=== PATIENT | female | born 1965 | race Caucasian/White ===

== ENCOUNTER 2023-12-19 19:32 | Emergency (ER) | payer BC, SELFPAY ==
[2023-12-19 19:37] VITALS: BP 130/72; PULSE 76; TEMP 36.4; O2SAT 99; BMI 44.8
--- NOTE | 2023-12-19 19:54 | ED.GENADUL1 ---
HPI HPI - General Adult General Chief complaint: Abdominal Pain Stated complaint: Nausea Time Seen by Provider: 12/19/23 19:45 Source: patient Mode of arrival: walk-in Limitations: no limitations History of Present Illness HPI narrative: 58-year-old female presents for abdominal pain. It started today and it has been there all day. She states this mostly on the right side and she has a known history of gallstones but they have never given her any problem. She has been nauseous and threw up but has not had diarrhea or fever. No hematemesis. The pains been continuous. Related Data Home Medications ?Medication ?Instructions ?Recorded ?Confirmed beclomethasone dipropionate 40 1 inh inhalation QDAY PRN wheezing 12/19/23 12/19/23 mcg/actuation HFA breath activated aerosol (Qvar RediHaler) furosemide 20 mg tablet 20 mg PO QDAY 12/19/23 12/19/23 insulin lispro 100 unit/mL 1 sliding scale dose continuous IV 12/19/23 12/19/23 subcutaneous solution (Humalog infusion .hourly PRN hyperglycemia U-100 Insulin) levothyroxine 88 mcg tablet 88 mcg PO QDAY 12/19/23 12/19/23 pantoprazole 40 mg tablet,delayed 40 mg PO QDAY 12/19/23 12/19/23 release tirzepatide 10 mg/0.5 mL 10 mg subcut .weekly 12/19/23 12/19/23 subcutaneous pen injector (Mounjaro) Allergies Allergy/AdvReac Type Severity Reaction Status Date / Time naproxen (From Aleve) Allergy ill Verified 12/19/23 19:45 morphine AdvReac Unknown Verified 12/19/23 19:45 Opioid HPI Opioid Management Most Recent Opioid Data: Last Pain Scale 3 12/19/23 21:20 12/19/23 Review of Systems ROS Narrative A ten point review of systems is negative except as noted above. PFSH PFSH Social History Little interest or pleasure in doing things: not at all Feeling down, depressed, or hopeless: not at all Exam Narrative Exam Narrative: Nurses note and vital signs reviewed and patient is not hypoxic. General: The patient appears uncomfortable. Skin: Warm, dry, no pallor noted. There is no rash noted. Head: Normocephalic, atraumatic Eye: Normal conjunctiva, no drainage Ears, Nose, Mouth, and Throat: oral mucosa is moist. Nares patent. Cardiovascular: Regular Rate and Rhythm Respiratory: Patient is in no distress, no accessory muscle use, lungs are clear to auscultation, no wheezing, rales or rhonchi Back: non-tender GI: She has tenderness diffusely on the right side of her abdomen. No rebound or guarding. Musculoskeletal: The patient has no evidence of calf tenderness, no pitting edema, symmetrical pulses noted bilaterally Neurological: A&O, normal speech Psychiatric: Cooperative Constitutional Vital Signs, click to edit/add: Last Vital Signs Temp 97.5 F L 12/19/23 19:37 Pulse 74 12/19/23 21:20 Resp 18 12/19/23 21:20 BP 102/59 12/19/23 21:20 Pulse Ox 97 12/19/23 21:20 O2 Del Method Room Air 12/19/23 21:20 Course Vital Signs Vital signs: Vital Signs Temperature 97.5 F L 12/19/23 19:37 Pulse Rate 76 12/19/23 19:37 Respiratory Rate 16 12/19/23 19:37 Blood Pressure 130/72 12/19/23 19:37 Pulse Oximetry 99 12/19/23 19:37 Temperature 97.5 F L 12/19/23 19:37 Pulse Rate 74 12/19/23 21:20 Respiratory Rate 18 12/19/23 21:20 Blood Pressure 102/59 12/19/23 21:20 Pulse Oximetry 97 12/19/23 21:20 Oxygen Delivery Method Room Air 12/19/23 21:20 Medical Decision Making MDM Narrative Medical decision making narrative: CT per radiologist suggest acute cholecystitis. She does not have a fever and does not have an elevated WBC but her lipase is minimally elevated. No CT findings of pancreatitis. I spoke to our general surgeon who defers to a larger institution. The patient initially requested [facility] but they are unable to accommodate her. I have spoken to the hospitalist service at [facility] and she is excepted there. She is stable and agreeable for transfer and was given IV Zosyn here. Treatment diagnosis and disposition were discussed with the patient. Differential Diagnosis Differential Diagnosis: Acute cholecystitis, biliary colic, cholelithiasis, nonspecific abd pain Lab Data Lab results reviewed: Yes I reviewed the patient's lab results Labs: Lab Results 12/19/23 Range/Units 20:05 WBC 5.0 (4.0-11.0) 10^3/uL RBC 4.55 (4.20-5.40) 10^6/uL Hgb 13.3 (12.0-16.0) g/dL Hct 40.7 (36.0-48.0) % MCV 89.5 (81.0-99.0) fL MCH 29.2 (26.7-34.0) pg MCHC 32.7 (29.9-35.2) g/dL RDW 15.6 H (11.0-15.0) % Plt Count 87 L (150-450) 10^3/uL MPV 11.2 (9.5-13.5) fL Neut % (Auto) 70.0 (43.0-75.0) % Lymph % (Auto) 17.5 L (20.5-60.0) % Marshall % (Auto) 10.1 (1.7-12.0) % Eos % (Auto) 0.8 L (0.9-7.0) % Baso % (Auto) 1.4 (0.2-2.0) % Neut # (Auto) 3.5 (1.4-6.5) 10^3/uL Lymph # (Auto) 0.9 L (1.2-3.8) 10^3/uL Marshall # (Auto) 0.5 (0.3-0.8) 10^3/uL Eos # (Auto) 0.0 (0.0-0.7) 10^3/uL Baso # (Auto) 0.1 (0.0-0.1) 10^3/uL Abs Immat Gran (auto) 0.01 (0.00-0.03) 10^3/uL Imm/Tot Granulo (auto) 0.2 (0.0-0.5) % Sodium 143 (136-145) mmol/L Potassium 3.9 (3.5-5.1) mmol/L Chloride 108 H (98-107) mmol/L Carbon Dioxide 24.6 (21.0-32.0) mmol/L Anion Gap 14.3 BUN 6.0 L (7.0-18.0) mg/dL Creatinine 0.79 (0.55-1.02) mg/dL Est GFR ( Amer) >60 (>=60 mL/min/1.73m^2) Est GFR (Non-Af Amer) >60 (>=60 mL/min/1.73m^2) BUN/Creatinine Ratio 7.6 Glucose 257 H (74-106) mg/dL Calcium 9.8 (8.5-10.1) mg/dL Total Bilirubin 1.0 (0.2-1.0) mg/dL Direct Bilirubin 0.3 H (0.0-0.2) mg/dL AST 52 H (15-37) U/L ALT 39 (14-59) U/L Alkaline Phosphatase 138 H (46-116) U/L Total Protein 6.9 (6.4-8.2) g/dL Albumin 3.1 L (3.4-5.0) g/dL Globulin 3.8 g/dL Albumin/Globulin Ratio 0.8 Amylase 98 (25-115) U/L Lipase 272.0 H (16.0-77.0) U/L Imaging Data CT scan - abdomen: Radiologist's impression: ITS Impressions Abdomen/Pelvis CT 12/19/23 20:40 IMPRESSION: Multiple gallstones are seen within a distended gallbladder. Mild gallbladder wall thickening/pericholecystic fluid may be seen. Right upper quadrant ultrasound may be considered for further evaluation. Findings of liver cirrhosis with portal hypertension. Significant dilated recanalized umbilical vein is seen. 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 Large volume of stool seen throughout the colon. Mild circumferential wall thickening of the urinary bladder cannot be excluded. Please correlate clinically for mild infectious/inflammatory process. Electronically authenticated by: CATIA PARRY Date: 12/19/2023 23:04 Discharge Plan Discharge Chief Complaint: Abdominal Pain Clinical Impression: Acute cholecystitis Patient Disposition: [facility] Time of Disposition Decision: 00:44 Discharge Location: [facility] Condition: Fair Mode of Transportation: EMS Prescriptions / Home Meds: No Action levothyroxine 88 mcg tablet 88 mcg PO QDAY furosemide 20 mg tablet 20 mg PO QDAY insulin lispro [Humalog U-100 Insulin] 100 unit/mL solution 1 sliding scale dose continuous IV infusion .hourly PRN (Reason: hyperglycemia) Qvar RediHaler 40 mcg/actuation HFA aerosol breath activated 1 inh INHALATION QDAY PRN (Reason: wheezing) Mounjaro 10 mg/0.5 mL pen injector 10 mg SUBCUT .weekly pantoprazole 40 mg tablet,delayed release (DR/EC) 40 mg PO QDAY Print Language: Portuguese Instructions: Cholecystitis (ED) Referrals: Physician,Non-Staff, MD [Primary Care Provider] - 1 week
[2023-12-19] MEDS: ONDANSETRON PF 4 MG/2 ML VIAL IV (20:12)
[2023-12-19] MEDS: HYDROMORPHONE HCL 1 MG/ML CARTRIDGE IV (20:12)
[2023-12-19 20:23] LABS: Basophils Absolute Auto 0.1 10^3/uL (0.0-0.1); Basophils Percent Auto 1.4 % (0.2-2.0); Eosinophils Percent Auto 0.8 % (0.9-7.0); Hematocrit 40.7 % (36.0-48.0); Hemoglobin 13.3 g/dL (12.0-16.0); Immature Granulocytes Abs Auto 0.01 10^3/uL (0.00-0.03); Immature Granulocytes Pct Auto 0.2 % (0.0-0.5); Lymphocytes Absolute Auto 0.9 10^3/uL (1.2-3.8); Lymphocytes Percent Auto 17.5 % (20.5-60.0); Mean Corpuscular HGB Conc 32.7 g/dL (29.9-35.2); Mean Corpuscular Hemoglobin 29.2 pg (26.7-34.0); Mean Corpuscular Volume 89.5 fL (81.0-99.0); Mean Platelet Volume 11.2 fL (9.5-13.5); Monocytes Absolute Auto 0.5 10^3/uL (0.3-0.8); Monocytes Percent Auto 10.1 % (1.7-12.0); Neutrophils Absolute Auto 3.5 10^3/uL (1.4-6.5); Platelet Count 87 10^3/uL (150-450); Red Blood Count 4.55 10^6/uL (4.20-5.40); Red Cell Distribution Width 15.6 % (11.0-15.0)
[2023-12-19 20:36] LABS: Alanine Aminotransferase 39 U/L (14-59); Albumin Globulin Ratio 0.8; Albumin Level 3.1 g/dL (3.4-5.0); Alkaline Phosphatase 138 U/L (46-116); Amylase 98 U/L (25-115); Anion Gap 14.3; Aspartate Amino Transferase 52 U/L (15-37); BUN Creatinine Ratio 7.6; Bilirubin Direct 0.3 mg/dL (0.0-0.2); Calcium 9.8 mg/dL (8.5-10.1); Carbon Dioxide 24.6 mmol/L (21.0-32.0); Chloride 108 mmol/L (98-107); Estimated GFR (African America >60 (>=60 mL/min/1.73m^2); Estimated GFR (Non-African Ame >60 (>=60 mL/min/1.73m^2); Globulin 3.8 g/dL; Glucose 257 mg/dL (74-106); Potassium 3.9 mmol/L (3.5-5.1); Sodium 143 mmol/L (136-145); Total Protein 6.9 g/dL (6.4-8.2)
--- NOTE | 2023-12-19 20:40 | CT_ITS ---
The [address] [address] Patient Name: FABIANO WILSON MRN: [id number] date: 1965 Sex: F Assigned Patient Location: ER Current Patient Location: ER Accession/Order Number: [id number] Exam Date: 12/19/2023 21:20 Report Date: 12/19/2023 23:04 At the request of: CARLOS BROWN Procedure: CT abdomen pelvis w con EXAM: CT abdomen pelvis w con HISTORY: Upper abdominal pain, history of gallstones COMPARISON: None. TECHNIQUE: Multiple axial images of the abdomen and pelvis are obtained following IV contrast administration. Coronal and sagittal reformatted sequences are submitted for review. FINDINGS: The lung bases are clear. Heart size is normal. Multiple paraesophageal varices are seen. Distended gallbladder is seen with multiple layering gallstones. Mild gallbladder wall thickening/pericholecystic fluid may be seen. A right upper quadrant ultrasound may be considered for further evaluation. No significant intrahepatic or extrahepatic biliary dilatation is seen. Micronodular liver surface is seen. No obvious liver mass is identified. Significant distended recanalized umbilical vein is seen. Prominent spleen is seen, which measures 15.5 cm in length. Multiple perisplenic varices are visualized. The pancreas and bilateral adrenal glands appear unremarkable. Bilateral kidneys demonstrate normal size, morphology and contrast enhancement. There is no evidence for hydronephrosis bilaterally. Mild circumferential wall thickening of the urinary bladder cannot be excluded. Please correlate clinically for mild infectious/inflammatory process. Nonobstructive bowel pattern is seen. The appendix is not identified. Large volume of stool is seen in the colon. No significant bowel wall thickening is seen. No significant free fluid or abnormal fluid collection is seen in the abdomen and pelvis. Mild aortic and iliac arterial calcification is seen without aneurysmal dilatation. No destructive osseous lesion is seen. CT/CT abdomen pelvis w con IMPRESSION: Multiple gallstones are seen within a distended gallbladder. Mild gallbladder wall thickening/pericholecystic fluid may be seen. Right upper quadrant ultrasound may be considered for further evaluation. Findings of liver cirrhosis with portal hypertension. Significant dilated recanalized umbilical vein is seen. 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 Large volume of stool seen throughout the colon. Mild circumferential wall thickening of the urinary bladder cannot be excluded. Please correlate clinically for mild infectious/inflammatory process. Electronically authenticated by: CATIA PARRY Date: 12/19/2023 23:04
[2023-12-19 21:20] VITALS: BP 102/59; PULSE 74; O2SAT 97
[2023-12-20] MEDS: PIPERACILLIN SODIUM/TAZOBACTAM 3.375 GM in 0.9 % SODIUM CHLORIDE 50 ML IV (00:04)
[2023-12-20 01:37] VITALS: BP 106/65; PULSE 89; O2SAT 98
[2023-12-20] MEDS: HYDROMORPHONE HCL 1 MG/ML CARTRIDGE IV (01:58)
== END 2023-12-20 02:51 | disposition short-term general hospital (02) ==
PROVIDERS: Emergency Provider Emergency Medicine
DX: K81.0 Acute cholecystitis (principal)
CPT/HCPCS: 36415; 74177; 80048; 80076; 82150; 83690; 85025; 99285; J1171; J2405; J2543; Q9967

== ENCOUNTER 2023-12-26 00:53 | Emergency (ER) | payer BC, SELFPAY ==
[2023-12-26 00:58] VITALS: BP 117/69; PULSE 76; TEMP 36.8; O2SAT 98; BMI 44.6
--- OUTSIDE RECORDS SUMMARY | 2023-12-26 01:01 | XMS_ITS | CCD ---
Author Organization [facility] CliniSyil Care Team Providers Care Access Database Developer Name Role Phone Ce Simons Primary Care Provider Unavailable Primary Care Provider Unavailabl e Mallory PA-C, Daniel E Primary Care Provider Mallory PA-C, Daniel E Primary Care Provider MALLORY, DANIEL E Primary Care Unavailable BALKSCARLETT Referring Unavailable BALK, SCARLETT Attending Unavailable MALLORY, DANIEL E Primary Care Unavailable BALK, SCARLETT Referring Unavailable BALK, SCARLETT Attending Unavailable MALLORY, DANIEL E Primary Care Unavailable BALK, SCARLETT Attending Unavailable BALK, SCARLETT Referring Unavailable MALLORY, DANIEL E Primary Care Unavailable BALK, SCARLETT Attending Unavailable BALK, SCARLETT Referring Unavailable MALLORY, DANIEL E Primary Care Unavailable KHALLAFI, ASIFHAM Referring Unavailable KHALLAFI, HICHAM Attending Unavailable MALLORY, DANIEL E Primary Care Unavailable KHALLAFI, HICHAM Attending Unavailable KHALLAFI, HICHAM Admitting Unavailable MALLORY, DANIEL E Primary Care Unavailable BALK, SCARLETT Referring Unavailable BALK, SCARLETT Attending Unavailable MALLORY, DANIEL E Primary Care Unavailable BALK, SCARLETT Attending Unavailable BALK, SCARLETT Referring Unavailable MALLORY, DANIEL E Primary Care Unavailable BALK, SCARLETT Referring Unavailable BALK, SCARLETT Attending Unavailable MALLORY, DANIEL E Primary Care Unavailable BALK, SCARLETT Referring Unavailable MALLORY, DANIEL E Primary Care Unavailable BALK, SCARLETT Attending Unavailable BALK, SCARLETT Referring Unavailable MALLORY, DANIEL E Primary Care Unavailable BALK, SCARLETT Attending Unavailable BALK, SCARLETT Referring Unavailable MALLORY, DANIEL E Primary Care Unavailable BALK, SCARLETT Attending Unavailable BALK, SCARLETT Referring Unavailable MALLORY, DANIEL E Primary Care Unavailable BALK, SCARLETT Referring Unavailable BALK, SCARLETT Attending Unavailable MALLORY, DANIEL E Primary Care Unavailable BALK, SCARLETT Referring Unavailable BALK, SCARLETT Attending Unavailable MALLORY, DANIEL E Primary Care Unavailable BALK, SCARLETT Attending Unavailable BALK, SCARLETT Referring Unavailable BALK, SCARLETT Attending Unavailable MALLORY, DANIEL E Primary Care Unavailable BALK, SCARLETT Referring Unavailable MALLORY, DANIEL E Primary Care Unavailable BALK, SCARLETT Attending Unavailable BALK, SCARLETT Referring Unavailable MALLORY, DANIEL E Primary Care Unavailable BALK, SCARLETT Referring Unavailable BALK, SCARLETT Attending Unavailable MALLORY, DANIEL E Primary Care Unavailable BALK, SCARLETT Attending Unavailable BALK, SCARLETT Referring Unavailable MALLORY, DANIEL E Primary Care Unavailable CE HERRERA Referring Unavailable MALLORY, DANIEL E Primary Care Unavailable BALK, SCARLETT Attending Unavailable BALK, SCARLETT Referring Unavailable MALLORY, DANIEL E Primary Care Unavailable ADENIKE STEVE Referring Unavailable BALK, SCARLETT Attending Unavailable MALLORY, DANIEL E Primary Care Unavailable BALK, SCARLETT Referring Unavailable MALLORY, DANIEL E Primary Care Unavailable JNK, SCARLETT Referring Unavailable BALK, SCARLETT Attending Unavailable MALLORY, DANIEL E Primary Care Unavailable ADENIKE STEVE Attending Unavailable SARAHAFASIF RamirezHAM Admitting Unavailable MALLORY, DANIEL E Primary Care Unavailable BALK, SCARLETT Attending Unavailable JNK, SCARLETT Referring Unavailable BALK, SCARLETT Attending Unavailable MALLORY, DANIEL E Primary Care Unavailable JNKSCARLETT Referring Unavailable PATRICE MALLORY Attending Unavailable MALLORY, DANIEL E Primary Care Unavailable PATRICE MALLORY Referring Unavailable MALLORY, DANIEL E Primary Care Unavailable NATHAN COHEN Attending Unavailable PATRICE MALLORY Referring Unavailable MALLORY, DANIEL E Primary Care Unavailable PATRICE MALLORY Attending Unavailable MALLORY, DANIEL E Primary Care Unavailable MARI SOMERS Attending Unavailable MEKA, JENNIFER Referring Unavailable CHRISSY MOSER Attending Unavailable PAUL LAZO Attending Unavailable GUTHRIESCARLETT Referring Unavailable MEKAJENNIFER Attending Unavailable SCARLETT GUTHRIE Referring Unavailable RADHA GRIFFITH Attending Unavailable MALLORY, DANIEL E Primary Care Unavailable DUSTIN PACHECO Consulting Unavailable PATRICE LUX Admitting Unavailable PATRICE LUX Attending Unavailable CARLOS BROWN Referring Unavailable MYA MORRISON Consulting Unavailable Allergies Allergy Classification Reported Allergen(s) Allergy Type Date of Onset Reaction(s) Facility NSAIDs (1 source) Naproxen Drug Allergy 2 GI Upset [facility] (11 sources) Naproxen; Translations: [NAPROXEN SODIUM] Drug Allergy 2 GI Upset, Unknown [facility] Other [facility] (10 sources) Morphine; Translations: [MORPHINE] Drug Allergy 3 Other: See Comments, Unknown [facility] (6 sources) Non-steroidal anti-inflammato ry agent Propensity to adverse reactions to drug 3 Nausea Only [facility] (2 sources) Silicone adhesive tape Propensity to adverse reactions to drug 3 Rash [facility] (3 sources) Adhesive agent; Translations: [ADHESIVE] Drug Intolerance 3 Rash [facility] (1 source) NSAIDs; Translations: [NSAIDS (NON-STEROIDAL ANTI-INFLAMMATO RY DRUG)] Propensity to adverse reactions to drug (disorder) 3 [facility] Repository Medications Current Medications Medication Drug Class(es) Dates Sig (Normalized) Sig (Original) albuterol 0.83 mg/ml inhalation solution (10 sources) beta2-Adrenergic Agonist Start: 07-23-2022 albuterol 2.5 mg /3 mL (0.083 %) nebulizer solution Start: 07-23-2022 take 2.5 mg by inhal ation every eight hours as needed albuterol (PROVENTIL) 2.5 mg /3 mL (0.083 %) nebulizer solution Use 3 mL via nebulizer three times daily as needed for wheezing/shortness of breath. Inhale over 5-15 minutes 50 mL 1 07/23/2022 Active Start: 07-20-2022 take 2 puff(s) by in halation every four hours as needed for wheezing albuterol HFA (PROVENTIL HFA, VENTOLIN HFA) 90 mcg/actuation inhaler Inhale 2 Puffs as instructed every 4 hours as needed for wheezing/shortness of breath. 1 Each 0 07/20/2022 Active Comment on above: Inhale 2 Puffs as in structed every 4 hours as needed for wheezing/shortness of breath. Use 3 mL via nebuliz er three times daily as needed for wheezing/shortness of breath. Inhale over 5-15 minutes amoxicillin 500 mg oral capsule (7 sources) Penicillin-class Antibacterial Start: 2022 take 4 capsules by mouth every hour amoxicillin (Amoxil) 500 mg capsule TAKE 4 CAPSULES BY MOUTH ONE HOUR PRIOR TO DENTAL APPOINTMENT. 0 10/30/2022 Active breath-actuated 120 actuat beclomethasone dipropionate 0.04 mg/actuat metered dose inhaler (7 sources) Corticosteroid Start: 2022 beclomethasone HFA (Qvar) 40 mcg/actuation inhaler Inhale 2 Inhalations 2 times a day. 0 08/14/2022 Active Start: 08-14-2022 take 2 puff(s) by in halation twice daily beclomethasone (QVAR REDIHALER) 40 MCG/ACT AERB inhaler Indications: Mild persistent reactive airway disease with acute exacerbation Inhale 2 puffs into the lungs 2 times daily 0 08/14/2022 Active Start: 08-14-2022 take 2 puff(s) by in halation twice daily beclomethasone (QVAR REDIHALER) 40 mcg/actuation inhaler Inhale 2 Puffs as instructed twice daily. 3 Each 3 08/14/2022 Active Comment on above: Inhale 2 Puffs as in structed twice daily. benzonatate 200 mg oral capsule (7 sources) Non-narcotic Antitussive Start: take 1 capsule by mouth twice daily as needed for cough benzonatate (TESSALON) 200 MG capsule Indications: Mild persistent reactive airway disease with acute exacerbation , Subacute cough Take 1 capsule by mouth 2 times daily as needed for Cough 180 capsule 4 09/18/2022 Active Start: 07-23-2022 End: 07-23-2022 take 1 capsule by mouth every eight hours as needed benzonatate (TESSALON PERLES) 100 mg capsule Take 1 capsule by mouth three times daily as needed for cough. 30 capsule 0 07/23/2022 Active Comment on above: Take 1 capsule by [facility] three times daily as needed for cough. Take 100 mg by mouth three times daily as needed. betamethasone 0.0005 mg/mg topical ointment (4 sources) Corticosteroid Start: 09-19-19 23 betamethasone dipropionate 0.05 % ointment Apply topically 2 times daily. 60 g 2 09/18/2022 Active blood glucose monitor kit and supplies (4 sources) Start: 09-18-19 blood glucose monitor kit and supplies Indications: Type 2 diabetes mellitus with hyperglycemia, with long-term current use of insulin (HCC) Dispense one meter that insurance will cover. 1 kit 0 09/17/2022 Active Continuous Blood Gluc Sensor (DEXCOM G7 SENSOR) MISC (4 sources) Start: 09-18-19 Continuous Blood Gluc Sensor (DEXCOM G7 SENSOR) MISC 1 Device by Does not apply route every 10 days 12 each 10 09/17/2022 Active dulaglutide (Trulicity) 3 mg/0.5 mL pen injector (2 sources) Start: 12-10-19 dulaglutide (Trulicity) 3 mg/0.5 mL pen injector Inject Trulicity 1.5 mg once weekly for 4 weeks, increase to 3.0 mg injected once weekly in 1 month if no nausea or vomiting 0 12/09/2022 Active famotidine 20 mg oral tablet (5 sources) Histamine-2 Receptor Antagonist Start: 11-25-19 take 1 tablet by mouth once famotidine (Pepcid) 20 mg tablet Take 1 tablet (20 mg) by mouth 1 time. 0 11/24/2022 Active take 1 tablet by mouth once famo tidine (PEPCID) 20 MG tablet Take 1 tablet by mouth once 0 Active ferrous sulfate 325 mg oral tablet (6 sources) Start: 09-18-2022 ferrous sulfat e 325 (65 Fe) MG tablet Take 1 tablet (325 mg) by mouth. 0 09/18/2022 Active Start: 09-18-2022 take 1 tablet by leonard th once daily at breakfast ferrous sulfate ([employer] IRON) 325 (65 Fe) MG tablet Take 1 tablet by mouth daily (with breakfast) 90 tablet 3 09/18/2022 Active fluconazole 150 mg oral tablet (2 sources) Azole Antifungal take 1 tablet by mouth once fluconazole (Diflucan) 150 mg tablet TAKE 1 TABLET BY MOUTH 1 TIME FOR 1 DOSE. 0 Active fluticasone propionate 0.05 mg/actuat metered dose nasal spray (10 sources) Corticosteroid Start: 09-18-2022 fluticasone (FLONASE) 50 MCG/ACT nasal spray fluticasone propionate 50 mcg/actuation nasal spray,suspension 3 each 4 09/18/2022 Active Start: 07-23-2022 take 2 spray(s) nasa l route once daily fluticasone (FLONASE) 50 mcg/actuation nasal spray Use 2 Sprays in each nostril once daily. 48 g 3 07/23/2022 Active Start: 07-23-2022 take 1 puff(s) by in halation once daily fluticasone furoate (ARNUITY ELLIPTA) 100 mcg/actuation inhaler Inhale 1 Puff as instructed once daily. 30 Each 11 07/23/2022 Active End: 07-23-2022 take 1 spray(s) nasal route once daily fluticasone (FLONASE) 50 mcg/actuation nasal spray Use 1 [place] in each nostril once daily. 0 07/23/2022 Discontinued End: 07-23-2022 take 1 puff(s) by inhalation twice daily FLUTICASONE PROPIONATE (FLOVENT DISKUS INHALATION) Inhale as instructed. Use one puff twice daily. 0 07/23/2022 Discontinued (Course of therapy completed) Comment on above: Use 1 [place] in each nostril once daily. Inhale 1 Puff as ins tructed once daily. Use 2 Sprays in each nostril once daily. Inhale as instructed . Use one puff twice daily. glimepiride 1 mg oral tablet (5 sources) Sulfonylurea take 1 tablet by mouth twice daily glimepiride (Amaryl) 1 mg tablet Take 1 tablet (1 mg) by mouth 2 times a day. 0 Active End: 07-23-2022 take 1 tablet by mouth once daily at breakfast glimepiride 2 mg tablet Take 2 mg by mouth daily with breakfast. 0 07/23/2022 Discontinued (Course of therapy completed) Comment on above: Take 1 mg by mouth t wice daily with meals. Take 2 mg by mouth d aily with breakfast. Handicap Placard MISC (4 sources) Start: 08-22-2022 Handicap Placard MISC Indications: Chronic pain of both knees by Does not apply route Good for 5 years, 08/24/2027. 2 each 0 08/22/2022 Active ibuprofen 800 mg oral tablet (9 sources) Nonsteroidal Anti-inflammatory Drug Start: 09-19-2022 ibuprofen 800 mg tablet TAKE 1 TABLET THREE TIMES A DAY WITH FOOD NEEDED FOR JOINT PAIN 0 09/19/2022 Active Start: 09-19-2022 take 1 tablet by leonard th every six hours as needed for pain ibuprofen (ADVIL;MOTRIN) 800 MG tablet Indications: Chronic pain of both knees Take 1 tablet by mouth every 6 hours as needed for Pain 120 tablet 3 09/19/2022 Active End: 07-15-2012 take 1 tablet by mouth every six hours as needed ibuprofen (MOTRIN) 800 mg tablet Take 800 mg by mouth every 6 hours as needed. 0 Active Comment on above: Take 800 mg by mouth every 6 hours as needed. 3 ml insulin glargine 100 unt/ml / lixisenatide 0.033 mg/ml pen injector (10 sources) Insulin Analog Start: 10-28-2022 SOLIQUA 100-33 UNT-MCG/ML SOPN Indications: Type 2 diabetes mellitus with hyperglycemia, without long-term current use of insulin (HCC) Inject 45 units nightly, Increase by 2 units every 1-2 weeks to achieve a glucose of 150-200 10 Adjustable Dose Pre-filled Pen Syringe 3 10/28/2022 Active Start: 10-27-2022 Insulin Glargi ne-Lixisenatide (SOLIQUA) 100-33 UNT-MCG/ML SOPN Lot [id number] exp 12/06/22 gave 2 pens 2 Adjustable Dose Pre-filled Pen Syringe 0 10/27/2022 Active insulin glargine -lixisenatide (SOLIQUA 100/33) 100 unit-33 mcg/mL inpn Inject 15 Units subcutaneously once daily. Do not mix with other insulins. 0 Active Comment on above: Inject 15 Units subc utaneously once daily. Do not mix with other insulins. 3 ml insulin lispro 100 unt/ml pen injector (3 sources) Insulin Analog Start: 10-30-2022 insulin lispro, 1 Unit Dial, (HUMALOG KWIKPEN) 100 UNIT/ML SOPN Inject 20 Units into the skin 3 times daily (before meals) 60 mL 3 10/30/2022 Active levothyroxine sodium 0.088 mg oral tablet (4 sources) l-Thyroxine Start: 11-03-2022 levothyroxine (SYNTHROID) 88 MCG tablet Indications: Hypothyroidism, unspecified type Take 1 tablet daily 90 tablet 3 11/03/2022 Active Start: 10-28-2022 take 1 tablet by mouth once le vothyroxine (SYNTHROID) 88 MCG tablet Indications: Hypothyroidism, unspecified type Take 1 tablet by mouth once for 1 dose 90 tablet 3 10/28/2022 Active magnesium oxide 400 mg oral tablet (6 sources) Start: 07-20-2022 take 1 tablet by mouth once daily magnesium oxide (MAG-OX) 400 MG tablet Indications: Hypomagnesemia Take 1 tablet by mouth daily 0 07/20/2022 Active Comment on above: Take 1 tablet by leonard once daily. meclizine hydrochloride 25 mg oral tablet (4 sources) Antiemetic Start: 08-22-2022 meclizine (ANTIVERT) 25 MG tablet Indications: Benign paroxysmal positional vertigo, unspecified laterality Take 1 tablet by mouth as needed for Dizziness 90 tablet 3 08/22/2022 Active 24 hr metFORMIN hydrochloride 500 mg extended release oral tablet (3 sources) Biguanide Start: 11-13-2022 take 2 tablets by mouth twice daily before mealtime metFORMIN (GLUCOPHAGE-XR) 500 MG extended release tablet Take 2 tablets by mouth 2 times daily (before meals) 360 tablet 3 11/13/2022 Active Start: 10-30-2022 take 2 tablets by mo [facility] once daily at breakfast metFORMIN (GLUCOPHAGE-XR) 500 MG extended release tablet Take 2 tablets by mouth daily (with breakfast) 180 tablet 3 10/30/2022 Active microencapsulated potassium chloride 20 meq extended release oral tablet (1 source) Start: 07-20-2022 End: 07-25-2022 take 1 tablet by mouth once daily potassium chloride ER (KLOR-CON) 20 mEq tablet Take 1 tablet by mouth once daily for 5 days. 5 tablet 0 07/20/2022 07/25/2022 Active Comment on above: Take 1 tablet by leonard once daily for 5 days. predniSONE 20 mg oral tablet (2 sources) Start: 07-20-2022 End: 07-24-2022 take 2 tablets by mouth once daily predniSONE (DELTASONE) 20 mg tablet Take 2 tablets by mouth once daily for 4 days. 8 tablet 0 07/20/2022 07/24/2022 Active End: 07-23-2022 predniSONE 5 mg tablet Take 5 mg by mouth. Take one every other day. 0 07/23/2022 Discontinued (Course of therapy completed) Comment on above: Take 2 tablets by mo [facility] once daily for 4 days. Take 5 mg by mouth. Take one every other day. sulfamethoxazole 800 mg / trimethoprim 160 mg oral tablet (1 source) Dihydrofolate Reductase Inhibitor Antibacterial, Sulfonamide Antimicrobial Start: 3 End: 3 take 1 tablet by mouth twice daily sulfamethoxazo le-trimethopri m (BACTRIM DS) 800-160 mg per tablet Take 1 tablet by mouth twice daily for 5 days. 10 tablet 0 07/20/2022 07/25/2022 Active Comment on above: Take 1 tablet by [facility] twice daily for 5 days. Completed/Discontinued Medications Medication Drug Class(es) Dates Sig (Normalized) Sig (Original) acetaminophen 325 mg / HYDROcodone bitartrate 5 mg oral tablet (1 source) Opioid Agonist Start: 09-20-2012 End: 07-23-2022 take 1 tablet by mouth every twenty-four hours as needed HYDROcodone-acetam inophen 5-325 mg per tablet Take 1 tablet by mouth at bedtime as needed. 30 tablet 1 09/20/2012 07/23/2022 Discontinued (Course of therapy completed) Comment on above: Take 1 tablet by [facility] at bedtime as needed. lansoprazole 30 mg delayed release oral capsule (2 sources) Proton Pump Inhibitor End: 07-23-2022 take 1 capsule by mouth once daily lansoprazole (PREVACID) 30 mg capsule Take 30 mg by mouth once daily. 0 07/23/2022 Discontinued (Course of therapy completed) Comment on above: Take 30 mg by mouth once daily. 200 actuat levalbuterol 0.045 mg/actuat metered dose inhaler (2 sources) beta2-Adrenergic Agonist End: 07-23-2022 take 1-2 puff(s) by inhalation every four hours as needed levalbuterol tartrate HFA 45 mcg/actuation inhaler Inhale 1-2 Puffs as instructed every 4 hours as needed. 0 07/23/2022 Discontinued (Course of therapy completed) Comment on above: Inhale 1-2 Puffs as instructed every 4 hours as needed. meloxicam 15 mg oral tablet (1 source) Nonsteroidal Anti-inflammatory Drug Start: 07-15-2012 End: 07-23-2022 take 1 tablet by mouth once daily at mealtime meloxicam (MOBIC) 15 mg tablet Take 1 tablet by mouth once daily. WITH FOOD 30 tablet 0 07/15/2012 07/23/2022 Discontinued (Course of therapy completed) Comment on above: Take 1 tablet by leonard th once daily. WITH FOOD 24 hr metFORMIN hydrochloride 1000 mg / SITagliptin 100 mg extended release oral tablet (2 sources) Biguanide, Dipeptidyl Peptidase 4 Inhibitor sitaGLIPtin-metFOR MIN (JANUMET XR) 100-1000 mg TM24 Take by mouth once daily. 0 Active Comment on above: Take by mouth once d aily. traMADol hydrochloride 50 mg oral tablet (1 source) Opioid Agonist Start: 07-15-2012 End: 07-23-2022 take 1 tablet by mouth every eight hours as needed traMADol (ULTRAM) 50 mg tablet Take 1 tablet by mouth every 8 hours as needed for Pain. 30 tablet 0 07/15/2012 07/23/2022 Discontinued (Course of therapy completed) Comment on above: Take 1 tablet by leonard th every 8 hours as needed for Pain. Problems Active Problems Problem Classification Problem Date Documented Date Episodic/Chronic Alcohol-related disorders (3 sources) Alcoholic cirrhosis of liver without ascites; Translations: [Alcoholic cirrhosis of liver] Onset: 11-24-2022 11-24-2022 Chronic Asthma (11 sources) Mild intermittent asthma; Translations: [Mild intermittent asthma with (acute) exacerbation] Onset: 07-23-2022 Chronic Biliary tract disease (7 sources) Cholelithiasis without obstruction; Translations: [Calculus of gallbladder without cholecystitis without obstruction] Onset: 08-27-2022 08-27-2022 Episodic Diabetes mellitus with complications (5 sources) Type 2 diabetes mellitus in obese; Translations: [Type 2 diabetes mellitus with other specified complication] Onset: 08-27-2022 10-16-2022 Chronic Esophageal disorders (7 sources) Esophageal varices without bleeding; Translations: [Secondary esophageal varices without bleeding] Onset: 11-05-2022 11-05-2022 Chronic Hepatitis (6 sources) Nonalcoholic steatohepatitis; Translations: [Nonalcoholic steatohepatitis (NICOLE)] Onset: 08-27-2022 08-27-2022 Chronic Osteoarthritis (7 sources) Osteoarthritis; Translations: [Unspecified osteoarthritis, unspecified site] Onset: 09-21-2012 09-21-2012 Chronic Osteoporosis (1 source) Age-related osteoporosis without current pathological fracture; Translations: [Age-related osteoporosis without current pathological fracture] Onset: 11-28-2022 Chronic Other connective tissue disease (8 sources) History of left total knee replacement; Translations: [Presence of left artificial knee joint] Onset: 03-18-2022 10-10-2022 Chronic Other connective tissue disease (2 sources) Presence of left artificial knee joint; Translations: [Presence of left artificial knee joint] Onset: 12-15-2022 Chronic Other liver diseases (7 sources) Cirrhosis of liver; Translations: [Unspecified cirrhosis of liver] Onset: 08-27-2022 09-22-2022 Chronic Other liver diseases (3 sources) Unspecified cirrhosis of liver; Translations: [Unspecified cirrhosis of liver] Onset: 09-22-2022 Chronic Other non-traumatic joint disorders (7 sources) Pain in left knee; Translations: [Pain in joint, lower leg] Onset: 11-13-2022 Episodic Other non-traumatic joint disorders (2 sources) Pain in left shoulder; Translations: [Pain in left shoulder] Onset: 12-15-2022 Episodic Other non-traumatic joint disorders (2 sources) Pain in unspecified joint; Translations: [Pain in unspecified joint] Onset: 12-15-2022 Episodic Other nutritional; endocrine; and metabolic disorders (6 sources) Hypomagnesemia; Translations: [Hypomagnesemia] Onset: 08-27-2022 08-27-2022 Chronic Other upper respiratory disease (3 sources) Chronic rhinitis; Translations: [Chronic rhinitis] Onset: 07-23-2022 Chronic Sprains and strains (3 sources) Shoulder strain; Translations: [Strain of unspecified muscle, fascia and tendon at shoulder and upper arm level, left arm, sequela] Onset: 02-16-2023 02-16-2023 Episodic Thyroid disorders (6 sources) Hypothyroidism; Translations: [Hypothyroidism, unspecified] Onset: 08-27-2022 08-27-2022 Chronic Past or Other Problems Problem Classification Problem Date Documented Da te Episodic/Chronic Conditions associated with dizziness or vertigo (4 sources) Benign paroxysmal positional vertigo; Translations: [Benign paroxysmal vertigo, unspecified ear] Onset: 08-27-2022 08-27-2022 Episodic Deficiency and other anemia (6 sources) Iron deficiency anemia; Translations: [Iron deficiency anemia, unspecified] Onset: 09-21-2022 09-21-2022 Episodic Diabetes mellitus without complication (4 sources) Hyperglycemia; Translations: [Hyperglycemia, unspecified] Onset: 07-23-2022 Episodic Fluid and electrolyte disorders (6 sources) Hypokalemia; Translations: [Hypokalemia] Onset: 08-27-2022 08-27-2022 Episodic Joint disorders and dislocations; trauma-related (3 sources) Tear of medial meniscus of knee; Translations: [Other tear of medial meniscus, current injury, unspecified knee, initial encounter] Onset: 12-30-2011 12-30-2011 Episodic Other aftercare (3 sources) Surgical follow-up; Translations: [Encounter for follow-up examination after completed treatment for conditions other than malignant neoplasm] Onset: 02-24-2012 02-24-2012 Episodic Other connective tissue disease (2 sources) Bursitis of left shoulder; Translations: [Bursitis of left shoulder] Onset: 03-14-2021 12-15-2022 Episodic Other lower respiratory disease (4 sources) Cough; Translations: [Subacute cough] Onset: 08-27-2022 08-27-2022 Episodic Other non-traumatic joint disorders (6 sources) Pain in right knee; Translations: [Pain in joint, lower leg] Onset: 08-27-2022 08-27-2022 Episodic Other non-traumatic joint disorders (6 sources) Stiffness of left knee; Translations: [Stiffness of left knee, not elsewhere classified] Onset: 09-21-2022 09-21-2022 Episodic Other non-traumatic joint disorders (3 sources) Pain of left shoulder joint; Translations: [Pain in left shoulder] Onset: 03-14-2021 02-16-2023 Episodic Other screening for suspected conditions (not mental disorders or infectious disease) (5 sources) Full blood count abnormal; Translations: [Other specified abnormal findings of blood chemistry] Onset: 08-27-2022 08-27-2022 Episodic Results Test Name Value Interpretation Reference Range Facility CBC with Diffon 12-23-2023 Abs. Basophil 0.00 k/uL Normal 0.00-0.20 [facility] Comment on above: Performed By: #### C P, CDP, MG #### [address] [address] [employer] Knife Cutter: Damon Jara MD Abs.Imm.Granulocyte 0.00 k/uL Normal 0.00-0.30 [facility] Comment on above: Performed By: #### C P, CDP, MG #### [address] [address] Hot Knife Cutter: Damon Jara MD Abs.Neutrophil (Seg) 8.23 k/uL High 1.50-8.10 [facility] Comment on above: Performed By: #### C P, CDP, MG #### [address] [address] Hot Knife Cutter: Damon Jara MD Basophils/100 WBC (Bld) 0 % Normal 0-2 [facility] Comment on above: Performed By: #### C P, CDP, MG #### [place] [address] [employer] Kn[employer] Cutter: Damon Jara MD Eosinophils (Bld) [#/Vol] 0.00 10*3/uL Normal 0.00-0.44 [facility] Comment on above: Performed By: #### C P, CDP, MG #### [address] [address] Hot Knife Cutter: Damon Jara MD Eosinophils/100 WBC (Bld) 0 % Low 1-4 [facility] Comment on above: Performed By: #### C P, CDP, MG #### [address] [address] Hot Knife Cutter: Damon Jara MD Immature granulocytes/100 WBC (Bld) 0 % Normal 0 [facility] Comment on above: Performed By: #### C P, CDP, MG #### [address] [address] Hot Knife Cutter: Damon Jara MD Lymphocytes (Bld) [#/Vol] 0.69 10*3/uL Low 1.10-3.70 [facility] Comment on above: Performed By: #### C P, CDP, MG #### [address] [address] Hot Knife Cutter: Damon Jara MD Lymphocytes/100 WBC (Bld) 7 % Low 24-43 [facility] Comment on above: Performed By: #### C P, CDP, MG #### [address] [address] Hot Knife Cutter: Damon Jara MD Monocytes (Bld) [#/Vol] 0.88 10*3/uL Normal 0.10-1.20 [facility] Comment on above: Performed By: #### C P, CDP, MG #### [address] [address] Hot Knife Cutter: Damon Jara MD Monocytes/100 WBC (Bld) 9 % Normal 3-12 [facility] Comment on above: Performed By: #### C P, CDP, MG #### [address] [address] Hot Knife Cutter: Damon Jara MD Morphology Nabor (Bld) [Interp] ANISOCYTOSIS PRESENT Normal [facility] Comment on above: Performed By: #### C P, CDP, MG #### [address] [address] Hot Knife Cutter: Damon Jara MD Neutrophil (Seg) 84 % High 36-65 [facility] Comment on above: Performed By: #### C P, CDP, MG #### [address] [address] Hot Knife Cutter: Damon Jara MD Erythrocyte distribution width (RBC) [Ratio] 14.8 % High 11.8-14.4 [facility] Comment on above: Performed By: #### C P, CDP, MG #### [address] [address] Hot Knife Cutter: Damon Jara MD Hematocrit (Bld) [Volume fraction] 38.8 % Normal 36.3-47.1 [facility] Comment on above: Performed By: #### C P, CDP, MG #### [place] [address] Hot Knife Cutter: Damon Jara MD Hemoglobin (Bld) [Mass/Vol] 12.4 g/dL Normal 11.9-15.1 [facility] Comment on above: Performed By: #### C P, CDP, MG #### [place] [address] [employer] Knife Cutter: Damon Jara MD MCH (RBC) [Entitic mass] 29.5 pg Normal 25.2-33.5 [facility] Comment on above: Performed By: #### C P, CDP, MG #### [place] [address] [employer] Knife Cutter: Damon Jara MD MCHC (RBC) [Mass/Vol] 32.0 g/dL Normal 28.4-34.8 [facility] Comment on above: Performed By: #### C P, CDP, MG #### [place] [address] [employer] Knife Cutter: Damon Jara MD MCV (RBC) [Entitic vol] 92.4 fL Normal 82.6-102.9 [facility] Comment on above: Performed By: #### C P, CDP, MG #### [facility] [employer] [address] [place] [address] Hot Knife Cutter: Damon Jara MD NRBC Automated 0.0 per 100 WBC Normal 0.0 [facility] Comment on above: Performed By: #### C P, CDP, MG #### [facility] [employer] [facility] [place] [address] Hot Knife Cutter: Damon Jara MD Platelet mean volume (Bld) [Entitic vol] 12.2 fL Normal 8.1-13.5 [facility] Comment on above: Performed By: #### C P, CDP, MG #### [facility] [employer] [address] [place] [phone] [employer] Knife Cutter: Damon Jara MD Platelets (Bld) [#/Vol] 76 10*3/uL Low 138-453 [facility] Comment on above: Performed By: #### C P, CDP, MG #### [facility] [employer] [address] [place] [phone] Hot Knife Cutter: Damon Jara MD RBC (Bld) [#/Vol] 4.20 10*6/uL Normal 3.95-5.11 [facility] Comment on above: Performed By: #### C P, CDP, MG #### [facility] [employer] [address] [place] [address] Hot Knife Cutter: Damon Jara MD WBC (Bld) [#/Vol] 9.8 10*3/uL Normal 3.5-11.3 [facility] Comment on above: Performed By: #### C P, CDP, MG #### [facility] [employer] [address] [place] [phone] Hot Knife Cutter: Damon Jara MD Comp Metabolic Profon 2023 Albumin [Mass/Vol] 3.4 g/dL Low 3.5-5.2 [facility] Comment on above: Performed By: #### C P, CDP, MG #### [facility] [employer] [address] [place] [phone] Hot Knife Cutter: Damon Jara MD Albumin/Glob Ratio 1.0 Normal 1.0-2.5 [facility] Comment on above: Performed By: #### C P, CDP, MG #### [facility] [address] [place] [address] Hot Knife Cutter: Damon Jara MD Alkaline Phos 101 U/L Normal 35-104 [facility] Comment on above: Performed By: #### C P, CDP, MG #### [facility] [address] [place] [address] Hot Knife Cutter: Damon Jara MD ALT [Catalytic activity/Vol] 27 U/L Normal 10-35 [facility] Comment on above: Performed By: #### C P, CDP, MG #### [facility] [address] [place] [address] Hot Kn[employer] Cutter: Damon Jara MD Anion gap [Moles/Vol] 9 mmol/L Normal 9-16 [facility] Comment on above: Performed By: #### C P, CDP, MG #### [facility] [address] [place] [phone] Hot Knife Cutter: Damon Jara MD AST [Catalytic activity/Vol] 58 U/L High 10-35 [facility] Comment on above: Performed By: #### C P, CDP, MG #### [facility] [employer] [address] [place] [address] Hot Knife Cutter: Damon Jara MD Bilirubin [Mass/Vol] 1.7 mg/dL High 0.00-1.20 [facility] Comment on above: Performed By: #### C P, CDP, MG #### [facility] [address] [place] [address] Hot Knife Cutter: Damon Jara MD Calcium [Mass/Vol] 9.6 mg/dL Normal 8.6-10.4 [facility] Comment on above: Performed By: #### C P, CDP, MG #### [facility] [address] [place] [address] [phone] Hot Kn[employer] Cutter: Damon Jara MD Chloride [Moles/Vol] 102 mmol/L Normal 98-107 [facility] Comment on above: Performed By: #### C P, CDP, MG #### [facility] [place] [address] Hot Knife Cutter: Damon Jara MD CO2 [Moles/Vol] 22 mmol/L Normal 20-31 [facility] Comment on above: Performed By: #### C P, CDP, MG #### [facility] [address] [place] [phone] Hot Knife Cutter: Damon Jara MD Creatinine [Mass/Vol] 0.8 mg/dL Normal 0.50-0.90 [facility] Comment on above: Performed By: #### C P, CDP, MG #### [address] [address] Hot Knife Cutter: Damon Jara MD GFR/1.73 sq M.predicted among non-blacks MDRD (S/P/Bld) [Vol rate/Area] 81 mL/min/{1.73_m2} Normal >60 [facility] Comment on above: Result Comment: These results are not intended for use in patients <18 years of age. eGFR results are calculated without a race factor using the 2020 CKD-EPI equation. Careful clinical correlation is recommended, particularly when comparing to results calculated using previous equations. The CKD-EPI equation is less accurate in patients with extremes of muscle mass, extra-renal metabolism of creatine, excessive creatine ingestion, or following therapy that affects renal tubular secretion. Performed By: #### C P, CDP, MG #### [facility] [address] [place] [phone] Hot Knife Cutter: Damon Jara MD Glucose [Mass/Vol] 262 mg/dL High 74-99 [facility] Comment on above: Performed By: #### C P, CDP, MG #### [facility] [address] [place] [phone] Hot Knife Cutter: Damon Jara MD Potassium [Moles/Vol] 4.6 mmol/L Normal 3.7-5.3 [facility] Comment on above: Performed By: #### C P, CDP, MG #### [facility] [address] [place] [address] [phone] Hot Knife Cutter: Damon Jara MD Protein [Mass/Vol] 6.1 g/dL Low 6.6-8.7 [facility] Comment on above: Performed By: #### C P, CDP, MG #### [facility] [address] [place] [address] [phone] Hot Knife Cutter: Damon Jara MD Sodium [Moles/Vol] 133 mmol/L Low 136-145 [facility] Comment on above: Performed By: #### C P, CDP, MG #### [employer] [address] [place] [address] [phone] Hot Knife Cutter: Damon Jara MD Urea nitrogen [Mass/Vol] 14 mg/dL Normal 6-20 [facility] Comment on above: Performed By: #### C P, CDP, MG #### [employer] [address] [place] [address] [phone] Hot Knife Cutter: Damon Jara MD Glucose,Whole Bloodon 2023 Glucose [Mass/Vol] 263 mg/dL High 65-105 [facility] Glucose [Mass/Vol] 247 mg/dL High 65-105 [facility] Glucose [Mass/Vol] 135 mg/dL High 65-105 [facility] Magnesiumon 12-23-2023 Magnesium [Mass/Vol] 1.9 mg/dL Normal 1.6-2.6 [facility] Comment on above: Performed By: #### C P, CDP, MG #### [facility] [address] [place] [address] [phone] Hot Knife Cutter: Damon Jara MD CBC with Diffon 12-22-2023 Abs. Basophil 0.04 k/uL Normal 0.00-0.20 [facility] Comment on above: Performed By: #### C P, CDP, MG #### [address] [address] Hot Knife Cutter: Damon Jara MD Abs.Imm.Granulocyte <0.03 Normal 0.00-0.30 [facility] Comment on above: Performed By: #### C P, CDP, MG #### [facility] [employer] [address] [place] [phone] Hot Knife Cutter: Damon Jara MD Abs.Neutrophil (Seg) 2.25 k/uL Normal 1.50-8.10 [facility] Comment on above: Performed By: #### C P, CDP, MG #### [address] [address] Hot Knife Cutter: Damon Jara MD Basophils/100 WBC (Bld) 1 % Normal 0-2 [facility] Comment on above: Performed By: #### C P, CDP, MG #### [address] [address] Hot Knife Cutter: Damon Jara MD Eosinophils (Bld) [#/Vol] 0.14 10*3/uL Normal 0.00-0.44 [facility] Comment on above: Performed By: #### C P, CDP, MG #### [facility] [employer] [address] [place] [address] Hot Knife Cutter: Damon Jara MD Eosinophils/100 WBC (Bld) 3 % Normal 1-4 [facility] Comment on above: Performed By: #### C P, CDP, MG #### [facility] [employer] [address] [place] [phone] Hot Knife Cutter: Damon Jara MD Erythrocyte distribution width (RBC) [Ratio] 15.3 % High 11.8-14.4 [facility] Comment on above: Performed By: #### C P, CDP, MG #### [place] [address] Hot Knife Cutter: Damon Jara MD Hematocrit (Bld) [Volume fraction] 35.3 % Low 36.3-47.1 [facility] Comment on above: Performed By: #### C P, CDP, MG #### [place] [address] Hot Knife Cutter: Damon Jara MD Hemoglobin (Bld) [Mass/Vol] 11.4 g/dL Low 11.9-15.1 [facility] Comment on above: Performed By: #### C P, CDP, MG #### [place] [address] Hot Knife Cutter: Damon Jara MD Immature granulocytes/100 WBC (Bld) 0 % Normal 0 [facility] Comment on above: Performed By: #### C P, CDP, MG #### [place] [address] Hot Knife Cutter: Damon Jara MD Lymphocytes (Bld) [#/Vol] 1.50 10*3/uL Normal 1.10-3.70 [facility] Comment on above: Performed By: #### C P, CDP, MG #### [place] [address] Hot Knife Cutter: Damon Jara MD Lymphocytes/100 WBC (Bld) 32 % Normal 24-43 [facility] Comment on above: Performed By: #### C P, CDP, MG #### [place] [address] Hot Knife Cutter: Damon Jara MD MCH (RBC) [Entitic mass] 29.7 pg Normal 25.2-33.5 [facility] Comment on above: Performed By: #### C P, CDP, MG #### [address] [address] Hot Knife Cutter: Damon Jara MD MCHC (RBC) [Mass/Vol] 32.3 g/dL Normal 28.4-34.8 [facility] Comment on above: Performed By: #### C P, CDP, MG #### [address] [address] Hot Knife Cutter: Damon Jara MD MCV (RBC) [Entitic vol] 91.9 fL Normal 82.6-102.9 [facility] Comment on above: Performed By: #### C P, CDP, MG #### [address] [address] Hot Knife Cutter: Damon Jara MD Monocytes (Bld) [#/Vol] 0.81 10*3/uL Normal 0.10-1.20 [facility] Comment on above: Performed By: #### C P, CDP, MG #### [address] [address] Hot Knife Cutter: Damon Jara MD Monocytes/100 WBC (Bld) 17 % High 3-12 [facility] Comment on above: Performed By: #### C P, CDP, MG #### [address] [address] Hot Knife Cutter: Damon Jara MD Neutrophil (Seg) 47 % Normal 36-65 [facility] Comment on above: Performed By: #### C P, CDP, MG #### [address] [address] Hot Knife Cutter: Damon Jara MD NRBC Automated 0.0 per 100 WBC Normal 0.0 [facility] Comment on above: Performed By: #### C P, CDP, MG #### [address] [address] Hot Knife Cutter: Damon Jara MD Platelet mean volume (Bld) [Entitic vol] 11.9 fL Normal 8.1-13.5 [facility] Comment on above: Performed By: #### C P, CDP, MG #### [address] [address] Hot Knife Cutter: Damon Jara MD Platelets (Bld) [#/Vol] 75 10*3/uL Low 138-453 [facility] Comment on above: Performed By: #### C P, CDP, MG #### [address] [address] Hot Knife Cutter: Damon Jara MD RBC (Bld) [#/Vol] 3.84 10*6/uL Low 3.95-5.11 [facility] Comment on above: Performed By: #### C P, CDP, MG #### [place] [address] Hot Knife Cutter: Damon Jara MD RBC morphology finding Nom (Bld) ANISOCYTOSIS PRESENT Normal [facility] Comment on above: Performed By: #### C P, CDP, MG #### [address] [address] Hot Knife Cutter: Damon Jara MD WBC (Bld) [#/Vol] 4.8 10*3/uL Normal 3.5-11.3 [facility] Comment on above: Performed By: #### C P, CDP, MG #### [address] [address] Hot Knife Cutter: Damon Jara MD Comp Metabolic Pr/rfx MGon 1 - Albumin [Mass/Vol] 3.3 g/dL Low 3.5-5.2 [facility] Comment on above: Performed By: #### C P, CDP, MG #### [address] [address] Hot Knife Cutter: Damon Jara MD Albumin/Glob Ratio 1.0 Normal 1.0-2.5 [facility] Comment on above: Performed By: #### C P, CDP, MG #### [address] [address] Hot Knife Cutter: Damon Jara MD Alkaline Phos 107 U/L High 35-104 [facility] Comment on above: Performed By: #### C P, CDP, MG #### [address] [address] Hot Knife Cutter: Damon Jara MD ALT [Catalytic activity/Vol] 22 U/L Normal 10-35 [facility] Comment on above: Performed By: #### C P, CDP, MG #### [address] [address] Hot Knife Cutter: Damon Jara MD Anion gap [Moles/Vol] 6 mmol/L Low 9-16 [facility] Comment on above: Performed By: #### C P, CDP, MG #### [address] [address] Hot Knife Cutter: Damon Jara MD AST [Catalytic activity/Vol] 37 U/L High 10-35 [facility] Comment on above: Performed By: #### C P, CDP, MG #### [address] [address] Hot Knife Cutter: Damon Jara MD Bilirubin [Mass/Vol] 1.2 mg/dL Normal 0.00-1.20 [facility] Comment on above: Performed By: #### C P, CDP, MG #### [facility] [employer] [address] [place] [phone] Hot Knife Cutter: Damon Jara MD Calcium [Mass/Vol] 8.9 mg/dL Normal 8.6-10.4 [facility] Comment on above: Performed By: #### C P, CDP, MG #### [address] [address] Hot Knife Cutter: Damon Jara MD Chloride [Moles/Vol] 106 mmol/L Normal 98-107 [facility] Comment on above: Performed By: #### C P, CDP, MG #### [facility] [address] [place] [phone] Hot Knife Cutter: Damon Jara MD CO2 [Moles/Vol] 24 mmol/L Normal 20-31 [facility] Comment on above: Performed By: #### C P, CDP, MG #### [address] [address] Hot Knife Cutter: Damon Jara MD Creatinine [Mass/Vol] 0.6 mg/dL Normal 0.50-0.90 [facility] Comment on above: Performed By: #### C P, CDP, MG #### [address] [address] Hot Knife Cutter: Damon Jara MD GFR/1.73 sq M.predicted among non-blacks MDRD (S/P/Bld) [Vol rate/Area] mL/min/{1.73_m2} Normal >60 [facility] Comment on above: Result Comment: These results are not intended for use in patients <18 years of age. eGFR results are calculated without a race factor using the 2020 CKD-EPI equation. Careful clinical correlation is recommended, particularly when comparing to results calculated using previous equations. The CKD-EPI equation is less accurate in patients with extremes of muscle mass, extra-renal metabolism of creatine, excessive creatine ingestion, or following therapy that affects renal tubular secretion. Performed By: #### C P, CDP, MG #### [address] [address] [employer] Knife Cutter: Damon Jara MD Glucose [Mass/Vol] 146 mg/dL High 74-99 [facility] Comment on above: Performed By: #### C P, CDP, MG #### [facility] [employer] [address] [place] [address] Hot Knife Cutter: Damon Jara MD Potassium [Moles/Vol] 3.9 mmol/L Normal 3.7-5.3 [facility] Comment on above: Performed By: #### C P, CDP, MG #### [facility] [employer] [address] [place] [phone] Hot Knife Cutter: Damon Jara MD Protein [Mass/Vol] 5.9 g/dL Low 6.6-8.7 [facility] Comment on above: Performed By: #### C P, CDP, MG #### [facility] [employer] [address] [place] [phone] Hot Knife Cutter: Damon Jara MD Sodium [Moles/Vol] 136 mmol/L Normal 136-145 [facility] Comment on above: Performed By: #### C P, CDP, MG #### [facility] [employer] [address] [place] [phone] [employer] Kn[employer] Cutter: Damon Jara MD Urea nitrogen [Mass/Vol] 8 mg/dL Normal 6-20 [facility] Comment on above: Performed By: #### C P, CDP, MG #### [facility] [employer] [address] [place] [phone] [employer] Kn[employer] Cutter: Damon Jara MD Glucose,Whole Bloodon 2023 Glucose [Mass/Vol] 165 mg/dL High 65-105 [facility] Glucose [Mass/Vol] 114 mg/dL High 65-105 [facility] Glucose [Mass/Vol] 131 mg/dL High 65-105 [facility] Glucose [Mass/Vol] 179 mg/dL High 65-105 [facility] PTon 12-22-2023 INR Coag (PPP) [Relative time] 1.4 {INR} Normal [facility] Comment on above: Result Comment: Therapeutic Range: Moderate Anticoagulant Intensity: INR = 2.0-3.0 High Anticoagulant Intensity: INR = 2.5-3.5 Performed By: #### C P, CDP, MG #### [facility] [address] [place] [phone] Hot Knife Cutter: Damon Jara MD PT Coag (PPP) [Time] 17.0 s High 11.7-14.9 [facility] Comment on above: Performed By: #### C P, CDP, MG #### [facility] [employer] [address] [place] [address] [employer] Kn[employer]utter: Damon Jara MD CBC with Diffon 12-21-2023 Platelet, Fluoresc. 94 k/uL Low 138-453 [facility] Comment on above: Performed By: #### C P, CDP, MG #### [facility] [employer] [address] [place] [address] [employer] Kn[employer] Cutter: Damon Jara MD PLT, Immature Fract. 3.4 % Normal 1.1-10.3 [facility] Comment on above: Performed By: #### C P, CDP, MG #### [facility] [employer] [address] [place] [address] [employer]: Damon Jara MD Abs. Basophil 0.06 k/uL Normal 0.00-0.20 [facility] Comment on above: Performed By: #### C P, CDP, MG #### [employer] [address] [place] [phone] [employer] Kn[employer] Cutter: Damon Jara MD Abs.Imm.Granulocyte <0.03 Normal 0.00-0.30 [facility] Comment on above: Performed By: #### C P, CDP, MG #### [facility] [employer] [address] [place] [phone] [employer]: Damon Jara MD Abs.Neutrophil (Seg) 4.31 k/uL Normal 1.50-8.10 [facility] Comment on above: Performed By: #### C P, CDP, MG #### [address] [address] [employer]: Damon Jara MD Basophils/100 WBC (Bld) 1 % Normal 0-2 [facility] Comment on above: Performed By: #### C P, CDP, MG #### [address] [address] [employer]: Damon Jara MD Eosinophils (Bld) [#/Vol] 0.09 10*3/uL Normal 0.00-0.44 [facility] Comment on above: Performed By: #### C P, CDP, MG #### [address] [address] [employer]: Damon Jara MD Eosinophils/100 WBC (Bld) 1 % Normal 1-4 [facility] Comment on above: Performed By: #### C P, CDP, MG #### [address] [address] [employer]: Damon Jara MD Erythrocyte distribution width (RBC) [Ratio] 15.8 % High 11.8-14.4 [facility] Comment on above: Performed By: #### C P, CDP, MG #### [address] [address] [employer]: Damon Jara MD Hematocrit (Bld) [Volume fraction] 38.6 % Normal 36.3-47.1 [facility] Comment on above: Performed By: #### C P, CDP, MG #### [facility] [employer] [address] [place] [phone] [employer]: Damon Jara MD Hemoglobin (Bld) [Mass/Vol] 12.5 g/dL Normal 11.9-15.1 [facility] Comment on above: Performed By: #### C P, CDP, MG #### [place] [address] [employer]: Damon Jara MD Immature granulocytes/100 WBC (Bld) 0 % Normal 0 [facility] Comment on above: Performed By: #### C P, CDP, MG #### [place] [address] [employer]: Damon Jara MD Lymphocytes (Bld) [#/Vol] 1.55 10*3/uL Normal 1.10-3.70 [facility] Comment on above: Performed By: #### C P, CDP, MG #### [place] [address] [employer]: Damon Jara MD Lymphocytes/100 WBC (Bld) 22 % Low 24-43 [facility] Comment on above: Performed By: #### C P, CDP, MG #### [place] [address] Hot Knife Cutter: Damon Jara MD MCH (RBC) [Entitic mass] 29.5 pg Normal 25.2-33.5 [facility] Comment on above: Performed By: #### C P, CDP, MG #### [place] [address] Hot Knife Cutter: Damon Jara MD MCHC (RBC) [Mass/Vol] 32.4 g/dL Normal 28.4-34.8 [facility] Comment on above: Performed By: #### C P, CDP, MG #### [place] [address] Hot Knife Cutter: Damon Jara MD MCV (RBC) [Entitic vol] 91.0 fL Normal 82.6-102.9 [facility] Comment on above: Performed By: #### C P, CDP, MG #### [address] [address] Hot Knife Cutter: Damon Jara MD Monocytes (Bld) [#/Vol] 1.18 10*3/uL Normal 0.10-1.20 [facility] Comment on above: Performed By: #### C P, CDP, MG #### [address] [address] Hot Knife Cutter: Damon Jara MD Monocytes/100 WBC (Bld) 16 % High 3-12 [facility] Comment on above: Performed By: #### C P, CDP, MG #### [address] [address] Hot Knife Cutter: Damon Jara MD Neutrophil (Seg) 60 % Normal 36-65 [facility] Comment on above: Performed By: #### C P, CDP, MG #### [address] [address] Hot Knife Cutter: Damon Jara MD NRBC Automated 0.0 per 100 WBC Normal 0.0 [facility] Comment on above: Performed By: #### C P, CDP, MG #### [address] [address] Hot Knife Cutter: Damon Jara MD Platelet Count See Reflexed IPF Result Normal 138-453 [facility] Comment on above: Performed By: #### C P, CDP, MG #### [address] [address] Hot Knife Cutter: Damon Jara MD RBC (Bld) [#/Vol] 4.24 10*6/uL Normal 3.95-5.11 [facility] Comment on above: Performed By: #### C P, CDP, MG #### [address] [address] Hot Knife Cutter: Damon Jara MD RBC morphology finding Nom (Bld) ANISOCYTOSIS PRESENT Normal [facility] Comment on above: Performed By: #### C P, CDP, MG #### [facility] [address] [place] [address] Hot Knife Cutter: Damon Jara MD WBC (Bld) [#/Vol] 7.2 10*3/uL Normal 3.5-11.3 [facility] Comment on above: Performed By: #### C P, CDP, MG #### [facility] [employer] [address] [place] [address] Hot Knife Cutter: Damon Jara MD Comp Metabolic Pr/rfx MGon 1 - Albumin [Mass/Vol] 3.6 g/dL Normal 3.5-5.2 [facility] Comment on above: Performed By: #### C P, CDP, MG #### [facility] [employer] [address] [place] [address] Hot Knife Cutter: Damon Jara MD Albumin/Glob Ratio 1.0 Normal 1.0-2.5 [facility] Comment on above: Performed By: #### C P, CDP, MG #### [facility] [employer] [address] [place] [address] Hot Knife Cutter: Damon Jara MD Alkaline Phos 112 U/L High 35-104 [facility] Comment on above: Performed By: #### C P, CDP, MG #### [facility] [employer] [address] [place] [address] Hot Knife Cutter: Damon Jara MD ALT [Catalytic activity/Vol] 25 U/L Normal 10-35 [facility] Comment on above: Performed By: #### C P, CDP, MG #### [facility] [employer] [address] [place] [phone] Hot Knife Cutter: Damon Jara MD Anion gap [Moles/Vol] 9 mmol/L Normal 9-16 [facility] Comment on above: Performed By: #### C P, CDP, MG #### [facility] [employer] [address] [place] [address] Hot Knife Cutter: Damon Jara MD AST [Catalytic activity/Vol] 42 U/L High 10-35 [facility] Comment on above: Performed By: #### C P, CDP, MG #### [address] [address] Hot Knife Cutter: Damon Jara MD Bilirubin [Mass/Vol] 2.0 mg/dL High 0.00-1.20 [facility] Comment on above: Performed By: #### C P, CDP, MG #### [address] [address] Hot Knife Cutter: Damon Jara MD Calcium [Mass/Vol] 9.5 mg/dL Normal 8.6-10.4 [facility] Comment on above: Performed By: #### C P, CDP, MG #### [address] [address] Hot Knife Cutter: Damon Jara MD Chloride [Moles/Vol] 103 mmol/L Normal 98-107 [facility] Comment on above: Performed By: #### C P, CDP, MG #### [address] [address] Hot Knife Cutter: Damon Jara MD CO2 [Moles/Vol] 22 mmol/L Normal 20-31 [facility] Comment on above: Performed By: #### C P, CDP, MG #### [facility] [employer] [address] [place] [address] Hot Knife Cutter: Damon Jara MD Creatinine [Mass/Vol] 0.7 mg/dL Normal 0.50-0.90 [facility] Comment on above: Performed By: #### C P, CDP, MG #### [address] [address] Hot Knife Cutter: Damon Jara MD GFR/1.73 sq M.predicted among non-blacks MDRD (S/P/Bld) [Vol rate/Area] mL/min/{1.73_m2} Normal >60 [facility] Comment on above: Result Comment: These results are not intended for use in patients <18 years of age. eGFR results are calculated without a race factor using the 2020 CKD-EPI equation. Careful clinical correlation is recommended, particularly when comparing to results calculated using previous equations. The CKD-EPI equation is less accurate in patients with extremes of muscle mass, extra-renal metabolism of creatine, excessive creatine ingestion, or following therapy that affects renal tubular secretion. Performed By: #### C P, CDP, MG #### [address] [address] Hot Knife Cutter: Damon Jara MD Glucose [Mass/Vol] 162 mg/dL High 74-99 [facility] Comment on above: Performed By: #### C P, CDP, MG #### [facility] [employer] [address] [place] [phone] Hot Knife Cutter: Damon Jara MD Potassium [Moles/Vol] 4.2 mmol/L Normal 3.7-5.3 [facility] Comment on above: Performed By: #### C P, CDP, MG #### [facility] [employer] [address] [place] [address] Hot Knife Cutter: Damon Jara MD Protein [Mass/Vol] 6.3 g/dL Low 6.6-8.7 [facility] Comment on above: Performed By: #### C P, CDP, MG #### [facility] [address] [place] [address] Hot Knife Cutter: Damon Jara MD Sodium [Moles/Vol] 134 mmol/L Low 136-145 [facility] Comment on above: Performed By: #### C P, CDP, MG #### [facility] [place] [address] Hot Knife Cutter: Damon Jara MD Urea nitrogen [Mass/Vol] 7 mg/dL Normal 6-20 [facility] Comment on above: Performed By: #### C P, CDP, MG #### [facility] [address] [place] [address] Hot Knife Cutter: Damon Jara MD Glucose,Whole Bloodon 2023 Glucose [Mass/Vol] 181 mg/dL High 65-105 [facility] Glucose [Mass/Vol] 192 mg/dL High 65-105 [facility] Glucose [Mass/Vol] 124 mg/dL High 65-105 [facility] Glucose [Mass/Vol] 146 mg/dL High 65-105 [facility] Hemoglobin A1Con 12-21-2023 Glucose [Mass/Vol] 128 mg/dL Normal [facility] Comment on above: Result Comment: The ADA and AACC recommend providing the estimated average glucose result to permit better patient understanding of their HBA1c result. Performed By: #### C P, CDP, MG #### [address] [address] Hot Knife Cutter: Damon Jara MD HbA1c (Bld) [Mass fraction] 6.1 % High 4.0-6.0 [facility] Comment on above: Performed By: #### C P, CDP, MG #### [facility] [employer] [address] [place] [address] Hot Knife Cutter: Damon Jara MD Lipaseon 12-21-2023 Lipase [Catalytic activity/Vol] 87 U/L High 13-60 [facility] Comment on above: Performed By: #### C P, CDP, MG #### [facility] [address] [place] [address] Hot Knife Cutter: Damon Jara MD MRI ABDOMEN W WO CONTRAST MR CPon 12-21-2023 MRI ABDOMEN W WO CONTRAST MRCP EXAMINATION: MRI OF THE ABDOMEN WITH AND WITHOUT CONTRAST AND MRCP 12/21/2023 11:55 am TECHNIQUE: Multiplanar multisequence MRI of the abdomen was performed with and without the administration of intravenous contrast. After initial T2 axial and coronal images, thick slab, thin slab and 3D coronal MRCP sequences were obtained without the administration of intravenous contrast. MIP images are provided for review. COMPARISON: CT ABDOMEN PELVIS 12/19/2023 HISTORY: ORDERING SYSTEM PROVIDED HISTORY: Elevated total bilirubin TECHNOLOGIST PROVIDED HISTORY: Elevated total bilirubin What is the sedation requirement?->None Reason for Exam: Elevated total bilirubin FINDINGS: Liver shows no steatosis or focal lesion. Mild splenomegaly. Pancreas, kidneys, adrenal glands enhance normally without significant abnormality. Gallbladder: Distended gallbladder with wall thickening and wall edema. Multiple tiny gallstones. Findings highly suggestive of acute cholecystitis. Bile Ducts: No intra or extrahepatic biliary ductal dilatation. No choledocholithiasis. Pancreatic Duct: Not dilated. No pancreas divisum. Other: Enlarged recanalized umbilical vein with numerous venous collaterals in the abdomen extending to enlarged cluster of veins at the level of the umbilicus. No acute bony abnormality.. There are periesophageal and gastrohepatic varices. No evidence for portal vein or splenic vein thrombosis. Visualized bowel show no obstruction. IMPRESSION: 1. Distended gallbladder with wall edema and some thickening along with cholelithiasis. Suspect acute cholecystitis. 2. No choledocholithiasis or biliary ductal dilatation. 3. Stigmata of portal hypertension with splenomegaly, portal vein distension and enlarged recanalized umbilical vein extending to the umbilicus where there is a tangle of enlarged veins. Interpreted by: Patrice Hood MD Signed by: Patrice Hood MD 12/21/23 Final result Normal [facility] Magnesiumon 12-21-2023 Magnesium [Mass/Vol] 1.7 mg/dL Normal 1.6-2.6 [facility] Comment on above: Performed By: #### C P, CDP, MG #### [employer] [address] [place] [address] Hot Knife Cutter: Damon Jara MD Phosphorus, Inorg.on 10-14-2 024 Phosphorus, Inorg. 2.5 mg/dL Normal 2.5-4.5 [facility] Comment on above: Performed By: #### C P, CDP, MG #### [address] [address] Hot Knife Cutter: Damon Jara MD Type + Screenon 12-21-2023 Type + Screen Sample Expiration 12/24/2023,2359 Arm Band Number [id number] ABO/Rh(D) O POSITIVE Antibody Screen NEGATIVE Unit Number [id number] Blood Component Type Leukocyte Reduced Red Cell Unit Division 00 Status of Unit REL FROM ALLOC Transfusion Status OK TO TRANSFUSE Crossmatch Result COMPATIBLE Unit Number [id number] Blood Component Type Leukocyte Reduced Red Cell Unit Division 00 Status of Unit REL FROM ALLOC Transfusion Status OK TO TRANSFUSE Crossmatch Result COMPATIBLE Normal [facility] Comment on above: Performed By: #### T YS #### [address] [address] Hot Knife Cutter: Damon Jara MD CBC with Diffon 12-20-2023 Platelet, Fluoresc. 98 k/uL Low 138-453 [facility] Comment on above: Performed By: #### C MPX, CDP #### [place] [address] Hot Knife Cutter: Damon Jara MD PLT, Immature Fract. 5.5 % Normal 1.1-10.3 [facility] Comment on above: Performed By: #### C MPX, CDP #### [facility] [employer] [address] [place] [address] Hot Knife Cutter: Damon Jara MD Abs. Basophil 0.08 k/uL Normal 0.00-0.20 [facility] Comment on above: Performed By: #### C MPX, CDP #### [facility] [employer] [address] [place] [address] Hot Knife Cutter: Damon Jara MD Abs.Imm.Granulocyte 0.03 k/uL Normal 0.00-0.30 [facility] Comment on above: Performed By: #### C MPX, CDP #### [address] [address] Hot Knife Cutter: Damon Jara MD Abs.Neutrophil (Seg) 5.90 k/uL Normal 1.50-8.10 [facility] Comment on above: Performed By: #### C MPX, CDP #### [place] [address] Hot Knife Cutter: Damon Jara MD Basophils/100 WBC (Bld) 1 % Normal 0-2 [facility] Comment on above: Performed By: #### C MPX, CDP #### [place] [address] Hot Knife Cutter: Damon Jara MD Eosinophils (Bld) [#/Vol] 0.10 10*3/uL Normal 0.00-0.44 [facility] Comment on above: Performed By: #### C MPX, CDP #### [address] [address] Hot Knife Cutter: Damon Jara MD Eosinophils/100 WBC (Bld) 1 % Normal 1-4 [facility] Comment on above: Performed By: #### C MPX, CDP #### [place] [address] Hot Knife Cutter: Damon Jara MD Erythrocyte distribution width (RBC) [Ratio] 15.9 % High 11.8-14.4 [facility] Comment on above: Performed By: #### C MPX, CDP #### [facility] [employer] [address] [place] [address] Hot Knife Cutter: Damon Jara MD Hematocrit (Bld) [Volume fraction] 40.1 % Normal 36.3-47.1 [facility] Comment on above: Performed By: #### C MPX, CDP #### [address] [address] Hot Knife Cutter: Damon Jara MD Hemoglobin (Bld) [Mass/Vol] 13.1 g/dL Normal 11.9-15.1 [facility] Comment on above: Performed By: #### C MPX, CDP #### [address] [address] Hot Knife Cutter: Damon Jara MD Immature granulocytes/100 WBC (Bld) 0 % Normal 0 [facility] Comment on above: Performed By: #### C MPX, CDP #### [address] [address] Hot Knife Cutter: Damon Jara MD Lymphocytes (Bld) [#/Vol] 1.65 10*3/uL Normal 1.10-3.70 [facility] Comment on above: Performed By: #### C MPX, CDP #### [address] [address] Hot Knife Cutter: Damon Jara MD Lymphocytes/100 WBC (Bld) 19 % Low 24-43 [facility] Comment on above: Performed By: #### C MPX, CDP #### [address] [address] Hot Knife Cutter: Damon Jara MD MCH (RBC) [Entitic mass] 29.6 pg Normal 25.2-33.5 [facility] Comment on above: Performed By: #### C MPX, CDP #### [address] [address] Hot Knife Cutter: Damon Jara MD MCHC (RBC) [Mass/Vol] 32.7 g/dL Normal 28.4-34.8 [facility] Comment on above: Performed By: #### C MPX, CDP #### [facility] [address] [place] [address] Hot Knife Cutter: Damon Jara MD MCV (RBC) [Entitic vol] 90.5 fL Normal 82.6-102.9 [facility] Comment on above: Performed By: #### C MPX, CDP #### [address] [address] Hot Knife Cutter: Damon Jara MD Monocytes (Bld) [#/Vol] 1.17 10*3/uL Normal 0.10-1.20 [facility] Comment on above: Performed By: #### C MPX, CDP #### [address] [address] Hot Knife Cutter: Damon Jara MD Monocytes/100 WBC (Bld) 13 % High 3-12 [facility] Comment on above: Performed By: #### C MPX, CDP #### [address] [address] Hot Knife Cutter: Damon Jara MD Neutrophil (Seg) 66 % High 36-65 [facility] Comment on above: Performed By: #### C MPX, CDP #### [address] [address] Hot Knife Cutter: Damon Jara MD NRBC Automated 0.0 per 100 WBC Normal 0.0 [facility] Comment on above: Performed By: #### C MPX, CDP #### [address] [address] Hot Knife Cutter: Damon Jara MD Platelet Count See Reflexed IPF Result Normal 138-453 [facility] Comment on above: Performed By: #### C MPX, CDP #### [address] [address] Hot Knife Cutter: Damon Jara MD RBC (Bld) [#/Vol] 4.43 10*6/uL Normal 3.95-5.11 [facility] Comment on above: Performed By: #### C MPX, CDP #### [facility] [employer] [address] [place] [address] Hot Knife Cutter: Damon Jara MD WBC (Bld) [#/Vol] 8.9 10*3/uL Normal 3.5-11.3 [facility] Comment on above: Performed By: #### C MPX, CDP #### [facility] [employer] [address] [place] [address] Hot Knife Cutter: Damon Jara MD Comp Metabolic Pr/rfx MGon 1 0- Albumin [Mass/Vol] 3.7 g/dL Normal 3.5-5.2 [facility] Comment on above: Performed By: #### C MPX, CDP #### [address] [address] Hot Knife Cutter: Damon Jara MD Albumin/Glob Ratio 1.0 Normal 1.0-2.5 [facility] Comment on above: Performed By: #### C MPX, CDP #### [address] [address] Hot Knife Cutter: Damon Jara MD Alkaline Phos 116 U/L High 35-104 [facility] Comment on above: Performed By: #### C MPX, CDP #### [facility] [employer] [address] [place] [address] Hot Knife Cutter: Damon Jara MD ALT [Catalytic activity/Vol] 32 U/L Normal 10-35 [facility] Comment on above: Performed By: #### C MPX, CDP #### [facility] [employer] [address] [place] [address] Hot Knife Cutter: Damon Jara MD Anion gap [Moles/Vol] 7 mmol/L Low 9-16 [facility] Comment on above: Performed By: #### C MPX, CDP #### [facility] [address] [place] [address] Hot Knife Cutter: Damon Jara MD AST [Catalytic activity/Vol] 51 U/L High 10-35 [facility] Comment on above: Performed By: #### C MPX, CDP #### [facility] [address] [place] [address] Hot Knife Cutter: Damon Jara MD Bilirubin [Mass/Vol] 1.4 mg/dL High 0.00-1.20 [facility] Comment on above: Performed By: #### C MPX, CDP #### [facility] [address] [place] [address] Hot Knife Cutter: Damon Jara MD Calcium [Mass/Vol] 9.6 mg/dL Normal 8.6-10.4 [facility] Comment on above: Performed By: #### C MPX, CDP #### [facility] [address] [place] [address] Hot Knife Cutter: Damon Jara MD Chloride [Moles/Vol] 110 mmol/L High 98-107 [facility] Comment on above: Performed By: #### C MPX, CDP #### [facility] [address] [place] [address] Hot Knife Cutter: Damon Jara MD CO2 [Moles/Vol] 23 mmol/L Normal 20-31 [facility] Comment on above: Performed By: #### C MPX, CDP #### [facility] [address] [place] [address] Hot Knife Cutter: Damon Jara MD Creatinine [Mass/Vol] 0.6 mg/dL Normal 0.50-0.90 [facility] Comment on above: Performed By: #### C MPX, CDP #### [facility] [address] [place] [address] Hot Knife Cutter: Damon Jara MD GFR/1.73 sq M.predicted among non-blacks MDRD (S/P/Bld) [Vol rate/Area] mL/min/{1.73_m2} Normal >60 [facility] Comment on above: Result Comment: These results are not intended for use in patients <18 years of age. eGFR results are calculated without a race factor using the 2020 CKD-EPI equation. Careful clinical correlation is recommended, particularly when comparing to results calculated using previous equations. The CKD-EPI equation is less accurate in patients with extremes of muscle mass, extra-renal metabolism of creatine, excessive creatine ingestion, or following therapy that affects renal tubular secretion. Performed By: #### C MPX, CDP #### [address] [address] Hot Knife Cutter: Damon Jara MD Glucose [Mass/Vol] 149 mg/dL High 74-99 [facility] Comment on above: Performed By: #### C MPX, CDP #### [facility] [employer] [address] [place] [address] Hot Knife Cutter: Damon Jara MD Potassium [Moles/Vol] 3.8 mmol/L Normal 3.7-5.3 [facility] Comment on above: Performed By: #### C MPX, CDP #### [facility] [employer] [address] [place] [address] Hot Knife Cutter: Damon Jara MD Protein [Mass/Vol] 6.4 g/dL Low 6.6-8.7 [facility] Comment on above: Performed By: #### C MPX, CDP #### [facility] [employer] [address] [place] [address] Hot Knife Cutter: Damon Jara MD Sodium [Moles/Vol] 140 mmol/L Normal 136-145 [facility] Comment on above: Performed By: #### C MPX, CDP #### [facility] [employer] [address] [place] [phone] Hot Knife Cutter: Damon Jara MD Urea nitrogen [Mass/Vol] 7 mg/dL Normal 6-20 [facility] Comment on above: Performed By: #### C MPX, CDP #### [employer] [address] [place], [place] [phone] Hot Knife Cutter: Damon Jara MD PTon 12-20-2023 INR Coag (PPP) [Relative time] 1.4 {INR} Normal [facility] Comment on above: Result Comment: Therapeutic Range: Moderate Anticoagulant Intensity: INR = 2.0-3.0 High Anticoagulant Intensity: INR = 2.5-3.5 Performed By: #### C P, CDP, MG #### [facility] [address] [place], [place] [phone] Hot Knife Cutter: Damon Jara MD PT Coag (PPP) [Time] 16.5 s High 11.7-14.9 [facility] Comment on above: Performed By: #### C P, CDP, MG #### [employer] [address] [place] [phone] Hot Knife Cutter: Damon Jara MD US GALLBLADDER RUQon 024 US GALLBLADDER RUQ EXAMINATION: RIGHT UPPER QUADRANT ULTRASOUND 12/20/2023 10:35 am COMPARISON: CT abdomen and pelvis with contrast December 19, 2023 HISTORY: ORDERING SYSTEM PROVIDED HISTORY: ruq pain TECHNOLOGIST PROVIDED HISTORY: ruq pain FINDINGS: Limited exam secondary to patient body habitus and overlying bowel gas. LIVER: Limited evaluation of the liver is unremarkable. BILIARY SYSTEM: Prominent gallbladder with layering gallstones and sludge. No wall thickening or significant pericholecystic fluid. Negative sonographic Gilbert's sign. Common bile duct is within normal limits measuring . RIGHT KIDNEY: The right kidney is grossly unremarkable without evidence of hydronephrosis. PANCREAS: Pancreas not well visualized. OTHER: No evidence of right upper quadrant ascites. IMPRESSION: Limited exam demonstrates cholelithiasis and sludge without sonographic evidence to suggest acute cholecystitis. Interpreted by: Mark Somers MD Signed by: Mark Somers MD 12/20/23 Final result Normal [facility] Alpha Fetoprotein, Tumor Mar saida 11-13-2023 Alpha Fetoprotein, Tumor Marker 4.4 ug/L Normal <8.4 [facility] Comment on above: Result Comment: The Jose ECLIA assay is used. Results obtained with different assay methods cannot be used interchangeably. Performed at [facility], [address] [place] [phone] . C-Peptideon 11-13-2023 C-Peptide 7.3 ng/mL Critically high 1.1-4.4 [facility] Comment on above: Result Comment: Perf ormed at [facility], [address] [place] [phone] . CBC With Platelet and Differ entialon 11-12-2023 Basophils (Bld) [#/Vol] 0.0 10*3/uL Normal 0.0-0.2 [facility] Comment on above: Performed By: #### C BCWD ####[facility] [facility] [phone] Basophils/100 WBC (Bld) 0.0 % Normal [facility] Comment on above: Performed By: #### C BCWD ####[facility] [facility] [phone] Eosinophils (Bld) [#/Vol] 0.1 10*3/uL Normal 0.0-0.7 [facility] Comment on above: Performed By: #### C BCWD ####[facility] [facility] [phone] Eosinophils/100 WBC (Bld) 2.0 % Normal [facility] Comment on above: Performed By: #### C BCWD ####[facility] [facility] [phone] Lymphocytes (Bld) [#/Vol] 0.8 10*3/uL Low 1.0-4.8 [facility] Comment on above: Performed By: #### C BCWD ####[facility] [place] [phone] Lymphocytes/100 WBC (Bld) 12.0 % Normal [facility] Comment on above: Performed By: #### C BCWD ####[facility] [facility] [place] [phone] Monocytes (Bld) [#/Vol] 0.3 10*3/uL Normal 0.2-0.8 [facility] Comment on above: Performed By: #### C BCWD ####[facility] [facility] [place] [phone] Monocytes/100 WBC (Bld) 7.0 % Normal [facility] Comment on above: Performed By: #### C BCWD ####[facility] [facility] [place] [phone] Neutrophils (Bld) [#/Vol] 3.4 10*3/uL Normal 1.4-6.5 [facility] Comment on above: Performed By: #### C BCWD ####[facility] [facility] [place] [phone] Neutrophils/100 WBC (Bld) 73.0 % Normal [facility] Comment on above: Performed By: #### C BCWD ####[facility] [facility] [place] [phone] Platelet Slide Review Decreased Normal [facility] Comment on above: Performed By: #### C BCWD ####[facility] [facility] RdL[place] [phone] RBC morphology finding Nom (Bld) Normal Normal [facility] Comment on above: Performed By: #### C BCWD ####[facility] [facility] [place] [phone] Atypical Lymphs 5 % Normal [facility] Comment on above: Performed By: #### C BCWD ####[facility] [facility] [place] [phone] Myelocytes 1 % Normal [facility] Comment on above: Performed By: #### C BCWD ####[facility] [facility] [phone] Erythrocyte distribution width (RBC) [Ratio] 18.6 % Critically high 11.5-14.5 [facility] Comment on above: Performed By: #### C BCWD ####[facility] [facility] [phone] Hematocrit (Bld) [Volume fraction] 40.0 % Normal 37.0-47.0 [facility] Comment on above: Performed By: #### C BCWD ####[facility] [facility] [phone] Hemoglobin (Bld) [Mass/Vol] 13.2 g/dL Normal 12.0-16.0 [facility] Comment on above: Performed By: #### C BCWD ####[facility] [facility] [phone] MCH (RBC) [Entitic mass] 28.3 pg Normal 27.0-31.3 [facility] Comment on above: Performed By: #### C BCWD ####[facility] [facility] [phone] MCHC 33.0 % Normal 33.0-37.0 [facility] Comment on above: Performed By: #### C BCWD ####[facility] [facility] [phone] MCV (RBC) [Entitic vol] 85.7 fL Normal 79.4-94.8 [facility] Comment on above: Performed By: #### C BCWD ####[facility] [facility] [phone] Platelets (Bld) [#/Vol] 87 10*3/uL Low 130-400 [facility] Comment on above: Performed By: #### C BCWD ####[facility] [facility] [phone] RBC (Bld) [#/Vol] 4.67 10*6/uL Normal 4.20-5.40 [facility] Comment on above: Performed By: #### C BCWD ####[facility] [place] [phone] WBC (Bld) [#/Vol] 4.6 10*3/uL Low 4.8-10.8 [facility] Comment on above: Performed By: #### C BCWD ####[facility] [place] [phone] Comprehensive Metabolic Pane jignesh 11-12-2023 Albumin [Mass/Vol] 3.5 g/dL Normal 3.5-4.6 [facility] Comment on above: Performed By: #### C MP #### [facility] [address] [place] [address] ALP [Catalytic activity/Vol] 116 U/L Normal 40-130 [facility] Comment on above: Performed By: #### C MP #### [facility] [address] [place] [address] ALT [Catalytic activity/Vol] 30 U/L Normal 0-33 [facility] Comment on above: Performed By: #### C MP #### [facility] [address] [place] [address] Anion gap [Moles/Vol] 7 mmol/L Low 9-15 [facility] Comment on above: Performed By: #### C MP #### [facility] [address] [place] [address] AST [Catalytic activity/Vol] 49 U/L Critically high 0-35 [facility] Comment on above: Performed By: #### C MP #### [facility] [address] [place] [address] Bilirubin [Mass/Vol] 1.2 mg/dL Critically high 0.2-0.7 [facility] Comment on above: Performed By: #### C MP #### [facility] [address] [place] [address] Calcium [Mass/Vol] 9.5 mg/dL Normal 8.5-9.9 [facility] Comment on above: Performed By: #### C MP #### [facility] [address] [place] [address] Chloride [Moles/Vol] 110 mmol/L Critically high 95-107 [facility] Comment on above: Performed By: #### C MP #### [facility] [address] [place] [address] CO2 [Moles/Vol] 22 mmol/L Normal 20-31 [facility] Comment on above: Performed By: #### C MP #### [facility] [address] [place] [address] Creatinine [Mass/Vol] 0.57 mg/dL Normal 0.50-0.90 [facility] Comment on above: Performed By: #### C MP #### [facility] [address] [place] [address] GFR >90.0 Normal >60 [facility] Comment on above: Result Comment: Pedi atric calculator link https://www.kidney.org/professionals/kdoqi/gfr_calculatorped Effective Dec 09, 2021 These results are not intended for use in patients <18 years of age. eGFR results are calculated without a race factor using the 2020 CKD-EPI equation. Careful clinical correlation is recommended, particularly when comparing to results calculated using previous equations. The CKD-EPI equation is less accurate in patients with extremes of muscle mass, extra-renal metabolism of creatinine, excessive creatinine ingestion, or following therapy that affects renal tubular secretion. Performed By: #### C MP #### [facility] [address] [place] [address] Globulin (S) [Mass/Vol] 2.6 g/dL Normal 2.3-3.5 [facility] Comment on above: Performed By: #### C MP #### [facility] [address] [place] [address] Glucose [Mass/Vol] 160 mg/dL Critically high 70-99 M [facility] Comment on above: Performed By: #### C MP #### [facility] [address] [place] [address] Potassium [Moles/Vol] 3.9 mmol/L Normal 3.4-4.9 [facility] Comment on above: Performed By: #### C MP #### [facility] [address] [place] [address] Protein [Mass/Vol] 6.1 g/dL Low 6.3-8.0 [facility] Comment on above: Performed By: #### C MP #### [facility] [address] [place] [address] Sodium [Moles/Vol] 139 mmol/L Normal 135-144 [facility] Comment on above: Performed By: #### C MP #### [facility] [address] [place] [address] Urea nitrogen [Mass/Vol] 6 mg/dL Normal 6-20 [facility] Comment on above: Performed By: #### C MP #### [facility] [address] [place] [address] Hemoglobin A1Con 11-12-2023 Glucose [Mass/Vol] 126 mg/dL Normal [facility] Comment on above: Result Comment: The ADA and AACC recommend providing the estimated average glucose result to permit better patient understanding of their HBA1c result. Performed at [facility], [address] [place] [address] . HbA1c (Bld) [Mass fraction] 6.0 % Normal 4.0-6.0 [facility] Lipid Panelon 11-12-2023 Cholesterol [Mass/Vol] 157 mg/dL Normal 0-199 [facility] Comment on above: Result Comment: ATP III Cholesterol classification is Desirable. Performed By: #### L IPID ####[facility] [place] [phone] Cholesterol in HDL [Mass/Vol] 53 mg/dL Normal 40-59 [facility] Comment on above: Result Comment: ATP III HDL Cholesterol Classification is Desirable. Expected Values: Males: >55 = No Risk 35-55 = Moderate Risk <35 = High Risk Females: >65 = No Risk 45-65 = Moderate Risk <45 = High Risk NCEP Guidelines: Third Report July 2000 >59 = negative risk factor for CHD <40 = major risk factor for CHD Performed By: #### L IPID ####[facility] [facility] [phone] Cholesterol in LDL [Mass/Vol] 92 mg/dL Normal 0-129 [facility] Comment on above: Result Comment: ATP III LDL Classification is Optimal. Performed By: #### L IPID ####[facility] [facility] [phone] Triglyceride [Mass/Vol] 59 mg/dL Normal 0-150 [facility] Comment on above: Result Comment: ATP III Triglycerides Classification is Normal. Performed By: #### L IPID ####[facility] [facility] [phone] Prothrombin Timeon 4 INR Coag (PPP) [Relative time] 1.4 {INR} Normal [facility] Comment on above: Performed By: #### P T ####[facility] [facility] [phone] PT Coag (PPP) [Time] 16.9 s Critically high 12.3-14.9 [facility] Comment on above: Performed By: #### P T ####[facility] [facility] [phone] TSH w/Reflexon 11-12-2023 TSH w/Reflex 2.320 uIU/mL Normal 0.440-3.86 [facility] Comment on above: Result Comment: Free T4 will automatically reflex with a TSH result of <0.270 or >4.200 Performed By: #### T SHR ####[facility] [facility] [phone] Thyroxine Freeon 11-12-2023 Thyroxine Free 0.80 ng/dL Low 0.84-1.68 [facility] Comment on above: Performed By: #### F RT4 #### [facility] [address] [place] [address] Alpha Fetoprotein, Tumor Mar saida 09-08-2023 Alpha Fetoprotein, Tumor Marker 3.1 ug/L Normal <8.4 [facility] Comment on above: Result Comment: The Jose ECLIA assay is used. Results obtained with different assay methods cannot be used interchangeably. Performed at [facility], [address] [place] [address] . Ferritinon 09-08-2023 Ferritin [Mass/Vol] 18 ng/mL Normal 13-150 [facility] Comment on above: Result Comment: FERRITIN Reference Ranges: Adult Males 20 - 60 years: 30 - 400 ng/mL Adult females 17 - 60 years: 13 - 150 ng/mL Adults greater than 60 years: no established reference range Pediatrics: no established reference range Performed at [facility], [address] [place] [address] . Iron Binding [facility] Eron 4 % Fe Saturation 9 % Low 20-55 [facility] Iron [Mass/Vol] 34 ug/dL Low 37-145 [facility] Total Fe Binding Cap 359 ug/dL Normal 250-450 [facility] Unbound Fe Bind Cap 325 ug/dL Normal 112-347 [facility] Comment on above: Result Comment: Perf ormed at [facility], [address] [place] [address] . CBC With Platelet and Differ entialon 09-07-2023 Anisocytosis Ql (Bld) 1+ Normal [facility] Comment on above: Performed By: #### C BCWD ####[facility] MirandaA[facility] [phone] Basophils (Bld) [#/Vol] 0.1 10*3/uL Normal 0.0-0.2 [facility] Comment on above: Performed By: #### C BCWD ####[facility] MirandaA[facility] [phone] Basophils/100 WBC (Bld) 2.0 % Normal [facility] Comment on above: Performed By: #### C BCWD ####[facility] [facility] [phone] Eosinophils (Bld) [#/Vol] 0.1 10*3/uL Normal 0.0-0.7 [facility] Comment on above: Performed By: #### C BCWD ####[facility] [facility] [phone] Eosinophils/100 WBC (Bld) 2.0 % Normal [facility] Comment on above: Performed By: #### C BCWD ####[facility] [facility] [phone] Lymphocytes (Bld) [#/Vol] 0.7 10*3/uL Low 1.0-4.8 [facility] Comment on above: Performed By: #### C BCWD ####[facility] [facility] [phone] Lymphocytes/100 WBC (Bld) 27.0 % Normal [facility] Comment on above: Performed By: #### C BCWD ####[facility] [facility] [phone] Monocytes (Bld) [#/Vol] 0.2 10*3/uL Normal 0.2-0.8 [facility] Comment on above: Performed By: #### C BCWD ####[facility] [facility] [phone] Monocytes/100 WBC (Bld) 6.8 % Normal [facility] Comment on above: Performed By: #### C BCWD ####[facility] [facility] [phone] Neutrophils (Bld) [#/Vol] 1.7 10*3/uL Normal 1.4-6.5 [facility] Comment on above: Performed By: #### C BCWD ####[facility] [facility] [phone] Neutrophils/100 WBC (Bld) 63.0 % Normal [facility] Comment on above: Performed By: #### C BCWD ####[facility] [facility] [place] [phone] Ovalocytes 1+ Normal [facility] Comment on above: Performed By: #### C BCWD ####[facility] [facility] [phone] Platelet Slide Review Decreased Normal [facility] Comment on above: Performed By: #### C BCWD ####[facility] [facility] [phone] Poikilocytosis 1+ Normal [facility] Comment on above: Performed By: #### C BCWD ####[facility] [facility] [phone] Erythrocyte distribution width (RBC) [Ratio] 17.4 % Critically high 11.5-14.5 [facility] Comment on above: Performed By: #### C BCWD ####[facility] [facility] [phone] Hematocrit (Bld) [Volume fraction] 34.4 % Low 37.0-47.0 [facility] Comment on above: Performed By: #### C BCWD ####[facility] [facility] [phone] Hemoglobin (Bld) [Mass/Vol] 10.9 g/dL Low 12.0-16.0 [facility] Comment on above: Performed By: #### C BCWD ####[facility] [facility] [phone] MCH (RBC) [Entitic mass] 26.0 pg Low 27.0-31.3 [facility] Comment on above: Performed By: #### C BCWD ####[facility] [facility] [phone] MCHC 31.7 % Low 33.0-37.0 [facility] Comment on above: Performed By: #### C BCWD ####[facility] [place] [phone] MCV (RBC) [Entitic vol] 82.1 fL Normal 79.4-94.8 [facility] Comment on above: Performed By: #### C BCWD ####[facility] [phone] Platelets (Bld) [#/Vol] 80 10*3/uL Low 130-400 [facility] Comment on above: Performed By: #### C BCWD ####[facility] [phone] RBC (Bld) [#/Vol] 4.19 10*6/uL Low 4.20-5.40 [facility] Comment on above: Performed By: #### C BCWD ####[facility] [place] [phone] WBC (Bld) [#/Vol] 2.7 10*3/uL Low 4.8-10.8 [facility] Comment on above: Performed By: #### C BCWD ####[facility] [phone] Comprehensive Metabolic Pane jignesh 09-07-2023 Albumin [Mass/Vol] 3.7 g/dL Normal 3.5-4.6 [facility] Comment on above: Performed By: #### C MP #### [facility] [address] [place] [address] ALP [Catalytic activity/Vol] 80 U/L Normal 40-130 [facility] Comment on above: Performed By: #### C MP #### [facility] [address] [place] [address] ALT [Catalytic activity/Vol] 16 U/L Normal 0-33 [facility] Comment on above: Performed By: #### C MP #### [facility] [address] [place] [address] Anion gap [Moles/Vol] 12 mmol/L Normal 9-15 [facility] Comment on above: Performed By: #### C MP #### [facility] [address] [place] [address] AST [Catalytic activity/Vol] 28 U/L Normal 0-35 [facility] Comment on above: Performed By: #### C MP #### [facility] [address] [place] [address] Bilirubin [Mass/Vol] 1.2 mg/dL Critically high 0.2-0.7 [facility] Comment on above: Performed By: #### C MP #### [facility] [address] [place] [address] Calcium [Mass/Vol] 9.4 mg/dL Normal 8.5-9.9 [facility] Comment on above: Performed By: #### C MP #### [facility] [address] [place] [address] Chloride [Moles/Vol] 107 mmol/L Normal 95-107 [facility] Comment on above: Performed By: #### C MP #### [facility] [address] [place] [address] CO2 [Moles/Vol] 22 mmol/L Normal 20-31 [facility] Comment on above: Performed By: #### C MP #### [facility] [address] [place] [address] Creatinine [Mass/Vol] 0.41 mg/dL Low 0.50-0.90 [facility] Comment on above: Performed By: #### C MP #### [facility] [address] [place] [address] GFR >90.0 Normal >60 [facility] Comment on above: Result Comment: Skyla atric calculator link https://www.kidney.org/professionals/kdoqi/gfr_calculatorped Effective Dec 09, 2021 These results are not intended for use in patients <18 years of age. eGFR results are calculated without a race factor using the 2020 CKD-EPI equation. Careful clinical correlation is recommended, particularly when comparing to results calculated using previous equations. The CKD-EPI equation is less accurate in patients with extremes of muscle mass, extra-renal metabolism of creatinine, excessive creatinine ingestion, or following therapy that affects renal tubular secretion. Performed By: #### C MP #### [facility] [address] [place] [address] Globulin (S) [Mass/Vol] 2.8 g/dL Normal 2.3-3.5 [facility] Comment on above: Performed By: #### C MP #### [facility] [address] [place] [address] Glucose [Mass/Vol] 179 mg/dL Critically high 70-99 M [facility] Comment on above: Performed By: #### C MP #### [facility] [address] [place] [address] Potassium [Moles/Vol] 3.9 mmol/L Normal 3.4-4.9 [facility] Comment on above: Performed By: #### C MP #### [facility] [address] [place] [address] Protein [Mass/Vol] 6.5 g/dL Normal 6.3-8.0 [facility] Comment on above: Performed By: #### C MP #### [facility] [address] [place] [address] Sodium [Moles/Vol] 141 mmol/L Normal 135-144 [facility] Comment on above: Performed By: #### C MP #### [facility] [address] [place] [address] Urea nitrogen [Mass/Vol] 5 mg/dL Low 6-20 [facility] Comment on above: Performed By: #### C MP #### [facility] [address] [place] [address] Ferritinon 05-20-2023 Ferritin [Mass/Vol] 47 ng/mL Normal 13-150 [facility] Comment on above: Result Comment: FERRITIN Reference Ranges: Adult Males 20 - 60 years: 30 - 400 ng/mL Adult females 17 - 60 years: 13 - 150 ng/mL Adults greater than 60 years: no established reference range Pediatrics: no established reference range Performed at [facility], [address] [place] [address] . Iron Binding Capon 4 % Fe Saturation 19 % Low 20-55 [facility] Iron [Mass/Vol] 78 ug/dL Normal 37-145 [facility] Total Fe Binding Cap 417 ug/dL Normal 250-450 [facility] Unbound Fe Bind Cap 339 ug/dL Normal 112-347 [facility] Comment on above: Result Comment: Perf ormed at [facility], [address] [place] [address] . Thyroid Peroxidase(TPO) Abon 05-07-2023 Thyroid Peroxidase(TPO) Ab 966.0 IU/mL Critically high 0.0-25.0 [facility] Comment on above: Result Comment: Reference Range: <25.0 Negative 25.0-35.0 Equivocal >35.0 Positive When results are Equivocal, it is recommended to retest after 8-12 weeks. Performed at [facility], [address] [place] [address] . CBC With Platelet No Differe ntialon 05-05-2023 Erythrocyte distribution width (RBC) [Ratio] 19.8 % Critically high 11.5-14.5 [facility] Comment on above: Performed By: #### C BCND #### [facility] [address] [place] [address] Hematocrit (Bld) [Volume fraction] 33.9 % Low 37.0-47.0 [facility] Comment on above: Performed By: #### C BCND #### [facility] [address] [place] [address] Hemoglobin (Bld) [Mass/Vol] 10.0 g/dL Low 12.0-16.0 [facility] Comment on above: Performed By: #### C BCND #### [facility] [address] [place] [address] MCH (RBC) [Entitic mass] 22.1 pg Low 27.0-31.3 [facility] Comment on above: Performed By: #### C BCND #### [facility] [address] [place] [address] MCHC 29.5 % Low 33.0-37.0 [facility] Comment on above: Performed By: #### C BCND #### [facility] [address] [place] [address] MCV (RBC) [Entitic vol] 75.0 fL Low 79.4-94.8 [facility] Comment on above: Performed By: #### C BCND #### [facility] [address] [place] [address] Platelets (Bld) [#/Vol] 108 10*3/uL Low 130-400 [facility] Comment on above: Performed By: #### C BCND #### [facility] [address] [place] [address] RBC (Bld) [#/Vol] 4.52 10*6/uL Normal 4.20-5.40 [facility] Comment on above: Performed By: #### C BCND #### [facility] [address] [place] [address] WBC (Bld) [#/Vol] 4.2 10*3/uL Low 4.8-10.8 [facility] Comment on above: Performed By: #### C BCND #### [facility] [address] [place] [address] Comprehensive Metabolic Pane jignesh 05-05-2023 Anion gap [Moles/Vol] 9 mmol/L Normal 9-15 [facility] Comment on above: Performed By: #### C MP #### [facility] [address] [place] [address] Albumin [Mass/Vol] 3.9 g/dL Normal 3.5-4.6 [facility] Comment on above: Performed By: #### C MP #### [facility] [address] [place] [address] ALP [Catalytic activity/Vol] 112 U/L Normal 40-130 [facility] Comment on above: Performed By: #### C MP #### [facility] [address] [place] [address] ALT [Catalytic activity/Vol] 18 U/L Normal 0-33 [facility] Comment on above: Performed By: #### C MP #### [facility] [address] [place] [address] AST [Catalytic activity/Vol] 31 U/L Normal 0-35 [facility] Comment on above: Performed By: #### C MP #### [facility] [address] [place] [address] Bilirubin [Mass/Vol] 0.7 mg/dL Normal 0.2-0.7 [facility] Comment on above: Performed By: #### C MP #### [facility] [address] [place] [address] Calcium [Mass/Vol] 10.1 mg/dL Critically high 8.5-9.9 M [facility] Comment on above: Performed By: #### C MP #### [facility] [address] [place] [address] Chloride [Moles/Vol] 104 mmol/L Normal 95-107 [facility] Comment on above: Performed By: #### C MP #### [facility] [address] [place] [address] CO2 [Moles/Vol] 24 mmol/L Normal 20-31 [facility] Comment on above: Performed By: #### C MP #### [facility] [address] [place] [address] Creatinine [Mass/Vol] 0.46 mg/dL Low 0.50-0.90 [facility] Comment on above: Performed By: #### C MP #### [facility] [address] [place] [address] GFR >60.0 Normal >60 [facility] Comment on above: Result Comment: Skyla perezc calculator link https://www.kidney.org/professionals/kdoqi/gfr_calculatorped Effective Dec 09, 2021 These results are not intended for use in patients <18 years of age. eGFR results are calculated without a race factor using the 2020 CKD-EPI equation. Careful clinical correlation is recommended, particularly when comparing to results calculated using previous equations. The CKD-EPI equation is less accurate in patients with extremes of muscle mass, extra-renal metabolism of creatinine, excessive creatinine ingestion, or following therapy that affects renal tubular secretion. Performed By: #### C MP #### [facility] [address] [place] [address] Globulin (S) [Mass/Vol] 2.9 g/dL Normal 2.3-3.5 [facility] Comment on above: Performed By: #### C MP #### [facility] [address] [place] [address] Glucose [Mass/Vol] 236 mg/dL Critically high 70-99 M [facility] Comment on above: Performed By: #### C MP #### [facility] [address] [place] [address] Potassium [Moles/Vol] 4.4 mmol/L Normal 3.4-4.9 [facility] Comment on above: Performed By: #### C MP #### [facility] [address] [place] [address] Protein [Mass/Vol] 6.8 g/dL Normal 6.3-8.0 [facility] Comment on above: Performed By: #### C MP #### [facility] [address] [place] [address] Sodium [Moles/Vol] 137 mmol/L Normal 135-144 [facility] Comment on above: Performed By: #### C MP #### [facility] [address] [place] [address] Urea nitrogen [Mass/Vol] 9 mg/dL Normal 6-20 [facility] Comment on above: Performed By: #### C MP #### [facility] [address] [place] [address] Hemoglobin A1con 05-05-2023 HbA1c (Bld) [Mass fraction] 9.6 % Critically high 4.8-5.9 [facility] Comment on above: Performed By: #### C MP #### [facility] [address] [place] [address] Prothrombin Timeon 4 INR Coag (PPP) [Relative time] 1.2 {INR} Normal [facility] Comment on above: Performed By: #### C MP #### [facility] [address] [place] [address] PT Coag (PPP) [Time] 15.2 s Critically high 12.3-14.9 [facility] Comment on above: Performed By: #### C MP #### [facility] [address] [place] [address] TSH w/out Reflexon 4 TSH w/out Reflex 1.860 uIU/mL Normal 0.440-3.86 [facility] Comment on above: Performed By: #### T SH #### [facility] [address] [place] [address] Thyroxine Freeon 05-05-2023 Thyroxine Free 0.92 ng/dL Normal 0.84-1.68 [facility] Comment on above: Performed By: #### F RT4 #### [facility] [address] [place] [address] UR Microalbumin/Creatinine R atio Randomon 05-05-2023 Microalbumin/creati nine Ratio see below Normal 0.0-30.0 [facility] Comment on above: Result Comment: - UR Microalbumin concentration is less than 1.2 mg/dL. - Unable to calculate Microalbumin/Creatinine Ratio without a Microalbumin concentration. Performed By: #### C MP #### [facility] [address] [place] [address] UR Creatinine Random 65.9 mg/dL Normal Not [facility] Comment on above: Performed By: #### C MP #### [facility] [address] [place] [address] UR Microalbumin Random <1.20 Normal Not [facility] Comment on above: Performed By: #### C MP #### [facility] [address] [place] [address] CNOVon 03-19-2023 CNOV Office Visit (KATIE ) ILEANA WILSON ([id number]) 1965 F [facility] Date Time Provider Department 03/19/23 10:00 AM MARI SOMERS During your visit today, we recorded the following information about you: Pulse Blood pressure Weight Height 94/minute 104/57 111 kg 1.549 m Mari Somers MD 03/19/2023 10:40 AM Signed NEW CONSULT:RHEUMATOLOGY SERVICE SERVICE DATE: 03/19/2023 SERVICE TIME: 9:57 AM REASON FOR CONSULT: +JULITA REQUESTING PHYSICIAN: MARTINA Henning, PRIMARY CARE PHYSICIAN: MARTINA Henning, Patient's Name: Ileana Wilson [address] [place] [address] Accompanied by: self This consult was requested for my medical opinion regarding the rheumatologic evaluation of the patient's +JULITA problems, and my final recommendations will be communicated to the requesting health care provider by way of the shared medical record for internal providers or letter via the [employer] [place] [employer] for external providers. March 19, 2023 SUBJECTIVE Ms. Wilson is a 57 year old female who presents for +JULITA eval. 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, found cyst and removed ~2002 Less movement of L foot/ankle, but one broken screws Also developed pain in both knees, hips, low ~2000s S/p b/l carpal tunnel syndrome 2020 s/p Right rotator cuff tear repair 05/2020 s/p Left rotator cuff tear with anchor, re tore, will see ortho again soon, two large spurs 05/2020 [place] needs a revision due to loose kneecap 02/2023 [place], still needs a revision since not cemented Allergic to steroid and gel injections, developed swelling afterwards Pain in hands Swelling of hands and knees, worse in PM 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 No adverse effects with meds. No other complaints. Patient denies fever, chills, cp, dyspnea, nausea, vomiting, night sweats, scalp tenderness, visual changes, butts, bowel/bladder changes, weight changes or other complaints. COMPLETE REVIEW OF SYSTEMS: RHEUM. ROS: Joint pain: yes both knees, hips, low back, both hands Joint swelling: yes knees, MCPs, hands Am stiffness: yes 20min- all day Low back pain: yes Dactylitis: no H/o precedent/frequent infection(s): no Enthesopathy/Krysten's/ heel/plantar tenderness: s/p b/l carpal tunnel syndrome release Skin thickening, psoriasis, photosensitivity, purpura: no Nail changes: no Alpecia, patchy: no Eye inflammation: glasses SICCA: no Oral/nasal/genital ulcers: no GI problems-diarrhea/bleed ing/IBD/Gluten intolerence/Dysphagia: gerd Raynaud's phenomenon/digital ulcers: no Organ inv-Serositis: reactive airway disease Lung disease/ILD: reactive airway disease Myopathy/proximal muscle weakness: no Abnormal Urine or urethritis: no Renal/liver disease: diabetes caused cirrhosis/non alcoholic (NICOLE) diagnosed Spring 2022 [employer]/PNS/sz/cva/cancer disease: no HEME-Cytopenias/LAD/Catalina ts: no Fevers: no Fatigue: yes, sleeps 4 hrs/night PMR/GCA ROS: negative Patient denies history of Gout or Pseudogout, Psoriasis, Rheumatic Fever, PUD, Hepatitis , Kidney Disease, Kidney Stones, HTN, CAD, Dyslipidemia, PAD, Sinusitis, Asthma, TB infection or exposure, Pneumonias, Anemia, Seizures, Stroke, MS, Clots, Cancer, Transfusions, Tattoos , and Alcohol dependency. Other ROS:The remainder of the review of systems is negative. All other reviewed and negative other than HPI. PATIENT REPORTS: Cardiac stress test:stable ekg Breast exam:negative Pap exam: normal, last menses mid 39y/o, not taking hormones; G3, P1, 2miscarriage Colonoscopy: stable in [place], benign colon polyps Bone Density:stable years ago out of state History of Fractures:no Height Loss: no IMMUNIZATION HX: Pneumovax no Flu shot no Tetanus yes Last PPD: negative PAST MEDICAL HISTORY: PMH asthma, diabetes mellitus type II, thyroid disease, portal htn, esophageal varices in cirrhosis, diabetes caused cirrhosis/non alcoholic (NICOLE) diagnosed Spring 2022, gerd, reactive airway disease, has gallstones, benign colon polyps, s/p left ankle/foot surgery ~2002, s/p b/l knee scope, ~1999s S/p b/l carpal tunnel syndrome, 05/2020 s/p R TKR, 02/2023 S/[place], s/p septoplasty, s/p TANDA, s/p wisdom teeth extraction, 2020 s/p Right rotator cuff tear repair, 05/2020 s/p Left rotator cuff tear with anchor PAST MEDICAL HISTORY Diagnosis Date Asthma Diabetes mellitus (HCC) Portal hypertension (HCC) PAST SURGICAL HISTORY: s/p left ankle/foot surgery ~2002, s/p b/l knee scope, ~2000s S/p b/l carpal tunnel syndrome, 05/2020 s/p R TKR, 02/2023 S/[place], s/p septoplasty, s/p (more content not included)... Normal [facility] Liya 03-19-2023 CNPN Telephone (RULTTB) ILEANA WILSON ([id number]) 1965 F [facility] Date Time Provider Department 03/19/23 TEJ SMITH) RULTTB During your visit today, we recorded the following information about you: Tej Smith PCNA 03/19/2023 11:00 AM Signed Visit Type: MSK SYN Visit Length: 45, 50 OR 60 MINUTES Order Name/Protocol: US HAND/WRIST SYNOVIAL SCREEN RT+LT Preferred Provider: N/A Comment: N/A Location: ANY FACILITY Slot held: N/A Vera Shaffer 03/19/2023 1:03 PM Signed Called patient on 03/19/23 at 1:02 PM to schedule their MSK US exam. No answer, left VM, 1st attempt. Vera Shaffer 03/20/2023 8:49 AM Signed Called patient on 03/20/23 at 8:48 AM to schedule their MSK US exam. No answer, left VM, 2nd attempt. Vera Shaffer 03/23/2023 8:54 AM Signed Called patient on 03/23/23 at 8:54 AM to schedule their MSK US exam. No answer, left VM, 3rd attempt. Allergies As of Date: 03/19/2023 Noted Allergy Reaction ALEVE (NAPROXEN SODIUM) 12/30/2011 8 - GI Upset MORPHINE 07/23/2022 14 - Other: See Comments Comments: Doesn't work for pain Date Reviewed: 03/19/2023 Reviewed by: Mari Somers MD - Fully Assessed Reason for Visit: Appointment [186] Prescriptions as of 03/23/2023 - TRULICITY 3 mg/0.5 mL pen injector - famotidine (PEPCID) 20 mg tablet Take 1 tablet by mouth one time only. - ferrous sulfate 325 mg (65 mg iron) tablet Take 325 mg by mouth. - insulin glargine (LANTUS SOLOSTAR U-100 INSULIN) 100 unit/mL (3 mL) Inject 60 Units subcutaneously. - HUMALOG KWIKPEN INSULIN 100 unit/mL - levothyroxine (SYNTHROID) 88 mcg tablet - meclizine (ANTIVERT) 25 mg tab Take 25 mg by mouth. - metFORMIN ER (GLUCOPHAGE XR) 500 mg 24 hr tablet Take 1,000 mg by mouth. - pantoprazole DR (PROTONIX) 40 mg tablet Take 40 mg by mouth. - SITagliptin-metFORMIN (JANUMET) 50-1,000 mg per tablet - glimepiride (AMARYL) 2 mg tablet - beclomethasone (QVAR REDIHALER) 40 mcg/actuation inhaler Inhale 2 Puffs as instructed twice daily. - ibuprofen (MOTRIN) 800 mg tablet Take 800 mg by mouth every 6 hours as needed. - insulin glargine-lixisenatide (SOLIQUA 100/33) 100 unit-33 mcg/mL inpn Inject 15 Units subcutaneously once daily. Do not mix with other insulins. - albuterol (PROVENTIL) 2.5 mg /3 mL (0.083 %) nebulizer solution Use 3 mL via nebulizer three times daily as needed for wheezing/shortness of breath. Inhale over 5-15 minutes - benzonatate (TESSALON PERLES) 100 mg capsule Take 1 capsule by mouth three times daily as needed for cough. - fluticasone (FLONASE) 50 mcg/actuation nasal spray Use 2 Sprays in each nostril once daily. - magnesium oxide (MAG-OX) 400 mg (241.3 mg magnesium) tablet Take 1 tablet by mouth once daily. - albuterol HFA (PROVENTIL HFA, VENTOLIN HFA) 90 mcg/actuation inhaler Inhale 2 Puffs as instructed every 4 hours as needed for wheezing/shortness of breath. - sitaGLIPtin-metFORMIN (JANUMET XR) 100-1000 mg TM24 Take by mouth once daily. 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 Multiplanar reformatted images are provided for review. Automated exposure control, iterative reconstruction, and/or weight based adjustment of the mA/kV was utilized to reduce the radiation dose to as low as reasonably achievable. COMPARISON: None. HISTORY: ORDERING SYSTEM PROVIDED HISTORY: Cirrhosis of liver without ascites, unspecified hepatic cirrhosis type (HCC) TECHNOLOGIST PROVIDED HISTORY: [address] scan Additional Contrast?->None STAT Creatinine as needed:->Yes Reason for exam:->Cirrhosis- Abdominal pain Release to patient - Note: Delayed release will only apply to this order. Orders that are changed or resulted outside of the EHR will not respect a delayed release to [facility].-> What reading provider will be dictating this exam?->CRC FINDINGS: Lower Chest: Visualized portion of the lower chest demonstrates no acute abnormality. Organs: There is slight nodularity of the hepatic contour. No abnormal density is observed. No lesion is demonstrated. The portal veins are enlarged. There is recannulization of the umbilical vein with large umbilical varices. Splenorenal varices and gastroesophageal varices are also observed. The spleen is enlarged, measuring 16.4 cm along the mid clavicular line. Numerous gallstones are seen. There is no biliary dilatation. The spleen is normal. The adrenal glands and kidneys are normal GI/Bowel: Somewhat large amount of stool in the colon. No GI dilatation or wall thickening Pelvis: No pelvic mass, adenopathy, or fluid collection. Peritoneum/Retroperiton eum: No evidence of lymphadenopathy. Aorta is normal in caliber. No evidence of ascites or free air. Bones/Soft Tissues: Age-related degenerative changes of the osseous structures is noted, without suspicious lesion. No significant soft tissue abnormality is identified. IMPRESSION: 1. Cirrhotic liver morphology with splenomegaly and large epigastric, splenorenal, and umbilical varices. 2. Gallstones Interpreted by: Byron Mendez MD Signed by: Byron Mendez MD 02/19/[address] [facility] US ABDOMEN LIMITEDon 023 US ABDOMEN LIMITED EXAMINATION: RIGHT UPPER QUADRANT ULTRASOUND 02/19/2023 8:03 am COMPARISON: None. HISTORY: ORDERING SYSTEM PROVIDED HISTORY: Gastroesophageal reflux disease without esophagitis TECHNOLOGIST PROVIDED HISTORY: This procedure can be scheduled via [employer]. Access your [employer] account by visiting [employer]. Reason for exam:->cirrhosis Specify organ?->LIVER FINDINGS: LIVER: Coarsened echogenicity is observed. Patency of the umbilical vein is noted. Altered flow dynamics are noted in the right portal vein, portion being hepatofugal. The main portal vein demonstrates hepatopetal flow BILIARY SYSTEM: Multiple dependent gallstones are seen. There is no wall thickening or pericholecystic fluid. Calcification of the anterior gallbladder wall is noted. Negative sonographic Gilbert's sign. Common bile duct is within normal limits measuring . RIGHT KIDNEY: The right kidney is grossly unremarkable without evidence of hydronephrosis. PANCREAS: Visualized portions of the pancreas are unremarkable. OTHER: No evidence of right upper quadrant ascites. IMPRESSION: 1. Coarsened liver echotexture with recannulization of the umbilical vein and partial hepatofugal flow in the right portal vein. 2. Slight irregularity of the gallbladder wall with calcification. Small gallstones. No tenderness over the gallbladder fossa. Interpreted by: Byron Mendez MD Signed by: Byron Mendez MD 02/19/[address] [facility] XR SHOULDER LEFT 2+ VIEWSon 02-16-2023 XR SHOULDER LEFT 2+ VIEWS Interpreted By: Patrice Mallory, STUDY: XR SHOULDER LEFT 2+ VIEWS; ; 02/16/2023 3:00 pm INDICATION: Signs/Symptoms:PAIN. ACCESSION NUMBER(S): [id number] ORDERING CLINICIAN: PATRICE MALLORY FINDINGS: AP lateral oblique views of the left shoulder show good alignment of the glenohumeral joint. There is slight inferior humeral head spurring and irregularity to the articular surface. No acute fractures identified. Signed by: Patrice Mallory 02/16/2023 3:58 PM Dictation workstation: [id number] [facility] Comment on above: Order Comment: 4 V Alpha Fetoprotein, Tumor Mar saida 01-13-2023 Alpha Fetoprotein, Tumor Marker 2.3 ug/L Normal <8.4 [facility] Comment on above: Result Comment: The Jose ECLIA assay is used. Results obtained with different assay methods cannot be used interchangeably. Performed at [facility], [address] [place], [place] [id number] . CBC With Platelet and Differ entialon 01-12-2023 Platelet Slide Review Decreased Normal [facility] Comment on above: Performed By: #### C BCWD #### [facility] [address] [place] [address] Slide Review see below Normal [facility] Comment on above: Result Comment: Slid e review agrees with reported results Performed By: #### C BCWD #### [facility] [address] [place] [address] Anisocytosis Ql (Bld) 1+ Normal [facility] Comment on above: Performed By: #### C BCWD #### [facility] [address] [place] [address] Basophils (Bld) [#/Vol] 0.0 10*3/uL Normal 0.0-0.2 [facility] Comment on above: Performed By: #### C BCWD #### [facility] [address] [place] [address] Basophils/100 WBC (Bld) 1.0 % Normal [facility] Comment on above: Performed By: #### C BCWD #### [facility] [address] [place] [address] Eosinophils (Bld) [#/Vol] 0.1 10*3/uL Normal 0.0-0.7 [facility] Comment on above: Performed By: #### C BCWD #### [facility] [address] [place] [address] Eosinophils/100 WBC (Bld) 2.0 % Normal [facility] Comment on above: Performed By: #### C BCWD #### [facility] [address] [place] [address] Hypochromia 1+ Normal [facility] Comment on above: Performed By: #### C BCWD #### [facility] [address] [place] [address] Lymphocytes (Bld) [#/Vol] 0.6 10*3/uL Low 1.0-4.8 [facility] Comment on above: Performed By: #### C BCWD #### [facility] [address] [place] [address] Lymphocytes/100 WBC (Bld) 17.0 % Normal [facility] Comment on above: Performed By: #### C BCWD #### [facility] [address] [place] [address] Microcytic 1+ Normal [facility] Comment on above: Performed By: #### C BCWD #### [facility] [address] [place] [address] Monocytes (Bld) [#/Vol] 0.1 10*3/uL Low 0.2-0.8 [facility] Comment on above: Performed By: #### C BCWD #### [facility] [address] [place] [address] Monocytes/100 WBC (Bld) 1.9 % Normal [facility] Comment on above: Performed By: #### C BCWD #### [facility] [address] [place] [address] Neutrophils (Bld) [#/Vol] 3.0 10*3/uL Normal 1.4-6.5 [facility] Comment on above: Performed By: #### C BCWD #### [facility] [address] [place] [address] Neutrophils/100 WBC (Bld) 78.0 % Normal [facility] Comment on above: Performed By: #### C BCWD #### [facility] [address] [place] [address] Ovalocytes 1+ Normal [facility] Comment on above: Performed By: #### C BCWD #### [facility] [address] [place] [address] Poikilocytosis 2+ Normal [facility] Comment on above: Performed By: #### C BCWD #### [facility] [address] [place] [address] Polychromasia 1+ Normal [facility] Comment on above: Performed By: #### C BCWD #### [facility] [address] [place] [address] Smudge Cells 22.[address] [facility] Comment on above: Performed By: #### C BCWD #### [facility] [address] [place] [address] Erythrocyte distribution width (RBC) [Ratio] 18.6 % Critically high 11.5-14.5 [facility] Comment on above: Performed By: #### C BCWD #### [facility] [address] [place] [address] Hematocrit (Bld) [Volume fraction] 34.8 % Low 37.0-47.0 [facility] Comment on above: Performed By: #### C BCWD #### [facility] [address] [place] [address] Hemoglobin (Bld) [Mass/Vol] 10.3 g/dL Low 12.0-16.0 [facility] Comment on above: Performed By: #### C BCWD #### [facility] [address] [place] [address] MCH (RBC) [Entitic mass] 21.9 pg Low 27.0-31.3 [facility] Comment on above: Performed By: #### C BCWD #### [facility] [address] [place] [address] MCHC 29.6 % Low 33.0-37.0 [facility] Comment on above: Performed By: #### C BCWD #### [facility] [address] [place] [address] MCV (RBC) [Entitic vol] 74.0 fL Low 79.4-94.8 [facility] Comment on above: Performed By: #### C BCWD #### [facility] [address] [place] [address] Platelets (Bld) [#/Vol] 99 10*3/uL Low 130-400 [facility] Comment on above: Performed By: #### C BCWD #### [facility] [address] [place] [address] RBC (Bld) [#/Vol] 4.70 10*6/uL Normal 4.20-5.40 [facility] Comment on above: Performed By: #### C BCWD #### [facility] [address] [place] [address] WBC (Bld) [#/Vol] 3.8 10*3/uL Low 4.8-10.8 [facility] Comment on above: Performed By: #### C BCWD #### [facility] [address] [place] [address] Comprehensive Metabolic Pane jignesh 01-12-2023 Albumin [Mass/Vol] 3.8 g/dL Normal 3.5-4.6 [facility] Comment on above: Performed By: #### C MP #### [facility] [address] [place] [address] ALP [Catalytic activity/Vol] 112 U/L Normal 40-130 [facility] Comment on above: Performed By: #### C MP #### [facility] [address] [place] [address] ALT [Catalytic activity/Vol] 22 U/L Normal 0-33 [facility] Comment on above: Performed By: #### C MP #### [facility] [address] [place] [address] Anion gap [Moles/Vol] 10 mmol/L Normal 9-15 [facility] Comment on above: Performed By: #### C MP #### [facility] [address] [place] [address] AST [Catalytic activity/Vol] 45 U/L Critically high 0-35 [facility] Comment on above: Performed By: #### C MP #### [facility] [address] [place] [address] Bilirubin [Mass/Vol] 0.7 mg/dL Normal 0.2-0.7 [facility] Comment on above: Performed By: #### C MP #### [facility] [address] [place] [address] Calcium [Mass/Vol] 9.4 mg/dL Normal 8.5-9.9 [facility] Comment on above: Performed By: #### C MP #### [facility] [address] [place] [address] Chloride [Moles/Vol] 108 mmol/L Critically high 95-107 [facility] Comment on above: Performed By: #### C MP #### [facility] [address] [place] [address] CO2 [Moles/Vol] 24 mmol/L Normal 20-31 [facility] Comment on above: Performed By: #### C MP #### [facility] [address] [place] [address] Creatinine [Mass/Vol] 0.44 mg/dL Low 0.50-0.90 [facility] Comment on above: Performed By: #### C MP #### [facility] [address] [place] [address] GFR >60.0 Normal >60 [facility] Comment on above: Result Comment: Skyla perezc calculator link https://www.kidney.org/professionals/kdoqi/gfr_calculatorped Effective Dec 09, 2021 These results are not intended for use in patients <18 years of age. eGFR results are calculated without a race factor using the 2020 CKD-EPI equation. Careful clinical correlation is recommended, particularly when comparing to results calculated using previous equations. The CKD-EPI equation is less accurate in patients with extremes of muscle mass, extra-renal metabolism of creatinine, excessive creatinine ingestion, or following therapy that affects renal tubular secretion. Performed By: #### C MP #### [facility] [address] [place] [address] Globulin (S) [Mass/Vol] 3.1 g/dL Normal 2.3-3.5 [facility] Comment on above: Performed By: #### C MP #### [facility] [address] [place] [address] Glucose [Mass/Vol] 148 mg/dL Critically high 70-99 M [facility] Comment on above: Performed By: #### C MP #### [facility] [address] [place] [address] Potassium [Moles/Vol] 3.8 mmol/L Normal 3.4-4.9 [facility] Comment on above: Performed By: #### C MP #### [facility] [address] [place] [address] Protein [Mass/Vol] 6.9 g/dL Normal 6.3-8.0 [facility] Comment on above: Performed By: #### C MP #### [facility] [address] [place] [address] Sodium [Moles/Vol] 142 mmol/L Normal 135-144 [facility] Comment on above: Performed By: #### C MP #### [facility] [address] [place] [address] Urea nitrogen [Mass/Vol] 6 mg/dL Normal 6-20 [facility] Comment on above: Performed By: #### C MP #### [facility] [address] [place] [address] Prothrombin Timeon 3 INR Coag (PPP) [Relative time] 1.2 {INR} Normal [facility] Comment on above: Performed By: #### C MP #### [facility] [address] [place] [address] PT Coag (PPP) [Time] 15.1 s Critically high 12.3-14.9 [facility] Comment on above: Performed By: #### C MP #### [facility] [address] [place] [address] POCT Glucoseon 12-10-2022 Glucose [Mass/Vol] 300 mg/dL Critically high 70-99 M [facility] Comment on above: Performed By: #### P GLU #### [facility] [address] [place] [address] POC Performed on ACCU-CHEK Normal [facility] Comment on above: Performed By: #### P GLU #### [facility] [address] [place] [address] Surgical Specimenon 12-11-19 23 Surgical Specimen [facility] [address] [place] [address] FINAL SURGICAL PATHOLOGY REPORT Patient Name: ILEANA WILSON Accession No: [id number] Age Sex: 1965 Location: [facility] NON Account No: [id number] Collected: 12/10/2022 Med Rec No: [id number] Received: 12/11/2022 Attend Phys: ADENIKE STEVE Completed: 12/12/2022 Perform Phys: ADENIKE STEVE FINAL DIAGNOSIS: GASTRIC BIOPSIES: SUPERFICIAL GASTRIC MUCOSA, NO PATHOLOGIC DIAGNOSIS NEGATIVE FOR HELICOBACTER PYLORI COMMENT: IMMUNOHISTOCHEMICAL STAINING FOR HELICOBACTER PYLORI IS NEGATIVE. IMMUNOHISTOCHEMICAL CONTROL IS APPROPRIATE. [facility] CLINICAL INFORMATION: Procedure: EGD. Preoperative diagnosis: Cirrhosis, esophageal varices in alcoholic cirrhosis. SPECIMEN: Gastric Biopsies GROSS DESCRIPTION: Received in one container labeled Ileana Wilson and designated stomach . The specimen is received in formalin fixative. The specimen consists of portions of white soft tissue, 0.4 x 0.3 x 0.1 cm in aggregate. The specimen is submitted in toto in one cassette. [facility] CPT: 53591 X1 [id number] X1 J LOURDES DESAI M.D. 12/12/2022 Electronically signed out by Page 1 of [address] [facility] Comment on above: Performed By: #### S UR #### [facility] [address] [place] [address] NM BONE SCAN 3 PHASEon 11-29 1. Three-phase posit efrem uptake associated with the left knee arthroplasty along both the femoral and tibial components. This could potentially represent loosening. This could also be ongoing bony remodeling. Correlate with timing of surgery. 2. Mild early and delayed phase activity along the lateral aspect of the tibial component of the right knee arthroplasty. Correlate with any corresponding symptoms. [facility] [place] [facility] EXAMINATION: THREE PHASE BONE SCAN 11/28/2022 9:20 am TECHNIQUE: The patient was injected intravenously with 25.2 mCi of 99 mTc MDP. Initial blood flow and pool images of the knees were acquired. After 3 hours, delayed bone images were acquired. COMPARISON: Left knee MRI 10/28/2022 HISTORY: ORDERING SYSTEM PROVIDED HISTORY: High risk for fracture due to osteoporosis by DEXA scan, Left knee pain, unspecified chronicity TECHNOLOGIST PROVIDED HISTORY: Left knee What reading provider will be dictating this exam?->CRC FINDINGS: There is asymmetric blood flow and blood pool activity at the left knee along both the femoral and tibial components of the arthroplasty. Minimal activity along the tibial component of the right knee arthroplasty. Delayed images show photopenia associated with the bilateral knee arthroplasties. There is asymmetrically increased activity along both the femoral and tibial components of the left knee arthroplasty. There is also mild uptake along the lateral aspect of the right tibial component. [facility] Danish Gutierrez MD - 11/29/2022 EXAMINATION: THREE PHASE BONE SCAN 11/28/2022 9:20 am TECHNIQUE: The patient was injected intravenously with 25.2 mCi of 99 mTc MDP. Initial blood flow and pool images of the knees were acquired. After 3 hours, delayed bone images were acquired. COMPARISON: Left knee MRI 10/28/2022 HISTORY: ORDERING SYSTEM PROVIDED HISTORY: High risk for fracture due to osteoporosis by DEXA scan, Left knee pain, unspecified chronicity TECHNOLOGIST PROVIDED HISTORY: Left knee What reading provider will be dictating this exam?->CRC FINDINGS: There is asymmetric blood flow and blood pool activity at the left knee along both the femoral and tibial components of the arthroplasty. Minimal activity along the tibial component of the right knee arthroplasty. Delayed images show photopenia associated with the bilateral knee arthroplasties. There is asymmetrically increased activity along both the femoral and tibial components of the left knee arthroplasty. There is also mild uptake along the lateral aspect of the right tibial component. IMPRESSION: 1. Three-phase positive uptake associated with the left knee arthroplasty along both the femoral and tibial components. This could potentially represent loosening. This could also be ongoing bony remodeling. Correlate with timing of surgery. 2. Mild early and delayed phase activity along the lateral aspect of the tibial component of the right knee arthroplasty. Correlate with any corresponding symptoms. [facility] NM BONE SCAN 3 PHASEOrdered By: Danish Gutierrez on 11-29-2022 [facility] Work Phone: NM BONE SCAN 3 PHASEon 11-28 NM BONE SCAN 3 PHASE EXAMINATION: THREE PHASE BONE SCAN 11/28/2022 9:20 am TECHNIQUE: The patient was injected intravenously with 25.2 mCi of 99 mTc MDP. Initial blood flow and pool images of the knees were acquired. After 3 hours, delayed bone images were acquired. COMPARISON: Left knee MRI 10/28/2022 HISTORY: ORDERING SYSTEM PROVIDED HISTORY: High risk for fracture due to osteoporosis by DEXA scan, Left knee pain, unspecified chronicity TECHNOLOGIST PROVIDED HISTORY: Left knee What reading provider will be dictating this exam?->CRC FINDINGS: There is asymmetric blood flow and blood pool activity at the left knee along both the femoral and tibial components of the arthroplasty. Minimal activity along the tibial component of the right knee arthroplasty. Delayed images show photopenia associated with the bilateral knee arthroplasties. There is asymmetrically increased activity along both the femoral and tibial components of the left knee arthroplasty. There is also mild uptake along the lateral aspect of the right tibial component. IMPRESSION: 1. Three-phase positive uptake associated with the left knee arthroplasty along both the femoral and tibial components. This could potentially represent loosening. This could also be ongoing bony remodeling. Correlate with timing of surgery. 2. Mild early and delayed phase activity along the lateral aspect of the tibial component of the right knee arthroplasty. Correlate with any corresponding symptoms. Interpreted by: Danish Gutierrez MD Signed by: Danish Gutierrez MD 11/29/[address] [facility] Radiology Study observation (narrative) [facility] POCT Glucoseon 11-05-2022 Glucose [Mass/Vol] 207 mg/dL Critically high 70-99 M [facility] Comment on above: Performed By: #### P GLU #### [facility] [address] [address] POC Performed on ACCU-CHEK Normal [facility] Comment on above: Performed By: #### P GLU #### [facility] [address] [address] MRI KNEE LEFT WO CONTRASTon 10-28-2022 MRI KNEE LEFT WO CONTRAST EXAMINATION: MRI OF THE LEFT KNEE WITHOUT CONTRAST, 10/28/2022 1:10 pm TECHNIQUE: Multiplanar multisequence MRI of the left knee was performed without the administration of intravenous contrast. COMPARISON: None. HISTORY: ORDERING SYSTEM PROVIDED HISTORY: Left knee pain, unspecified chronicity TECHNOLOGIST PROVIDED HISTORY: MARS protocol please, per Dr. Ordaz. What reading provider will be dictating this exam?->CRC FINDINGS: There is susceptibility artifact from a total knee arthroplasty, with patellar resurfacing. There is a small amount of homogeneous fluid in the suprapatellar bursa. A geographic intramedullary lesion is seen in the distal femoral diaphysis, without matrix production. There is no endosteal or cortical involvement. Adjacent soft tissues are uninvolved. There is normal muscular volume and signal. 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 COMPARISON: None. HISTORY: ORDERING SYSTEM PROVIDED HISTORY: Left knee pain, unspecified chronicity TECHNOLOGIST PROVIDED HISTORY: MARS protocol please, per Dr. Ordaz. What reading provider will be dictating this exam?->CRC FINDINGS: There is susceptibility artifact from a total knee arthroplasty, with patellar resurfacing. There is a small amount of homogeneous fluid in the suprapatellar bursa. A geographic intramedullary lesion is seen in the distal femoral diaphysis, without matrix production. There is no endosteal or cortical involvement. Adjacent soft tissues are uninvolved. There is normal muscular volume and signal. There is mild inferior prepatellar bursal swelling [facility] RAD[facility] Byron Mendez MD - 10/28/2022 EXAMINATION: MRI OF THE LEFT KNEE WITHOUT CONTRAST, 10/28/2022 1:10 pm TECHNIQUE: Multiplanar multisequence MRI of the left knee was performed without the administration of intravenous contrast. COMPARISON: None. HISTORY: ORDERING SYSTEM PROVIDED HISTORY: Left knee pain, unspecified chronicity TECHNOLOGIST PROVIDED HISTORY: MARS protocol please, per Dr. Ordaz. What reading provider will be dictating this exam?->CRC FINDINGS: There is susceptibility artifact from a total knee arthroplasty, with patellar resurfacing. There is a small amount of homogeneous fluid in the suprapatellar bursa. A geographic intramedullary lesion is seen in the distal femoral diaphysis, without matrix production. There is no endosteal or cortical involvement. Adjacent soft tissues are uninvolved. There is normal muscular volume and signal. 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 Susceptibility artifact from total knee arthroplasty [facility] Radiology Study observation (narrative) [facility] MRI KNEE LEFT WO CONTRASTOrd ered By: Byron Mendez on 10-28-2022 [facility] [employer] Work Phone: ALEXon 10-16-2022 CNOV Office Visit (ENDONR ) ILEANA WILSON ([id number]) 1965 F [facility] Date Time Provider Department 10/16/22 12:40 PM CHRISSY MOSER ENDONR During your visit today, we recorded the following information about you: Referring Provider: JENNIFER CHAPA [[id number]] Allergies As of Date: 10/16/2022 Noted Allergy Reaction ALEVE (NAPROXEN SODIUM) 12/30/2011 8 - GI Upset MORPHINE 07/23/2022 14 - Other: See Comments Comments: Doesn't work for pain Date Reviewed: 07/23/2022 Reviewed by: Marialuisa Quevedo MA - Fully Assessed Reason for Visit: New Patient [172] Primary Visit Diagnosis:Diabetes mellitus type 2 in obese (HCC) [E11.69, E66.9] Order(s):CONSULT TO ENDOCRINOLOGY [9000] Order #: [id number]: 1 Prescriptions as of 10/17/2022 - beclomethasone (QVAR REDIHALER) 40 mcg/actuation inhaler Inhale 2 Puffs as instructed twice daily. - ibuprofen (MOTRIN) 800 mg tablet Take 800 mg by mouth every 6 hours as needed. - glimepiride (AMARYL) 1 mg tablet Take 1 mg by mouth twice daily with meals. - insulin glargine-lixisenatide (SOLIQUA 100/33) 100 unit-33 mcg/mL inpn Inject 15 Units subcutaneously once daily. Do not mix with other insulins. - albuterol (PROVENTIL) 2.5 mg /3 mL (0.083 %) nebulizer solution Use 3 mL via nebulizer three times daily as needed for wheezing/shortness of breath. Inhale over 5-15 minutes - benzonatate (TESSALON PERLES) 100 mg capsule Take 1 capsule by mouth three times daily as needed for cough. - fluticasone (FLONASE) 50 mcg/actuation nasal spray Use 2 Sprays in each nostril once daily. - magnesium oxide (MAG-OX) 400 mg (241.3 mg magnesium) tablet Take 1 tablet by mouth once daily. - albuterol HFA (PROVENTIL HFA, VENTOLIN HFA) 90 mcg/actuation inhaler Inhale 2 Puffs as instructed every 4 hours as needed for wheezing/shortness of breath. - sitaGLIPtin-metFORMIN (JANUMET XR) 100-1000 mg TM24 Take by mouth once daily. Problem List As Of Date 10/16/2022 Noted Resolved Medial meniscus tear [S83.249A] 12/30/2011 POST OP VISIT [V67.00] [Z09] 02/24/2012 DJD (degenerative joint disease) [M19.90] 09/21/2012 Mild intermittent asthma with acute exacerbatio*07/23/2022 Chronic rhinitis [J31.0] 07/23/2022 Elevated blood sugar [R73.9] 07/23/2022 Encounter Status:Closed by CHRISSY MOSER on 10/17/22 Normal [facility] US FIBROSCANon 10-14-2022 US FIBROSCAN Table formatting fro m the original result was not included. Velocity Controlled Transient Elastography (Fibroscan) Test Driller: Katherine Castillo Attending: Adenike Steve MD Patient was identified via name and . Ileana Wilson presents to endoscopy suite for VCTE. Referring Physician: Dr. Steve Diagnosis: Cirrhosis of liver Probe Used: XL Pre-procedure Checklist: Presence of ascites: No Fasting for at least two hours: Yes Alcohol Use: No History of heart failure: No Findings: Median kPa: 23.6 IQR/med (%): 17 Controlled Attenuation Paramater (CAP) Median (dB/m): 276 IQR (%): 30 Interpretation: Appropriate reading, Based on LSM of 23.6 Kpa, suspicion for advanced fibrosis/cirrhosis. Fibrosis stage IV Based on CAP of 276 db/M, Mild to moderate steatosis Clinical, laboratory and radiological correlations indicated [facility] Interpreted by: Adenike Steve MD Signed by: Adenike Steve MD 10/18/[address] [facility] XR KNEE LEFT (3 VIEWS)on XR KNEE LEFT (3 VIEWS) 3 views of the left knee were taken showing left total knee arthroplasty with implants to be in the appropriate position and alignment. Interpreted by: Scarlett Ordaz DO Signed by: Scarlett Ordaz DO 10/10/[address] [facility] CNPNon 07-24-2022 CNPN Telephone ([facility]) ILEANA WILSON ([id number]) 1965 F [facility] Date Time Provider Department 07/24/22 JENNIFER CHAPA [facility] During your visit today, we recorded the following information about you: Hilary Kearney Pss 07/24/2022 3:06 PM Signed Ileana Wilson is calling Jennifer Chapa MD today with concern regarding the goddard of the new inhaler you prescribed for her. It's way to expensive she cannot afford it. Is there a different inhaler out there that her insurance will cover? Please call and advise. Patient has been identified by name and birthdate. Duration of symptoms: N/A Person calling: self Call patient at: at home [phone] (home) [phone] (cell) Was an appointment scheduled: No Closing statement: Results or non-symptom based questions: Thank you for calling [facility], your call will be returned within the next business day. Hilary Kearney Pss Marialuisa Quevedo MA 07/24/2022 3:28 PM Signed Might be due to deductible Please advise Jennifer Chapa MD 07/24/2022 3:43 PM Signed Sometimes the first inhaler is expensive due to high deductible Check with pharmacist Alternatives include qvar, flovent, asmanex, pulmicort. Please have pt let me know which one is preferred with her insurance. Marialuisa Quevedo MA 07/24/2022 4:24 PM Signed Pt stated it not due to her deductible She will call us back with one that is cheaper with her insurance. Marialuisa Quevedo MA 07/28/2022 3:31 PM Signed Left a message for patient to call back regarding message below Did she reach out to her insurance to see which inhaler is cheaper? Marialuisa Quevedo MA 07/30/2022 8:49 AM Signed Pt will call today She will call us with an update Do not close Grant Martinezplin 07/31/2022 9:06 AM Signed Ileana Wilson is calling Jennifer Chapa MD today to request we order Qvar 90-day supply through [facility] Medication Problem Patient has been identified by name and birthdate. Duration of symptoms: N/A Person calling: self Call patient at: , it is OK to leave message [phone] (home) [phone] (cell) Was an appointment scheduled: No Closing statement: Grant Gonzalez DO 07/31/2022 4:19 PM Signed Arnuity Ellipta 100 x 1 puff once daily was replaced with Qvar Redihaler 40 x [address] Chapa may make adjustments if she sees fit Jennifer Chapa MD 08/05/2022 3:27 PM Signed Please have pt use qvar 2 puffs bid instead 1 puff bid to be equivalent to arnuity thanks Marialuisa Quevedo MA 08/05/2022 3:33 PM Signed Left a message for patient to call back regarding message below Berkley Oscar RN 08/05/2022 3:58 PM Signed Call from patient. She wlll need refill of medication to show new instructions please. Jennifer Chapa MD 08/05/2022 4:02 PM Signed Your prescriptions were sent as requested MD Soumya Lovett Pss 08/14/2022 1:11 PM Signed Patient calling. Patient had requested Qvar Redihaler be sent to [facility] for a 90 day supply with 3 refills, but it was sent to [facility] in [place]. Please cancel with [facility] and resend to [facility]. Ana Bocanegra RN 08/14/2022 1:53 PM Signed BIENVENIDO 07/23/[address] Chapa Prescription changed to reflect 90 day supply and to be sent to [facility] Ana Bocanegra RN 08/14/2022 1:54 PM Signed Addended by: ANA BOCANEGRA on: 08/14/2022 01:54 PM Modules accepted: Perry Newsome MD 08/14/2022 3:51 PM Signed Rx signed. -MD Barrera Petit MD 08/14/2022 3:52 PM Signed Addended by: BARRERA NEWSOME on: 08/14/2022 03:52 PM Modules accepted: Perry Bocanegra RN 08/14/2022 4:05 PM Signed Left message on patient's voice mail that the Qvar prescription 90 day Rx was sent to [facility] Allergies As of Date: 07/24/2022 Noted Allergy Reaction ALEVE (NAPROXEN SODIUM) 12/30/2011 8 - GI Upset MORPHINE 07/23/2022 14 - Other: See Comments Comments: Doesn't work for pain Date Reviewed: 07/23/2022 Reviewed by: Marialuisa Quevedo MA - Fully Assessed Reason for Visit: Medication Problem [65] Order(s):beclomethasone (QVAR REDIHALER) 40 mcg/actuation inhalerInhale 2 Puffs as instructed twice daily.Disp: 3 EachRfl: 3 Prescriptions as of 08/14/2022 - beclomethasone (QVAR REDIHALER) 40 mcg/actuation inhaler Inhale 2 Puffs as instructed twice daily. - ibuprofen (MOTRIN) 800 mg tablet Take 800 mg by mouth every 6 hours as needed. - glimepiride (AMARYL) 1 mg tablet Take 1 mg by mouth twice daily with meals. - insulin glargine-lixisenatide (SOLIQUA 100/33) 100 unit-33 mcg/mL inpn Inject 15 Units subcutaneously once daily. Do not mix with other insulins. - albuterol (PROVENTIL) 2.5 mg /3 mL (0.083 %) nebulizer solution Use 3 mL via nebulizer three times daily as needed for wheezing/shortness of breath. Inhale over 5-15 minutes - benzonatate (TESSALON PERLES) 100 mg capsule Take 1 caps (more content not included)... Normal [facility] CNOVon 07-23-2022 CNOV Office Visit (AAPMOC ) ILEANA WILSON ([id number]) 1965 F [facility] Date Time Provider Department 07/23/22 9:15 AM [facility] During your visit today, we recorded the following information about you: Pulse Blood pressure Weight Height 88/minute 103/64 106.1 kg 1.549 m Jennifer Chapa MD 07/23/2022 4:08 PM Signed Self referred 56 yo female here to establish asthma care Has h/o reactive airway disease. This was diagnosed after she had knee surgery that was complicated by aspiration about 10 yrs ago . Since then she notes having falre ups of reactive airway disease here and there She has not been on inhalers for 2 years. States breathing has been well controlled She recently moved to [place] from [place] about 2 weeks ago. She was exposed to smoke which triggered severe coughing leading vomiting and difficulty breathing. She tried to use her inhaler, but sx persisted x 3 days. Seen by urgent care and transferred to Er. She was found to have infection (UTI) and started on bactrim Sh was also treated with prednisone and feels 80% better. She required albuterol 3 times per day which was not helpful prior to getting to ER. Also using tessalon perles. She is still using albuterol twice a day now and improving Generally, she is limited due to dyspnea on exertion at baseline. She had knee surgery in Feb which also limits her activity No night time awakenings at baseline Othrwise, triggers include URI about 1 year ago. This is first time this happened with ER She reports having allergy tests in the past. She only had tree pollen (palma tree). No itchy eyes, runny nose or nasal sx. Has deviated septum Had septoplasty and was followed by ENT and was advised to see Plastics. She uses flonase daily which helps. No allergy meds. Has rare reflux now. Uses pepcid once a weekwhich is triggered by certain foods PAST MEDICAL HISTORY Diagnosis Date Asthma Diabetes mellitus (HCC) PAST SURGICAL HISTORY Procedure Laterality Date FOOT SURGERY HX KNEE SURGERY HX REVISE MEDIAN N/CARPAL TUNNEL SURG SEPTOPLASTY Current Outpatient Medications Medication Sig ibuprofen (MOTRIN) 800 mg tablet Take 800 mg by mouth every 6 hours as needed. benzonatate (TESSALON PERLES) 100 mg capsule Take 100 mg by mouth three times daily as needed. glimepiride (AMARYL) 1 mg tablet Take 1 mg by mouth twice daily with meals. insulin glargine-lixisenatide (SOLIQUA 100/33) 100 unit-33 mcg/mL inpn Inject 15 Units subcutaneously once daily. Do not mix with other insulins. sulfamethoxazole-trimet hoprim (BACTRIM DS) 800-160 mg per tablet Take 1 tablet by mouth twice daily for 5 days. magnesium oxide (MAG-OX) 400 mg (241.3 mg magnesium) tablet Take 1 tablet by mouth once daily. potassium chloride ER (KLOR-CON) 20 mEq tablet Take 1 tablet by mouth once daily for 5 days. predniSONE (DELTASONE) 20 mg tablet Take 2 tablets by mouth once daily for 4 days. albuterol HFA (PROVENTIL HFA, VENTOLIN HFA) 90 mcg/actuation inhaler Inhale 2 Puffs as instructed every 4 hours as needed for wheezing/shortness of breath. sitaGLIPtin-metFORMIN (JANUMET XR) 100-1000 mg TM24 Take by mouth once daily. fluticasone (FLONASE) 50 mcg/actuation nasal spray Use 1 [place] in each nostril once daily. No current facility-administered medications for this visit. Home 5 dogs Social history Retired 1ppd x 10 yrs, quit 1990 Family hsitory No atopy REVIEW OF SYSTEMS GEN: +low energy, good appetite, no weight change, no fevers, + chills HEENT: + headaches, no conjunctival pruritus, no rhinorrhea or congestion, no nose bleeds, no snoring CV: + chest pain or +tightness Lungs: + shortness of breath, no cough or wheezing GI: No Abdominal pain, no nausea, + vomiting, no diarrhea, no constipation : No dysuria, + polyuria MSK: + joint pain, + myalgias Neuro: No numbness, no tingling, no weakness Skin: No lesions, no rashes Lymph: No swollen or tender nodes Physical Exam Blood pressure 103/64, pulse 88, height 154.9 cm (5' 1 ), weight 106.1 kg (234 lb), SpO2 99 %. General appearance: well appearing, in no acute distress, alert, coughing during exam Derm: normal skin color, no rashes, no urticaria, no dermatographism HEENT: head normal, Anicteric sclera External ears normal Normal nasal turbinates, no purulent drainage Normal oropharynx Lymph: Neck supple, no adenopathy Resp: Lungs clear to auscultation, no wheezing or rhonchi CV: RRR without murmur, no ectopy Neuro: Moves all extremities, sensation grossly intact Assessment and plan: Asthma with exacerbation Complete the prednisone Start arnuity 1 puff daily Ok to continue albuterol if needed Use nebulizer as needed Use tessalon perles as needed DM with elevated blood sugar Needs to establish care with specialist Refer to endo Chronic rhinitis Pt rep (more content not included)... Normal [facility] Telephone ([facility]) ILEANA WILSON ([id number]) 1965 F [place] Date Time Provider Department 07/23/22 JENNIFER CHAPA [facility] During your visit today, we recorded the following information about you: Marialuisa Quevedo MA 07/23/2022 10:57 AM Signed Gave nebulizer to pt Faxed over everything to [facility] doctors at . Received confirmation. Allergies As of Date: 07/23/2022 Noted Allergy Reaction ALEVE (NAPROXEN SODIUM) 12/30/2011 8 - GI Upset MORPHINE 07/23/2022 14 - Other: See Comments Comments: Doesn't work for pain Date Reviewed: 07/23/2022 Reviewed by: Marialuisa Quevedo MA - Fully Assessed Reason for Visit: nebulizer [Other] Prescriptions as of 07/23/2022 - ibuprofen (MOTRIN) 800 mg tablet Take 800 mg by mouth every 6 hours as needed. - glimepiride (AMARYL) 1 mg tablet Take 1 mg by mouth twice daily with meals. - insulin glargine-lixisenatide (SOLIQUA 100/33) 100 unit-33 mcg/mL inpn Inject 15 Units subcutaneously once daily. Do not mix with other insulins. - albuterol (PROVENTIL) 2.5 mg /3 mL (0.083 %) nebulizer solution Use 3 mL via nebulizer three times daily as needed for wheezing/shortness of breath. Inhale over 5-15 minutes - benzonatate (TESSALON PERLES) 100 mg capsule Take 1 capsule by mouth three times daily as needed for cough. - fluticasone furoate (ARNUITY ELLIPTA) 100 mcg/actuation inhaler Inhale 1 Puff as instructed once daily. - fluticasone (FLONASE) 50 mcg/actuation nasal spray Use 2 Sprays in each nostril once daily. - sulfamethoxazole-trimet hoprim (BACTRIM DS) 800-160 mg per tablet Take 1 tablet by mouth twice daily for 5 days. - magnesium oxide (MAG-OX) 400 mg (241.3 mg magnesium) tablet Take 1 tablet by mouth once daily. - potassium chloride ER (KLOR-CON) 20 mEq tablet Take 1 tablet by mouth once daily for 5 days. - predniSONE (DELTASONE) 20 mg tablet Take 2 tablets by mouth once daily for 4 days. - albuterol HFA (PROVENTIL HFA, VENTOLIN HFA) 90 mcg/actuation inhaler Inhale 2 Puffs as instructed every 4 hours as needed for wheezing/shortness of breath. - sitaGLIPtin-metFORMIN (JANUMET XR) 100-1000 mg TM24 Take by mouth once daily. Problem List As Of Date 07/23/2022 Noted Resolved Medial meniscus tear [S83.249A] 12/30/2011 POST OP VISIT [V67.00] [Z09] 02/24/2012 DJD (degenerative joint disease) [M19.90] 09/21/2012 Encounter Status:Closed by MARIALUISA QUEVEDO on 07/23/22 Normal [facility] CBC W Auto Differential pane l (Bld)on 07-20-2022 Basophils (Bld) [#/Vol] 0.05 10*3/uL Normal <0.11 [facility] Comment on above: Order Comment: Speci men Type: BLOOD SPECIMENOrdering Facility: [facility] Address: [address] [address] Performed By: #### 5 7021-8 ####[facility]ORATORYIA [id number] [place] [address] [place] Basophils/100 WBC (Bld) 0.5 % Normal [facility] Comment on above: Order Comment: Speci men Type: BLOOD SPECIMENOrdering Facility: [facility] Address: [address] [address] Performed By: #### 5 7021-8 ####[facility] [id number] [place] [address] [place] Differential cell count method Nom (Bld) Auto Normal [facility] Comment on above: Order Comment: Speci men Type: BLOOD SPECIMENOrdering Facility: [facility] Address: [address] [address] Performed By: #### 5 7021-8 ####[facility] [id number] [place] [address] [place] Eosinophils (Bld) [#/Vol] 0.11 10*3/uL Normal <0.46 [facility] Comment on above: Order Comment: Speci men Type: BLOOD SPECIMENOrdering Facility: [facility] Address: [address] [address] Performed By: #### 5 7021-8 ####[facility]ORYIA [id number] [place] [address] [place] Eosinophils/100 WBC (Bld) 1.0 % Normal [facility] Comment on above: Order Comment: Speci men Type: BLOOD SPECIMENOrdering Facility: [facility] Address: [address] [address] Performed By: #### 5 7021-8 ####[facility]ORATORYCLIA [id number] [address] [place] Erythrocyte distribution width (RBC) [Ratio] 19.9 % High 11.5-15.0 [facility] Comment on above: Order Comment: Speci men Type: BLOOD SPECIMENOrdering Facility: [facility] Address: [address] [address] Performed By: #### 5 7021-8 ####[facility] [id number] [address] [place] Hematocrit (Bld) [Volume fraction] 29.5 % Low 36.0-46.0 [facility] Comment on above: Order Comment: Speci men Type: BLOOD SPECIMENOrdering Facility: [facility] Address: [address] [address] Performed By: #### 5 7021-8 ####[facility] [id number] [address] [place] Hemoglobin (Bld) [Mass/Vol] 9.2 g/dL Low 11.5-15.5 [facility] Comment on above: Order Comment: Speci men Type: BLOOD SPECIMENOrdering Facility: [facility] Address: [address] [address] Performed By: #### 5 7021-8 ####[facility] [id number] [address] [place] Immature granulocytes (Bld) [#/Vol] 0.05 10*3/uL Normal <0.10 [facility] Comment on above: Order Comment: Speci men Type: BLOOD SPECIMENOrdering Facility: [facility] Address: [address] [address] Performed By: #### 5 7021-8 ####[facility] [id number] [place] [address] [place] Immature granulocytes/100 WBC (Bld) 0.5 % Normal [facility] Comment on above: Order Comment: Speci men Type: BLOOD SPECIMENOrdering Facility: [facility] Address: [address] [place] [address] Performed By: #### 5 7021-8 ####[facility] [id number] [place] [address] [place] Lymphocytes (Bld) [#/Vol] 1.05 10*3/uL Normal 1.00-4.00 [facility] Comment on above: Order Comment: Speci men Type: BLOOD SPECIMENOrdering Facility: [facility] Address: [address] [place] [address] Performed By: #### 5 7021-8 ####[facility] [id number] [address] [place] Lymphocytes/100 WBC (Bld) 9.6 % Normal [facility] Comment on above: Order Comment: Speci men Type: BLOOD SPECIMENOrdering Facility: [facility] Address: [address] [place] [address] Performed By: #### 5 7021-8 ####[facility] [id number] [place] [address] [place] MCH (RBC) [Entitic mass] 23.6 pg Low 26.0-34.0 [facility] Comment on above: Order Comment: Speci men Type: BLOOD SPECIMENOrdering Facility: [facility] Address: [address] [place] [address] Performed By: #### 5 7021-8 ####[facility] [id number] [address] [place] MCHC (RBC) [Mass/Vol] 31.2 g/dL Normal 30.5-36.0 [facility] Comment on above: Order Comment: Speci men Type: BLOOD SPECIMENOrdering Facility: [facility] Address: [address] [address] Performed By: #### 5 7021-8 ####[facility] [id number] [place] [address] [place] MCV (RBC) [Entitic vol] 75.6 fL Low 80.0-100.0 [facility] Comment on above: Order Comment: Speci men Type: BLOOD SPECIMENOrdering Facility: [facility] Address: [address] [address] Performed By: #### 5 7021-8 ####[facility] [id number] [place] [address] [place] Monocytes (Bld) [#/Vol] 1.15 10*3/uL High <0.87 [facility] Comment on above: Order Comment: Speci men Type: BLOOD SPECIMENOrdering Facility: [facility] Address: [address] [address] Performed By: #### 5 7021-8 ####[facility] [id number] [place] [address] [place] Monocytes/100 WBC (Bld) 10.5 % Normal [facility] Comment on above: Order Comment: Speci men Type: BLOOD SPECIMENOrdering Facility: [facility] Address: [address] [address] Performed By: #### 5 7021-8 ####[facility] [id number] [place] [address] [place] Neutrophils (Bld) [#/Vol] 8.58 10*3/uL High 1.45-7.50 [facility] Comment on above: Order Comment: Speci men Type: BLOOD SPECIMENOrdering Facility: [facility] Address: [address] [address] Performed By: #### 5 7021-8 ####[facility]ORYIA [id number] [address] [id number] [place] Neutrophils/100 WBC (Bld) 77.9 % Normal [facility] Comment on above: Order Comment: Speci men Type: BLOOD SPECIMENOrdering Facility: [facility] Address: [address] [address] Performed By: #### 5 7021-8 ####[facility]ORATORYCLIA [id number] [address] [place] Nucleated RBC (Bld) [#/Vol] 10*3/uL Normal <0.01 [facility] Comment on above: Order Comment: Speci men Type: BLOOD SPECIMENOrdering Facility: [facility] Address: [address] [address] Performed By: #### 5 7021-8 ####[facility]ITALIA [id number] [address] OF [facility] Nucleated RBC/100 WBC (Bld) [Ratio] 0.0 /100 WBC Normal [facility] Comment on above: Order Comment: Speci men Type: BLOOD SPECIMENOrdering Facility: [facility] Address: [address] [address] Performed By: #### 5 7021-8 ####[facility] [id number] [address] [place] Platelet mean volume (Bld) [Entitic vol] 10.8 fL Normal 9.0-12.7 [facility] Comment on above: Order Comment: Speci men Type: BLOOD SPECIMENOrdering Facility: [facility] Address: [address] Performed By: #### 5 7021-8 ####[facility]ORYIA [id number] [place] [address] [place] Platelets (Bld) [#/Vol] 108 10*3/uL Low 150-400 [facility] Comment on above: Order Comment: Speci men Type: BLOOD SPECIMENOrdering Facility: [facility] Address: [address] [address] Result Comment: No c lot detected. Performed By: #### 5 7021-8 ####[facility] LABORATORYCLIA [id number] [place] [address] [place] RBC (Bld) [#/Vol] 3.90 10*6/uL Normal 3.90-5.20 [facility] Comment on above: Order Comment: Speci men Type: BLOOD SPECIMENOrdering Facility: [facility] Address: [address] [place] [address] Performed By: #### 5 7021-8 ####[facility]ORYIA [id number] [place] [address] [facility] WBC (Bld) [#/Vol] 10.99 10*3/uL Normal 3.70-11.00 [facility] Comment on above: Order Comment: Speci men Type: BLOOD SPECIMENOrdering Facility: [facility] Address: [address] [place] [address] Performed By: #### 5 7021-8 ####[facility] [id number] [place] [address] [facility] * * *Final Report* * * DATE OF EXAM: Jul 20 2022 3:13PM [facility] 0540 - CT CHEST W IVCON PE / PROCEDURE REASON: Pulmonary embolism (PE) suspected, high prob * * * * Physician Interpretation * * * * EXAMINATION: CHEST CT WITH CONTRAST (PULMONARY EMBOLISM PROTOCOL) CLINICAL HISTORY: Shortness of breath, cough Technique: Spiral CT acquisition of the chest from the thoracic inlet to the upper abdomen following IV contrast. Axial 1 and 3 mm thick slices plus coronal and sagittal reformatted images. MQ: CTCP_5 Contrast: 80 mL Omnipaque [address] Radiation dose: Integrated Dose-length product (DLP) for this visit = 651 mGy*cm CT Dose Reduction Employed: Automated exposure control(AEC) and iterative recon Comparison: No relevant prior studies available. RESULT: Limitations: Suboptimal study due to nonideal bolus timing, large body habitus. Evaluation for thromboembolic disease: - Right heart chambers: No thromboembolic disease. - Main pulmonary arteries: No thromboembolic disease. - Lobar pulmonary arteries: No thromboembolic disease. - Segmental pulmonary arteries: No thromboembolic disease. - Subsegmental pulmonary arteries: No thromboembolic disease. - Additional pulmonary artery findings: The main pulmonary artery is normal in caliber. Lines, tubes, and devices: None. Lung parenchyma and airways: No consolidation. No suspicious pulmonary nodule. The central airways are patent. Pleural space: No pleural effusion. No pneumothorax. Lower neck, lymph nodes, and mediastinum: The imaged thyroid gland is normal. No lymphadenopathy in the supraclavicular, axillary, mediastinal, or hilar regions. Heart, pericardium, and thoracic vessels: The thoracic aorta is normal in caliber. Cardiomegaly. No coronary artery atherosclerotic calcifications are noted, although the study is not optimized for coronary assessment. Bones and soft tissues: No destructive bone lesion. Chest wall is unremarkable. Upper abdomen: Small sliding hiatal hernia. 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 Partially imaged enlarged spleen. Cholelithiasis. Coil Rewind Machine Operator (topogram) images: No additional findings. IMPRESSION: Limited evaluation with no CT evidence of acute pulmonary thromboembolic disease. 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 Splenomegaly, partially imaged. Cholelithiasis. Public School Teacher: PSCPaula Transcribe Date/Time: Jul 20 2022 4:18P Dictated by : Viktor BENZ MD This examination was interpreted and the report reviewed and electronically signed by: Viktor BENZ MD on Jul 20 2022 4:31PM EST [id number] Normal [facility] Comprehensive metabolic 2000 panelon 07-20-2022 Albumin [Mass/Vol] 3.2 g/dL Low 3.9-4.9 [facility] Comment on above: Order Comment: Shravan becerra Type: BLOOD SPECIMENOrdering Facility: [facility] Address: [address] [place] [address] Performed By: #### 2 4323-8, 18151-1, 97892-1 ####[facility] LABORATORYCLIA [id number] [facility] [place] [address] [place] ALP [Catalytic activity/Vol] 96 U/L Normal 34-123 [facility] Comment on above: Order Comment: Shravan becerra Type: BLOOD SPECIMENOrdering Facility: [facility] Address: [address] [address] Performed By: #### 2 4323-8, 88600-1, 82032-6 ####[facility]ORATORYCLIA [id number] [place] [address] [place] ALT [Catalytic activity/Vol] 14 U/L Normal 7-38 [facility] Comment on above: Order Comment: Speci men Type: BLOOD SPECIMENOrdering Facility: [facility] Address: [address] [address] Performed By: #### 2 4323-8, , 52945-0 ####[facility]ORATORYCLIA [id number] [place] [address] [place] Anion gap [Moles/Vol] 10 mmol/L Normal 9-18 [facility] Comment on above: Order Comment: Speci men Type: BLOOD SPECIMENOrdering Facility: [facility] Address: [address] [address] Performed By: #### 2 4323-8, , 73222-1 ####[facility]ORATORYCLIA [id number] [place] [address] [place] AST [Catalytic activity/Vol] 25 U/L Normal 13-35 [facility] Comment on above: Order Comment: Speci men Type: BLOOD SPECIMENOrdering Facility: [facility] Address: [address] [address] Performed By: #### 2 4323-8, , 29609-0 ####[facility]ORATORYCLIA [id number] [place] [address] [place] Bilirubin [Mass/Vol] 2.6 mg/dL High 0.2-1.3 [facility] Comment on above: Order Comment: Speci men Type: BLOOD SPECIMENOrdering Facility: [facility] Address: [address] [address] Performed By: #### 2 4323-8, 47835-9, 56717-0 ####[facility]ORATORYCLIA [id number] [place] [address] [place] Calcium [Mass/Vol] 9.2 mg/dL Normal 8.5-10.2 [facility] Comment on above: Order Comment: Speci men Type: BLOOD SPECIMENOrdering Facility: [facility] Address: [address] [place] [address] Performed By: #### 2 4323-8, 31072-9, 31314-1 ####[facility]ITAL[facility] [id number] [place] [address] [place] Chloride [Moles/Vol] 99 mmol/L Normal 97-105 [facility] Comment on above: Order Comment: Speci men Type: BLOOD SPECIMENOrdering Facility: [facility] Address: [address] [place] [address] Performed By: #### 2 4323-8, , 53890-4 ####[facility]ITAL[facility] [id number] [place] [address] [place] CO2 [Moles/Vol] 24 mmol/L Normal 22-30 [facility] Comment on above: Order Comment: Speci men Type: BLOOD SPECIMENOrdering Facility: [facility] Address: [address] [place] [address] Performed By: #### 2 4323-8, , 30249-0 ####[facility]ITAL[facility] [id number] [place] [address] [place] Creatinine [Mass/Vol] 0.55 mg/dL Low 0.58-0.96 [facility] Comment on above: Order Comment: Speci men Type: BLOOD SPECIMENOrdering Facility: [facility] Address: [address] [place] [address] Performed By: #### 2 4323-8, 31137-4, 96685-9 ####[facility]ORATORYIA [id number] [place] [address] [place] ESTIMATED GLOMERULAR FILTRATION RATE 107 mL/min/1.73m??? Normal >=60 [facility] Comment on above: Order Comment: Shravan becerra Type: BLOOD SPECIMENOrdering Facility: [facility] Address: [address] [place], [place] [address] Result Comment: [place] mated Glomerular Filtration Rate (eGFR) is calculated using the 2020 CKD-EPI creatinine equation. This equation utilizes serum creatinine, sex, and age as parameters. The creatinine assay has traceable calibration to isotope dilution-mass spectrometry. Refer to KDIGO guidelines for clinical interpretation. In patients with unstable renal function, e.g. those with acute kidney injury, the eGFR may not accurately reflect actual GFR. Performed By: #### 2 4323-8, 89000-3, 44247-0 ####[facility] HOSPITALCLIA [id number] [facility] [place] [address] [place] Glucose [Mass/Vol] 194 mg/dL High 74-99 [facility] ospital Comment on above: Order Comment: Shravan becerra Type: BLOOD SPECIMENOrdering Facility: [facility] Address: [address] [place] [address] Result Comment: The [place] Diabetes Association (ADA) provides guidance for cutoff values for fasting glucose and random glucose. The ADA defines fasting as no caloric intake for at least 8 hours. Fasting plasma glucose results between 100 to 125 mg/dL indicate increased risk for diabetes (prediabetes). Fasting plasma glucose results greater than or equal to 126 mg/dL meet the criteria for diagnosis of diabetes. In the absence of unequivocal hyperglycemia, results should be confirmed by repeat testing. In a patient with classic symptoms of hyperglycemia or hyperglycemic crisis, random plasma glucose results greater than or equal to 200 mg/dL meet the criteria for diagnosis of diabetes. Reference: Standards of Medical Care in Diabetes 2016, [place] Diabetes Association. Diabetes Care. 2016.39(Suppl 1). Performed By: #### 2 4323-8, 72171-4, 77488-2 ####[facility] LAB[facility]ATORYCLIA [id number] [facility] [place] [address] [place] Potassium [Moles/Vol] 3.2 mmol/L Low 3.7-5.1 [facility] Comment on above: Order Comment: Shravan [facility] Type: BLOOD SPECIMENOrdering Facility: [facility] Address: [address] Performed By: #### 2 4323-8, 04847-1, 52463-2 ####[facility] [id number] [place] [address] [place] Protein [Mass/Vol] 6.3 g/dL Normal 6.3-8.0 [place] ospital Comment on above: Order Comment: Speci men Type: BLOOD SPECIMENOrdering Facility: [facility] Address: [address] Performed By: #### 2 4323-8, 63411-7, 90046-3 ####[facility] [id number] [place] [id number] [place] Sodium [Moles/Vol] 133 mmol/L Low 136-144 [facility] Comment on above: Order Comment: Speci men Type: BLOOD SPECIMENOrdering Facility: [facility] Address: [address] [place], [place] [address] Performed By: #### 2 4323-8, 41240-2, 84744-7 ####[facility] [id number] [place] [id number] [place] Urea nitrogen [Mass/Vol] 10 mg/dL Normal 7-21 [facility] Comment on above: Order Comment: Speci men Type: BLOOD SPECIMENOrdering Facility: [facility] Address: [address] Performed By: #### 2 4323-8, 56738-8, 98844-9 ####[facility]ITAL[facility] [id number] [place] [address] [place] D dimer FEU PPP-ncon 07-20 Fibrin D-dimer FEU (PPP) [Mass/Vol] 1540 ng/mL FEU High <500 [facility] Comment on above: Order Comment: Speci men Type: BLOOD SPECIMENOrdering Facility: [facility] Address: [address] [place], [place] [address] Performed By: #### 4 8065-7 ####[facility] LABORATORYCLIA [id number] [facility] [place] [address] [facility] ECG COMPLETEon 07-20-2022 ECG COMPLETE Ventricular Rate : 9 4 BPM Atrial Rate : 94 BPM P-R Interval : 133 ms QRS Duration : 66 ms Q-T Interval : 275 ms QTC Calculation(Bazett) : 344 ms Calculated P [place] : 41 degrees Calculated R [place] : 60 degrees Calculated T [place] : -21 degrees Sinus rhythm Low voltage, precordial leads Borderline repolarization abnormality Borderline ECG 203 no STEMI Confirmed by RIKKI RIVERA MD, NICHOLAS ([id number]), index editor BREANNE MCCRACKEN ([id number]) on 07/21/2022 8:19:37 AM NAME : ILEANA WILSON PID : [id number] : 1965 Gender : Female Race : ORD : [id number] Procedure Date : Jul 20 2022 13:45:19 Edit Date : Jul 21 2022 08:19:42 Diagnosis: Sinus rhythm Low voltage, precordial leads Borderline repolarization abnormality Borderline ECG 203 no STEMI Confirmed by RIKKI RIVERA MD, NICHOLAS ([id number]), index editor BREANNE MCCRACKEN ([id number]) on 07/21/2022 8:19:37 AM Test Reason : Chest Pain Location : 302 : ED AVED-7 Overread By : RIKKI RIVERA MD, NICHOLAS Edited By : BREANNE MCCRACKEN Referred By : , Acquired by : [id number], Normal [facility] ED NOTEon 07-20-2022 ED NOTE HNO ID: [id number] Author: Vanessa Fontanez RN Service: ? Author Type: Registered Nurse Type: ED Notes Filed: 07/20/2022 6:04 PM Note Text: Patient and daughter present when discussed d/c paperwork. Patient was educated to follow up with PCP/Pulm. Patient was sent home with medications and educated on the medications. Patient was sent home in a stable condition, VSS, IV d/c. Patient was educated on the s/sx to watch out for and when to return to the ED. Patient was able to dress themselves and ambulate from the ED. Patient reports no other questions at time of d/c. Normal [facility] ED NOTE HNO ID: [id number] Author: AMAYA Younger Service: ? Author Type: Patient Care Composite Mechanic Type: ED Notes Filed: 07/20/2022 5:11 PM Note Text: Walking Pulseox Sittin spo2 100 pulse Walkin- 95 spo2 119 pulse [facility] ED NOTE HNO ID: [id number] Author: Vanessa Fontanez RN Service: ? Author Type: Registered Nurse Type: ED Notes Filed: 07/20/2022 2:47 PM Note Text: US at bedside. [facility] ED PROV NOTEon 07-20-2022 ED PROV NOTE HNO ID: [id number] Author: Scarlett Guthrie PA-C Service: Emergency Medicine Author Type: Physician Information Systems Architect Type: ED Provider Notes Filed: 07/20/2022 9:06 PM Note Text: Attestation signed by Barrera Johnson III, MD at 07/20/2022 9:33 PM Attending Note I have personally performed a face to face assessment of the patient and have reviewed the KEVIN note. I performed a substantive portion of the visit including all aspects of the following. My zhu findings include: Medical Decision Making This is a 56-year-old female presents for complaints of dyspnea which has been ongoing over the last few weeks. Mild nonproductive cough. Patient reports that she is concerned about her breathing and the fact that she have increased shortness of breath. She does have a history of reactive airway disease. Her work-up here is significant for what appears to be either asthma exacerbation or bronchitis however there were some findings on the laboratory evaluation CT that she was not previously aware of such as the fact that she has cirrhotic morphology, thrombocytopenia etc. We did offer to admit her to the hospital for further work-up of these but she would prefer to go home and have outpatient evaluation of this. We did give her strict discharge precautions and alcohol cessation recommendations. We also set her up with GI amongst other providers. We gave her strict discharge precautions and are giving her urgent dispatch follow-up. She otherwise actually is well-appearing. We have replaced her electrolytes and she will be expeditiously followed up. Signature: Barerra Johnson III, MD Date: 07/20/2022 Time: 9:32 PM ED Provider Note Patient Name: Ileana Wilson : 1965 SERVICE DATE: 07/20/22 History Patient presents with: Shortness of Breath: Pt states to have sob x 1 week. Pt has a productive cough x 1 week . Pt had long car ride from [place] 1 week ago HPI: 56-year-old female history of asthma presents emergency department with concern for dyspnea ongoing over the last week progressively worse. Mitts to nonproductive cough. States that she does have intermittent chest pain with this. No associated back pain or abdominal pain. Admits to posttussive emesis without nausea. She has not had fever. Recently moved from [place] to [place] within the last 2 weeks. States roommate was smoking marijuana before the symptoms occurred. She denies history of PE or DVT and denies leg swelling. No history of kidney or liver disease denies history of cardiac disease. States over the last 24 hours she has had frequency and urgency with urination with darker colored urine. No dysuria. Past Medical History: Reviewed in hpi Past Surgical History: No pertinent surgery Social History: No tobacco use Allergies: Reviewed History reviewed. No pertinent past medical history. History reviewed. No pertinent surgical history. No family history on file. Social History Tobacco Use Smoking status: Not on file Smokeless tobacco: Not on file Substance and Sexual Activity Alcohol use: Not on file Drug use: Not on file Sexual activity: Not on file ALLERGIES Allergen Reactions Aleve [Naproxen Sod* GI Upset Review of Systems Constitutional: Positive for chills and fatigue. Negative for fever. HENT: Positive for congestion. Respiratory: Positive for cough and shortness of breath. Cardiovascular: Positive for chest pain. Negative for leg swelling. Gastrointestinal: Positive for abdominal pain and vomiting. Negative for blood in stool, constipation, diarrhea and nausea. Genitourinary: Positive for frequency and urgency. Negative for dysuria. Musculoskeletal: Negative for back pain. Neurological: Negative for dizziness and headaches. All other systems reviewed and are negative. Physical Exam Vitals BP Pulse Temp Temp src Resp SpO2 Weight Height 07/20/22 1337 07/20/22 1337 07/20/22 1337 07/20/22 1337 07/20/22 1337 07/20/22 1337 07/20/22 1337 -- 116/53 (!) 94 36.8 ?C (98.2 ?F) Oral 16 95 % 104.3 kg (230 lb) Physical Exam Vitals reviewed. Constitutional: General: She is not in acute distress. Appearance: Normal appearance. She is not ill-appearing, toxic-appearing or diaphoretic. HENT: Head: Normocephalic. Mouth/Throat: Mouth: Mucous membranes are moist. Pharynx: Oropharynx is clear. No oropharyngeal exudate or posterior oropharyngeal erythema. Eyes: Extraocular Movements: Extraocular movements intact. Pupils: Pupils are equal, round, and reactive to light. Cardiovascular: Rate and Rhythm: Normal rate and regular rhythm. Pulses: Normal pulses. Heart sounds: Normal heart sounds. No murmur heard. No friction rub. No gallop. Pulmonary: Effort: Pulmonary effort is normal. No respiratory d (more content not included)... Normal [facility] FLUABV+SARS-CoV-2+RSV Pnl Re sp NEPTALI+probeon 07-20-2022 FLUABV+SARS-CoV-2+R SV Pnl Resp NEPTALI+probe COVID 19 RESULT: Not detected The method used is RT-PCR or an equivalent NAAT method. Reference Range(the expected result in uninfected individuals): Not detected INFLUENZA A PCR: Not detected INFLUENZA B PCR: Not detected RSV PCR: Not detected Normal [facility] Comment on above: Performed By: #### 9 5941-1 #### [facility] CLIA [id number] [facility] [place] [address] [place] Fibrin D-dimer FEU (PPP) [Ma ss/Vol]on 07-20-2022 D DIMER AGE-RELATED CUTOFF 570 ng/mL FEU Normal [facility] Comment on above: Order Comment: Shravan mariam Type: BLOOD SPECIMENOrdering Facility: [facility] Address: [address] [place] [address] Performed By: #### 4 8065-7 ####[facility] LABORATORYCLIA [id number] [place] [id number] [place] HIGH SENSITIVITY TROPONIN T (INITIAL)on 07-20-2022 HIGH SENSITIVITY BRIGITTE <6 Normal <12 [facility] Comment on above: Order Comment: Shravan mariam Type: BLOOD SPECIMENOrdering Facility: [facility] Address: [address] [place] [address] Result Comment: When assessing risk for acute coronary syndromes: In patients undergoing blood draw greater than or equal to 2 hours from symptom onset, with history of very low to moderate risk and non-ischemic ECG, an initial hs-Troponin T less than 12 ng/L AND a 1 hour delta hs-Troponin T less than 3 ng/L should be considered very low risk for 30 day MACE. Performed By: #### L [id number] ####[facility] LABORATORYCLIA [id number] [address] [place] HIGH SENSITIVITY TROPONIN T (SECOND)on 07-20-2022 HIGH SENSITIVITY BRIGITTE <6 Normal <12 [facility] Comment on above: Order Comment: Shravan mariam Type: BLOOD SPECIMEN Ordering Facility: [facility] Address: [address] [place] [address] Result Comment: When assessing risk for acute coronary syndromes: In patients undergoing blood draw greater than or equal to 2 hours from symptom onset, with history of very low to moderate risk and non-ischemic ECG, an initial hs-Troponin T less than 12 ng/L AND a 1 hour delta hs-Troponin T less than 3 ng/L should be considered very low risk for 30 day MACE. Performed By: #### L [id number] #### [facility] CLIA [id number] [address] [place] [address] [place] Magnesium SerPl-mCncon 05-14 -2023 Magnesium [Mass/Vol] 1.5 mg/dL Low 1.7-2.3 [facility] Comment on above: Order Comment: Speci men Type: BLOOD SPECIMENOrdering Facility: [facility] Address: [place] [address] Performed By: #### 2 4323-8, 27128-0, 25162-3 ####[facility] LABORATORYCLIA [id number] [place] [address] [facility] NT-proBNP SerPl-mCncon 07-20 Natriuretic peptide.B prohormone N-Terminal [Mass/Vol] 321 pg/mL High <125 [facility] Comment on above: Order Comment: Spec mariam Type: BLOOD SPECIMENOrdering Facility: [facility] Address: [place] [address] Performed By: #### 2 4323-8, 08192-6, 83943-3 ####[facility] LABORATORYCLIA [id number] [facility] [facility] US DVT LOWER BILon 3 US DVT LOWER GEE * * *Final Report* * * DATE OF EXAM: Jul 20 2022 2:58PM [facility] 1005 - DVT LOWER GEE / PROCEDURE REASON: Leg deep vein thrombosis (DVT) suspected * * * * Physician Interpretation * * * * EXAMINATION: RIGHT AND LEFT LOWER EXTREMITY DEEP VENOUS ULTRASOUND WITH DOPPLER IMAGING CLINICAL HISTORY: Leg deep vein thrombosis (DVT) suspected TECHNIQUE: Grayscale with compression maneuvers, color Doppler and spectral Doppler imaging of the right and left proximal deep veins was performed. Grayscale with compression maneuvers of the right and left peroneal and posterior tibial veins was performed. The right and left great and small saphenous veins were evaluated at their insertion to the deep system. Images were obtained and stored in a permanent archive. MQ: [id number]_1 COMPARISON: None RESULT: RIGHT LOWER EXTREMITY PROXIMAL DEEP VEINS Distal External Iliac, Common Femoral and Proximal Profunda Veins: Compression: Normal Doppler: Normal, spontaneous respirophasic flow. Normal response to augmentation. Femoral vein: Compression: Normal Doppler: Normal, spontaneous respirophasic flow. Normal response to augmentation. Popliteal vein: Compression: Normal Doppler: Normal, spontaneous respirophasic flow. Normal response to augmentation. CALF DEEP VEINS Peroneal veins: Normal compression. Posterior tibial veins: Normal compression. Gastrocnemius and Soleal veins: Not imaged. SUPERFICIAL VEINS Great saphenous: Patent and compressible at insertion into common femoral vein; not otherwise assessed. Small Saphenous: Patent and compressible in the proximal calf, not otherwise assessed. LEFT LOWER EXTREMITY PROXIMAL DEEP VEINS Distal External Iliac, Common Femoral and Proximal Profunda Veins: Compression: Normal Doppler: Normal, spontaneous respirophasic flow. Normal response to augmentation. Femoral vein: Compression: Normal Doppler: Normal, spontaneous respirophasic flow. Normal response to augmentation. Popliteal vein: Compression: Normal Doppler: Normal, spontaneous respirophasic flow. Normal response to augmentation. CALF DEEP VEINS Peroneal veins: Normal compression. Posterior tibial veins: Normal compression. Gastrocnemius and Soleal veins: Not imaged. SUPERFICIAL VEINS Great saphenous: Patent and compressible at insertion into common femoral vein; not otherwise assessed. Small Saphenous: Patent and compressible in the proximal calf, not otherwise assessed. IMPRESSION: Negative study for proximal DVT in the left and right lower extremities. Negative study for calf DVT in the left and right lower extremities. Negative study for superficial thrombophlebitis in the imaged segments of the left and right lower extremities. Public School Teacher: [facility] Transcribe Date/Time: Jul 20 2022 3:03P Dictated by : SANTIAGO MARIA MD This examination was interpreted and the report reviewed and electronically signed by: SANTIAGO MARIA MD on Jul 20 2022 3:03PM EST [id number] Normal [facility] Urinalysis complete panel (U )on 07-20-2022 Bacteria LM.HPF (Urine sed) [#/Area] Many Abnormal None Seen [facility] Comment on above: Order Comment: Speci men Type: URINE SPECIMEN Ordering Facility: [facility] Address: [address] [place] [address] Performed By: #### 2 4356-8 #### [facility] CLIA [id number] [facility] [place] [address] [place] [facility] CLIA [id number] [address] [facility] [address] [place] [address] [place] Bilirubin Ql (U) Negative Normal Negative [facility] pital Comment on above: Order Comment: Speci men Type: URINE SPECIMEN Ordering Facility: [facility] Address: [address] [place] [address] Performed By: #### 2 4356-8 #### [facility] CLIA [id number] [address] [place], [place] [address] [place] [address] [place] [facility] CLIA [id number] [address] [place] [address] [place] Clarity (Unsp spec) Turbid Abnormal Clear [facility] Comment on above: Order Comment: Speci men Type: URINE SPECIMEN Ordering Facility: [facility] Address: [address] [place] [address] Performed By: #### 2 4356-8 #### [facility] [place] [id number] STATES OF [facility] CLIA [id number] [address] [place] [address] [place] Color (U) Yellow Normal yellow [facility] Comment on above: Order Comment: Speci men Type: URINE SPECIMEN Ordering Facility: [facility] Address: [address] [place] [address] Performed By: #### 2 4356-8 #### [facility] CLIA [id number] [address] [place] [address] [place] [facility] CLIA [id number] [address] [place] [address] [place] Epithelial cells LM.HPF (Urine sed) [#/Area] Few Normal [facility] Comment on above: Order Comment: Speci men Type: URINE SPECIMEN Ordering Facility: [facility] Address: [address] [place] [address] Result Comment: Few Performed By: #### 2 4356-8 #### [facility] CLIA [id number] [address] [place] [address] [place] [facility] CLIA [id number] [address] [place] [address] [place] Glucose Test strip (U) [Mass/Vol] Trace Normal Trace, Negative [facility] Comment on above: Order Comment: Speci men Type: URINE SPECIMEN Ordering Facility: [facility] Address: [address] [place] [address] Performed By: #### 2 4356-8 #### [facility] CLIA [id number] [address] [place] [address] [place] [facility] CLIA [id number] [address] [place] [address] [place] Hemoglobin Ql (U) Trace Normal Negative, Trace [facility] Comment on above: Order Comment: Speci men Type: URINE SPECIMEN Ordering Facility: [facility] Address: [address] [place] [address] Performed By: #### 2 4356-8 #### [facility] CLIA [id number] [address] [place] [address] [place] [facility] CLIA [id number] [address] [place] [address] [place] Ketones Ql (U) Trace Normal Negative, Trace [facility] Comment on above: Order Comment: Speci men Type: URINE SPECIMEN Ordering Facility: [facility] Address: [address] Performed By: #### 2 4356-8 #### [facility] CLIA [id number] [address] [place] [address] [place] [facility] CLIA [id number] [address] [place] Leukocyte esterase Test strip Ql (U) 500 Tiffanie/uL Abnormal Negative, 25 Tiffanie/uL [facility] Comment on above: Order Comment: Speci men Type: URINE SPECIMEN Ordering Facility: [facility] Address: [address] [place], [place] [address] Performed By: #### 2 4356-8 #### [facility] CLIA [id number] [address] [place] [address] [place] [facility] CLIA [id number] [address] [place] [address] [place] Nitrite Ql (U) 2+ Abnormal Negative [facility] Comment on above: Order Comment: Speci men Type: URINE SPECIMEN Ordering Facility: [facility] Address: [address] [place] [address] Performed By: #### 2 4356-8 #### [facility] CLIA [id number] [address] [place] [address] [place] [facility] CLIA [id number] [address] [place] [address] [place] pH (U) 6.0 [pH] Normal 5.0-8.0 [facility] Comment on above: Order Comment: Speci men Type: URINE SPECIMEN Ordering Facility: [facility] Address: [address] [place] [address] Performed By: #### 2 4356-8 #### [facility] [place] [id number] [address] [place] [address] [place] [facility] CLIA [id number] [address] [place] [address] [place] Protein (U) [Mass/Vol] 1+ Abnormal Trace, Negative [facility] Comment on above: Order Comment: Speci men Type: URINE SPECIMEN Ordering Facility: [facility] Address: [address] [place] [address] Performed By: #### 2 4356-8 #### [facility] CLIA [id number] [address] [place] [address] [place] [facility] CLIA [id number] [address] [place] [address] [place] RBC LM.HPF (Urine sed) [#/Area] 6-10 /HPF Abnormal 0-3 /HPF [facility] Comment on above: Order Comment: Speci men Type: URINE SPECIMEN Ordering Facility: [facility] Address: [address] [place] [address] Performed By: #### 2 4356-8 #### [facility] CLIA [id number] [address] [place], [place] [address] [place] [address] [place] [facility] CLIA [id number] [address] [place] Specific gravity (U) [Rel density] 1.021 Normal 1.005-1.030 [facility] Comment on above: Order Comment: Speci men Type: URINE SPECIMEN Ordering Facility: [facility] Address: [address] [place] [address] Performed By: #### 2 4356-8 #### [facility] CLIA [id number] [address] [place] [address] [place] [facility] CLIA [id number] [address] OF [facility] Urobilinogen Ql (U) 2+ Abnormal Negative [facility] Comment on above: Order Comment: Speci men Type: URINE SPECIMEN Ordering Facility: [facility] Address: [address] [place] [address] Performed By: #### 2 4356-8 #### [facility] CLIA [id number] [place] [address] [place] [facility] CLIA [id number] [facility] [address] [place] WBC LM.HPF (Urine sed) [#/Area] /[HPF] Abnormal 0-5 /HPF [facility] Comment on above: Order Comment: Speci men Type: URINE SPECIMEN Ordering Facility: [facility] Address: [address] [place] [address] Performed By: #### 2 4356-8 #### [facility] CLIA [id number] [address] [place] [address] [place] [facility] CLIA [id number] [address] [facility] [place] [id number] [place] Urinalysis complete pnl Uron 07-20-2022 Urinalysis complete panel (U) COLOR: Yellow CLARITY: Turbid GLUCOSE, URINE: Trace BILIRUBIN, URINE: Negative KETONES, URINE: Trace SPECIFIC GRAVITY, UR: 1.021 HEMOGLOBIN/BLOOD, UR: Trace PH, URINE: 6.0 PROTEIN, URINE: 1+ UROBILINOGEN: 2+ NITRITES: 2+ LEUKEST: 500 Tiffanie/uL WBC, URINE: >25 /HPF RBC, URINE: 6-10 /HPF BACTERIA: Many SQUAMOUS EPITHELIAL CELLS: Few Few ORGANISM ID: 1 >=100,000 CFU/ml Escherichia coli ORGANISM ID: 1 (ESCHERICHIA COLI) ANTIBIOTIC INTERPRETATION CHEN STATUS REFERENCE RANGE Ampicillin R >=32 F Susceptible <=8 , Intermediate >8 , Resistant >16 Cefazolin S <=4 F Susceptible 0-16 , Intermediate <0 or >16 , Resistant >16 Ceftriaxone S <=1 F Susceptible <=1 , Intermediate >1 , Resistant >=4 Cefepime S <=1 F Susceptible <=2 , Susceptible-Dose Dependent >2 , Resistant >=16 Ertapenem S <=0.5 F Susceptible <=0.5 , Intermediate >.5 , Resistant >1 Meropenem S <=0.25 F Susceptible <=1 , Intermediate >1 , Resistant >2 Ampicillin/Sulbact I 16 F Susceptible <=8 , Intermediate >8 , Resistant >16 Piperacillin/Tazobac S <=4 F Susceptible <=16 , Intermediate >16 , Resistant >64 Gentamicin S <=1 F Susceptible <=4 , Intermediate >4 , Resistant >8 Tobramycin S <=1 F Susceptible <=4 , Intermediate >4 , Resistant >8 Trimeth sulfameth S <=20 F Susceptible <=40 , Resistant >40 Ciprofloxacin S <=0.25 F Susceptible <0.5 , Intermediate >=.5 , Resistant >=1 Nitrofurantoin S <=16 F Susceptible <=32 , Intermediate >32 , Resistant >64 Abnormal [facility] Comment on above: Order Comment: Speci men Type: URINE SPECIMEN Ordering Facility: [facility] Address: [address] [place] [address] Performed By: #### 2 4356-8 #### [facility] CLIA [id number] [facility] [place] [address] [facility] CLIA [id number] 95[address] [facility] [id number] [id number] [facility] XR CHEST 1V FRONTAL PORTon 0 07-20-2022 XR CHEST 1V FRONTAL PORT * * *Final Report* * * DATE OF EXAM: Jul 20 2022 2:22PM VHX [id number] - XR CHEST 1V FRONTAL PORT / PROCEDURE REASON: Cough, new onset * * * * Physician Interpretation * * * * EXAMINATION: CHEST RADIOGRAPH (PORTABLE SINGLE VIEW AP) Exam Date/Time: 07/20/2022 2:22 PM CLINICAL HISTORY: Cough, new onset MQ: XCPR_5 Comparison: None RESULT: Lines, tubes, and devices: None. Lungs and pleura: No consolidation. Vascular cephalization which may be exaggerated by AP imaging. No peribronchial cuffing or septal lines. No pleural effusion or pneumothorax Cardiomediastinal silhouette: Cardiac size is exaggerated by AP technique. Other: . IMPRESSION: No lung consolidation. Vascular cephalization which may be exaggerated by AP imaging. 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 School Teacher: MYRANDA Transcribe Date/Time: Jul 20 2022 3:11P Dictated by : Viktor BENZ MD This examination was interpreted and the report reviewed and electronically signed by: Viktor BENZ MD on Jul 20 2022 3:17PM EST [id number] Normal [facility] Vital Signs Date Time Vital Sign Value Performing Clinician Isabellei waldo 07-23-2022 09:16-0400 Body height 154.9 cm Jennifer Chapa MD Work Phone: [facility] 07-23-2022 09:16-0400 Body weight 106.14 kg Jennifer Chapa MD Work Phone: [facility] 07-23-2022 09:16-0400 Diastolic blood pressure 64 mm[Hg] Jennifer Chapa MD Work Phone: [facility] 07-23-2022 09:16-0400 Heart rate 88 /min Jennifer Chapa MD Work Phone: [facility] 07-23-2022 09:16-0400 SaO2% (BldA) [Mass fraction] 99 % Jennifer Chapa MD Work Phone: [facility] 07-23-2022 09:16-0400 Systolic blood pressure 103 mm[Hg] Jennifer Chapa MD Work Phone: [facility] Encounters Encounter Date Encounter Type Care Provider Facility Start: 12-20-2023 Evaluation and management [facility] Start: 07-13-2023 End: 07-13-2023 ambulatory RADHA GRIFFITH Not Available Start: 03-19-2023 End: 03-19-2023 ambulatory MARI SOMERS Facility:[facility] Start: 02-20-2023 End: 02-21-2023 ambulatory NATHAN COHEN [facility] Start: 02-20-2023 End: 02-20-2023 Office outpatient new 45 minutes Nathan Cohen MD Work Phone: [facility] Comment on above: Left knee pain, unsp ecified chronicity (Primary Dx); History of total knee replacement, left Start: 02-19-2023 End: 02-22-2023 ambulatory DANIEL Zhanna SYEDOR Jeann[facility] Start: 02-16-2023 End: 02-17[facility]: 02-16-2023 End: 02-17-2023 ambulatory PATRICE Hoang [facility] Start: 02-16-2023 End: 02-16-2023 Office outpatient visit 15 minutes Patirce Mallory MD Work Phone: [facility] Comment on above: History of total kne e replacement, left (Primary Dx); Pain in joint of left shoulder; Left shoulder strain, sequela Start: 01-13-2023 End: 01-14-2023 ambulatory [facility] Start: 01-08-2023 ambulatory DANIEL E MALLORY [facility] Start: 01-06-2023 End: 01-07-2023 ambulatory DANIEL E MALLORY [facility] Start: 01-01-2023 End: 01-02-2023 ambulatory DANIEL E MALLORY [facility] Start: 12-30-2022 End: 12-31-2022 ambulatory DANIEL E MALLORY [facility] Start: 12-25-2022 End: 12-26-2022 ambulatory DANIEL E MALLORY [facility] Start: 12-23-2022 End: 12-24-2022 ambulatory DANIEL E MALLORY [facility] Start: 12-18-2022 End: 12-19-2022 ambulatory DANIEL E MALLORY [facility] Start: 2022 End: 12-17-2022 ambulatory DANIEL E MALLORY [facility] Start: 12-15-2022 End: 2022 ambulatory PATRICE Hoang [facility] Start: 12-10-2022 End: 12-10-2022 ambulatory DANIEL E MALLORY [facility] Start: 12-09-2022 End: 12-10-2022 ambulatory DANIEL E MALLORY [facility] Start: 12-04-2022 End: 12-05-2022 ambulatory SCARLETT BALK [facility] Start: 12-02-2022 End: 12-03-2022 ambulatory SCARLETT BALK [facility] Start: 11-28-2022 End: 12-01-2022 [facility] Start: 11-28-2022 End: 12-01-2022 ambulatory DANIEL E MALLORY [facility] Start: 11-28-2022 End: 11-30-2022 Subsequent hospital visit by physician Scarlett Ordaz DO Work Phone: [facility] Comment on above: Arrived Start: 11-27-2022 End: 11-28-2022 ambulatory DANIEL E MALLORY [facility] Start: 11-25-2022 End: 11-26-2022 ambulatory DANIEL E MALLORY [facility] Start: 11-20-2022 End: 11-20-2022 Subsequent hospital visit by physician Scarlett Ordaz DO Work Phone: [facility] Comment on above: Canceled (Other) Start: 11-18-2022 End: 11-19-2022 ambulatory DANIEL E MALLORY [facility] Start: 11-13-2022 End: 11-14-2022 ambulatory DANIEL E MALLORY [facility] Start: 11-11-2022 End: 11-12-2022 ambulatory DANIEL E MALLORY [facility] Start: 11-07-2022 End: 11-10-2022 ambulatory DANIEL E MALLORY [facility] Start: 11-05-2022 End: 11-05-2022 ambulatory DANIEL E MALLORY [facility] Start: 11-04-2022 End: 11-05-2022 ambulatory DANIEL E MALLORY [facility] Start: 11-04-2022 End: 11-04-2022 Subsequent hospital visit by physician Scarlett Ordaz DO Work Phone: [facility] Comment on above: Arrived Start: 10-28-2022 End: 10-31-2022 ambulatory DANIEL E MALLORY [facility] Start: 10-28-2022 End: 10-30-2022 Subsequent hospital visit by physician Scarlett Ordaz DO Work Phone: [facility] Comment on above: Left knee pain, unsp ecified chronicity Start: 10-16-2022 ambulatory JENNIFER MEKA Facility:[facility] Start: 10-16-2022 End: 10-16-2022 Patient encounter procedure Chrissy Moser MD Work Phone: Endocrinology Comment on above: Diabetes mellitus ty pe 2 in obese (HCC) (Primary Dx) Start: 10-14-2022 ambulatory DANIEL E MALLORYJYOTSNA Machado [facility] Start: 10-10-2022 End: 10-13-2022 ambulatory DANIEL E MALLORY [facility]ann[facility] Start: 07-24-2022 ambulatory PAUL LAZO Facility: [facility] Start: 07-23-2022 End: 07-23-2022 ambulatory JENNIFER CHAPA Facility:[facility] Start: 07-23-2022 End: 07-23-2022 Patient encounter procedure Jennifer Chapa MD Work Phone: Allergy Comment on above: Mild intermittent as thma with acute exacerbation (Primary Dx); Elevated blood sugar; Chronic rhinitis Start: 07-20-2022 Emergency department patient visit CE SIMONS Facility:[facility] Start: 01-28-2012 End: 01-28-2012 Telephone encounter Vera Richardson Work Phone: Orthopaedics Comment on above: Schedule Surgery Procedures Date Procedure Procedure Detail Performing Clinician Start: 02-20-2023 AMB REFERRAL TO ORTHOPAEDIC SURGERY PATRICE MALLORY Start: 02-16-2023 XR SHOULDER LEFT 2+ VIEWS PATRICE MALLORY Start: 11-28-2022 Bone &/joint imaging 3 phase study Scarlett Ordaz DO Work Phone: Start: 10-28-2022 Mri any jt lower ext rem w/o contrast matrl Scarlett Ordaz DO Work Phone: Start: 09-16-2022 Thyrotropin [Units/v olume] in Serum or Plasma Patrice Mallory MD Work Phone: Plan of Treatment Date Care Activity Detail Author Start: 09-16-2025 DIABETES SCREEN DIABETES SCREEN [facility] Start: 07-20-2025 DIABETES SCREEN DIABETES SCREEN [facility] Start: 09-01-2024 GFR test (Diabetes, CKD 3-4, OR last GFR 15-59) GFR test (Diabetes, CKD 3-4, OR last GFR 15-59) [facility] Start: 09-18-2023 Diabetic foot examination Diabetic foot exam [facility] Start: 09-17-2023 GFR test (Diabetes, CKD 3-4, OR last GFR 15-59) GFR test (Diabetes, CKD 3-4, OR last GFR 15-59) [facility] Start: 09-17-2023 Lipid panel Lipids [facility] Start: 09-17-2023 Thyroid stimulating hormone measurement TSH Level [facility] Start: 08-23-2023 Depression Screen Depression Screen [facility] Start: 03-04-2023 End: 03-04-2023 Patient encounter procedure 03/04/2023 2:45 PM EST Office Visit [facility] [address] [id number] Patrice Mallory MD [address] [facility], [address] [place] [address] [id number] [facility] Start: 02-16-2023 End: 02-17-2024 MR Shoulder - left Arthrogram MR arthrogram shoulder left Imaging Routine Left shoulder strain, sequela Expected: 02/16/2023, Expires: 02/17/2024 [facility] Work Phone: Comment on above: Expected: 02/16/2023, Expires: 4 Start: 02-16-2023 End: 02-17-2024 XR Shoulder - left 2 Views XR shoulder left 2+ views Imaging Routine Pain in joint of left shoulder Expected: 02/16/2023, Expires: 02/17/2024 [facility] Service Area Work Phone: Comment on above: Expected: 02/16/2023, Expires: 4 Start: 02-16-2023 End: 02-17-2024 XR Shoulder - left Views XR arthrogram shoulder left Imaging Routine Left shoulder strain, sequela Expected: 02/16/2023, Expires: 02/17/2024 [facility] Work Phone: Comment on above: Expected: 02/16/2023, Expires: Start: 01-01-2023 End: 01-01-2023 Patient encounter procedure 01/01/2023 11:00 AM EDT Office Visit [facility] [address] [facility] [place] [address] Ce Herrera, MAT LINKER - [employer] [address] [facility] [place] [address] EGD follow up [facility] Comment on above: EGD follow up Start: 12-18-2022 End: 12-18-2022 Patient encounter procedure [facility] Comment on above: 3 month follow up Consistent therapist Start: 12-17-2022 Hemoglobin A1c measurement A1C test (Diabetic or Prediabetic) [facility] Start: 2022 End: 2022 Patient encounter procedure 2022 2:20 PM EDT Appointment [facility] [address] [place] [address] [place] [address] [place] [address] Scarlett Estrada STEEP TENDER Consistent therapist [facility] Comment on above: Consistent therapist Start: 12-11-2022 End: 12-11-2022 Patient encounter procedure 12/11/2022 2:20 PM EDT Appointment [facility] [address] [place] [address] Scarlett Ordaz DO [address] [facility] [address] [place] [address] Scarlett Estrada, STEEP TENDER Consistent therapist [facility] Comment on above: Consistent therapist Start: 12-10-2022 End: 12-10-2022 Admission to same day surgery center 12/10/2022 1:30 PM EDT - 12/10/2022 2:00 PM EDT [facility] [place] [address] [facility] [address] Adenike Steve MD [address] [facility] [place] [address] EGD DIAGNOSTIC ONLY [facility] [place] Comment on above: EGD DIAGNOSTIC ONLY Start: 12-10-2022 End: 12-10-2022 Esophagogastroduodenoscopy transoral diagnostic EGD DIAGNOSTIC ONLY Cirrhosis (HCC) 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) 12/10/2022 1:30 PM EDT [facility] Start: 12-10-2022 Subsequent hospital visit by physician 12/10/2022 1:30 PM EDT Hospital Encounter [facility] [place] [address] [facility] [address] Adenike Steve MD [address] [facility] [place] [place] [address] [facility] [place] Start: 12-09-2022 End: 12-09-2022 Patient encounter procedure 12/09/2022 2:20 PM EDT Appointment [address] [address] Scarlett Ordaz DO [address] [facility] [address] [place] [address] Scarlett Estrada PTA Consistent therapist [facility] Comment on above: Consistent therapist Start: 12-09-2022 End: 12-09-2022 [facility]: 6 week Start: 12-04-2022 End: 12-04-2022 Patient encounter procedure 12/04/2022 3:00 PM EDT Appointment [address] [address] Scarlett Ordaz DO [address] [facility] [address] [place] [address] Scarlett Estrada PTA Consistent therapist [facility] Comment on above: Consistent therapist Start: 12-02-2022 End: 12-02-2022 Patient encounter procedure [facility] Comment on above: follow up after bone scan Consistent therapist Start: 11-28-2022 End: 11-28-2022 Patient encounter procedure [facility] Comment on above: EPIC SCHED/PT Start: 11-27-2022 End: 11-27-2022 Patient encounter procedure [facility] Comment on above: Consistent therapist Start: 11-25-2022 End: 11-25-2022 Patient encounter procedure [facility] Comment on above: Consistent therapist Start: 11-24-2022 End: 11-24-2022 Patient encounter procedure [facility] Comment on above: EGD follow up Start: 11-20-2022 End: 11-20-2022 Patient encounter procedure 11/20/2022 Appointment Physical Therapy Scarlett Ordaz, DO [address] [place] [address] [place] [address] Scarlett Estrada PTA [facility] Start: 11-18-2022 End: 11-18-2022 Patient encounter procedure 11/18/2022 Appointment Physical Therapy Scarlett Ordaz, DO [address] [facility] [address] [place] [address] Scarlett Estrada PTA [facility] Services [facility] Start: 11-13-2022 End: 11-13-2022 Patient encounter procedure 11/13/2022 Appointment Physical Therapy Scarlett Ordaz, DO [address] [facility] [address] [place] [address] Scarlett Estrada PTA [facility] Start: 11-11-2022 End: 11-11-2022 Patient encounter procedure 11/11/2022 Appointment Physical Therapy Scarlett Ordaz, DO [address] [facility] [address] [place] [id number] Scarlett Estrada PTA [facility] Start: 11-07-2022 Influenza vaccination [facility] Start: 11-07-2022 End: 11-07-2022 Patient encounter procedure 11/07/2022 Office Visit Orthopedic Surgery Scarlett Ordaz DO [address] [facility] [address] [place] [address] [facility] Start: 11-05-2022 End: 11-05-2022 Admission to same day surgery center 11/05/2022 Surgery Endoscopy Adenike Steve MD [address] [place] [address] EGD DIAGNOSTIC ONLY [facility] Comment on above: EGD DIAGNOSTIC ONLY Start: 11-05-2022 End: 11-05-2022 Esophagogastroduodenoscopy transoral diagnostic EGD DIAGNOSTIC ONLY Cirrhosis (HCC) 11/05/2022 10:30 AM EDT [facility] Start: 11-05-2022 Subsequent hospital visit by physician 11/05/2022 Hospital Encounter Endoscopy Adenike Steve MD [address] [place] [address] [facility] [place] Start: 11-04-2022 End: 11-04-2022 Patient encounter procedure 11/04/2022 Appointment [place] [address] [place] [address] [facility] Start: 10-07-2022 Influenza vaccination Flu vaccine (#1) [facility] Start: 03-09-2022 DEPRESSION ASSESSMENT DEPRESSION ASSESSMENT [facility] Start: 11-07-2020 Influenza vaccination INFLUENZA (Season Ended) [facility] Start: 2014 Screening for malignant neoplasm of breast Breast cancer screen [facility] Start: 2014 Screening for malignant neoplasm of colon [facility] Start: 2014 Shingles vaccine (1 of 2) Shingles vaccine (1 of 2) [facility] Start: 2014 SHINGRIX VACCINE (1 of 2) SHINGRIX VACCINE (1 of 2) [facility] Start: 2014 Zoster Vaccines (1 of 2) Zoster Vaccines (1 of 2) [facility] Start: 2009 COLOGUARD (FIT-DNA) COLOGUARD (FIT-DNA) [facility] Start: 2009 Colonoscopy COLONOSCOPY [facility] Start: 2009 COLORECTAL CANCER SCREENING COLORECTAL CANCER SCREENING [facility] Start: [address] COLONOGRAPHY [facility] Start: 2009 DIABETES SCREEN DIABETES SCREEN [facility] Start: 2009 FECAL OCCULT BLOOD FECAL OCCULT BLOOD [facility] Start: 2009 LIPID SCREEN LIPID SCREEN [facility] Start: 2009 Screening for malignant neoplasm of colon [facility] Start: 2009 SIGMOIDOSCOPY SIGMOIDOSCOPY [facility] Start: 2004 Mammography MAMMOGRAM [facility] Start: 2004 Screening for malignant neoplasm of breast Mammogram [facility] Start: 1994 HPV TESTING HPV TESTING [facility] Start: 1994 Screening for malignant neoplasm of cervix [facility] Start: 1986 DTaP/Tdap/Td Vaccines (1 - Tdap) DTaP/Tdap/Td Vaccines (1 - Tdap) [facility] Start: 1985 PAP TESTING PAP TESTING [facility] Start: 1985 Screening for malignant neoplasm of cervix [facility] Start: 12-17-1983 DTaP/Tdap/Td vaccine (1 - Tdap) DTaP/Tdap/Td vaccine (1 - Tdap) [facility] Start: 12-17-1983 HEPATITIS A (1 of 2 - Risk 2-dose series) HEPATITIS A (1 of 2 - Risk 2-dose series) [facility] Start: 12-17-1983 Hepatitis A vaccine (1 of 2 - Risk 2-dose series) Hepatitis A vaccine (1 of 2 - Risk 2-dose series) [facility] Start: 12-17-1983 Hepatitis A Vaccines (1 of 2 - Risk 2-dose series) Hepatitis A Vaccines (1 of 2 - Risk 2-dose series) [facility] Start: 12-17-1983 Hepatitis B vaccine (1 of 3 - Risk 3-dose series) Hepatitis B vaccine (1 of 3 - Risk 3-dose series) [facility] Start: 12-17-1983 Urine microalbumin profile DTAP,TDAP,TD (1 - Tdap) [facility] Start: 1982 ANNUAL PCP TEAM CHRONIC DISEASE VISIT ANNUAL PCP TEAM CHRONIC DISEASE VISIT [facility] Start: 1982 Glaucoma screening Diabetic retinal exam [facility] Start: 1982 HEPATITIS C SCREENING HEPATITIS C SCREENING [facility] Start: 1982 Hepatitis C screening [facility] Start: 1982 HIV SCREENING HIV SCREENING [facility] Start: 1982 SPIROMETRY SPIROMETRY [facility] Start: 1982 Urine screening for protein Diabetic Alb to Cr ratio (uACR) test [facility] Start: 12-17-1979 HIV screening HIV screen [facility] Start: 1976 Adult depression screening assessment DEPRESSION SCREENING [facility] Start: 1970 PNEUMOCOCCAL (1 - PCV) PNEUMOCOCCAL (1 - PCV) [facility] Start: 1970 Pneumococcal 0-64 years Vaccine (1 - PCV) Pneumococcal 0-64 years Vaccine (1 - PCV) [facility] Start: 1970 Pneumococcal Vaccine: Pediatrics (0 to 5 Years) and At-Risk Patients (6 to 64 Years) (1 - PCV) Pneumococcal Vaccine: Pediatrics (0 to 5 Years) and At-Risk Patients (6 to 64 Years) (1 - PCV) [facility] Start: 1965 HEPATITIS A (1 of 2 - Risk 2-dose series) HEPATITIS A (1 of 2 - Risk 2-dose series) [facility] Start: 1965 Hepatitis A vaccine (1 of 2 - Risk 2-dose series) Hepatitis A vaccine (1 of 2 - Risk 2-dose series) [facility] Start: 1965 MMR Vaccines (1 of 1 - Standard series) MMR Vaccines (1 of 1 - Standard series) [facility] Start: 06-16-1965 COVID-19 VACCINE (#1) COVID-19 VACCINE (#1) [facility] Start: 1964 HEPATITIS B (1 of 3 - 3-dose series) HEPATITIS B (1 of 3 - 3-dose series) [facility] Start: 1964 Hepatitis B vaccine (1 of 3 - 3-dose series) Hepatitis B vaccine (1 of 3 - 3-dose series) [facility] Start: 1964 Hepatitis B Vaccines (1 of 3 - 3-dose series) Hepatitis B Vaccines (1 of 3 - 3-dose series) [facility] Start: 1964 HIV screening HIV Screening [facility] Start: 1964 Lipid panel Lipid Panel [facility] Start: 1964 Screening for malignant neoplasm of colon [facility] Start: 1965 Screening for osteoporosis Bone Density Scan [facility] Start: 1965 Yearly Adult Physical Yearly Adult Physical [facility] End: 08-22-2023 SPIROMETRY - BASELINE AND POST DILATOR SPIROMETRY - BASELINE AND POST DILATOR PFT Routine Mild intermittent asthma with acute exacerbation 1 Occurrences starting 07/23/2022 until 08/22/2023 [facility] Work Phone: Comment on above: 1 Occurrences starting 07/23/2022 until 08/22/2023 [facility] Payers Date Payer Category Payer Unknown [id number] 2015 Unknown [id number] 2011 Unknown MMO MMO SUPERMED HMO [id number] 2011-Present HMO [id number] [id number] 2011 Unknown [id number] 1964 Unknown [id number] 2.16.840.1.263031.3.579.2.182 1964 Unknown [id number] 2.16.840.1.225429.3.579.2.182 1964 Unknown [id number] 2.16840.1.698501.3.579.2.182 1964 Unknown [id number] 2.16840.1.824525.3.579.2.182 1964 Unknown [id number] 2.840.1.201812.3.579.2.182 1964 Unknown [id number] 2.840.1.454426.3.579.2.182 1964 Unknown [id number] 2.840.1.023601.3.579.2.182 1964 Unknown [id number] 2.840.1.359396.3.579.2.182 1964 Unknown [id number] 2.840.1.510737.3.579.2.182 1964 Unknown [id number] 2.840.1.985194.3.579.2.182 1964 Unknown [id number] .840.1.001242.3.579.2.182 1964 Unknown [id number] 2.840.1.788020.3.579.2.182 1964 Unknown [id number] 2.840.1.142875.3.579.2.182 1964 Unknown [id number] .840.1.384204.3.579.2.182 1964 Unknown [id number] 2.16840.1.744297.3.579.2.182 1964 Unknown [id number] 2.16840.1.422521.3.579.2.182 1964 Unknown [id number] 2.16840.1.451811.3.579.2.182 1964 Unknown [id number] 2.16.840.1.694309.3.579.2.182 1964 Unknown [id number] 2.16.840.1.766777.3.579.2.182 1964 Unknown [id number] 2.16.840.1.946816.3.579.2.182 1964 Unknown [id number] 2.16.840.1.707397.3.579.2.182 1964 Unknown [id number] 2.16.840.1.046488.3.579.2.182 1964 Unknown [id number] 2.16.840.1.023460.3.579.2.182 1964 Unknown [id number] 2.16.840.1.699017.3.579.2.182 1964 Unknown [id number] 2.16840.1.742451.3.579.2.182 1964 Unknown [id number] 2.16.840.1.222920.3.579.2.182 1964 Unknown [id number] 2.16.840.1.811369.3.579.2.182 1964 Unknown [id number] 2.16.840.1.843494.3.579.2.182 1964 Unknown [id number] 2.16.840.1.912678.3.579.2.1246 1964 Unknown [id number] 2.16.840.1.452624.3.579.2.1246 1964 Unknown [id number] 2.16.840.1.767678.3.579.2.1246 1964 Unknown [id number] 2.16.840.1.913891.3.579.2.1246 1964 Unknown [id number] 2.16.840.1.307453.3.579.2.1259 1964 Unknown [id number] 2.16.840.1.666841.3.579.2.175 Social History Date Type Detail Facility Tobacco smoking status DCIS Unknown if ever smoked [facility] Start: 1965 Sex Assigned At Not on file [facility] Start: 07-23-2022 Tobacco smoking status NHIS Ex-smoker [facility] End: 03-09-1990 History of tobacco use Current smoker [facility] End: 03-09-1990 History of tobacco use Cigarette Smoker [facility] Start: 07-23-2022 End: 10-10-2022 Tobacco use and exposure Smokeless tobacco non-user [facility] Start: 07-23-2022 End: 08-22-2022 History of Social function [facility] Start: 07-23-2022 End: 08-22-2022 Tobacco use panel [facility] National Score (1-100), lower number is lower risk 85 [facility] Start: 10-10-2022 Tobacco smoking status DCIS Never smoked tobacco [facility] Start: 10-28-2022 End: 11-24-2022 Alcohol intake Current drinker of alcohol (finding) [facility] Start: 08-22-2022 History SDOH Financial 5 [facility] Start: 08-22-2022 History SDOH Food Worry 1 [facility] Start: 08-22-2022 History SDOH Transport Non-Med 2 [facility] Start: 08-22-2022 Alcohol Comment 3 rtimes a year [facility] (I/We) worried whether (my/our) food would run out before (I/we) got money to buy more. Never true [facility] At any time in the past 12 months, were you homeless or living in group home [including now]? No [facility] Start: 11-05-2022 Alcohol Comment twice a year [employer] Tobacco smoking status DCIS Tobacco smoking consumption unknown [facility] Work Phone: Start: 02-06-2023 End: 02-20-2023 Exposure to SARS-CoV-2 (event) Not sure [facility] NEGATED: Highlighted rowStart: NINF History of tobacco use Passive smoker [facility] Medical Equipment Procedure Code Equipment Code Equipment Origin al Text Equipment Identifier Dates Test 3x daily e11.65 [id number] Star t: 09-17-2022 1 each by Does n ot apply route daily [id number] Start: 09-17-2022 1 Device by Does not apply route 4 times daily (before meals and nightly) [id number] Start: 10-30-2022 Clinical Notes 01-28-2012 to 03-19-2023 Nathan Cohen MD - 02/20/2023 10:00 AM Edwin Mallory MD - 02/16/2023 1:30 PM Kumar Estrada, STEEP TENDER - 11/20/2022 2:00 PM Zeferino Sepulveda PT - 11/04/2022 2:00 PM EDTPatient Instructions Note Date & Type Note Facility 03-19-2023 Note HNO ID: [id number] Author: MARI SOMERS MD Service: ? Author Type: Physician Type: Progress Notes Filed: 03/19/2023 10:40 Note Text: NEW CONSULT:RHEUMATOLOGY SERVICE SERVICE DATE: 03/19/2023 SERVICE TIME: 9:57 AM REASON FOR CONSULT: +JULITA REQUESTING PHYSICIAN: MARTINA Henning, PRIMARY CARE PHYSICIAN: MARTINA Henning, Patient's Name: Ileaan Wilson [address] [place] [address] Accompanied by: self This consult was requested for my medical opinion regarding the rheumatologic evaluation of the patient's +JULITA problems, and my final recommendations will be communicated to the requesting health care provider by way of the shared medical record for internal providers or letter via the [employer] for external providers. March 19, 2023 SUBJECTIVE Ms. Wilson is a 57 year old female who presents for +JULITA eval. 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, found cyst and removed ~2002 Less movement of L foot/ankle, but one broken screws Also developed pain in both knees, hips, low ~2000s S/p b/l carpal tunnel syndrome 2020 s/p Right rotator cuff tear repair 05/2020 s/p Left rotator cuff tear with anchor, re tore, will see ortho again soon, two large spurs 05/2020 s/p R TKR in [place], needs a revision due to loose kneecap 02/2023 S/p L TKR in [place], still needs a revision since not cemented Allergic to steroid and gel injections, developed swelling afterwards Pain in hands Swelling of hands and knees, worse in PM 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 No adverse effects with meds. No other complaints. Patient denies fever, chills, cp, dyspnea, nausea, vomiting, night sweats, scalp tenderness, visual changes, butts, bowel/bladder changes, weight changes or other complaints. COMPLETE REVIEW OF SYSTEMS: RHEUM. ROS: Joint pain: yes both knees, hips, low back, both hands Joint swelling: yes knees, MCPs, hands Am stiffness: yes 20min- all day Low back pain: yes Dactylitis: no H/o precedent/frequent infection(s): no Enthesopathy/Ogden's/heel/mary lou ntar tenderness: s/p b/l carpal tunnel syndrome release Skin thickening, psoriasis, photosensitivity, purpura: no Nail changes: no Alpecia, patchy: no Eye inflammation: glasses SICCA: no Oral/nasal/genital ulcers: no GI problems-diarrhea/bleeding/IBD/ Gluten intolerence/Dysphagia: gerd Raynaud's phenomenon/digital ulcers: no Organ inv-Serositis: reactive airway disease Lung disease/ILD: reactive airway disease Myopathy/proximal muscle weakness: no Abnormal Urine or urethritis: no Renal/liver disease: diabetes caused cirrhosis/non alcoholic (NICOLE) diagnosed Spring 2022 [employer]/PNS/sz/cva/cancer disease: no HEME-Cytopenias/LAD/Clots: no Fevers: no Fatigue: yes, sleeps 4 hrs/night PMR/GCA ROS: negative Patient denies history of Gout or Pseudogout, Psoriasis, Rheumatic Fever, PUD, Hepatitis , Kidney Disease, Kidney Stones, HTN, CAD, Dyslipidemia, PAD, Sinusitis, Asthma, TB infection or exposure, Pneumonias, Anemia, Seizures, Stroke, MS, Clots, Cancer, Transfusions, Tattoos , and Alcohol dependency. Other ROS:The remainder of the review of systems is negative. All other reviewed and negative other than HPI. PATIENT REPORTS: Cardiac stress test:stable ekg Breast exam:negative Pap exam: normal, last menses mid 39y/o, not taking hormones; G3, P1, 2miscarriage Colonoscopy: stable in [place], benign colon polyps Bone Density:stable years ago out of state History of Fractures:no Height Loss: no IMMUNIZATION HX: Pneumovax no Flu shot no Tetanus yes Last PPD: negative PAST MEDICAL HISTORY: PMH asthma, diabetes mellitus type II, thyroid disease, portal htn, esophageal varices in cirrhosis, diabetes caused cirrhosis/non alcoholic (NICOLE) diagnosed Spring 2022, gerd, reactive airway disease, has gallstones, benign colon polyps, s/p left ankle/foot surgery ~2002, s/p b/l knee scope, ~1999s S/p b/l carpal tunnel syndrome, 05/2020 s/p R TKR, 02/2023 S/p L TKR in [place], s/p septoplasty, s/p TANDA, s/p wisdom teeth extraction, 2020 s/p Right rotator cuff tear repair, 05/2020 s/p Left rotator cuff tear with anchor PAST MEDICAL HISTORY Diagnosis Date Asthma Diabetes mellitus (HCC) Portal hypertension (HCC) PAST SURGICAL HISTORY: s/p left ankle/foot surgery ~2002, s/p b/l knee scope, ~1999s S/p b/l carpal tunnel syndrome, 05/2020 s/p R TKR, 02/2023 S/p L TKR in [place], s/p septoplasty, s/p TANDA, s/p wisdom teeth extraction, 2020 s/p Right rotator cuff tear repair 05/2020 s/p Left rotator cuff tear with anchor PAST SURGICAL HISTORY Procedure Laterality Date FOOT SURGERY HX KNEE SURGERY HX REVISE MEDIAN N/CARPAL TUNNEL SURG SEPTOPLASTY FA (more content not included)... [facility] 02-20-2023 History of Presen t illness Narrative Images from the original note were not included. New patient to me 57-year-old female presents complaining of left-sided knee pain she states that left total knee replacement in 2021 and is been giving her more more trouble she states it was pretty good until August but then its gotten significantly worse since then she is having a lot of stiffness a lot of difficulty with range of motion she has had both knees replaced the right knee does pretty okay but the left knee is giving her more more trouble she denies any postoperative clinic complication no history of DVT persistent wound drainage infection blood clot or other issue. She is also currently having issues with her shoulder she may have a retear of her rotator cuff she is likely to deal with her shoulder before she does anything with her knee. She saw Dr. Berry Mallory who recommended a bone scan and she returns to review those results. Location of pain: Anterior and medial aspect knee left Quality of pain: Chronic pain for the last 6 months getting progressively worse Modifying factors: Worse when she stands for prolonged period time or gets up and down from seated position better with rest Associated signs and symptoms: No locking sometimes it feels like it wants to give out some swelling no numbness or tingling Previous treatment: History of knee replacement extensive physical therapy The patient's past medical history, family history, social history, and review of systems were documented on the patient's medical intake form. The medical intake form was reviewed and scanned into the electronic medical record for future use. History is otherwise negative except as stated in the HPI. Physical exam General: Alert and oriented to place, person, and time. No acute distress and breathing comfortably; pleasant and cooperative with the examination. HEENT: Head is normocephalic and atraumatic. Neck: Supple, no visible swelling. Cardiovascular: Good perfusion to the affected extremity. Lungs: No audible wheezing or labored breathing. Abdomen: Nondistended HEME/Lymph : No visible abnormalities bilateral lower extremity Extremity: Left knee has a well-healed midline incision without sign of infection she lacks about 3 to 5 degrees of full extension she got flexion to 90 no instability brisk cap refill compartments are soft calf is nontender good range of motion of the hip and ankle Diagnostics: CT abdomen pelvis w and wo IV contrast Result Date: 02/19/2023 EXAMINATION: CT OF THE ABDOMEN AND PELVIS WITH AND WITHOUT CONTRAST 02/19/2023 9:10 am TECHNIQUE: CT of the abdomen and pelvis was performed with and without the administration of intravenous contrast. Multiplanar reformatted images are provided for review. Automated exposure control, iterative reconstruction, and/or weight based adjustment of the mA/kV was utilized to reduce the radiation dose to as low as reasonably achievable. COMPARISON: None. HISTORY: ORDERING SYSTEM PROVIDED HISTORY: Cirrhosis of liver without ascites, unspecified hepatic cirrhosis type (HCC) TECHNOLOGIST PROVIDED HISTORY: [address] scan Additional Contrast?->None STAT Creatinine as needed:->Yes Reason for exam:->Cirrhosis- Abdominal pain Release to patient - Note: Delayed release will only apply to this order. Orders that are changed or resulted outside of the EHR will not respect a delayed release to [employer] [facility].-> What reading provider will be dictating this exam?->CRC FINDINGS: Lower Chest: Visualized portion of the lower chest demonstrates no acute abnormality. Organs: There is slight nodularity of the hepatic contour. No abnormal density is observed. No lesion is demonstrated. The portal veins are enlarged. There is recannulization of the umbilical vein with large umbilical varices. Splenorenal varices and gastroesophageal varices are also observed. The spleen is enlarged, measuring 16.4 cm along the mid clavicular line. Numerous gallstones are seen. There is no biliary dilatation. The spleen is normal. The adrenal glands and kidneys are normal GI/Bowel: Somewhat large amount of stool in the colon. No GI dilatation or wall thickening Pelvis: No pelvic mass, adenopathy, or fluid collection. Peritoneum/Retroperitoneum: No evidence of lymphadenopathy. Aorta is normal in caliber. No evidence of ascites or free air. Bones/Soft Tissues: Age-related degenerative changes of the osseous structures is noted, without suspicious lesion. No significant soft tissue abnormality is identified. 1. Cirrhotic liver morphology with splenomegaly and large epigastric, splenorenal, and umbilical varices. 2. Gallstones US abdomen limited Result Date: 02/19/2023 EXAMINATION: RIGHT UPPER QUADRANT ULTRASOUND 02/19/2023 8:03 am COMPARISON: None. HISTORY: ORDERING SYSTEM PROVIDED HISTORY: Gastroesophageal reflux disease without esophagitis TECHNOLOGIST PROVIDED HISTORY: This procedure can be scheduled via [employer]. Access your [employer] account by visiting [employer]. Reason for exam:->cirrhosis Specify organ?->LIVER FINDINGS: LIVER: Coarsened echogenicity is observed. Patency of the umbilical vein is noted. Altered flow dynamics are noted in the right portal vein, portion being hepatofugal. The main portal vein demonstrates hepatopetal flow BILIARY SYSTEM: Multiple dependent gallstones are seen. There is no wall thickening or pericholecystic fluid. Calcification of the anterior gallbladder wall is noted. Negative sonographic Gilbert's sign. Common bile duct is within normal limits measuring . RIGHT KIDNEY: The right kidney is grossly unremarkable without evidence of hydronephrosis. PANCREAS: Visualized portions of the pancreas are unremarkable. OTHER: No evidence of right upper quadrant ascites. 1. Coarsened liver echotexture with recannulization of the umbilical vein and partial hepatofugal flow in the right portal vein. 2. Slight irregularity of the gallbladder wall with calcification. Small gallstones. No tenderness over the gallbladder fossa. XR shoulder left 2+ views Result Date: 02/16/2023 Interpreted By: Patrice Mallory, STUDY: XR SHOULDER LEFT 2+ VIEWS; ; 02/16/2023 3:00 pm INDICATION: Signs/Symptoms:PAIN. ACCESSION NUMBER(S): [id number] ORDERING CLINICIAN: PATRICE MALLORY FINDINGS: AP lateral oblique views of the left shoulder show good alignment of the glenohumeral joint. There is slight inferior humeral head spurring and irregularity to the articular surface. No acute fractures identified. Signed by: Patrice Mallory 02/16/2023 3:58 PM Dictation workstation: [id number] Procedures [none ] Assessment: Status post left total knee replacement with loosening Treatment plan: 1. The natural history of the condition and its associated treatment alternatives including surgical and nonsurgical options were discussed with the patient at length. 2. Patient having significant impairment related to her left knee refractory conservative treatment greater than 1 year postop positive bone scan likely aseptic loosening she has got a press-fit implant. We discussed possible revision total knee replacement should help her with the instability and pain may or may not help her with her range of motion she is also in the process of deciding what she wants to do with her shoulder she is going to figure out how she wants to handle her shoulder and if if and when she wants to schedule revision she will let me know. 3. [ ] 4. All of the patient's questions were answered. This note was prepared using voice recognition software. The details of this note are correct and have been reviewed, and corrected to the best of my ability. Some grammatical areas may persist related to the [employer] software Nathan Cohen MD Senior Attending Physician [facility] documented in this encounter [facility] Work Phone: 02-16-2023 History of Presen t illness Narrative Images from the original note were not included. History: Ileana is here for her left shoulder and knee. She is nearly a year from a left knee replacement done in [place]. She also had a left rotator cuff repair a year and a half ago in [place]. She is having persistent pain in both areas. We are concerned about potential loosening of the knee as well as recurrent tearing in the shoulder. She is unable to find any of her prior surgery pictures as she is still not unpacked from her move. Past medical history: Multiple Medications: Multiple Allergies: No known drug allergies Please refer to the intake H&P regarding the patient's review of systems, family history and social history as was done today HEENT: Normal Lungs: Clear to auscultation Heart: RRR Abdomen: Soft, nontender Skin: clear Extremity: She has decent motion remaining in the left knee with full extension. She has tightness with flexion past 103 degrees. Good stability with posterior drawer stressing. No varus or valgus laxity today. Shoulder exam shows full overhead motion of shoulder with pain beyond 90 degrees. She has 5-5 abduction but 4+ out of 5 supraspinatus strength. Decent rotational strength at the side. No numbness. Contralateral exam is normal for strength, motion, stability and neurovascular assessment. Radiographs: Prior x-ray reports an MRI showed slight increased uptake around the entirety of the knee. Shoulder x-rays today show relatively good alignment of the glenohumeral joint. Assessment: Continued left knee pain and stiffness status post total knee arthroplasty in [place]. Left shoulder pain and weakness status post prior rotator cuff repair. Plan: We discussed several options for treatment. She would like to get the shoulder figured out first and we will order a gadolinium MRI. We can then see her back to go through results. In regards to the knee we discussed having her see the revision joint team if she still having difficulty. She would consider this if her shoulder is otherwise negative. All questions were answered today with the patient. This note was generated with voice recognition software and may contain grammatical errors. documented in this encounter [facility] Work Phone: 11-20-2022 History of Presen t illness Narrative Images from the original note were not included. Therapy Cancellation/No-show Note Date: 11/20/2022 Patient: Ileana Wilson (56 y.o. female) : 1965 Referring Physician: Scarlett Ordaz DO Medical Diagnosis: Left knee pain, unspecified chronicity [M25.562] Visit Information: Visits to Date 4 No Show/Cancelled Appts: 0 For today's appointment patient: [x] Cancelled [] Rescheduled appointment [] No-show [] Called pt to remind of next appointment Reason given by patient: [] Patient ill [] Conflicting appointment [] No transportation [] Conflict with work [] No reason given [x] Other: sister is in hospital. [x] Pt has future appointments scheduled, no follow up needed [] Pt requests to be on hold. Reason: If > 2 weeks please discuss with therapist. [] Therapist to call pt for follow up Comments: Signature: documented in this encounter [facility] 11-04-2022 History of Presen t illness Narrative [facility] PHYSICAL THERAPY EVALUATION Physical Therapy: Initial Evaluation Patient: Ileana Wilson (56 y.o. female) Examination Date: 11/04/2022 : 1965 ; Confirmed: Yes CSN: [id number] Insurance: Payor: BCBS / Plan: BCBS OUT OF STATE / Product Type: *No Product type* / - ([place]) Secondary Insurance (if applicable): Referring Physician: Scarlett Ordaz DO Visits to Date/Visits Approved: 1 / 60 No Show/Cancelled Appts: 0 / 0 Medical Diagnosis: Left knee pain, unspecified chronicity [M25.562] Treatment Diagnosis: Lt knee pain PERTINENT MEDICAL HISTORY Medical History: Chart Reviewed: Yes Past Medical History: Diagnosis Date Active asthma Diabetes (HCC) type 2 Fatty liver Gallstones Hyperlipidemia Hypothyroid Reactive airway disease Vertigo Surgical History: Past Surgical History: Procedure Laterality Date ANKLE SURGERY JOINT REPLACEMENT Bilateral NASAL SEPTUM SURGERY ROTATOR CUFF REPAIR Bilateral Medications: Current Outpatient Medications: levothyroxine (SYNTHROID) 88 MCG tablet, Take 1 tablet daily, Disp: 90 tablet, Rfl: 3 amoxicillin (AMOXIL) 500 MG capsule, Patient to take 4 capsules by mouth 1 hour prior to dental appointments, Disp: 4 capsule, Rfl: 2 metFORMIN (GLUCOPHAGE-XR) 500 MG extended release tablet, Take 2 tablets by mouth daily (with breakfast), Disp: 180 tablet, Rfl: 3 insulin lispro, 1 Unit Dial, (HUMALOG KWIKPEN) 100 UNIT/ML SOPN, Inject 20 Units into the skin 3 times daily (before meals), Disp: 60 mL, Rfl: 3 Insulin Pen Needle 32G X 6 MM MISC, 1 Device by Does not apply route 4 times daily (before meals and nightly), Disp: 400 each, Rfl: 3 SOLIQUA 100-33 UNT-MCG/ML SOPN, Inject 45 units nightly, Increase by 2 units every 1-2 weeks to achieve a glucose of 150-200, Disp: 10 Adjustable Dose Pre-filled Pen Syringe, Rfl: 3 amoxicillin (AMOXIL) 500 MG capsule, Patient to take 4 capsules by mouth 1 hour prior to dental appointments, Disp: 4 capsule, Rfl: 2 Insulin Glargine-Lixisenatide (SOLIQUA) 100-33 UNT-MCG/ML SOPN, Lot [id number] exp 12/06/22 gave 2 pens, Disp: 2 Adjustable Dose Pre-filled Pen Syringe, Rfl: 0 ibuprofen (ADVIL;MOTRIN) 800 MG tablet, Take 1 tablet by mouth every 6 hours as needed for Pain, Disp: 120 tablet, Rfl: 3 benzonatate (TESSALON) 200 MG capsule, Take 1 capsule by mouth 2 times daily as needed for Cough, Disp: 180 capsule, Rfl: 4 fluticasone (FLONASE) 50 MCG/ACT nasal spray, fluticasone propionate 50 mcg/actuation nasal spray,suspension, Disp: 3 each, Rfl: 4 ferrous sulfate ([employer] IRON) 325 (65 Fe) MG tablet, Take 1 tablet by mouth daily (with breakfast), Disp: 90 tablet, Rfl: 3 betamethasone dipropionate 0.05 % ointment, Apply topically 2 times daily. (Patient not taking: Reported on 10/10/2022), Disp: 60 g, Rfl: 2 blood glucose monitor kit and supplies, Dispense one meter that insurance will cover., Disp: 1 kit, Rfl: 0 blood glucose monitor strips, Test 3x daily e11.65, Disp: 100 strip, Rfl: 3 Lancets MISC, 1 each by Does not apply route daily, Disp: 100 each, Rfl: 3 Continuous Blood Gluc Sensor (DEXCOM G7 SENSOR) MISC, 1 Device by Does not apply route every 10 days, Disp: 12 each, Rfl: 10 albuterol (PROVENTIL) (2.5 MG/3ML) 0.083% nebulizer solution, , Disp: , Rfl: magnesium oxide (MAG-OX) 400 MG tablet, Take 1 tablet by mouth daily, Disp: , Rfl: beclomethasone (QVAR REDIHALER) 40 MCG/ACT AERB inhaler, Inhale 2 puffs into the lungs 2 times daily, Disp: , Rfl: famotidine (PEPCID) 20 MG tablet, Take 1 tablet by mouth once, Disp: , Rfl: meclizine (ANTIVERT) 25 MG tablet, Take 1 tablet by mouth as needed for Dizziness, Disp: 90 tablet, Rfl: 3 Handicap Placard MISC, by Does not apply route Good for 5 years, 08/24/2027., Disp: 2 each, Rfl: 0 Allergies: Morphine, Naproxen sodium, and Nsaids SUBJECTIVE EXAMINATION History obtained from:: Patient, Subjective History: Subjective: Had Lt TKR and 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 Pt reports was in [place] and just moved up to [place]. Pt reports knee flexion has progressively gotten worse and can only bend ~90 deg. Had a MRI on knee and has f/u with Dr Ordaz on the . Pt reports increased pain in the back of knee with attempting to flex knee. Has tried all of her exercises from past therapy with no improvement. Pt reports pain is constant but worsens with bending and walking. Pt is able to walk for 1/4 of a block before needing to stop due to pain. Additional Pertinent Hx (if applicable): DM, OA, reactive airway, Lt RTC repair, gee TKR Learning/Language: Learning Does the patient/guardian have any barriers to learning?: No barriers Will there be a co-learner?: No What is the preferred language of the patient/guardian?: Maltese Is an towel stretcher required?: No How does the patient/guardian prefer to learn new concepts?: Listening, Reading, Demonstration, Pictures/Videos Pain Screening Pain Screening Patient Currently in Pain: Yes Pain Assessment: 0-10 Pain Level: 7 Best Pain Level: 5 Worst Pain Level: 10 Pain Location: Knee Pain Orientation: Left, Posterior Functional Status Social History: Social History Lives With: Spouse, Daughter (Sister) Type of Home: House Home Layout: Two level, Bed/Bath upstairs (Bedroom in basement) Home Access: Stairs to enter with rails Entrance Stairs - Rails: Both Entrance Stairs - Number of Steps: 5 Home Equipment: Cane, Walker, rolling, Wheelchair-manual Occupation/Interests: Occupation: Retired Prior Level of Function: Independent Current Level of Function: ADL Assistance: Independent Homemaking Assistance: Independent Ambulation Assistance: Independent Transfer Assistance: Independent 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 OBJECTIVE EXAMINATION Review of Systems: Vision: Impaired Visual Deficits: Wears glasses Hearing: Within functional limits Overall Orientation Status: Within Normal Limits Patient affect:: Normal Follows Commands: Within Functional Limits Palpation: Left Knee Palpation: 2 small lumps along medial and posterior side of Lt thigh near knee joint Mobility: Ambulation Surface: Carpet Device: No Device Quality of Gait: Antalgic due Lt stance phase Gait Deviations: Slow Debbie Distance: 80' Stairs/Curb Stairs?: Yes Stairs # Steps : 4 Stairs Height: 6 Rails: Bilateral Assistance: Independent Comment: up recip with decreased speed, descends NR Neuro Screen: Sensation Overall Sensation Status: Impaired (Numbness Lt lower leg since move) Left AROM Right AROM AROM LLE (degrees) L Knee Flexion (0-145): 93 AROM RLE (degrees) R Knee Flexion (0-145): 123 R Knee Extension (0): 0 Left PROM Right PROM PROM LLE (degrees) L Knee Flexion (0-145): 97 L Knee Extension (0): 0 NT Left Strength Right Strength Strength LLE L Hip Flexion: 4/5 L Hip Extension: 3+/5 L Hip ABduction: 4-/5 L Hip ADduction: 3-/5 L Knee Flexion: 5/5 L Knee Extension: 5/5 L Ankle Dorsiflexion: 5/5 Strength RLE R Hip Flexion: 4+/5 R Hip Extension: 4/5 R Hip ABduction: 4/5 R Hip ADduction: 3-/5 R Knee Flexion: 5/5 R Knee Extension: 5/5 R Ankle Dorsiflexion: 5/5 Outcomes Score: Exam: Decreased ROM and strength with increased pain impacting mobility and safety. LEFS = 17/80 Treatment: Exercises: Exercises Exercise 1: Bike* Exercise 2: Heel slides with strap* Exercise 3: 4 way SLR* Exercise 4: Prone knee flexion* Exercise 5: Quad str in prone* Exercise 6: Step ups* Exercise 7: Step downs* Exercise 20: HEP: continue with prior HEP including heel slides Manual: Manual Therapy Manual Traction: Lt knee distraction with passive flexion* *Indicates exercise,modality, or manual techniques to be initiated when appropriate ASSESSMENT Impression: Assessment: Pt presents with a recent worsening of Lt knee flexion and increased pain after a TKR in February 2022. Pt demonstrates limited Lt knee flexion ROM with a hard end feel. Pt with decreased strength in gee hips with Lt weaker than Rt. Pt with increased TTP along Lt adductors and Lt medial hamstrings. Pt ambulates with an antalgic gait pattern with decreased Lt stance time. Pt would benefit from further skilled PT to improve her ROM, strength and pain to increase her mobility and QOL. Body Structures, Functions, Activity Limitations Requiring Skilled Therapeutic Intervention: Decreased functional mobility , Decreased ROM, Decreased strength, Increased pain Statement of Medical Necessity: Physical Therapy is both indicated and medically necessary as outlined in the POC to increase the likelihood of meeting the functionally related goals stated below. Patient's Activity Tolerance: Patient tolerated evaluation without incident Patient's rehabilitation potential/prognosis is considered to be: Good Factors which may impact rehabilitation potential include: None Patient Education: Goals, PT Role, Plan of Care, Evaluative findings GOALS Patient Goal(s): Patient Goals : To be able to bend it like I could before Short Term Goals Completed by 2 weeks Goal Status Independent with HEP. New Increased Lt knee flexion by >/= 5 deg to increase ease with ambulation. New [place] Rancher Goals Completed by 5 weeks Goal Status LTG 1 Improve Lt knee flexion by >/= 10-15deg to increase ease with stair negotiation and ambulation. New LTG 2 Reduce Lt knee pain to </= 3/10 with all activity. New LTG 3 Improve gee LE strength to ./= 4+/5 to improve stability with standing and walking. New LTG 4 LEFS >/= 27/80 to improve pt's QOL. New TREATMENT PLAN Requires PT Follow-Up: Yes Treatment may include any combination of the following: Strengthening, ROM, Balance training, Functional mobility training, Transfer training, Gait training, Stair training, Neuromuscular re-education, Manual, Home exercise program, Safety education & training, Patient/Caregiver education & training, Equipment evaluation, education, & procurement, Modalities, Dry needling Frequency / Duration: Patient to be seen 2 times per week for 5 weeks Eval Complexity: Decision Making: Medium Complexity History: Personal Factors and/or Comorbidities Impacting POC: High History: PMH: DM, OA, reactive airway, Lt RTC repair, gee TKR Examination of body system(s) including body structures and functions, activity limitations, and/or participation restrictions: High Exam: Decreased ROM and strength with increased pain impacting mobility and safety. LEFS = 1780 Clinical Presentation: Medium Clinical Presentation: Evolving POST-PAIN Pain Rating (0-10 pain scale): 7/10 Location and pain description same as pre-treatment unless indicated. Action: [] NA [] Call Physician [] Perform HEP [x] Meds as prescribed Evaluation and patient rights have been reviewed and patient agrees with plan of care. Yes [x] No [] Explain: Brendon Fall Risk Assessment Risk Factor Scale Score History of Falls [] Yes [x] No 25 0 0 Secondary Diagnosis [] Yes [x] No 15 0 0 Ambulatory Aid [] Furniture [] Crutches/cane/walker [x] None/bedrest/wheelchair/nurse 30 15 0 0 IV/Heparin Lock [] Yes [x] No 20 0 0 Gait/Transferring [] Impaired [x] Weak [] Normal/bedrest/immobile 20 10 0 10 Mental Status [] Forgets limitations [x] Oriented to own ability 15 0 0 Total:10 Based on the Assessment score: check the appropriate box. [x] No intervention needed Low = Score of 0-24 [] Use standard prevention interventions Moderate = Score of 24-44 [] Discuss fall prevention strategies [] Indicate moderate falls risk on eval [] Use high risk prevention interventions High = Score of 45 and higher [] Discuss fall prevention strategies [] Provide supervision during treatment time Minutes: PT Individual Minutes Time In: 1420 Time Out: 1445 Minutes: 25 Procedure Minutes: 25' eval documented in this encounter [facility] 07-23-2022 Note HNO ID: [id number] Author: Jennifer Chapa MD Service: ? Author Type: Physician Type: Progress Notes Filed: 07/23/2022 4:08 PM Note Text: Self referred 56 yo female here to establish asthma care Has h/o reactive airway disease. This was diagnosed after she had knee surgery that was complicated by aspiration about 10 yrs ago . Since then she notes having falre ups of reactive airway disease here and there She has not been on inhalers for 2 years. States breathing has been well controlled She recently moved to [place] from [place] about 2 weeks ago. She was exposed to smoke which triggered severe coughing leading vomiting and difficulty breathing. She tried to use her inhaler, but sx persisted x 3 days. Seen by urgent care and transferred to Er. She was found to have infection (UTI) and started on bactrim Sh was also treated with prednisone and feels 80% better. She required albuterol 3 times per day which was not helpful prior to getting to ER. Also using tessalon perles. She is still using albuterol twice a day now and improving Generally, she is limited due to dyspnea on exertion at baseline. She had knee surgery in Feb which also limits her activity No night time awakenings at baseline Othrwise, triggers include URI about 1 year ago. This is first time this happened with ER She reports having allergy tests in the past. She only had tree pollen (palma tree). No itchy eyes, runny nose or nasal sx. Has deviated septum Had septoplasty and was followed by ENT and was advised to see Plastics. She uses flonase daily which helps. No allergy meds. Has rare reflux now. Uses pepcid once a weekwhich is triggered by certain foods PAST MEDICAL HISTORY Diagnosis Date Asthma Diabetes mellitus (HCC) PAST SURGICAL HISTORY Procedure Laterality Date FOOT SURGERY HX KNEE SURGERY HX REVISE MEDIAN N/CARPAL TUNNEL SURG SEPTOPLASTY Current Outpatient Medications Medication Sig ibuprofen (MOTRIN) 800 mg tablet Take 800 mg by mouth every 6 hours as needed. benzonatate (TESSALON PERLES) 100 mg capsule Take 100 mg by mouth three times daily as needed. glimepiride (AMARYL) 1 mg tablet Take 1 mg by mouth twice daily with meals. insulin glargine-lixisenatide (SOLIQUA 100/33) 100 unit-33 mcg/mL inpn Inject 15 Units subcutaneously once daily. Do not mix with other insulins. sulfamethoxazole-trimethoprim (BACTRIM DS) 800-160 mg per tablet Take 1 tablet by mouth twice daily for 5 days. magnesium oxide (MAG-OX) 400 mg (241.3 mg magnesium) tablet Take 1 tablet by mouth once daily. potassium chloride ER (KLOR-CON) 20 mEq tablet Take 1 tablet by mouth once daily for 5 days. predniSONE (DELTASONE) 20 mg tablet Take 2 tablets by mouth once daily for 4 days. albuterol HFA (PROVENTIL HFA, VENTOLIN HFA) 90 mcg/actuation inhaler Inhale 2 Puffs as instructed every 4 hours as needed for wheezing/shortness of breath. sitaGLIPtin-metFORMIN (JANUMET XR) 100-1000 mg TM24 Take by mouth once daily. fluticasone (FLONASE) 50 mcg/actuation nasal spray Use 1 [place] in each nostril once daily. No current facility-administered medications for this visit. Home 5 dogs Social history Retired 1ppd x 10 yrs, quit 1990 Family hsitory No atopy REVIEW OF SYSTEMS GEN: +low energy, good appetite, no weight change, no fevers, + chills HEENT: + headaches, no conjunctival pruritus, no rhinorrhea or congestion, no nose bleeds, no snoring CV: + chest pain or +tightness Lungs: + shortness of breath, no cough or wheezing GI: No Abdominal pain, no nausea, + vomiting, no diarrhea, no constipation : No dysuria, + polyuria MSK: + joint pain, + myalgias Neuro: No numbness, no tingling, no weakness Skin: No lesions, no rashes Lymph: No swollen or tender nodes Physical Exam Blood pressure 103/64, pulse 88, height 154.9 cm (5' 1 ), weight 106.1 kg (234 lb), SpO2 99 %. General appearance: well appearing, in no acute distress, alert, coughing during exam Derm: normal skin color, no rashes, no urticaria, no dermatographism HEENT: head normal, Anicteric sclera External ears normal Normal nasal turbinates, no purulent drainage Normal oropharynx Lymph: Neck supple, no adenopathy Resp: Lungs clear to auscultation, no wheezing or rhonchi CV: RRR without murmur, no ectopy Neuro: Moves all extremities, sensation grossly intact Assessment and plan: Asthma with exacerbation Complete the prednisone Start arnuity 1 puff daily Ok to continue albuterol if needed Use nebulizer as needed Use tessalon perles as needed DM with elevated blood sugar Needs to establish care with specialist Refer to endo Chronic rhinitis Pt reports having allergy to [place] trees, negative otherwise. Has been well controlled otherwise on flonase Discussed role of skin test if sx recur RTC Return for breathing test and f/u with me in 2-3 months Jennifer Chapa MD [facility] 07-23-2022 Instructions Jennifer Chapa MD - 07/23/2022 10:02 AM EDT For asthma Complete the prednisone Start arnuity 1 puff daily Rinse after use Ok to continue albuterol if needed Use nebulizer as needed Use tessalon perles as needed Return for breathing test in 2-3 months See endocrine for sugars. Continue flonase documented in this encounter [facility] 07-23-2022 History of Presen t illness Narrative Self referred 56 yo female here to establish asthma care Has h/o reactive airway disease. This was diagnosed after she had knee surgery that was complicated by aspiration about 10 yrs ago . Since then she notes having falre ups of reactive airway disease here and there She has not been on inhalers for 2 years. States breathing has been well controlled She recently moved to [place] about 2 weeks ago. She was exposed to smoke which triggered severe coughing leading vomiting and difficulty breathing. She tried to use her inhaler, but sx persisted x 3 days. Seen by urgent care and transferred to Er. She was found to have infection (UTI) and started on bactrim Sh was also treated with prednisone and feels 80% better. She required albuterol 3 times per day which was not helpful prior to getting to ER. Also using tessalon perles. She is still using albuterol twice a day now and improving Generally, she is limited due to dyspnea on exertion at baseline. She had knee surgery in Feb which also limits her activity No night time awakenings at baseline Othrwise, triggers include URI about 1 year ago. This is first time this happened with ER She reports having allergy tests in the past. She only had tree pollen (palma tree). No itchy eyes, runny nose or nasal sx. Has deviated septum Had septoplasty and was followed by ENT and was advised to see Plastics. She uses flonase daily which helps. No allergy meds. Has rare reflux now. Uses pepcid once a weekwhich is triggered by certain foods PAST MEDICAL HISTORY Diagnosis Date Asthma Diabetes mellitus (HCC) PAST SURGICAL HISTORY Procedure Laterality Date FOOT SURGERY HX KNEE SURGERY HX REVISE MEDIAN N/CARPAL TUNNEL SURG SEPTOPLASTY Current Outpatient Medications Medication Sig ibuprofen (MOTRIN) 800 mg tablet Take 800 mg by mouth every 6 hours as needed. benzonatate (TESSALON PERLES) 100 mg capsule Take 100 mg by mouth three times daily as needed. glimepiride (AMARYL) 1 mg tablet Take 1 mg by mouth twice daily with meals. insulin glargine-lixisenatide (SOLIQUA 100/33) 100 unit-33 mcg/mL inpn Inject 15 Units subcutaneously once daily. Do not mix with other insulins. sulfamethoxazole-trimethoprim (BACTRIM DS) 800-160 mg per tablet Take 1 tablet by mouth twice daily for 5 days. magnesium oxide (MAG-OX) 400 mg (241.3 mg magnesium) tablet Take 1 tablet by mouth once daily. potassium chloride ER (KLOR-CON) 20 mEq tablet Take 1 tablet by mouth once daily for 5 days. predniSONE (DELTASONE) 20 mg tablet Take 2 tablets by mouth once daily for 4 days. albuterol HFA (PROVENTIL HFA, VENTOLIN HFA) 90 mcg/actuation inhaler Inhale 2 Puffs as instructed every 4 hours as needed for wheezing/shortness of breath. sitaGLIPtin-metFORMIN (JANUMET XR) 100-1000 mg TM24 Take by mouth once daily. fluticasone (FLONASE) 50 mcg/actuation nasal spray Use 1 [place] in each nostril once daily. No current facility-administered medications for this visit. Home 5 dogs Social history Retired 1ppd x 10 yrs, quit 1990 Family hsitory No atopy REVIEW OF SYSTEMS GEN: +low energy, good appetite, no weight change, no fevers, + chills HEENT: + headaches, no conjunctival pruritus, no rhinorrhea or congestion, no nose bleeds, no snoring CV: + chest pain or +tightness Lungs: + shortness of breath, no cough or wheezing GI: No Abdominal pain, no nausea, + vomiting, no diarrhea, no constipation : No dysuria, + polyuria MSK: + joint pain, + myalgias Neuro: No numbness, no tingling, no weakness Skin: No lesions, no rashes Lymph: No swollen or tender nodes Physical Exam Blood pressure 103/64, pulse 88, height 154.9 cm (5' 1 ), weight 106.1 kg (234 lb), SpO2 99 %. General appearance: well appearing, in no acute distress, alert, coughing during exam Derm: normal skin color, no rashes, no urticaria, no dermatographism HEENT: head normal, Anicteric sclera External ears normal Normal nasal turbinates, no purulent drainage Normal oropharynx Lymph: Neck supple, no adenopathy Resp: Lungs clear to auscultation, no wheezing or rhonchi CV: RRR without murmur, no ectopy Neuro: Moves all extremities, sensation grossly intact Assessment and plan: Asthma with exacerbation Complete the prednisone Start arnuity 1 puff daily Ok to continue albuterol if needed Use nebulizer as needed Use tessalon perles as needed DM with elevated blood sugar Needs to establish care with specialist Refer to endo Chronic rhinitis Pt reports having allergy to [place] trees, negative otherwise. Has been well controlled otherwise on flonase Discussed role of skin test if sx recur RTC Return for breathing test and f/u with me in 2-3 months Jennifer Chapa MD documented in this encounter [facility] 07-20-2022 Note HNO ID: [id number] Author: Osvaldo Feldman RT(R) Service: Radiology Author Type: Technologist Type: Progress Notes Filed: 07/20/2022 3:04 PM Note Text: Radiology Service Progress Note PATIENT NAME: Ileana Wilson DATE OF SERVICE: July 20, 2022 TIME: 3:04 PM PATIENT IDENTITY VERIFICATION COMPLETED USING TWO (2) IDENTIFIERS: Name and Date of confirmed by patient verbally and Name and Date of confirmed by identification band. FALL SCREENING: Has the patient had 2 falls in the last year or 1 fall with injury or currently using an Ambulatory Assistive Device (Walker, Cane, Wheelchair, Crutches, etc.)? Emergency Room Patient: Screened in ED PATIENT GENDER DATA: Female. status: : No status: NO. PATIENT RELEVANT IMPLANT DATA REVIEWED: Not Applicable RADIOLOGY DEPARTMENT: CT; Exam(s) Completed: PE Study PERIPHERAL IV DATA: Site assessment: Clean,Dry and Intact, Site disposition Left in for next appointment SIGNED BY: Osvaldo Feldman RT(R) July 20, 2022 3:04 PM [facility] 07-20-2022 Note HNO ID: [id number] Author: Radha Chowdhury RT(R) Service: Radiology Author Type: Technologist Type: Progress Notes Filed: 07/20/2022 2:27 PM Note Text: Radiology Service Progress Note PATIENT NAME: Ileana Wilson DATE OF SERVICE: July 20, 2022 TIME: 2:26 PM PATIENT IDENTITY VERIFICATION COMPLETED USING TWO (2) IDENTIFIERS: Name and Date of confirmed by patient verbally and Name and Date of confirmed by identification band. FALL SCREENING: Has the patient had 2 falls in the last year or 1 fall with injury or currently using an Ambulatory Assistive Device (Walker, Cane, Wheelchair, Crutches, etc.)? Emergency Room Patient: Screened in ED PATIENT GENDER DATA: Female. status: : No status: NO. PATIENT RELEVANT IMPLANT DATA REVIEWED: Not Applicable RADIOLOGY DEPARTMENT: General X-ray: Exam(s) Completed: Chest X-Ray PERIPHERAL IV DATA: Not applicable SIGNED BY: Radha Chowdhury, RT(R) July 20, 2022 2:26 PM [facility] 01-28-2012 Miscellaneous Notes Patient has called checking on status of scheduling surgery with Dr Richardson on right knee. Patient states Dr. Gato Moya of Pulmonology office faxed over clearance yesterday. Please advise. documented in this encounter [facility] Evaluation note Diagnosis Mild intermittent asthma with acute exacerbation- Primary Unspecified asthma, with exacerbation Elevated blood sugar Other abnormal glucose Chronic rhinitis [facility] Diagnosis Diabetes mellitus type 2 in obese (HCC)- Primary Type II or unspecified type diabetes mellitus without mention of complication, not stated as uncontrolled [facility] Diagnosis Cirrhosis of liver without ascites (HCC)- Primary Left knee pain, unspecified chronicity Cirrhosis (HCC) Cirrhosis of liver without mention of alcohol [facility] Diagnosis History of total knee replacement, left- Primary Pain in joint of left shoulder Left shoulder strain, sequela documented in this encounter [facility] Work Phone: Evaluation note* Diagnosis Left knee pain, unspecified chronicity- Primary History of total knee replacement, left documented in this encounter [facility] Work Phone: Reason for referral (narrative)* Outpatient Procedure (Routine) - Pending Review Specialty Diagnoses / Procedures Referred By Uzairac t Referred To Contact [facility] Diagnoses Mild intermittent asthma with acute exacerbation Procedures SPIROMETRY - BASELINE AND POST DILATOR BRNCDILAT RSPSE SPMTRY PRE&[place] [address] [place] [address] [facility] [place] [address] [place] [address] Referral ID Status Reason Start Date Expiration Date Visits Requested Visits Authorized [id number] Pending Review Auto-Generat ed Referral 07/23/2022 08/22/2023 1 1 * Consult, Test, Treat (Routine) - Authorized Specialty Diagnoses / Procedures Referred By Contac t Referred To Contact Endocrinology Diagnoses Elevated blood sugar Procedures CONSULT TO ENDOCRINOLOGY OFFICE/OUTPATIENT NEW HIGH MDM 60-[place] [address] [place] [address] Referral ID Status Reason Start Date Expiration Date Visits Requested Visits Authorized [id number] Authorized PCP Requested Referral 07/23/2022 07/23/2023 1 1 [facility] Summary Purpose Family History No Family History Records FoundNo Family History Records FoundNo Family History Records FoundNo Family History Records FoundNo Family History Records FoundNo Family History Records FoundNo Family History Records Found Advance Directives No Advanced Directives Records FoundLatest Code Status on File Code Status Date Activated Date Inactivated Comments Full Code 11/05/2022 8:23 AM 11/05/2022 11:52 AM Reason for Referral Specialty Diagnoses / Procedures Referred By Contac t Referred To Contact Radiology Diagnoses Left knee pain, unspecified chronicity Procedures MRI KNEE LEFT WO CONTRAST MRI KNEE LEFT WO CONTRAST MRI KNEE LEFT WO CONTRAST Scarlett Ordaz DO [address] [address] Referral ID Status Reason Start Date Expiration Date Visits Re quested Visits Authorized [id number] Closed 10/22/2022 12/20/2022 1 1 Specialty Diagnoses / Procedures Referred By Contac t Referred To Contact Radiology Diagnoses Left shoulder strain, sequela Procedures XR arthrogram shoulder left Patrice Mallory MD [address] [facility], [address] [place] [id number] Referral ID Status Reason Start Date Expiration Date Visits Requested Visits Authorized [id number] Authorized Perform Procedure 3 02/16/2024 1 1 Specialty Diagnoses / Procedures Referred By Contac t Referred To Contact Radiology Diagnoses Left shoulder strain, sequela Procedures MR arthrogram shoulder left Patrice Mallory MD [address] [facility], [address] [place] [id number] Referral ID Status Reason Start Date Expiration Date Visits Requested Visits Authorized [id number] Pending Review Perform Procedure 3 02/16/2024 1 1 Specialty Diagnoses / Procedures Referred By Contac t Referred To Contact Radiology Diagnoses Pain in joint of left shoulder Procedures XR shoulder left 2+ views Patrice Mallory MD [address] [facility], [address] [place] [id number] Referral ID Status Reason Start Date Expiration Date Visits Requested Visits Authorized [id number] Authorized Perform Procedure 3 02/16/2024 1 1 Additional Source Comments Source Comments (unrecognize d section and content) In the event this informatio n is protected by the Federal Confidentiality of Alcohol and Drug Abuse Patient Records regulations: The Federal rules restrict any use of the information to criminally investigate or prosecute any alcohol or drug abuse patient.[facility] the event this information is protected by the Federal Confidentiality of Alcohol and Drug Abuse Patient Records regulations: The Federal rules restrict any use of the information to criminally investigate or prosecute any alcohol or drug abuse patient.[facility] the event this information is protected by the Federal Confidentiality of Alcohol and Drug Abuse Patient Records regulations: The Federal rules restrict any use of the information to criminally investigate or prosecute any alcohol or drug abuse patient.[facility] Reason for Visit (unrecogniz ed section and content) Reason Onset Date Comments Schedule Surgery 01/28/2012 Reason Comments New Patient Reason Comments New Patient Specialty Diagnoses / Procedures Referred By Contac t Referred To Contact Endocrinology Diagnoses Elevated blood sugar Procedures CONSULT TO ENDOCRINOLOGY OFFICE/OUTPATIENT NEW HIGH MDM 60-[place] [address] [place] [address] Referral ID Status Reason Start Date Expiration Date Visits Requested Visits Authorized [id number] Authorized PCP Requested Referral 07/23/2022 07/23/2023 1 1 Specialty Diagnoses / Procedures Referred By Uzairac t Referred To Contact Radiology Diagnoses Left knee pain, unspecified chronicity Procedures MRI KNEE LEFT WO CONTRAST MRI KNEE LEFT WO CONTRAST MRI KNEE LEFT WO CONTRAST Scarlett Ordaz DO [address] [facility] [address] [place] [address] Referral ID Status Reason Start Date Expiration Date Visits Re quested Visits Authorized [id number] Closed 10/22/2022 12/20/2022 1 1 Specialty Diagnoses / Procedures Referred By Uzairac t Referred To Contact Physical Therapist / Physical Therapy Diagnoses Left knee pain, unspecified chronicity Procedures 60 Visits pr kalyani yr (combined) Eff: 09/06/22 verified on availity $325 pr kalyani yr Deduct has been met $650 pr kalyani yr OOP - $143.21 remains No copay/no coins for PT Scarlett Ordaz DO [address] [facility] [address] [place] [address] [address] [place] [address] Referral ID Status Reason Start Date Expiration Date V isits Requested Visits Authorized [id number] Closed Specialty Services Required 10/10/2022 10/10/2023 1 1 Referral ID Status Reason Start Date Expiration Date Visits Requested Visits Authorized [id number] Authorized Specialty Services Required 10/10/2022 10/10/2023 60 60 Specialty Diagnoses / Procedures Referred By Contac t Referred To Contact Radiology Diagnoses High risk for fracture due to osteoporosis by DEXA scan Left knee pain, unspecified chronicity M81.0 (ICD-10-CM) - High risk for fracture due to osteoporosis by DEXA scan Procedures NM BONE SCAN 3 PHASE CHG BONE &/JOINT IMAGING 3 PHASE STUDY [id number] - CHG BONE &/JOINT IMAGING 3 PHASE STUDY Scarlett Ordaz DO [address] [address] Referral ID Status Reason Start Date Expiration Date Visits Re quested Visits Authorized [id number] Closed 11/27/2022 11/07/2023 1 1 Reason Comments New Patient Visit Lt knee pain s/p TKR in 2021Xrays @ Pain Lt knee pain s/p TKR in 2021Xrays @ Specialty Diagnoses / Procedures Referred By Contact Referred To Contact Orthopaedic Surgery / Orthopedic Surgery Diagnoses History of total knee replacement, left Left knee pain, unspecified chronicity Patrice Mallory MD [address] [facility], [address] [place], [place] [id number] Referral ID Status Reason Start Date Expiration Date Visits Requested Visits Authorized [id number] Authorized Specialty Services Required 02/16/2024 1 1 INFORMATION SOURCE (unrecogn ized section and content) DATE CREATED AUTHOR 07/22/2022 [facility] DATE CREATED AUTHOR AUTHOR'S ORGANIZ ATION 02/23/2023 [facility] DATE CREATED AUTHOR AUTHOR'S ORGANIZ ATION 02/24/2023 [facility] DATE CREATED AUTHOR AUTHOR'S ORGANIZ ATION 03/23/2023 [facility] DATE CREATED AUTHOR AUTHOR'S ORGANIZ ATION 07/14/2023 [facility] DATE CREATED AUTHOR AUTHOR'S ORGANIZ ATION 11/14/2023 [facility] DATE CREATED AUTHOR AUTHOR'S ORGANIZ ATION 12/23/2023 [facility] Care Teams (unrecognized sec tion and content) Access Database Developer Relationship Specialty Start Date End Date Daniel Tejada PA-C [address] [place] [address] PCP - General Family Medicine 08/20/22 Access Database Developer Relationship Specialty Start Date End Date Daniel Tejada PA-C [address] [place] [address] PCP - General Family Medicine 08/20/22 Access Database Developer Relationship Specialty Start Date End Date Daniel Tejada PA-C [address] [place] [address] PCP - General Family Medicine 08/20/22 Access Database Developer Relationship Specialty Start Date End Date Daniel Tejada PA-C [address] [place] [address] PCP - General Family Medicine 08/20/22 Access Database Developer Relationship Specialty Start Date End Date Daniel Tejada PA-C [address] [place] [address] PCP - General Internal Medicine 02/16/23 Access Database Developer Relationship Specialty Start Date End Date Daniel eTjada PA-C [address] [place] [address] PCP - General Internal Medicine 02/16/23 FOR RECORDS PERTAINING TO PATIENTS WHO ARE OR HAVE BEEN ENROLLED IN A CHEMICAL DEPENDENCY/SUBSTANCEABUSE PROGRAM, SOME INFORMATION MAY BE OMITTED. This clinical summary was aggregated from multiple sources. Caution should be exercised in using it in the provision of clinical care. This summary normalizes information from multiple sources, and as a consequence, information in this document may materially change the coding, format and clinical context of patient data. In addition, data may be omitted in some cases. CLINICAL DECISIONS SHOULD BE BASED ON THE PRIMARY CLINICAL RECORDS. [employer] [facility]. provides no warranty or guarantee of the accuracy or completeness of information in this document.
--- NOTE | 2023-12-26 01:21 | ED_ITS ---
HPI HPI - General Adult General Chief complaint: Recheck/Abnormal Lab/Rx Stated complaint: Vehicle And Equipment [employer]er Time Seen by Provider: 12/26/23 01:06 Source: patient Mode of arrival: walk-in Limitations: no limitations History of Present Illness HPI narrative: 58 female presents for evaluation of the drainage in her ZAHRA drain. She had acute cholecystitis and had laparoscopic cholecystectomy 3 days ago. The drainage was yellow and now it is more clear and pink-colored. She has not had pain or fever. Her first postop check is 2 weeks after the original surgery. Related Data Home Medications ?Medication ?Instructions ?Recorded ?Confirmed beclomethasone dipropionate 40 1 inh inhalation QDAY PRN wheezing 12/19/23 12/19/23 mcg/actuation HFA breath activated aerosol (Qvar RediHaler) furosemide 20 mg tablet 20 mg PO QDAY 12/19/23 12/19/23 insulin lispro 100 unit/mL 1 sliding scale dose continuous IV 12/19/23 12/19/23 subcutaneous solution (Humalog infusion .hourly PRN hyperglycemia U-100 Insulin) levothyroxine 88 mcg tablet 88 mcg PO QDAY 12/19/23 12/19/23 pantoprazole 40 mg tablet,delayed 40 mg PO QDAY 12/19/23 12/19/23 release tirzepatide 10 mg/0.5 mL 10 mg subcut .weekly 12/19/23 12/19/23 subcutaneous pen injector (Mounjaro) Allergies Allergy/AdvReac Type Severity Reaction Status Date / Time adhesive tape Allergy Unknown Unknown Verified 12/26/23 00:58 naproxen (From Aleve) Allergy ill Verified 12/19/23 19:45 morphine AdvReac Unknown Verified 12/19/23 19:45 Opioid HPI Opioid Management Most Recent Opioid Data: Last Pain Scale 5 12/20/23 01:58 12/20/23 Last MAR Pain Assessment 12/20/23 01:58 Review of Systems ROS Narrative A ten point review of systems is negative except as noted above. PFSH PFSH Social History Little interest or pleasure in doing things: not at all Feeling down, depressed, or hopeless: not at all Exam Narrative Exam Narrative: Nurses note and vital signs reviewed and patient is not hypoxic. General: The patient appears well and in no apparent distress. Patient is resting comfortably on cart. Skin: Warm, dry, no pallor noted. There is no rash noted. Head: Normocephalic, atraumatic Eye: Normal conjunctiva, no drainage Ears, Nose, Mouth, and Throat: oral mucosa is moist. Nares patent. Cardiovascular: Regular Rate and Rhythm Respiratory: Patient is in no distress, no accessory muscle use, lungs are clear to auscultation, no wheezing, rales or rhonchi Back: non-tender GI: Soft and nontender. The surgical wounds are healing well. ZAHRA drain is in place and there is noncloudy serous drainage in it. No erythema of the abdominal wall. Musculoskeletal: The patient has no evidence of calf tenderness, no pitting edema, symmetrical pulses noted bilaterally Neurological: A&O, normal speech Psychiatric: Cooperative Constitutional Vital Signs, click to edit/add: Last Vital Signs Temp 98.2 F 12/26/23 00:58 Pulse 76 12/26/23 00:58 Resp 18 12/26/23 00:58 BP 117/69 12/26/23 00:58 Pulse Ox 98 12/26/23 00:58 O2 Del Method Room Air 12/26/23 00:58 Course Vital Signs Vital signs: Vital Signs Temperature 98.2 F 12/26/23 00:58 Pulse Rate 76 12/26/23 00:58 Respiratory Rate 18 12/26/23 00:58 Blood Pressure 117/69 12/26/23 00:58 Pulse Oximetry 98 12/26/23 00:58 Oxygen Delivery Method Room Air 12/26/23 00:58 Temperature 98.2 F 12/26/23 00:58 Pulse Rate 76 12/26/23 00:58 Respiratory Rate 18 12/26/23 00:58 Blood Pressure 117/69 12/26/23 00:58 Pulse Oximetry 98 12/26/23 00:58 Oxygen Delivery Method Room Air 12/26/23 00:58 Medical Decision Making [facility] Narrative Medical decision making narrative: The patient has normal drainage in her ZAHRA drain and she was reassured. I have no suspicion of an infection and she was reassured that this is normal serous drainage. She is able to be discharged home. Differential Diagnosis Differential Diagnosis: Wound check, normal exam Discharge Plan Discharge Chief Complaint: Recheck/Abnormal Lab/Rx Clinical Impression: Visit for wound check Patient Disposition: Home, Self-Care Time of Disposition Decision: 01:19 Condition: Good Mode of Transportation: Private Vehicle Prescriptions / Home Meds: No Action levothyroxine 88 mcg tablet 88 mcg PO QDAY furosemide 20 mg tablet 20 mg PO QDAY insulin lispro [Humalog U-100 Insulin] 100 unit/mL solution 1 sliding scale dose continuous IV infusion .hourly PRN (Reason: hyperglycemia) Qvar RediHaler 40 mcg/actuation HFA aerosol breath activated 1 inh INHALATION QDAY PRN (Reason: wheezing) Mounjaro 10 mg/0.5 mL pen injector 10 mg SUBCUT .weekly pantoprazole 40 mg tablet,delayed release (DR/EC) 40 mg PO QDAY Print Language: Mozambican Instructions: [facility] Care (ED) Referrals: Physician,Non-Staff, MD [Primary Care Provider] - 1 week
== END 2023-12-26 01:35 | disposition home or self-care (01) ==
PROVIDERS: Emergency Provider Emergency Medicine
DX: Z48.815 Encounter for surgical aftercare following surgery on the digestive system (principal); Z90.49 Acquired absence of other specified parts of digestive tract
CPT/HCPCS: 99281

== ENCOUNTER 2023-12-26 15:56 | Emergency (ER) | payer BC, SELFPAY ==
--- OUTSIDE RECORDS SUMMARY | 2023-12-26 16:03 | XMS_ITS | CCD ---
Author Organization [facility] CliniSywv Care Team Providers Care General Accountant Name Role Phone Ce Simons Primary Care Provider Unavailable Primary Care Provider Unavailabl e Mallory PA-C, Daniel E Primary Care Provider Mallory PA-C Daniel E Primary Care Provider MALLORY, DANIEL E Primary Care Unavailable BALK, [...] DANIEL E Primary Care Unavailable KHALLAFI, HICHAM Referring Unavailable KHALLAFI, HICHAM Attending Unavailable MALLORY, [...] Unavailable MALLORY, DANIEL E Primary Care Unavailable ASIF STEVEHAM Referring Unavailable BALK, SCARLETT Attending Unavailable MALLORY, DANIEL E Primary Care Unavailable BALK, SCARLETT Referring Unavailable MALLORY, DANIEL E Primary Care Unavailable JNK, SCARLETT Referring Unavailable BALK, SCARLETT Attending Unavailable MALLORY, DANIEL E Primary Care Unavailable ADENIKE STEVE Attending Unavailable ASIF STEVEHAM Admitting Unavailable MALLORY, DANIEL E Primary Care Unavailable BALK, SCARLETT Attending Unavailable JNK, SCARLETT Referring Unavailable BALK, SCARLETT Attending Unavailable MALLORY, DANIEL E Primary Care Unavailable JNK, SCARLETT Referring Unavailable PATRICE MALLORY Attending Unavailable MALLORY, DANIEL E Primary Care Unavailable APTRICE MALLORY Referring Unavailable MALLORY, DANIEL E Primary Care Unavailable NATHAN COHEN Attending Unavailable PATRICE MALLORY Referring Unavailable MALLORY, DANIEL E Primary Care Unavailable PATRICE MALLORY Attending Unavailable MALLORY, DANIEL E Primary Care Unavailable MARI SOMERS Attending Unavailable MEKA, JENNIFER Referring Unavailable CHRISSY MOSER Attending Unavailable PAUL LAZO Attending Unavailable SCARLETT GUTHRIE Referring Unavailable MEKA, JENNIFER Attending Unavailable SCARLETT GUTHRIE Referring Unavailable RADHA GRIFFITH Attending Unavailable Mallory Margareth COBOSy E Primary Care Provider MALLORY, DANIEL E Primary Care Unavailable DUSTIN PACHECO Consulting Unavailable PATRICE BASHIR Admitting Unavailable PATRICE BASHIR Attending Unavailable CARLOS BROWN Referring Unavailable MILE BRIDGES Consulting Unavailable Allergies Allergy Classification Reported Allergen(s) Allergy Type Date of Onset Reaction(s) Facility NSAIDs (1 source) Naproxen Drug Allergy 2 GI Upset [facility] (12 sources) Naproxen; Translations: [NAPROXEN SODIUM] Drug Allergy 2 GI Upset, Unknown [facility] Other [facility] (11 sources) Morphine; Translations: [MORPHINE] Drug Allergy 3 Other: See Comments, Unknown [facility] (7 sources) Non-steroidal anti-inflammato ry agent Propensity to adverse reactions to drug 3 Nausea Only [facility] (3 sources) Silicone adhesive tape Propensity to adverse reactions to drug 3 Rash [facility] (3 sources) Adhesive agent; Translations: [ADHESIVE] Drug Intolerance 3 [facility] (1 source) NSAIDs; Translations: [NSAIDS (NON-STEROIDAL ANTI-INFLAMMATO RY DRUG)] Propensity to adverse reactions to drug (disorder) 3 [facility] Repository (1 source) Metformin And Related Propensity to adverse reactions to drug 4 Swelling [facility] Work Phone: Medications Current Medications Medication Drug Class(es) Dates Sig (Normalized) Sig (Original) amoxicillin 500 mg oral capsule (7 sources) Penicillin-class Antibacterial Start: 10-28-2022 take 4 capsules by mouth every hour amoxicillin (Amoxil) 500 mg capsule TAKE 4 CAPSULES BY MOUTH ONE HOUR PRIOR TO DENTAL APPOINTMENT. 0 10/30/2022 Active amoxicillin 875 mg / clavulanate 125 mg oral tablet (1 source) Penicillin-class Antibacterial Start: 12-24-2023 End: 12-29-2023 take 1 tablet by mouth twice daily amoxicillin-clavula aisha (AUGMENTIN) 875-125 MG per tablet Take 1 tablet by mouth 2 times daily for 5 days 10 tablet 12/24/2023 12/29/2023 Active breath-actuated 120 actuat beclomethasone dipropionate 0.04 mg/actuat metered dose inhaler (8 sources) Corticosteroid Start: 08-14-2022 take 2 puff(s) by inhalation twice daily beclomethasone (QVAR REDIHALER) 40 MCG/ACT AERB inhaler Indications: Mild persistent reactive airway disease with acute exacerbation Inhale 2 puffs into the lungs 2 times daily 08/14/2022 Active Start: 08-14-2022 beclomethasone HFA (Qvar) 40 mcg/actuation inhaler Inhale 2 Inhalations 2 times a day. 0 08/14/2022 Active Start: 08-14-2022 take 2 puff(s) by in halation twice daily beclomethasone (QVAR REDIHALER) 40 mcg/actuation inhaler Inhale 2 Puffs as instructed twice daily. 3 Each 3 08/14/2022 Active Comment on above: Inhale 2 Puffs as in structed twice daily. benzonatate 200 mg oral capsule (8 sources) Non-narcotic Antitussive Start: take 1 capsule by mouth three times daily as needed for cough benzonatate (TESSALON) 200 MG capsule Indications: Mild persistent reactive airway disease with acute exacerbation , Subacute cough Take 1 capsule by mouth 3 times daily as needed for Cough 120 capsule 4 02/17/2023 Active Start: 09-18-2022 take 1 capsule by mo [facility] twice daily as needed for cough benzonatate [...] Comment on above: Take 1 capsule by mo [facility] three times daily as needed for cough. Take 100 mg by mouth three times daily as needed. blood glucose monitor kit and supplies (5 sources) Start: 09-17-2022 blood glucose monitor kit and supplies Indications: Type 2 diabetes mellitus with hyperglycemia, with long-term current use of insulin ([facility]) Dispense one meter that insurance will cover. 1 kit 09/17/2022 Active Start: 09-17-2022 blood glucose monitor kit and supplies Indications: Type 2 diabetes mellitus with hyperglycemia, with long-term current use of insulin (HCC) Dispense one meter that insurance will cover. 1 kit 0 09/17/2022 Active Blood Pressure Monitoring (MICROLIFE BP MONITOR) FAHAD (1 source) Start: 07-28-2023 Blood Pressure Monitoring (MICROLIFE BP MONITOR) FAHAD DIGITAL BP MONITOR - ANY BRAND THAT INSURANCE WILL COVER - DX HTN 1 each 1 07/28/2023 Active Continuous Blood Gluc Sensor (DEXCOM G7 SENSOR) MISC (4 sources) Start: 09-17-2022 Continuous Blo od Gluc Sensor (DEXCOM G7 SENSOR) MISC 1 Device by Does not apply route every 10 days 12 each 10 09/17/2022 Active Continuous Glucose [place] Clerk (DEXCOM G7 CARPET RENOVATOR) FAHAD (1 source) Start: 10-26-2023 Continuous Glu cose [place] Clerk (DEXCOM G7 CARPET RENOVATOR) FAHAD Use in accordance with Dexcom sensors 1 each 10/26/2023 Active Continuous Glucose Sensor (DEXCOM G7 SENSOR) MISC (1 source) Start: 10-26-2023 Continuous Glu cose Sensor (DEXCOM G7 SENSOR) MISC Continuous glucose monitor 1 each 2 10/26/2023 Active dulaglutide (Trulicity) 3 mg/0.5 mL pen injector (2 sources) Start: 12-09-2022 dulaglutide (Trulicity) 3 mg/0.5 mL pen injector Inject Trulicity 1.5 mg once weekly for 4 weeks, increase to 3.0 mg injected once weekly in 1 month if no nausea or vomiting 0 12/09/2022 Active ferrous sulfate 325 mg oral tablet (7 sources) Start: 09-18-2022 take 1 tablet by mouth once daily at breakfast ferrous sulfate ([employer] IRON) 325 (65 Fe) MG tablet Take 1 tablet by mouth daily (with breakfast) 90 tablet 3 09/18/2022 Active Start: 09-18-2022 ferrous sulfat e 325 (65 Fe) MG tablet Take 1 tablet (325 mg) by mouth. 0 09/18/2022 Active fluticasone propionate 0.05 mg/actuat metered dose nasal spray (13 sources) Corticosteroid Start: 12-20-2023 Start: 12-20-2023 1 puff, Inhala tion, 2 TIMES DAILY RESP, First dose on 12/20/23 at 1315, Until Discontinued, Substituted for Beclomethasone (QVAR) inhaler. Start: 09-18-2022 fluticasone (F LONASE) 50 MCG/ACT nasal spray fluticasone propionate 50 [...] (FLONASE) 50 mcg/actuation nasal spray Use 1 [place] in each nostril once daily. 0 07/23/2022 Discontinued End: 07-23-2022 take 1 puff(s) by inhalation twice daily FLUTICASONE PROPIONATE (FLOVENT DISKUS INHALATION) Inhale as instructed. Use one puff twice daily. 0 07/23/2022 Discontinued (Course of therapy completed) Comment on above: Use 1 [place] in each nostril once daily. Inhale 1 Puff as ins tructed once daily. Use 2 Sprays in each nostril once daily. Inhale as instructed . Use one puff twice daily. furosemide 20 mg oral tablet (1 source) Loop Diuretic Start: take 1 tablet by mouth once daily furosemide (LASIX) 20 MG tablet Take 1 tablet by mouth daily 60 tablet 3 09/07/2023 Active glimepiride 1 mg oral tablet (5 sources) [...] d aily with breakfast. Handicap Placard MISC (5 sources) Start: 05-19-2023 Handicap Placard MISC Indications: Multiple joint pain by Does not apply route Good for 5 years, 05/19/28 1 each 05/19/2023 Active Start: 08-22-[address] [facility] Indications: Chronic pain of both knees by Does not apply route Good for 5 years, 08/24/2027. 2 each 0 08/22/2022 Active HYDROmorphone (DILAUDID) injection 0.25 mg (1 source) Start: 12-22-2023 HYDROmorphone (DILAUDID) injection 0.25 mg ibuprofen 800 mg oral tablet (9 sources) Nonsteroidal Anti-inflammatory Drug Start: 09-19-2022 ibuprofen 800 mg tablet TAKE 1 TABLET THREE TIMES A DAY WITH FOOD NEEDED FOR JOINT PAIN 0 09/19/2022 Active Start: 09-19-2022 take 1 tablet by leonadr th every six hours as needed for [...] Glargi ne-Lixisenatide (SOLIQUA) 100-33 UNT-MCG/ML SOPN Lot [id number] exp 12/06/22 gave 2 pens 2 Adjustable Dose Pre-filled Pen Syringe 0 10/27/2022 Active insulin glargine -lixisenatide (SOLIQUA 100/33) 100 unit-33 mcg/mL inpn Inject 15 Units subcutaneously once daily. Do not mix with other insulins. 0 Active Comment on above: Inject 15 Units subc utaneously once daily. Do not mix with other insulins. insulin lispro 100 unt/ml injectable solution (5 sources) Insulin Analog Start: 06-03-2023 insulin lispro (HUMALOG) 100 UNIT/ML SOLN injection vial Use via insulin pump, max daily dose 100 units 90 mL 5 06/03/2023 Active Start: 05-20-2023 End: 12-24-2023 insulin lispro, 1 Unit Dial, (HUMALOG KWIKPEN) 100 UNIT/ML SOPN Inject 45 units three times daily before meals 15 Adjustable Dose Pre-filled Pen Syringe 3 05/20/2023 12/24/2023 Discontinued (Stop Taking at Discharge) Start: 10-30-2022 insulin lispro , 1 Unit Dial, (HUMALOG KWIKPEN) 100 UNIT/ML SOPN Inject 20 Units into the skin 3 times daily (before meals) 60 mL 3 10/30/2022 Active insulin, regular, human 100 unt/ml injectable solution (2 sources) Insulin Start: 12-20-2023 SubCUTAneous, DAILY, First dose on 12/20/23 at 0900, Total daily basal dose (total number of units/24 hours) provided by patient and/or query of insulin pump. Start: 12-20-2023 SubCUTAneous, 4 TIMES DAILY BEFORE MEALS & NIGHTLY, First dose on 12/20/23 at 0700, Patient to bolus using insulin pump based on current home settings for carbohydrates coverage and blood glucose correction. magnesium oxide 400 mg oral tablet (7 sources) Start: 07-20-2022 take 1 tablet by mouth once daily magnesium oxide (MAG-OX) 400 MG tablet Indications: Hypomagnesemia Take 1 tablet by mouth daily 07/20/2022 Active Comment on above: Take 1 tablet by leonard once daily. meclizine hydrochloride 25 mg oral tablet (5 sources) Antiemetic Start: 08-22-2022 meclizine (ANTIVERT) 25 [...] Start: 10-30-2022 take 2 tablets by mo [facility] once daily at breakfast metFORMIN (GLUCOPHAGE-XR) 500 MG extended release tablet Take 2 tablets by mouth daily (with breakfast) 180 tablet 3 10/30/2022 Active ondansetron 4 mg disintegrating oral tablet (1 source) Serotonin-3 Receptor Antagonist Start: 12-24-2023 take 1 tablet by mouth every eight hours as needed for nausea ondansetron (ZOFRAN-ODT) 4 MG disintegrating tablet Take 1 tablet by mouth every 8 hours as needed for Nausea or Vomiting 10 tablet 12/24/2023 Active ondansetron (ZOFRAN-ODT) disintegrating tablet 4 mg (1 source) Start: 12-20-2023 ondansetron (ZOFRAN-ODT) disintegrating tablet 4 mg oxyCODONE hydrochloride 5 mg oral tablet (2 sources) Opioid Agonist Start: 12-24-2023 End: 12-27-2023 take 1 tablet by mouth every four hours as needed for pain oxyCODONE (ROXICODONE) 5 MG immediate release tablet Indications: Acute cholecystitis Take 1 tablet by mouth every 4 hours as needed for Pain for up to 3 days. Max Daily Amount: 30 mg 8 tablet 12/24/2023 12/27/2023 Active Start: 12-22-2023 oxyCODONE (JOSEE ICODONE) immediate release tablet 5 mg Potassium Chloride (2 sources) Start: 12-20-2023 potassium chlo ride (KLOR-CON M) extended release tablet 40 mEq Start: 07-20-2022 End: 07-25-2022 take 1 tablet [...] Comment on above: Take 2 tablets by [facility] once daily for 4 days. Take 5 mg by mouth. Take one every other day. 72 hr scopolamine 0.0139 mg/hr transdermal system (1 source) Anticholinergic Start: 1 patch, TransDERmal, Administer over 72 Hours, ONCE, On Thu12/22/23 at 1415, For 1 dose, delivers 1 mg over 3 days. Apply patch to hairless area behind the ear. sulfamethoxazole 800 mg / trimethoprim 160 mg oral tablet (1 source) Dihydrofolate Reductase Inhibitor Antibacterial, Sulfonamide Antimicrobial Start: End: take 1 tablet by mouth twice daily sulfamethoxazole-t rimethoprim (BACTRIM DS) 800-160 mg per tablet Take 1 tablet by mouth twice daily for 5 days. 10 tablet 0 07/20/2022 07/25/2022 Active Comment on above: Take 1 tablet by [facility] twice daily for 5 days. Tirzepatide (MOUNJARO) 10 MG/0.5ML SOPN SC injection (1 source) Start: Tirzepatide (MOUNJARO) 10 MG/0.5ML SOPN SC injection Inject 0.5 mLs into the skin once a week 12 Adjustable Dose Pre-filled Pen Syringe 5 09/28/2023 Active Completed/Discontinued Medications Medication Drug Class(es) Dates Sig (Normalized) Sig (Original) acetaminophen 500 mg oral tablet (1 source) Start: 12-22-2023 take 1 dose by mouth three times daily, then take 4000 mg by mouth every twenty-four hours 1,000 mg, Oral, EVERY 8 HOURS SCHEDULED (3 times per day), First dose on Thu12/22/23 at 2200, Until Discontinued, Maximum dose of acetaminophen is 4000 mg from all sources in 24 hours. acetaminophen 325 mg / HYDROcodone bitartrate 5 mg oral tablet (1 source) Opioid Agonist Start: 09-20-2012 End: 07-23-2022 take 1 tablet by mouth every twenty-four hours as needed HYDROcodone-acetami nophen 5-325 mg per tablet Take 1 tablet by mouth at bedtime as needed. 30 tablet 1 09/20/2012 07/23/2022 Discontinued (Course of therapy completed) Comment on above: Take 1 tablet by leonard at bedtime as needed. albuterol 0.83 mg/ml inhalation solution (11 sources) beta2-Adrenergic Agonist Start: 07-23-2022 End: 12-24-2023 albuterol (PROVENTIL) (2.5 MG/3ML) 0.083% nebulizer solution Indications: Mild persistent reactive airway disease with acute exacerbation 07/23/2022 12/24/2023 Discontinued (Stop Taking at Discharge) Start: 07-23-2022 take 2.5 mg by inhal [...] wheezing/shortness of breath. Inhale over 5-15 minutes betamethasone 0.0005 mg/mg topical ointment (5 sources) Corticosteroid Start: 2022 End: 2023 betamethasone dipropionate 0.05 % ointment Apply topically 2 times daily. 60 g 2 09/18/2022 12/24/2023 Discontinued (Stop Taking at Discharge) carvedilol 3.125 mg oral tablet (1 source) alpha-Adrenergic Tejal, beta-Adrenergic Tejal Start: 2023 End: 2023 take 1 tablet by mouth twice daily carvedilol (COREG) 3.125 MG tablet Take 1 tablet by mouth 2 times daily 60 tablet 3 07/28/2023 12/24/2023 Discontinued (Stop Taking at Discharge) 0.4 ml enoxaparin sodium 100 mg/ml prefilled syringe (1 source) Low Molecular Weight Heparin Start: 2023 inject 40 mg by subcutaneous injection once daily 40 mg, SubCUTAneous, DAILY, First dose on Thu12/20/23 at 0900, Until Discontinued, Indication of Use: Prophylaxis-DVT/PE , Administer by deep subCUTAneous injection with pt lying down. Alternate injection sites on abdominal wall. Do not rub site after injection. Check with provider prior to any invasive procedure. famotidine 20 mg oral tablet (7 sources) Histamine-2 Receptor Antagonist Start: 2023 End: 2023 take 20 mg by mouth once daily 20 mg, Oral, DAILY, First dose (after last modification) on Connei 12/24/23 at 1100, Until Discontinued Start: 11-24-2022 take 1 tablet by mouth once fa motidine (Pepcid) 20 mg tablet Take 1 tablet (20 mg) by mouth 1 time. 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 0 Active gadoteridol (PROHANCE) injection 20 mL (1 source) Start: 12-21-2023 End: 12-21-2023 take 1 dose intravenously once 20 mL, IntraVENous, IMG ONCE PRN, 1 dose, Starting on Thu12/21/23 at 1239, Until Thu12/21/23 at 1239, Other glucagon (rdna) 1 mg injection (1 source) Antihypoglycemic Agent Start: 12-20-2023 1 mg, SubCUTAneous, PRN, Starting on 12/20/23 at 0550, Until Discontinued, Low blood sugar, Blood glucose LESS THAN 70 mg/dL and patient NOT ALERT or NPO and does not have IV access., After administration, attempt intravenous access and start dextrose 10% at 100 mL/hr. Repeat blood glucose in 15 minutes x 2 and notify provider. Glucose (1 source) Start: 12-20-2023 16 g (4 tablet), Oral, PRN, Starting on Thu12/20/23 at 0550, Until Discontinued, Low blood sugar, If blood glucose is LESS THAN 70 mg/dL and patient is alert and tolerating oral. Give 4 tablets (16g) Repeat blood glucose in 15 minutes. If blood glucose is LESS THAN 70 mg/dL, repeat treatment and recheck blood glucose in 15 minutes x 2. If blood glucose remains LESS THAN 70 mg/dL, notify provider. 500 ml glucose 50 mg/ml / potassium chloride 0.02 meq/ml / sodium chloride 4.5 mg/ml injection (1 source) Start: 12-20-2023 End: 12-21-2023 IntraVENous, at 125 mL/hr, CONTINUOUS, Starting on Thu12/20/23 at 0445 1 ml HYDROmorphone hydrochloride 1 mg/ml cartridge (2 sources) Opioid Agonist Start: 12-22-2023 End: 12-22-2023 0.5 mg, IntraVENous, EVERY 5 MIN PRN, 4 doses, Starting on Thu12/22/23 at 1717, Until Thu12/22/23 at 1758, Pain Severe (7-10), Phase I - Initial therapy for severe pain., PACU only Start: 12-20-2023 End: 12-22-2023 take 0.5 mg by mouth every four hours as needed for pain 0.5 mg, IntraVENous, EVERY 4 HOURS PRN, Starting on Thu12/20/23 at 0453, Until Thu12/22/23 at 2058, Pain Severe (7-10), If oral and IV narcotics ordered, use oral first and only use IV if oral is ineffective or cannot take oral. Do Not give oral and IV within 1 hour of each other unless specifically ordered. indocyanine green (IC-GREEN) syringe 5 mg (1 source) Start: 12-22-2023 End: 12-22-2023 5 mg, IntraVENous, ONCE, 1 dose, On Thu12/22/23 at 1400, Flush dye from catheter with NS to prevent hemolysis. Reconstitute vial with 10 mL of included Sterile Water diluent for final concentration of 2.5 mg/mL., Pre-op (day of surgery) lansoprazole 30 mg delayed release oral capsule [...] as instructed every 4 hours as needed. levothyroxine sodium 0.088 mg oral tablet (6 sources) l-Thyroxine Start: 10-07-2023 take 88 ug by mouth once daily 88 mcg, Oral, DAILY, First dose on 12/20/23 at 1315, Until Discontinued, Tube feeding (TF) interaction, obtain physician order to manage, recommend holding TF for 30 minutes before and after dose. Start: 11-03-2022 levothyroxine (SYNTHROID) 88 MCG tablet Indications: Hypothyroidism, unspecified type Take 1 tablet daily 90 tablet 3 11/03/2022 Active Start: 10-28-2022 take 1 tablet by mouth once le vothyroxine (SYNTHROID) 88 MCG tablet Indications: Hypothyroidism, unspecified type Take 1 tablet by mouth once for 1 dose 90 tablet 3 10/28/2022 Active meloxicam 15 mg oral tablet (1 source) Nonsteroidal Anti-inflammatory Drug Start: 07-15-2012 End: 07-23-2022 take 1 tablet by mouth once daily at mealtime meloxicam (MOBIC) 15 mg tablet Take 1 tablet by mouth once daily. WITH FOOD 30 tablet 0 07/15/2012 07/23/2022 Discontinued (Course of therapy completed) Comment on above: Take 1 tablet by leonard once daily. WITH FOOD 24 hr metFORMIN hydrochloride 1000 mg / SITagliptin 100 mg extended release oral tablet (2 sources) Biguanide, Dipeptidyl Peptidase 4 Inhibitor sitaGLIPtin-metFOR MIN (JANUMET XR) 100-1000 mg TM24 Take by mouth once daily. 0 Active Comment on above: Take by mouth once d aily. nystatin 161281 unt/ml / triamcinolone acetonide 1 mg/ml topical cream (1 source) Polyene Antifungal, Corticosteroid Start: 12-01-2022 End: 12-24-2023 nystatin-triamcino lone (MYCOLOG II) 766731-1.1 UNIT/GM-% cream Apply topically 2 times daily. 60 g 3 12/01/2022 12/24/2023 Discontinued (Stop Taking at Discharge) olopatadine (1 source) Histamine-1 Receptor Inhibitor Start: 12-18-2022 End: 12-24-2023 take 1 drop(s) into the eye(s) once daily Olopatadine HCl (PATADAY) 0.7 % SOLN Indications: Allergic conjunctivitis of both eyes Apply 1 drop to eye daily 2.5 mL 2 12/18/2022 12/24/2023 Discontinued (Stop Taking at Discharge) pantoprazole 40 mg delayed release oral tablet (1 source) Proton Pump Inhibitor Start: 07-28-2023 End: 12-24-2023 take 1 tablet by mouth once daily before breakfast pantoprazole (PROTONIX) 40 MG tablet Take 1 tablet by mouth every morning (before breakfast) 90 tablet 1 07/28/2023 12/24/2023 Discontinued (Stop Taking at Discharge) piperacillin 3000 mg / tazobactam 375 mg injection (1 source) Penicillin-class Antibacterial, beta Lactamase Inhibitor Start: 12-20-2023 3,375 mg, IntraVENous, EVERY 8 HOURS, First dose on Byron 12/20/23 at 0930, Until Discontinued, Antimicrobial Indications: Intra-Abdominal Infection polyethylene glycol 3350 77252 mg powder for oral solution (1 source) Osmotic Laxative Start: 12-24-2023 17 g, Oral, DAILY, First dose (after last modification) on Connie 12/24/23 at 0945, Until Discontinued, First line therapy for constipation 5 ml sodium chloride 9 mg/ml injection (2 sources) Start: 12-20-2023 End: 12-23-2023 5-40 mL, IntraVENous, EVERY 12 HOURS SCHEDULED (2 times per day), First dose on Byron 12/20/23 at 0900, Until Discontinued, For Line Patency: Peripheral IV = 5 mL; Midline or Central Line = 10 mL/lumen. If following IV push medication, administer flush at same rate as the IV push. Flush volume is determined by type of infusion therapy being given. For non-viscous solutions use: Peripheral IV = 5 mL Midline or Central Line = 10 mL/lumen For viscous solutions (i.e. blood components, parenteral nutrition, contrast media, or after obtaining blood sample) use: Peripheral IV = 10 mL Midline or Central Line = 20 mL/lumen Start: 12-20-2023 take 10 mL intraveno usly once as needed 10 mL, IntraVENous, PRN, Starting on Byron 12/20/23 at 0418, Until Discontinued, Line Care, After every IV line use sodium chloride 0.9 % 500 mL infusion (1 source) Start: 12-24-2023 End: 12-24-2023 IntraVENous, at 1,000 mL/hr, ONCE, On Connie 12/24/23 at 1545, For 1 dose spironolactone 50 mg oral tablet (1 source) Aldosterone Antagonist Start: 09-07-2023 End: 12-24-2023 take 1 tablet by mouth once daily spironolactone (ALDACTONE) 50 MG tablet Take 1 tablet by mouth daily 30 tablet 3 09/07/2023 12/24/2023 Discontinued (Stop Taking at Discharge) traMADol hydrochloride 50 mg oral tablet (1 source) Opioid Agonist Start: 07-15-2012 End: 07-23-2022 take 1 tablet by mouth every eight hours as needed traMADol (ULTRAM) 50 mg tablet Take 1 tablet by mouth every 8 hours as needed for Pain. 30 tablet 0 07/15/2012 07/23/2022 Discontinued (Course of therapy completed) Comment on above: Take 1 tablet by [facility] every 8 hours as needed for Pain. Problems Active Problems Problem Classification Problem Date Documented Date Episodic/Chronic Abdominal pain (2 sources) Right upper quadrant pain; Translations: [Right upper quadrant pain] Onset: 12-21-2023 12-21-2023 Episodic Asthma (12 sources) Mild intermittent asthma; Translations: [Mild intermittent asthma with (acute) exacerbation] Onset: 07-23-2022 Chronic Biliary tract disease (12 sources) Cholelithiasis without obstruction; Translations: [Calculus of gallbladder without cholecystitis without obstruction] Onset: 08-27-2022 08-27-2022 Episodic Diabetes mellitus with complications (7 sources) Type 2 diabetes mellitus in obese; Translations: [Type 2 diabetes mellitus with other specified complication] Onset: 08-27-2022 10-16-2022 Chronic Esophageal disorders (8 sources) Esophageal varices without bleeding; Translations: [Secondary esophageal varices without bleeding] Onset: 11-05-2022 11-05-2022 Chronic Fluid and electrolyte disorders (9 sources) Hypokalemia; Translations: [Hypokalemia] Onset: 08-27-2022 08-27-2022 Episodic Hepatitis (8 sources) Nonalcoholic steatohepatitis; Translations: [Nonalcoholic steatohepatitis (NICOLE)] Onset: 08-27-2022 08-27-2022 Chronic Osteoarthritis (7 sources) Osteoarthritis; Translations: [Unspecified osteoarthritis, unspecified site] Onset: 09-21-2012 09-21-2012 Chronic Osteoporosis (1 source) Age-related osteoporosis without current pathological fracture; Translations: [Age-related osteoporosis without current pathological fracture] Onset: 11-28-2022 Chronic Other connective tissue disease (9 sources) History of left total knee replacement; Translations: [Presence of left artificial knee joint] Onset: 03-18-2022 10-10-2022 Chronic Other connective tissue disease (2 sources) Presence of left artificial knee joint; Translations: [Presence of left artificial knee joint] Onset: 12-15-2022 Chronic Other liver diseases (10 sources) Cirrhosis of liver; Translations: [Unspecified cirrhosis of liver] Onset: 08-27-2022 Resolved: 12-21-2022 09-22-2022 Chronic Other liver diseases (3 sources) Unspecified cirrhosis of liver; Translations: [Unspecified cirrhosis of liver] Onset: 09-22-2022 Chronic Other non-traumatic joint disorders (1 source) Arthrofibrosis of left knee; Translations: [Ankylosis, left knee] Onset: 12-02-2022 12-02-2022 Chronic Other non-traumatic joint disorders (7 sources) Pain in left knee; Translations: [Pain in joint, lower leg] Onset: 11-13-2022 Episodic Other non-traumatic joint disorders (2 sources) Pain in left shoulder; Translations: [Pain in left shoulder] Onset: 12-15-2022 Episodic Other non-traumatic joint disorders (2 sources) Pain in unspecified joint; Translations: [Pain in unspecified joint] Onset: 12-15-2022 Episodic Other nutritional; endocrine; and metabolic disorders (7 sources) Hypomagnesemia; Translations: [Hypomagnesemia] Onset: 08-27-2022 08-27-2022 Chronic Other nutritional; endocrine; and metabolic disorders (2 sources) Morbid obesity; Translations: [Morbid (severe) obesity due to excess calories] Onset: 12-21-2023 12-21-2023 Chronic Other screening for suspected conditions (not mental disorders or infectious disease) (7 sources) Full blood count abnormal; Translations: [Other specified abnormal findings of blood chemistry] Onset: 08-27-2022 08-27-2022 Episodic Other upper respiratory disease (3 sources) Chronic rhinitis; Translations: [Chronic rhinitis] Onset: 07-23-2022 Chronic Sprains and strains (3 sources) Shoulder strain; Translations: [Strain of unspecified muscle, fascia and tendon at shoulder and upper arm level, left arm, sequela] Onset: 02-16-2023 02-16-2023 Episodic Thyroid disorders (8 sources) Hypothyroidism; Translations: [Hypothyroidism, unspecified] Onset: 08-27-2022 08-27-2022 Chronic Past or Other Problems Problem Classification Problem Date Documented Date Episodic/Chronic Alcohol-related disorders (4 sources) Alcoholic cirrhosis of liver without ascites; Translations: [Alcoholic cirrhosis of liver] Onset: 11-24-2022 Resolved: 02-17-2023 11-24-2022 Chronic Conditions associated with dizziness or vertigo (5 sources) Benign paroxysmal positional vertigo; Translations: [Benign paroxysmal vertigo, unspecified ear] Onset: 08-27-2022 08-27-2022 Episodic Deficiency and other anemia (7 sources) Iron deficiency anemia; Translations: [Iron deficiency anemia, unspecified] Onset: 09-21-2022 09-21-2022 Episodic Diabetes mellitus without complication (4 sources) Hyperglycemia; Translations: [Hyperglycemia, unspecified] Onset: 07-23-2022 Episodic Immunizations and screening for infectious disease (1 source) Anti-nuclear factor positive; Translations: [Other specified abnormal immunological findings in serum] Onset: 12-21-2022 12-21-2022 Episodic Inflammation; infection of eye (except that caused by tuberculosis or sexually transmitteddisease) (2 sources) Allergic conjunctivitis of bilateral eyes; Translations: [Acute atopic conjunctivitis, bilateral] Onset: 12-21-2022 12-21-2022 Episodic Joint disorders and dislocations; trauma-related (3 sources) Tear of medial meniscus of knee; Translations: [Other tear of medial meniscus, current injury, unspecified knee, initial encounter] Onset: 12-30-2011 12-30-2011 Episodic Other aftercare (3 sources) Surgical follow-up; Translations: [Encounter for follow-up examination after completed treatment for conditions other than malignant neoplasm] Onset: 02-24-2012 02-24-2012 Episodic Other and unspecified benign neoplasm (1 source) Benign neoplasm, unspecified site; Translations: [Benign neoplasm of unspecified site] Onset: 07-08-2023 07-08-2023 Episodic Other connective tissue disease (2 sources) Bursitis of left shoulder; Translations: [Bursitis of left shoulder] Onset: 03-14-2021 12-15-2022 Episodic Other lower respiratory disease (5 sources) Cough; Translations: [Subacute cough] Onset: 08-27-2022 Resolved: 05-20-2023 08-27-2022 Episodic Other non-traumatic joint disorders (7 sources) Pain in right knee; Translations: [Pain in joint, lower leg] Onset: 08-27-2022 08-27-2022 Episodic Other non-traumatic joint disorders (7 sources) Stiffness of left knee; Translations: [Stiffness of left knee, not elsewhere classified] Onset: 09-21-2022 09-21-2022 Episodic Other non-traumatic joint disorders (3 sources) Pain of left shoulder joint; Translations: [Pain in left shoulder] Onset: 03-14-2021 02-16-2023 Episodic Other non-traumatic joint disorders (1 source) Multiple joint pain; Translations: [Pain in unspecified joint] Onset: 12-21-2022 12-21-2022 Episodic Other upper respiratory disease (1 source) Deviated nasal septum; Translations: [Deviated nasal septum] Onset: 07-08-2023 07-08-2023 Episodic Results Test Name Value Interpretation Reference Range Facility CBC with Auto Differentialon 12-24-2023 Basophils (Bld) [#/Vol] [facility] Basophils/100 WBC (Bld) 0 % 0 - 2 % [facility] Eosinophils (Bld) [#/Vol] [facility] Eosinophils/100 WBC (Bld) 0 % Low 1 - 4 % [facility] Erythrocyte distribution width (RBC) [Ratio] 15.0 % High 11.8 - 14.4 % [facility] Hematocrit (Bld) [Volume fraction] 35.2 % Low 36.3 - 47.1 % [facility] Hemoglobin (Bld) [Mass/Vol] 11.6 g/dL Low 11.9 - 15.1 g/dL [facility] Immature granulocytes (Bld) [#/Vol] 0.07 10*3/uL [facility] Immature granulocytes/100 WBC (Bld) 1 % High 0 [facility] Interpretation and review of laboratory results Abnormal [facility] Lymphocytes/100 WBC (Bld) 8 % Low 24 - 43 % [facility] Lymphocytes/100 WBC (Bld) 0.91 % Low [facility] MCH (RBC) [Entitic mass] 30.1 pg 25.2 - 33.5 pg [facility] MCHC (RBC) [Mass/Vol] 33.0 g/dL 28.4 - 34.8 g/dL [facility] MCV (RBC) [Entitic vol] 91.2 fL 82.6 - 102.9 fL [facility] Monocytes/100 WBC (Bld) 9 % 3 - 12 % [facility] Monocytes/100 WBC (Bld) 1.03 % [facility] Neutrophils/100 WBC (Bld) 82 % High 36 - 65 % [facility] Nucleated RBC/100 WBC (Bld) [Ratio] 0.0 % 0.0 per 100 WBC [facility] Platelet, Fluorescence 91 Low [facility] Platelets (Bld) [#/Vol] See Reflexed IPF Result [facility] Platelets reticulated/100 platelets Auto (Bld) 6.7 % 1.1 - 10.3 % [facility] RBC (Bld) [#/Vol] 3.86 10*6/uL Low 3.95 - 5.1 1 m/uL [facility] RBC (Bld) [#/Vol] ANISOCYTOSIS PRESENT [facility] Segmented neutrophils/100 WBC (Bld) 8.97 % High [facility] WBC other (Bld) [#/Vol] 11.0 [facility] CBC with Diffon 12-24-2023 Platelet, Fluoresc. 91 k/uL Low 138-453 [facility] Comment on above: Performed By: #### C DP, CMPX #### [place] [address] [employer] Att[employer]: Damon Jara MD PLT, Immature Fract. 6.7 % Normal 1.1-10.3 [facility] Comment on above: Performed By: #### C DP, CMPX #### [place] [address] [employer] Att[employer]: Damon Jara MD Abs. Basophil <0.03 Normal 0.00-0.20 [facility] Comment on above: Performed By: #### C DP, CMPX #### [place] [address] [employer] Att[employer]: Damon Jara MD Abs. Eosinophil <0.03 Normal 0.00-0.44 [facility] Comment on above: Performed By: #### C DP, CMPX #### [facility] [employer] [address] [place] [address] [employer] Attendant: Damon Jara MD Abs.Imm.Granulocyte 0.07 k/uL Normal 0.00-0.30 [facility] Comment on above: Performed By: #### C DP, CMPX #### [facility] [employer] [address] [place] [address] [employer] Attendant: Damon Jara MD Abs.Neutrophil (Seg) 8.97 k/uL High 1.50-8.10 [facility] Comment on above: Performed By: #### C DP, CMPX #### [address] [address] [employer] Att[employer]: Damon Jara MD Basophils/100 WBC (Bld) 0 % Normal 0-2 [facility] Comment on above: Performed By: #### C DP, CMPX #### [address] [address] [employer] Att[employer]: Damon Jara MD Eosinophils/100 WBC (Bld) 0 % Low 1-4 [facility] Comment on above: Performed By: #### C DP, CMPX #### [place] [address] [employer] Attendant: Damon Jara MD Erythrocyte distribution width (RBC) [Ratio] 15.0 % High 11.8-14.4 [facility] Comment on above: Performed By: #### C DP, CMPX #### [place] [address] [employer] Attendant: Damon Jara MD Hematocrit (Bld) [Volume fraction] 35.2 % Low 36.3-47.1 [facility] Comment on above: Performed By: #### C DP, CMPX #### [address] [address] [employer] Att[employer]: Damon Jara MD Hemoglobin (Bld) [Mass/Vol] 11.6 g/dL Low 11.9-15.1 [facility] Comment on above: Performed By: #### C DP, CMPX #### [address] [address] [employer] Att[employer]: Damon Jara MD Immature granulocytes/100 WBC (Bld) 1 % High 0 [facility] Comment on above: Performed By: #### C DP, CMPX #### [place] [address] [employer] Att[employer]: Damon Jara MD Lymphocytes (Bld) [#/Vol] 0.91 10*3/uL Low 1.10-3.70 [facility] Comment on above: Performed By: #### C DP, CMPX #### [place] [address] [employer] Att[employer]: Damon Jara MD Lymphocytes/100 WBC (Bld) 8 % Low 24-43 [facility] Comment on above: Performed By: #### C DP, CMPX #### [place] [address] [employer] Att[employer]: Damon Jara MD MCH (RBC) [Entitic mass] 30.1 pg Normal 25.2-33.5 [facility] Comment on above: Performed By: #### C DP, CMPX #### [place] [address] [employer] Att[employer]: Damon Jara MD MCHC (RBC) [Mass/Vol] 33.0 g/dL Normal 28.4-34.8 [facility] Comment on above: Performed By: #### C DP, CMPX #### [place] [address] [employer] Attendant: Damon Jara MD MCV (RBC) [Entitic vol] 91.2 fL Normal 82.6-102.9 [facility] Comment on above: Performed By: #### C DP, CMPX #### [place] [address] [employer] Attendant: Damon Jara MD Monocytes (Bld) [#/Vol] 1.03 10*3/uL Normal 0.10-1.20 [facility] Comment on above: Performed By: #### C DP, CMPX #### [address] [address] [employer] Att[employer]: Damon Jara MD Monocytes/100 WBC (Bld) 9 % Normal 3-12 [facility] Comment on above: Performed By: #### C DP, CMPX #### [address] [address] [employer] Att[employer]: Damon Jara MD Neutrophil (Seg) 82 % High 36-65 [facility] Comment on above: Performed By: #### C DP, CMPX #### [address] [address] [employer] Att[employer]: Damon Jara MD NRBC Automated 0.0 per 100 WBC Normal 0.0 [facility] Comment on above: Performed By: #### C DP, CMPX #### [address] [address] [employer] Att[employer]: Damon Jara MD Platelet Count See Reflexed IPF Result Normal 138-453 [facility] Comment on above: Performed By: #### C DP, CMPX #### [address] [address] [employer] Att[employer]: Damon Jara MD RBC (Bld) [#/Vol] 3.86 10*6/uL Low 3.95-5.11 [facility] Comment on above: Performed By: #### C DP, CMPX #### [address] [address] [employer] Att[employer]: Damon Jara MD RBC morphology finding Nom (Bld) ANISOCYTOSIS PRESENT Normal [facility] Comment on above: Performed By: #### C DP, CMPX #### [address] [address] [employer] Att[employer]: Damon Jara MD WBC (Bld) [#/Vol] 11.0 10*3/uL Normal 3.5-11.3 [facility] Comment on above: Performed By: #### C DP, CMPX #### [address] [place] [address] [employer] Att[employer]: Damon Jara MD Comp Metabolic Profon 2023 Albumin [Mass/Vol] 3.5 g/dL Normal 3.5-5.2 [facility] Comment on above: Performed By: #### C P, MG, OSMO ####[facility] [address] [place], [place] [address])[phone] Director: Damon Jara MD Albumin/Glob Ratio 1.0 Normal 1.0-2.5 [facility] Comment on above: Performed By: #### C P, MG, OSMO ####[facility] [address] [place] [address])[phone] Director: Damon Jara MD Alkaline Phos 94 U/L Normal 35-104 [facility] Comment on above: Performed By: #### C P, MG, OSMO ####[facility] [address] [place], [place] [address])[phone] Director: Damon Jara MD ALT [Catalytic activity/Vol] 27 U/L Normal 10-35 [facility] Comment on above: Performed By: #### C P, MG, OSMO ####[facility] [address] [place], [place] [address])[phone] Director: Damon Jara MD Anion gap [Moles/Vol] 8 mmol/L Low 9-16 [facility] Comment on above: Performed By: #### C P, MG, OSMO ####[facility] [address] [place], [place] [address])[phone] Director: Damon Jara MD AST [Catalytic activity/Vol] 57 U/L High 10-35 [facility] Comment on above: Performed By: #### C P, MG, OSMO ####[facility] [address] [place], [place] [id number])[phone] Director: Damon Jara MD Bilirubin [Mass/Vol] 1.6 mg/dL High 0.00-1.20 [facility] Comment on above: Performed By: #### C P, MG, OSMO ####[facility] [address] [place], [place] [id number])[phone] Director: Damon Jara MD Calcium [Mass/Vol] 10.0 mg/dL Normal 8.6-10.4 [facility] Comment on above: Performed By: #### C P, MG, OSMO ####[facility] [address] [place] [address] [phone])[phone] Director: Damon Jara MD Chloride [Moles/Vol] 96 mmol/L Low 98-107 [facility] Comment on above: Performed By: #### C P, MG, OSMO ####[facility] [address] [place], [place] [id number])[phone] Director: Damon Jara MD CO2 [Moles/Vol] 22 mmol/L Normal 20-31 [facility] Comment on above: Performed By: #### C P, MG, OSMO ####[facility] [address] [place], [place] [id number])[phone] Director: Damon Jara MD Creatinine [Mass/Vol] 0.9 mg/dL Normal 0.50-0.90 [facility] Comment on above: Performed By: #### C P, MG, OSMO ####[facility] [address] [place], [place] [address])[phone] Director: Damon Jara MD GFR/1.73 sq M.predicted among non-blacks MDRD (S/P/Bld) [Vol rate/Area] 72 mL/min/{1.73_m2} Normal >60 [facility] Comment on above: Result Comment: These results [...] tubular secretion. Performed By: #### C P, MG, OSMO ####[facility] [address] [place] [address] Lab Director: Damon Jara MD Glucose [Mass/Vol] 164 mg/dL High 74-99 [facility] Comment on above: Performed By: #### C P, MG, OSMO ####[facility] [address] [place] [address] Lab Director: Damon Jara MD Potassium [Moles/Vol] 4.7 mmol/L Normal 3.7-5.3 [facility] Comment on above: Performed By: #### C P, MG, OSMO ####[facility] [address] [place] [address] Lab Director: Damon Jara MD Protein [Mass/Vol] 6.2 g/dL Low 6.6-8.7 [facility] Comment on above: Performed By: #### C P, MG, OSMO ####[facility] [address] [place] [address] Lab Director: Damon Jara MD Sodium [Moles/Vol] 126 mmol/L Low 136-145 [facility] Comment on above: Performed By: #### C P, MG, OSMO ####[facility] [address] [place] [address] Lab Director: Damon Jara MD Urea nitrogen [Mass/Vol] 20 mg/dL Normal 6-20 [facility] Comment on above: Performed By: #### C P, MG, OSMO ####[facility] [address] [place] [address] lab Director: Damon Jara MD [facility] Metabolic [facility] 12-24-2023 Albumin [Mass/Vol] 3.5 g/dL 3.5 - 5.2 g/dL [facility] Albumin/Globulin [Mass ratio] 1.0 {ratio} 1.0 - 2.5 [facility] ALP [Catalytic activity/Vol] 94 U/L 35 - 104 U/L [facility] ALT [Catalytic activity/Vol] 27 U/L 10 - 35 U/L [facility] Anion gap [Moles/Vol] 8 mmol/L Low 9 - 16 mmol/L [facility] AST [Catalytic activity/Vol] 57 U/L High 10 - 35 U/L [facility] Bilirubin [Mass/Vol] 1.6 mg/dL High 0.00 - 1.20 mg/dL [facility] Calcium [Mass/Vol] 10.0 mg/dL 8.6 - 10. 4 mg/dL [facility] Chloride [Moles/Vol] 96 mmol/L Low 98 - 10 7 mmol/L [facility] CO2 [Moles/Vol] 22 mmol/L 20 - 31 mmol/L [facility] Creatinine [Mass/Vol] 0.9 mg/dL 0.50 - 0.90 mg/dL [facility] Est, Glom Filt Rate 72 - PINF [facility] Comment on above: These results are not intended for use [...] following therapy that affects renal tubular secretion. Glucose [Mass/Vol] 164 mg/dL High 74 - 99 mg/dL [facility] Interpretation and review of laboratory results Abnormal [facility] Potassium [Moles/Vol] 4.7 mmol/L 3.7 - 5.3 mmol/L [facility] Protein [Mass/Vol] 6.2 g/dL Low 6.6 - 8.7 g/dL [facility] Sodium [Moles/Vol] 126 mmol/L Low 136 - 145 mmol/L [facility] Urea nitrogen [Mass/Vol] 20 mg/dL 6 - 20 mg/dL [facility] Electrolyte Panelon 12-24-19 Anion gap [Moles/Vol] 8 mmol/L Low 9 - 16 mmol/L [facility] Chloride [Moles/Vol] 95 mmol/L Low 98 - 10 7 mmol/L [facility] CO2 [Moles/Vol] 23 mmol/L 20 - 31 mmol/L [facility] Interpretation and review of laboratory results Abnormal [facility] Potassium [Moles/Vol] 4.4 mmol/L 3.7 - 5.3 mmol/L [facility] Sodium [Moles/Vol] 126 mmol/L Low 136 - 145 mmol/L [facility] Anion gap [Moles/Vol] 7 mmol/L Low 9 - 16 mmol/L [facility] Chloride [Moles/Vol] 95 mmol/L Low 98 - 10 7 mmol/L [facility] CO2 [Moles/Vol] 22 mmol/L 20 - 31 mmol/L [facility] Interpretation and review of laboratory results Abnormal [facility] Potassium [Moles/Vol] 4.7 mmol/L 3.7 - 5.3 mmol/L [facility] Comment on above: SPECIMEN SLIGHTLY HE MOLYZED, RESULTS MAY BE ADVERSELY AFFECTED. Sodium [Moles/Vol] 124 mmol/L Low 136 - 145 mmol/L [facility] Electrolyteson 12-24-2023 Anion gap [Moles/Vol] 8 mmol/L Low 9-16 [facility] Comment on above: Performed By: #### C SEAN, CMPX #### [facility] [employer] [address] [place] [address] [employer] Attendant: Damon Jara MD Chloride [Moles/Vol] 95 mmol/L Low 98-107 [facility] Comment on above: Performed By: #### C DP, CMPX #### [facility] [address] [place] [address] [employer] Att[employer]: Damon Jara MD CO2 [Moles/Vol] 23 mmol/L Normal 20-31 [facility] Comment on above: Performed By: #### C DP, CMPX #### [facility] [address] [place] [phone] [employer] Attendant: Damon Jara MD Potassium [Moles/Vol] 4.4 mmol/L Normal 3.7-5.3 [facility] Comment on above: Performed By: #### C DP, CMPX #### [facility] [employer] [address] [place] [address] [employer] Attendant: Damon Jara MD Sodium [Moles/Vol] 126 mmol/L Low 136-145 [facility] Comment on above: Performed By: #### C DP, CMPX #### [facility] [employer] [address] [place] [address] [employer] Attendant: Damon Jara MD Anion gap [Moles/Vol] 7 mmol/L Low 9-16 [facility] Comment on above: Performed By: #### C DP, CMPX #### [facility] [employer] [address] [place] [address] [employer] Attendant: Damon Jara MD Chloride [Moles/Vol] 95 mmol/L Low 98-107 [facility] Comment on above: Performed By: #### C DP, CMPX #### [facility] [address] [place] [address] [employer] Attendant: Damon Jara MD CO2 [Moles/Vol] 22 mmol/L Normal 20-31 [facility] Comment on above: Performed By: #### C DP, CMPX #### [facility] [employer] [address] [place] [address] [employer] Attendant: Damon Jara MD Potassium [Moles/Vol] 4.7 mmol/L Normal 3.7-5.3 [facility] Comment on above: Result Comment: SPEC IMEN SLIGHTLY HEMOLYZED, RESULTS MAY BE ADVERSELY AFFECTED. Performed By: #### C DP, CMPX #### [employer] [address] [place], [place] [phone] [employer] Attendant: Damon Jara MD Sodium [Moles/Vol] 124 mmol/L Low 136-145 [facility] Comment on above: Performed By: #### C DP, CMPX #### [employer] [employer] [address] [place], [place] [phone] [employer] Attendant: Damon Jara MD Glucose,Whole Bloodon 2023 Glucose [Mass/Vol] 200 mg/dL High 65-105 [facility] Glucose [Mass/Vol] 164 mg/dL High 65-105 [facility] Magnesiumon 12-24-2023 Magnesium [Mass/Vol] 2.2 mg/dL 1.6 - 2 .6 mg/dL [facility] Magnesium [Mass/Vol] 2.2 mg/dL Normal 1.6-2.6 [facility] Comment on above: Performed By: #### C P, MG, OSMO ####[employer] [address] [place], [place] [id number] Lab Director: Damon Jara MD No Panel Informationon 12-23 [facility] OSMOLALITY, URINEon 12-24-19 24 Osmolality (U) [Osmolality] 232 mosm/kg [facility] Osmolalityon 12-24-2023 Osmolality [Osmolality] 277 mosm/kg [facility] Osmolality [Osmolality] 277 mosm/kg Normal 275-295 [facility] Comment on above: Performed By: #### C P, MG, OSMO ####[facility] [address] [place], [place] [phone] Lab Director: Damon Jara MD Osmolality, Urineon 12-24-19 24 Osmolality - Urine 232 mOsm/kg Normal 80-1300 [facility] Comment on above: Performed By: #### C DP, CMPX #### [facility] [employer] [address] [place] [address] [employer] Attendant: Damon Jara MD POC Glucose Fingerstickon Glucose [Mass/Vol] 200 mg/dL High 65 - 105 mg/dL [facility] Interpretation and review of laboratory results Abnormal [facility] Glucose [Mass/Vol] 164 mg/dL High 65 - 105 mg/dL [facility] Interpretation and review of laboratory results Abnormal [facility] PREVIOUS SPECIMENon 12-24-19 24 [facility] SODIUM, URINE, RANDOMon 12-07 Sodium (U) [Moles/Vol] mmol/L mmol/L [facility] Comment on above: No normal range esta blished. [facility] SURGICAL PATHOLOGY REPORTon 12-24-2023 Surgical Pathology Report Path Number: [id number] -- Diagnosis -- GALLBLADDER, CHOLECYSTECTOMY: -ACUTE AND CHRONIC CHOLECYSTITIS WITH CHOLELITHIASIS. Jarocho Israel M.D. Electronically Signed Out 12/24/2023 Clinical Information Pre-Op Diagnosis: ACUTE CHOLECYSTITIS Operative Findings: GALLBLADDER AND CONTENTS Operation Performed: XI ROBOTIC LAPAROSCOPIC CHOLECYSTECTOMY se Source of Specimen A: GALLBLADDER AND CONTENTS Gross Description ILEANA WILSON, GALLBLADDER AND CONTENTS Received in formalin is a 9.0 x 4.1 x 2.0 cm disrupted and ragged gallbladder. The serosa is pink-resendez to hyperemic. The adventitia is roughened. The cystic duct margin is ragged. There is york-pink, hyperemic and granular mucosa with an average wall of 0.5 cm. No lesions or periductal lymph nodes are identified. Within the specimen container are multiple brown-black choleliths and fragments ranging from < 0.1 to 0.6 cm. [employer] sections 1c with the presumed cystic duct inked blue. joan Hudson/se:12/23/2023 Microscopic Description Microscopic examination performed. Processing Lab: [address] [id number] Interpretation Performed at [address] [phone] SURGICAL PATHOLOGY CONSULTATION Patient Name: ILEANA WILSON [facility] Rec: [id number] [facility] [employer] [facility] ANATOMIC PATHOLOGY [address] [place] [phone] [facility] Sodium, Random Uron 12-24-19 24 Na Conc. Urine <20 Normal [facility] Comment on above: Result Comment: No n ormal range established. Performed By: #### C DP, CMPX #### [facility] [employer] [address] [place] [phone] [employer] Attendant: Damon Jara MD CBC with Auto Differentialon 12-23-2023 Basophils (Bld) [#/Vol] 0.00 10*3/uL [facility] Basophils/100 WBC (Bld) 0 % 0 - 2 % [facility] Eosinophils (Bld) [#/Vol] 0.00 10*3/uL [facility] Eosinophils/100 WBC (Bld) 0 % Low 1 - 4 % [facility] Erythrocyte distribution width (RBC) [Ratio] 14.8 % High 11.8 - 14.4 % [facility] Hematocrit (Bld) [Volume fraction] 38.8 % 36.3 - 47.1 % [facility] Hemoglobin (Bld) [Mass/Vol] 12.4 g/dL 11.9 - 15.1 g/dL [facility] Immature granulocytes (Bld) [#/Vol] 0.00 10*3/uL [facility] Immature granulocytes/100 WBC (Bld) 0 % 0 [facility] Interpretation and review of laboratory results Abnormal [facility] Lymphocytes/100 WBC (Bld) 7 % Low 24 - 43 % [facility] Lymphocytes/100 WBC (Bld) 0.69 % Low [facility] MCH (RBC) [Entitic mass] 29.5 pg 25.2 - 33.5 pg [facility] MCHC (RBC) [Mass/Vol] 32.0 g/dL 28.4 - 34.8 g/dL [facility] MCV (RBC) [Entitic vol] 92.4 fL 82.6 - 102.9 fL [facility] Monocytes/100 WBC (Bld) 9 % 3 - 12 % [facility] Monocytes/100 WBC (Bld) 0.88 % [facility] Morphology Nabor (Bld) [Interp] ANISOCYTOSIS PRESENT [facility] Neutrophils/100 WBC (Bld) 84 % High 36 - 65 % [facility] Nucleated RBC/100 WBC (Bld) [Ratio] 0.0 % 0.0 per 100 WBC [facility] Platelet mean volume (Bld) [Entitic vol] 12.2 fL 8.1 - 13.5 fL [facility] Platelets (Bld) [#/Vol] 76 10*3/uL Low [facility] RBC (Bld) [#/Vol] 4.20 10*6/uL 3.95 - 5.1 1 m/uL [facility] Segmented neutrophils/100 WBC (Bld) 8.23 % High [facility] WBC other (Bld) [#/Vol] 9.8 [facility] CBC with Diffon 12-23-2023 Abs. Basophil 0.00 k/uL Normal 0.00-0.20 [facility] Comment on above: Performed By: #### C DP, CMPX #### [employer] [address] [place] [address] [phone] [employer] Attendant: Damon Jara MD Abs.Imm.Granulocyte 0.00 k/uL Normal 0.00-0.30 [facility] Comment on above: Performed By: #### C DP, CMPX #### [employer] [address] [place] [address] [phone] [employer] Attendant: Damon Jara MD Abs.Neutrophil (Seg) 8.23 k/uL High 1.50-8.10 [facility] Comment on above: Performed By: #### C DP, CMPX #### [place] [address] [employer] Attendant: Damon Jara MD Basophils/100 WBC (Bld) 0 % Normal 0-2 [facility] Comment on above: Performed By: #### C DP, CMPX #### [place] [address] [employer] Attendant: Damon Jara MD Eosinophils (Bld) [#/Vol] 0.00 10*3/uL Normal 0.00-0.44 [facility] Comment on above: Performed By: #### C DP, CMPX #### [place] [address] [employer] Attendant: Damon Jara MD Eosinophils/100 WBC (Bld) 0 % Low 1-4 [facility] Comment on above: Performed By: #### C DP, CMPX #### [place] [address] [employer] Attendant: Damon Jara MD Immature granulocytes/100 WBC (Bld) 0 % Normal 0 [facility] Comment on above: Performed By: #### C DP, CMPX #### [place] [address] [employer] Attendant: Damon Jara MD Lymphocytes (Bld) [#/Vol] 0.69 10*3/uL Low 1.10-3.70 [facility] Comment on above: Performed By: #### C DP, CMPX #### [facility] [employer] [address] [place] [address] [employer] Attendant: Damon Jara MD Lymphocytes/100 WBC (Bld) 7 % Low 24-43 [facility] Comment on above: Performed By: #### C DP, CMPX #### [address] [address] [employer] Attendant: Damon Jara MD Monocytes (Bld) [#/Vol] 0.88 10*3/uL Normal 0.10-1.20 [facility] Comment on above: Performed By: #### C DP, CMPX #### [address] [address] [employer] Attendant: Damon Jara MD Monocytes/100 WBC (Bld) 9 % Normal 3-12 [facility] Comment on above: Performed By: #### C DP, CMPX #### [address] [address] [employer] Attendant: Damon Jara MD Morphology Nabor (Bld) [Interp] ANISOCYTOSIS PRESENT Normal [facility] Comment on above: Performed By: #### C DP, CMPX #### [address] [address] [employer] Attendant: Damon Jara MD Neutrophil (Seg) 84 % High 36-65 [facility] Comment on above: Performed By: #### C DP, CMPX #### [address] [address] [employer] Attendant: Damon Jara MD Erythrocyte distribution width (RBC) [Ratio] 14.8 % High 11.8-14.4 [facility] Comment on above: Performed By: #### C DP, CMPX #### [address] [address] [employer] Attendant: Damon Jara MD Hematocrit (Bld) [Volume fraction] 38.8 % Normal 36.3-47.1 [facility] Comment on above: Performed By: #### C DP, CMPX #### [address] [address] [employer] Attendant: Damon Jara MD Hemoglobin (Bld) [Mass/Vol] 12.4 g/dL Normal 11.9-15.1 [facility] Comment on above: Performed By: #### C DP, CMPX #### [address] [address] [employer] Attendant: Damon Jara MD MCH (RBC) [Entitic mass] 29.5 pg Normal 25.2-33.5 [facility] Comment on above: Performed By: #### C DP, CMPX #### [address] [address] [employer] Attendant: Damon Jara MD MCHC (RBC) [Mass/Vol] 32.0 g/dL Normal 28.4-34.8 [facility] Comment on above: Performed By: #### C DP, CMPX #### [place] [address] [employer] Attendant: Damon Jara MD MCV (RBC) [Entitic vol] 92.4 fL Normal 82.6-102.9 [facility] Comment on above: Performed By: #### C DP, CMPX #### [address] [address] [employer] Attendant: Damon Jara MD NRBC Automated 0.0 per 100 WBC Normal 0.0 [facility] Comment on above: Performed By: #### C DP, CMPX #### [place] [address] [employer] Attendant: Damon Jara MD Platelet mean volume (Bld) [Entitic vol] 12.2 fL Normal 8.1-13.5 [facility] Comment on above: Performed By: #### C DP, CMPX #### [address] [address] [employer] Attendant: Damon Jara MD Platelets (Bld) [#/Vol] 76 10*3/uL Low 138-453 [facility] Comment on above: Performed By: #### C DP, CMPX #### [facility] [employer] [address] [place] [phone] [employer] Attendant: Damon Jara MD RBC (Bld) [#/Vol] 4.20 10*6/uL Normal 3.95-5.11 [facility] Comment on above: Performed By: #### C DP, CMPX #### [facility] [employer] [address] [place] [address] [employer] Attendant: Damon Jara MD WBC (Bld) [#/Vol] 9.8 10*3/uL Normal 3.5-11.3 [facility] Comment on above: Performed By: #### C DP, CMPX #### [facility] [employer] [address] [place] [address] [employer] Attendant: Damon Jara MD Comp Metabolic Profon 2023 Albumin [Mass/Vol] 3.4 g/dL Low 3.5-5.2 [facility] Comment on above: Performed By: #### C DP, CMPX #### [facility] [employer] [address] [place] [address] [employer] Attendant: Damon Jara MD Albumin/Glob Ratio 1.0 Normal 1.0-2.5 [facility] Comment on above: Performed By: #### C DP, CMPX #### [facility] [employer] [address] [place] [address] [employer] Attendant: Damon Jara MD Alkaline Phos 101 U/L Normal 35-104 [facility] Comment on above: Performed By: #### C DP, CMPX #### [facility] [employer] [facility] [place] [address] [employer] Attendant: Damon Jara MD ALT [Catalytic activity/Vol] 27 U/L Normal 10-35 [facility] Comment on above: Performed By: #### C DP, CMPX #### [facility] [address] [place] [phone] [employer] Attendant: Damon Jara MD Anion gap [Moles/Vol] 9 mmol/L Normal 9-16 [facility] Comment on above: Performed By: #### C DP, CMPX #### [address] [address] [employer] Attendant: Damon Jara MD AST [Catalytic activity/Vol] 58 U/L High 10-35 [facility] Comment on above: Performed By: #### C DP, CMPX #### [address] [address] [employer] Attendant: Damon Jara MD Bilirubin [Mass/Vol] 1.7 mg/dL High 0.00-1.20 [facility] Comment on above: Performed By: #### C DP, CMPX #### [address] [address] [employer] Attendant: Damon Jara MD Calcium [Mass/Vol] 9.6 mg/dL Normal 8.6-10.4 [facility] Comment on above: Performed By: #### C DP, CMPX #### [address] [address] [employer] Attendant: Damon Jara MD Chloride [Moles/Vol] 102 mmol/L Normal 98-107 [facility] Comment on above: Performed By: #### C DP, CMPX #### [address] [address] [employer] Attendant: Damon Jara MD CO2 [Moles/Vol] 22 mmol/L Normal 20-31 [facility] Comment on above: Performed By: #### C DP, CMPX #### [address] [address] [employer] Attendant: Damon Jara MD Creatinine [Mass/Vol] 0.8 mg/dL Normal 0.50-0.90 [facility] Comment on above: Performed By: #### C DP, CMPX #### [address] [address] [employer] Attendant: Damon Jara MD GFR/1.73 sq M.predicted among non-blacks MDRD (S/P/Bld) [Vol rate/Area] 81 mL/min/{1.73_m2} Normal >60 [facility] Comment on above: Result Comment: These results [...] renal tubular secretion. Performed By: #### C DP, CMPX #### [address] [address] [employer] Attendant: Damon Jara MD Glucose [Mass/Vol] 262 mg/dL High 74-99 [facility] Comment on above: Performed By: #### C DP, CMPX #### [address] [address] [employer] Attendant: Damon Jara MD Potassium [Moles/Vol] 4.6 mmol/L Normal 3.7-5.3 [facility] Comment on above: Performed By: #### C DP, CMPX #### [address] [address] [employer] Attendant: Damon Jara MD Protein [Mass/Vol] 6.1 g/dL Low 6.6-8.7 [facility] Comment on above: Performed By: #### C DP, CMPX #### [facility] [employer] [address] [place] [address] [phone] [employer] Attendant: Damon Jara MD Sodium [Moles/Vol] 133 mmol/L Low 136-145 [facility] Comment on above: Performed By: #### C DP, CMPX #### [facility] [address] [place], [place] [phone] [employer] Attendant: Damon Jara MD Urea nitrogen [Mass/Vol] 14 mg/dL Normal 6-20 [facility] Comment on above: Performed By: #### C DP, CMPX #### [facility] [address] [place], [place] [phone] [employer] Attendant: Damon Jara MD Comprehensive Metabolic Pane [facility] 12-23-2023 Albumin [Mass/Vol] 3.4 g/dL Low 3.5 - 5.2 g/dL [facility] Albumin/Globulin [Mass ratio] 1.0 {ratio} 1.0 - 2.5 [facility] ALP [Catalytic activity/Vol] 101 U/L 35 - 104 U/L [facility] ALT [Catalytic activity/Vol] 27 U/L 10 - 35 U/L [facility] Anion gap [Moles/Vol] 9 mmol/L 9 - 16 mmol/L [facility] AST [Catalytic activity/Vol] 58 U/L High 10 - 35 U/L [facility] Bilirubin [Mass/Vol] 1.7 mg/dL High 0.00 - 1.20 mg/dL [facility] Calcium [Mass/Vol] 9.6 mg/dL 8.6 - 10. 4 mg/dL [facility] Chloride [Moles/Vol] 102 mmol/L 98 - 10 7 mmol/L [facility] CO2 [Moles/Vol] 22 mmol/L 20 - 31 mmol/L [facility] Creatinine [Mass/Vol] 0.8 mg/dL 0.50 - 0.90 mg/dL [facility] Est, Glom Filt Rate 81 - PINF [facility] Comment on above: These results are not intended for use [...] following therapy that affects renal tubular secretion. Glucose [Mass/Vol] 262 mg/dL High 74 - 99 mg/dL [facility] [employer] Interpretation and review of laboratory results Abnormal [facility] [employer] Potassium [Moles/Vol] 4.6 mmol/L 3.7 - 5.3 mmol/L [facility] [employer] Protein [Mass/Vol] 6.1 g/dL Low 6.6 - 8.7 g/dL [facility] [employer] Sodium [Moles/Vol] 133 mmol/L Low 136 - 145 mmol/L [facility] [employer] Urea nitrogen [Mass/Vol] 14 mg/dL 6 - 20 mg/dL [facility] [employer] Glucose,Whole Bloodon 2023 Glucose [Mass/Vol] 169 mg/dL High 65-105 [facility] Glucose [Mass/Vol] 263 mg/dL High 65-105 [facility] Glucose [Mass/Vol] 247 mg/dL High 65-105 [facility] Glucose [Mass/Vol] 135 mg/dL High 65-105 [facility] Magnesiumon 12-23-2023 Magnesium [Mass/Vol] 1.9 mg/dL 1.6 - 2 .6 mg/dL [facility] Magnesium [Mass/Vol] 1.9 mg/dL Normal 1.6-2.6 [facility] Comment on above: Performed By: #### C DP, CMPX #### [employer] [facility] [place] [address] [employer] Attendant: Damon Jara MD No Panel Informationon 12-22 [facility] [employer] POC Glucose Fingerstickon Glucose [Mass/Vol] 169 mg/dL High 65 - 105 mg/dL [facility] [employer] Interpretation and review of laboratory results Abnormal [facility] [employer] Glucose [Mass/Vol] 263 mg/dL High 65 - 105 mg/dL [facility] Interpretation and review of laboratory results Abnormal [facility] Glucose [Mass/Vol] 247 mg/dL High 65 - 105 mg/dL [facility] Interpretation and review of laboratory results Abnormal [facility] Glucose [Mass/Vol] 135 mg/dL High 65 - 105 mg/dL [facility] Interpretation and review of laboratory results Abnormal [facility] CBC with Auto Differentialon 12-22-2023 Basophils (Bld) [#/Vol] 0.04 10*3/uL [facility] Basophils/100 WBC (Bld) 1 % 0 - 2 % [facility] Eosinophils (Bld) [#/Vol] 0.14 10*3/uL [facility] Eosinophils/100 WBC (Bld) 3 % 1 - 4 % [facility] Erythrocyte distribution width (RBC) [Ratio] 15.3 % High 11.8 - 14.4 % [facility] Hematocrit (Bld) [Volume fraction] 35.3 % Low 36.3 - 47.1 % [facility] Hemoglobin (Bld) [Mass/Vol] 11.4 g/dL Low 11.9 - 15.1 g/dL [facility] Immature granulocytes (Bld) [#/Vol] [facility] Immature granulocytes/100 WBC (Bld) 0 % 0 [facility] Interpretation and review of laboratory results Abnormal [facility] Lymphocytes/100 WBC (Bld) 32 % 24 - 43 % [facility] Lymphocytes/100 WBC (Bld) 1.50 % [facility] MCH (RBC) [Entitic mass] 29.7 pg 25.2 - 33.5 pg [facility] MCHC (RBC) [Mass/Vol] 32.3 g/dL 28.4 - 34.8 g/dL [facility] MCV (RBC) [Entitic vol] 91.9 fL 82.6 - 102.9 fL [facility] Monocytes/100 WBC (Bld) 17 % High 3 - 12 % [facility] Monocytes/100 WBC (Bld) 0.81 % [facility] Neutrophils/100 WBC (Bld) 47 % 36 - 65 % [facility] Nucleated RBC/100 WBC (Bld) [Ratio] 0.0 % 0.0 per 100 WBC [facility] Platelet mean volume (Bld) [Entitic vol] 11.9 fL 8.1 - 13.5 fL [facility] Platelets (Bld) [#/Vol] 75 10*3/uL Low [facility] RBC (Bld) [#/Vol] 3.84 10*6/uL Low 3.95 - 5.1 1 m/uL [facility] RBC (Bld) [#/Vol] ANISOCYTOSIS PRESENT [facility] Segmented neutrophils/100 WBC (Bld) 2.25 % [facility] WBC other (Bld) [#/Vol] 4.8 [facility] CBC with Diffon 12-22-2023 Abs. Basophil 0.04 k/uL Normal 0.00-0.20 [facility] Comment on above: Performed By: #### C DP, PT, CMPX ####[place], [place] [address])[phone] Director: Damon Jara MD Abs.Imm.Granulocyte <0.03 Normal 0.00-0.30 [facility] Comment on above: Performed By: #### C DP, PT, CMPX ####[facility] [address] [place] [address] Lab Director: Damon Jara MD Abs.Neutrophil (Seg) 2.25 k/uL Normal 1.50-8.10 [facility] Comment on above: Performed By: #### C DP, PT, CMPX ####[facility] [address] [place] [address] Lab Director: Damon Jara MD Basophils/100 WBC (Bld) 1 % Normal 0-2 [facility] Comment on above: Performed By: #### C DP, PT, CMPX ####[facility] [address] [place], [place] [phone] Director: Damon Jara MD Eosinophils (Bld) [#/Vol] 0.14 10*3/uL Normal 0.00-0.44 [facility] Comment on above: Performed By: #### C DP, PT, CMPX ####[address] [address])[phone] Director: Damon Jara MD Eosinophils/100 WBC (Bld) 3 % Normal 1-4 [facility] Comment on above: Performed By: #### C DP, PT, CMPX ####[place], [place] [address])[phone] Director: Damon Jara MD Erythrocyte distribution width (RBC) [Ratio] 15.3 % High 11.8-14.4 [facility] Comment on above: Performed By: #### C DP, PT, CMPX ####[address] [address])[phone] Director: Damon Jara MD Hematocrit (Bld) [Volume fraction] 35.3 % Low 36.3-47.1 [facility] Comment on above: Performed By: #### C DP, PT, CMPX ####[place], [place] [address])[phone] Director: Damon Jara MD Hemoglobin (Bld) [Mass/Vol] 11.4 g/dL Low 11.9-15.1 [facility] Comment on above: Performed By: #### C DP, PT, CMPX ####[address] [phone] Director: Damon Jara MD Immature granulocytes/100 WBC (Bld) 0 % Normal 0 [facility] Comment on above: Performed By: #### C DP, PT, CMPX ####[facility] [address] [place], [place] [address])[phone] Director: Damon Jara MD Lymphocytes (Bld) [#/Vol] 1.50 10*3/uL Normal 1.10-3.70 [facility] Comment on above: Performed By: #### C DP, PT, CMPX ####[place], [place] [address])[phone] Director: Damon Jara MD Lymphocytes/100 WBC (Bld) 32 % Normal 24-43 [facility] Comment on above: Performed By: #### C DP, PT, CMPX ####[place], [place] [address])[phone] Director: Damon Jara MD MCH (RBC) [Entitic mass] 29.7 pg Normal 25.2-33.5 [facility] Comment on above: Performed By: #### C DP, PT, CMPX ####[facility] [address] [place], [place] [address])[phone] Director: Damon Jara MD MCHC (RBC) [Mass/Vol] 32.3 g/dL Normal 28.4-34.8 [facility] Comment on above: Performed By: #### C DP, PT, CMPX ####[place], [place] [address])[phone] Director: Damon Jara MD MCV (RBC) [Entitic vol] 91.9 fL Normal 82.6-102.9 [facility] Comment on above: Performed By: #### C DP, PT, CMPX ####[facility] [address] [place], [place] [address])[phone] Director: Damon Jara MD Monocytes (Bld) [#/Vol] 0.81 10*3/uL Normal 0.10-1.20 [facility] Comment on above: Performed By: #### C DP, PT, CMPX ####[facility] [address] [place], [place] [id number])[phone] Director: Damon Jara MD Monocytes/100 WBC (Bld) 17 % High 3-12 [facility] Comment on above: Performed By: #### C DP, PT, CMPX ####[facility] [address] [place], [place] [phone] Director: Damon Jara MD Neutrophil (Seg) 47 % Normal 36-65 [facility] Comment on above: Performed By: #### C DP, PT, CMPX ####[facility] [address] [place], [place] [id number])[phone] Director: Damon Jara MD NRBC Automated 0.0 per 100 WBC Normal 0.0 [facility] Comment on above: Performed By: #### C DP, PT, CMPX ####[facility] [address] [place] [address] [phone] Director: Damon Jara MD Platelet mean volume (Bld) [Entitic vol] 11.9 fL Normal 8.1-13.5 [facility] Comment on above: Performed By: #### C DP, PT, CMPX ####[facility] [address] [place], [place] [id number])[phone] Director: Damon Jara MD Platelets (Bld) [#/Vol] 75 10*3/uL Low 138-453 [facility] Comment on above: Performed By: #### C DP, PT, CMPX ####[facility] [address] [place] [address] Lab Director: Damon Jara MD RBC (Bld) [#/Vol] 3.84 10*6/uL Low 3.95-5.11 [facility] Comment on above: Performed By: #### C DP, PT, CMPX ####[facility] [address] [place] [address] Lab Director: Damon Jara MD RBC morphology finding Nom (Bld) ANISOCYTOSIS PRESENT Normal [facility] Comment on above: Performed By: #### C DP, PT, CMPX ####[facility] [address] [place] [address] Lab Director: Damon Jara MD WBC (Bld) [#/Vol] 4.8 10*3/uL Normal 3.5-11.3 [facility] Comment on above: Performed By: #### C DP, PT, CMPX ####[facility] [address] [place] [address]([facility])[phone] Director: Damon Jara MD Comp Metabolic Pr/rfx MGon 1 - Albumin [Mass/Vol] 3.3 g/dL Low 3.5-5.2 [facility] Comment on above: Performed By: #### C DP, PT, CMPX ####[facility] [address] [place] [address] Lab Director: Damon Jara MD Albumin/Glob Ratio 1.0 Normal 1.0-2.5 [facility] Comment on above: Performed By: #### C DP, PT, CMPX ####[facility] [address] [place] [address] Lab Director: Damon Jara MD Alkaline Phos 107 U/L High 35-104 [facility] Comment on above: Performed By: #### C DP, PT, CMPX ####[facility] [address]xms[address]dtmmo[address]94 [place] [address] Lab Director: Damon Jara MD ALT [Catalytic activity/Vol] 22 U/L Normal 10-35 [facility] Comment on above: Performed By: #### C DP, PT, CMPX ####[facility] [address] [place] [address] Lab Director: Damon Jara MD Anion gap [Moles/Vol] 6 mmol/L Low 9-16 [facility] Comment on above: Performed By: #### C DP, PT, CMPX ####[facility] Zvftepasnlbt7883 [place], [place] [address])[phone] Director: Damon Jara MD AST [Catalytic activity/Vol] 37 U/L High 10-35 [facility] Comment on above: Performed By: #### C DP, PT, CMPX ####[facility] [address] [place], [place] [address])[phone] Director: Damon Jara MD Bilirubin [Mass/Vol] 1.2 mg/dL Normal 0.00-1.20 [facility] Comment on above: Performed By: #### C DP, PT, CMPX ####[facility] [address] [place] [address])[phone] Director: Damon Jara MD Calcium [Mass/Vol] 8.9 mg/dL Normal 8.6-10.4 [facility] Comment on above: Performed By: #### C DP, PT, CMPX ####[facility] [address]hqwuhmkeiu[address] [place], [place] [address])[phone] Director: Damon Jara MD Chloride [Moles/Vol] 106 mmol/L Normal 98-107 [facility] Comment on above: Performed By: #### C DP, PT, CMPX ####[facility] [address]zxeacsvdws4652 [place], [place] [address])[phone] Director: Damon Jara MD CO2 [Moles/Vol] 24 mmol/L Normal 20-31 [facility] Comment on above: Performed By: #### C DP, PT, CMPX ####[facility] [address]ovzphhzpv79[address] [place], [place] [address])[phone] Director: Damon Jara MD Creatinine [Mass/Vol] 0.6 mg/dL Normal 0.50-0.90 [facility] Comment on above: Performed By: #### C DP, PT, CMPX ####[facility] [address] [place] [address])[phone] Director: Damon Jara MD GFR/1.73 sq M.predicted among non-blacks MDRD (S/P/Bld) [Vol rate/Area] mL/min/{1.73_m2} Normal >60 [facility] Comment on above: Result Comment: These results [...] renal tubular secretion. Performed By: #### C DP, PT, CMPX ####[facility] [address] [place] [address])[phone] Director: Damon Jara MD Glucose [Mass/Vol] 146 mg/dL High 74-99 [facility] Comment on above: Performed By: #### C DP, PT, CMPX ####[facility] [address] [place] [address])[phone] Director: Damon Jara MD Potassium [Moles/Vol] 3.9 mmol/L Normal 3.7-5.3 [facility] Comment on above: Performed By: #### C DP, PT, CMPX ####[facility] [address] [place], [place] [address])[phone] Director: Damon Jara MD Protein [Mass/Vol] 5.9 g/dL Low 6.6-8.7 [facility] Comment on above: Performed By: #### C DP, PT, CMPX ####[facility] [address]bxgcp55[address] [place], [place] [address])[phone] Director: Damon Jara MD Sodium [Moles/Vol] 136 mmol/L Normal 136-145 [facility] Comment on above: Performed By: #### C DP, PT, CMPX ####[facility] [address]rxkp[address] [place], [place] [phone] lab Director: Damon Jara MD Urea nitrogen [Mass/Vol] 8 mg/dL Normal 6-20 [facility] Comment on above: Performed By: #### C DP, PT, CMPX ####[facility] [address]ub[address] [place] [address] lab Director: Damon Jara MD Comprehensive Metabolic Pane l w/ Reflex to MGon 12-22-2023 Albumin [Mass/Vol] 3.3 g/dL Low 3.5 - 5.2 g/dL [facility] Albumin/Globulin [Mass ratio] 1.0 {ratio} 1.0 - 2.5 [facility] ALP [Catalytic activity/Vol] 107 U/L High 35 - 104 U/L [facility] ALT [Catalytic activity/Vol] 22 U/L 10 - 35 U/L [facility] Anion gap [Moles/Vol] 6 mmol/L Low 9 - 16 mmol/L [facility] AST [Catalytic activity/Vol] 37 U/L High 10 - 35 U/L [facility] Bilirubin [Mass/Vol] 1.2 mg/dL 0.00 - 1.20 mg/dL [facility] Calcium [Mass/Vol] 8.9 mg/dL 8.6 - 10. 4 mg/dL [facility] Chloride [Moles/Vol] 106 mmol/L 98 - 10 7 mmol/L [facility] CO2 [Moles/Vol] 24 mmol/L 20 - 31 mmol/L [facility] Creatinine [Mass/Vol] 0.6 mg/dL 0.50 - 0.90 mg/dL [facility] Est, Glom Filt Rate - PINF [facility] Comment on above: These results are not intended for use [...] following therapy that affects renal tubular secretion. Glucose [Mass/Vol] 146 mg/dL High 74 - 99 mg/dL [facility] Interpretation and review of laboratory results Abnormal [facility] Potassium [Moles/Vol] 3.9 mmol/L 3.7 - 5.3 mmol/L [facility] Protein [Mass/Vol] 5.9 g/dL Low 6.6 - 8.7 g/dL [facility] Sodium [Moles/Vol] 136 mmol/L 136 - 145 mmol/L [facility] Urea nitrogen [Mass/Vol] 8 mg/dL 6 - 20 mg/dL [facility] Glucose,Whole Bloodon 2023 Glucose [Mass/Vol] 165 mg/dL High 65-105 [facility] Glucose [Mass/Vol] 114 mg/dL High 65-105 [facility] Glucose [Mass/Vol] 131 mg/dL High 65-105 [facility] Glucose [Mass/Vol] 179 mg/dL High 65-105 [facility] No Panel Informationon 12-21 Component Leukocyte Reduced Re d Cell [facility] Crossmatch Result COMPATIBLE [facility] Dispense Status Blood Bank REL FROM [facility] Transfusion Status OK TO TRANSFUSE B on [facility] 0 [facility] POC Glucose Fingerstickon Glucose [Mass/Vol] 165 mg/dL High 65 - 105 mg/dL [facility] Interpretation and review of laboratory results Abnormal [facility] Glucose [Mass/Vol] 114 mg/dL High 65 - 105 mg/dL [facility] Interpretation and review of laboratory results Abnormal [facility] Glucose [Mass/Vol] 131 mg/dL High 65 - 105 mg/dL [facility] Interpretation and review of laboratory results Abnormal [facility] Glucose [Mass/Vol] 179 mg/dL High 65 - 105 mg/dL [facility] Interpretation and review of laboratory results Abnormal [facility] PTon 12-22-2023 INR Coag (PPP) [Relative time] 1.4 {INR} Normal [facility] Comment on above: Result Comment: Therapeutic Range: Moderate Anticoagulant Intensity: INR = 2.0-3.0 High Anticoagulant Intensity: INR = 2.5-3.5 Performed By: #### C DP, PT, CMPX ####[facility] [address] [place], [place] [id number] Lab Director: Damon Jara MD PT Coag (PPP) [Time] 17.0 s High 11.7-14.9 [facility] Comment on above: Performed By: #### C DP, PT, CMPX ####[facility] [address] [place], [place] [id number] Lab Director: Damon Jara MD Protime-INRon 12-22-2023 INR Coag (PPP) [Relative time] 1.4 {INR} [facility] Comment on above: Therapeutic Range: Moderate Anticoagulant Intensity: INR = 2.0-3.0 High Anticoagulant Intensity: INR = 2.5-3.5 Interpretation and review of laboratory results Abnormal [facility] PT Coag (PPP) [Time] 17.0 s High [facility] Surgical Pathology Reporton 12-22-2023 Surgical Pathology Report (NOTE) Path Number: [id number] -- Diagnosis -- GALLBLADDER, CHOLECYSTECTOMY: -ACUTE AND CHRONIC CHOLECYSTITIS WITH CHOLELITHIASIS. Jarocho Israel M.D. Electronically Signed Out 12/24/2023 Clinical Information Pre-Op Diagnosis: ACUTE CHOLECYSTITIS Operative Findings: GALLBLADDER AND CONTENTS Operation Performed: XI ROBOTIC LAPAROSCOPIC CHOLECYSTECTOMY se Source of Specimen A: GALLBLADDER AND CONTENTS Gross Description ILEANA WILSON, GALLBLADDER AND CONTENTS Received in formalin is a 9.0 x 4.1 x 2.0 cm disrupted and ragged gallbladder. The serosa is pink-resendez to hyperemic. The adventitia is roughened. The cystic duct margin is ragged. There is york-pink, hyperemic and granular mucosa with an average wall of 0.5 cm. No lesions or periductal lymph nodes are identified. Within the specimen container are multiple brown-black choleliths and fragments ranging from < 0.1 to 0.6 cm. Fiscal Technician sections 1c with the presumed cystic duct inked blue. tm Prabha Hudson/se:12/23/2023 Microscopic Description Microscopic examination performed. Processing Lab: [address] [id number] Interpretation Performed at [address] [phone] SURGICAL PATHOLOGY CONSULTATION Patient Name: ILEANA WILSON [facility] Rec: [id number] [facility] [employer] [facility] [facility] ANATOMIC PATHOLOGY [address] [place] [address]. [place], [place] [address] Normal [facility] TYPE AND SCREENon 12-22-2023 ABO/Rh Positive [facility] Arm Band Number BE [id number] [facility] Blood Bank Sample Expiration 12/24/2023,2359 [facility] Blood product unit ID (Dose) [#] [id number] [facility] Blood product unit ID (Dose) [#] [id number] [facility] BLOOD BANK SPECIMENon 2023 [facility] CBC with Auto Differentialon 12-21-2023 Basophils (Bld) [#/Vol] 0.06 10*3/uL [facility] Basophils/100 WBC (Bld) 1 % 0 - 2 % [facility] Eosinophils (Bld) [#/Vol] 0.09 10*3/uL [facility] Eosinophils/100 WBC (Bld) 1 % 1 - 4 % [facility] Erythrocyte distribution width (RBC) [Ratio] 15.8 % High 11.8 - 14.4 % [facility] Hematocrit (Bld) [Volume fraction] 38.6 % 36.3 - 47.1 % [facility] Hemoglobin (Bld) [Mass/Vol] 12.5 g/dL 11.9 - 15.1 g/dL [facility] Immature granulocytes (Bld) [#/Vol] [facility] Immature granulocytes/100 WBC (Bld) 0 % 0 [facility] Interpretation and review of laboratory results Abnormal [facility] Lymphocytes/100 WBC (Bld) 22 % Low 24 - 43 % [facility] Lymphocytes/100 WBC (Bld) 1.55 % [facility] MCH (RBC) [Entitic mass] 29.5 pg 25.2 - 33.5 pg [facility] MCHC (RBC) [Mass/Vol] 32.4 g/dL 28.4 - 34.8 g/dL [facility] MCV (RBC) [Entitic vol] 91.0 fL 82.6 - 102.9 fL [facility] Monocytes/100 WBC (Bld) 16 % High 3 - 12 % [facility] Monocytes/100 WBC (Bld) 1.18 % [facility] Neutrophils/100 WBC (Bld) 60 % 36 - 65 % [facility] Nucleated RBC/100 WBC (Bld) [Ratio] 0.0 % 0.0 per 100 WBC [facility] Platelet, Fluorescence 94 Low [facility] Platelets (Bld) [#/Vol] See Reflexed IPF Result [facility] Platelets reticulated/100 platelets Auto (Bld) 3.4 % 1.1 - 10.3 % [facility] RBC (Bld) [#/Vol] 4.24 10*6/uL 3.95 - 5.1 1 m/uL [facility] RBC (Bld) [#/Vol] ANISOCYTOSIS PRESENT [facility] Segmented neutrophils/100 WBC (Bld) 4.31 % [facility] WBC other (Bld) [#/Vol] 7.2 [facility] CBC with Diffon 12-21-2023 Platelet, Fluoresc. 94 k/uL Low 138-453 [facility] Comment on above: Performed By: #### C DP, CMPX #### [address] [address] Popcorn Attendant: Damon Jara MD PLT, Immature Fract. 3.4 % Normal 1.1-10.3 [facility] Comment on above: Performed By: #### C DP, CMPX #### [address] [address] Pop[employer] Attendant: Damon Jara MD Abs. Basophil 0.06 k/uL Normal 0.00-0.20 [facility] Comment on above: Performed By: #### C DP, CMPX #### [place] [address] Popcorn Attendant: Damon Jara MD Abs.Imm.Granulocyte <0.03 Normal 0.00-0.30 [facility] Comment on above: Performed By: #### C DP, CMPX #### [place] [address] Popcorn Attendant: Damon Jara MD Abs.Neutrophil (Seg) 4.31 k/uL Normal 1.50-8.10 [facility] Comment on above: Performed By: #### C DP, CMPX #### [place] [address] Popcorn Attendant: Damon Jara MD Basophils/100 WBC (Bld) 1 % Normal 0-2 [facility] Comment on above: Performed By: #### C DP, CMPX #### [place] [address] Pop[employer] Attendant: Damon Jara MD Eosinophils (Bld) [#/Vol] 0.09 10*3/uL Normal 0.00-0.44 [facility] Comment on above: Performed By: #### C DP, CMPX #### [place] [address] [employer] Attendant: Damon Jara MD Eosinophils/100 WBC (Bld) 1 % Normal 1-4 [facility] Comment on above: Performed By: #### C DP, CMPX #### [address] [address] Popcorn Attendant: Damon Jara MD Erythrocyte distribution width (RBC) [Ratio] 15.8 % High 11.8-14.4 [facility] Comment on above: Performed By: #### C DP, CMPX #### [address] [address] Popcorn Attendant: Damon Jara MD Hematocrit (Bld) [Volume fraction] 38.6 % Normal 36.3-47.1 [facility] Comment on above: Performed By: #### C DP, CMPX #### [address] [address] Popcorn Attendant: Damon Jara MD Hemoglobin (Bld) [Mass/Vol] 12.5 g/dL Normal 11.9-15.1 [facility] Comment on above: Performed By: #### C DP, CMPX #### [address] [address] Popcorn Attendant: Damon Jara MD Immature granulocytes/100 WBC (Bld) 0 % Normal 0 [facility] Comment on above: Performed By: #### C DP, CMPX #### [address] [address] Popcorn Attendant: Damon Jara MD Lymphocytes (Bld) [#/Vol] 1.55 10*3/uL Normal 1.10-3.70 [facility] Comment on above: Performed By: #### C DP, CMPX #### [address] [address] Popcorn Attendant: Damon Jara MD Lymphocytes/100 WBC (Bld) 22 % Low 24-43 [facility] Comment on above: Performed By: #### C DP, CMPX #### [address] [address] Popcorn Attendant: Damon Jara MD MCH (RBC) [Entitic mass] 29.5 pg Normal 25.2-33.5 [facility] Comment on above: Performed By: #### C DP, CMPX #### [address] [address] Popcorn Attendant: Damon Jara MD MCHC (RBC) [Mass/Vol] 32.4 g/dL Normal 28.4-34.8 [facility] Comment on above: Performed By: #### C DP, CMPX #### [place] [address] Popcorn Attendant: Damon Jara MD MCV (RBC) [Entitic vol] 91.0 fL Normal 82.6-102.9 [facility] Comment on above: Performed By: #### C DP, CMPX #### [address] [address] Popcorn Attendant: aDmon Jara MD Monocytes (Bld) [#/Vol] 1.18 10*3/uL Normal 0.10-1.20 [facility] Comment on above: Performed By: #### C DP, CMPX #### [place] [address] Popcorn Attendant: Damon Jara MD Monocytes/100 WBC (Bld) 16 % High 3-12 [facility] Comment on above: Performed By: #### C DP, CMPX #### [address] [address] Popcorn Attendant: Damon Jara MD Neutrophil (Seg) 60 % Normal 36-65 [facility] Comment on above: Performed By: #### C DP, CMPX #### [address] [address] Popcorn Attendant: Damon Jara MD NRBC Automated 0.0 per 100 WBC Normal 0.0 [facility] Comment on above: Performed By: #### C DP, CMPX #### [address] [address] Popcorn Attendant: Damon Jara MD Platelet Count See Reflexed IPF Result Normal 138-453 [facility] Comment on above: Performed By: #### C DP, CMPX #### [address] [address] Popcorn Attendant: Damon Jara MD RBC (Bld) [#/Vol] 4.24 10*6/uL Normal 3.95-5.11 [facility] Comment on above: Performed By: #### C DP, CMPX #### [address] [address] Popcorn Attendant: Damon Jara MD RBC morphology finding Nom (Bld) ANISOCYTOSIS PRESENT Normal [facility] Comment on above: Performed By: #### C DP, CMPX #### [address] [address] Popcorn Attendant: Damon Jara MD WBC (Bld) [#/Vol] 7.2 10*3/uL Normal 3.5-11.3 [facility] Comment on above: Performed By: #### C DP, CMPX #### [address] [address] Popcorn Attendant: Damon Jara MD Comp Metabolic Pr/rfx MGon 1 - Albumin [Mass/Vol] 3.6 g/dL Normal 3.5-5.2 [facility] Comment on above: Performed By: #### C DP, CMPX #### [address] [address] Popcorn Attendant: Damon Jara MD Albumin/Glob Ratio 1.0 Normal 1.0-2.5 [facility] Comment on above: Performed By: #### C DP, CMPX #### [facility] [employer] [address] [place] [address] Popcorn Attendant: Damon Jara MD Alkaline Phos 112 U/L High 35-104 [facility] Comment on above: Performed By: #### C DP, CMPX #### [address] [address] Popcorn Attendant: Damon Jara MD ALT [Catalytic activity/Vol] 25 U/L Normal 10-35 [facility] Comment on above: Performed By: #### C DP, CMPX #### [address] [address] Popcorn Attendant: Damon Jara MD Anion gap [Moles/Vol] 9 mmol/L Normal 9-16 [facility] Comment on above: Performed By: #### C DP, CMPX #### [address] [address] Popcorn Attendant: Damon Jara MD AST [Catalytic activity/Vol] 42 U/L High 10-35 [facility] Comment on above: Performed By: #### C DP, CMPX #### [address] [address] Popcorn Attendant: Damon Jara MD Bilirubin [Mass/Vol] 2.0 mg/dL High 0.00-1.20 [facility] Comment on above: Performed By: #### C DP, CMPX #### [facility] [employer] [address] [place] [address] Popcorn Attendant: Damon Jara MD Calcium [Mass/Vol] 9.5 mg/dL Normal 8.6-10.4 [facility] Comment on above: Performed By: #### C DP, CMPX #### [address] [address] Popcorn Attendant: Damon Jara MD Chloride [Moles/Vol] 103 mmol/L Normal 98-107 [facility] Comment on above: Performed By: #### C DP, CMPX #### [facility] [employer] [address] [place] [address] Popcorn Attendant: Damon Jara MD CO2 [Moles/Vol] 22 mmol/L Normal 20-31 [facility] Comment on above: Performed By: #### C DP, CMPX #### [address] [address] Popcorn Attendant: Damon Jara MD Creatinine [Mass/Vol] 0.7 mg/dL Normal 0.50-0.90 [facility] Comment on above: Performed By: #### C DP, CMPX #### [address] [address] Popcorn Attendant: Damon Jara MD GFR/1.73 sq M.predicted among non-blacks MDRD (S/P/Bld) [Vol rate/Area] mL/min/{1.73_m2} Normal >60 [facility] Comment on above: Result Comment: These results [...] renal tubular secretion. Performed By: #### C DP, CMPX #### [address] [address] Popcorn Attendant: Damon Jara MD Glucose [Mass/Vol] 162 mg/dL High 74-99 [facility] Comment on above: Performed By: #### C DP, CMPX #### [facility] [employer] [facility] [place] [address] Popcorn Attendant: Damon Jara MD Potassium [Moles/Vol] 4.2 mmol/L Normal 3.7-5.3 [facility] Comment on above: Performed By: #### C DP, CMPX #### [facility] [employer] [address] [place] [address] Popcorn Attendant: Damon Jara MD Protein [Mass/Vol] 6.3 g/dL Low 6.6-8.7 [facility] Comment on above: Performed By: #### C DP, CMPX #### [facility] [employer] [address] [place] [address] Popcorn Attendant: Damon Jara MD Sodium [Moles/Vol] 134 mmol/L Low 136-145 [facility] Comment on above: Performed By: #### C DP, CMPX #### [facility] [employer] [address] [place] [address] Popcorn Attendant: Damon Jara MD Urea nitrogen [Mass/Vol] 7 mg/dL Normal 6-20 [facility] Comment on above: Performed By: #### C DP, CMPX #### [address] [address] Pop[employer] Attendant: Damon Jara MD Comprehensive Metabolic Pane l w/ Reflex to MGon 12-21-2023 Albumin [Mass/Vol] 3.6 g/dL 3.5 - 5.2 g/dL [facility] Albumin/Globulin [Mass ratio] 1.0 {ratio} 1.0 - 2.5 [facility] ALP [Catalytic activity/Vol] 112 U/L High 35 - 104 U/L [facility] ALT [Catalytic activity/Vol] 25 U/L 10 - 35 U/L [facility] Anion gap [Moles/Vol] 9 mmol/L 9 - 16 mmol/L [facility] AST [Catalytic activity/Vol] 42 U/L High 10 - 35 U/L [facility] Bilirubin [Mass/Vol] 2.0 mg/dL High 0.00 - 1.20 mg/dL [facility] Calcium [Mass/Vol] 9.5 mg/dL 8.6 - 10. 4 mg/dL [facility] Chloride [Moles/Vol] 103 mmol/L 98 - 10 7 mmol/L [facility] CO2 [Moles/Vol] 22 mmol/L 20 - 31 mmol/L [facility] Creatinine [Mass/Vol] 0.7 mg/dL 0.50 - 0.90 mg/dL [facility] Est, Glom Filt Rate - PINF [facility] Comment on above: These results are not intended for use [...] following therapy that affects renal tubular secretion. Glucose [Mass/Vol] 162 mg/dL High 74 - 99 mg/dL [facility] Potassium [Moles/Vol] 4.2 mmol/L 3.7 - 5.3 mmol/L [facility] Protein [Mass/Vol] 6.3 g/dL Low 6.6 - 8.7 g/dL [facility] Sodium [Moles/Vol] 134 mmol/L Low 136 - 145 mmol/L [facility] Urea nitrogen [Mass/Vol] 7 mg/dL 6 - 20 mg/dL [facility] EKG 12 LeadOrdered By: Camron Pierre on 12-21-2023 Atrial Rate 92 BPM [facility] Work Phone: P [place] 35 degrees [facility] Work Phone: P-R Interval 118 ms [facility] Work Phone: Q-T Interval 334 ms [facility] Work Phone: QRS Duration 74 ms [email or web address] Work Phone: QTc Calculation (Bazett) 413 ms [employer] Phone: R [place] 34 degrees [employer] Work Phone: T [place] 7 degrees [employer] Phone: Ventricular Rate 92 BPM [employer] Work Phone: [employer] Phone: EKG 12 Leadon 12-21-2023 Normal sinus rhythm Normal ECG No previous ECGs available [facility] Camron Crowell MD - 12/21/2023 Normal sinus rhythm Normal ECG No previous ECGs available [facility] Glucose,Whole Bloodon 2023 Glucose [Mass/Vol] 181 mg/dL High 65-105 [facility] Glucose [Mass/Vol] 192 mg/dL High 65-105 [facility] Glucose [Mass/Vol] 124 mg/dL High 65-105 [facility] Glucose [Mass/Vol] 146 mg/dL High 65-105 [facility] Hemoglobin A1Con 12-21-2023 Glucose [Mass/Vol] 128 mg/dL Normal [facility] Comment on above: Result Comment: The ADA and AACC recommend providing the estimated average glucose result to permit better patient understanding of their HBA1c result. Performed By: #### C DP, CMPX #### [employer] [facility] [place], [place] [id number] Popcorn Attendant: Damon Jara MD HbA1c (Bld) [Mass fraction] 6.1 % High 4.0-6.0 [facility] Comment on above: Performed By: #### C DP, CMPX #### [employer] [employer] [address] [place] [address] Popcorn Attendant: Damon Jara MD Hemoglobin A1con 10-14-2024 Average glucose Estimated from glycated hemoglobin (Bld) [Mass/Vol] 128 mg/dL [facility] Comment on above: The ADA and AACC rec ommend providing the estimated average glucose result to permit better patient understanding of their HBA1c result. HbA1c (Bld) [Mass fraction] 6.1 % High 4.0 - 6.0 % [facility] Interpretation and review of laboratory results Abnormal [facility] Lipaseon 12-21-2023 Lipase [Catalytic activity/Vol] 87 U/L High 13 - 60 U/L [facility] Lipase [Catalytic activity/Vol] 87 U/L High 13-60 [facility] Comment on above: Performed By: #### C DP, CMPX #### [employer] [facility] [place] [address] Popcorn Attendant: Damon Jara MD MR Abdomen WO and W contrast Evelyn 12-21-2023 1. Distended gallbladder with wall edema and some thickening along with cholelithiasis. Suspect acute cholecystitis. 2. No choledocholithiasis or biliary ductal dilatation. 3. Stigmata of portal hypertension with splenomegaly, portal vein distension and enlarged recanalized umbilical vein extending to the umbilicus where there is a tangle of enlarged veins. [facility] RIS CONSOLIDATED EXAMINATION: MRI OF THE ABDOMEN WITH AND [...] vein thrombosis. Visualized bowel show no obstruction. [facility] Patrice Root MD - 12/21/2023 EXAMINATION: MRI OF THE ABDOMEN WITH AND [...] there is a tangle of enlarged veins. [facility] Radiology Study observation (narrative) [facility] MR Abdomen WO and W contrast IVOrdered By: Patrice Hood on 12-21-2023 [facility] Work Phone: MRI ABDOMEN W WO CONTRAST MR CPon [...] Patrice Hood MD 12/21/23 Final result Normal [facility] Magnesiumon 12-21-2023 Magnesium [Mass/Vol] 1.7 mg/dL 1.6 - 2 .6 mg/dL [facility] Magnesium [Mass/Vol] 1.7 mg/dL Normal 1.6-2.6 [facility] Comment on above: Performed By: #### C , CMPX #### [facility] [employer] [address] [place] [address] Popcorn Attendant: Damon Jara MD No Panel Informationon 12-20 Interpretation and review of laboratory results Abnormal [facility] POC Glucose Fingerstickon Glucose [Mass/Vol] 181 mg/dL High 65 - 105 mg/dL [facility] Interpretation and review of laboratory results Abnormal [facility] Glucose [Mass/Vol] 192 mg/dL High 65 - 105 mg/dL [facility] Interpretation and review of laboratory results Abnormal [facility] Glucose [Mass/Vol] 124 mg/dL High 65 - 105 mg/dL [facility] Interpretation and review of laboratory results Abnormal [facility] Glucose [Mass/Vol] 146 mg/dL High 65 - 105 mg/dL [facility] Interpretation and review of laboratory results Abnormal [facility] Phosphoruson 12-21-2023 Phosphate [Mass/Vol] 2.5 mg/dL 2.5 - 4 .5 mg/dL [facility] Phosphorus, Inorg.on 024 Phosphorus, Inorg. 2.5 mg/dL Normal 2.5-4.5 [facility] Comment on above: Performed By: #### C DP, CMPX #### [employer] [address] [place], [place] [phone] Popcorn Attendant: Damon Jara MD Type + Screenon 12-21-2023 Type + Screen Sample Expiration 12/24/2023,2359 Arm Band Number [id number] ABO/Rh(D) O POSITIVE Antibody Screen NEGATIVE Unit Number [id number] Blood Component Type Leukocyte Reduced Red Cell Unit Division 00 Status of Unit REL FROM ALLOC Transfusion Status OK TO TRANSFUSE Crossmatch Result COMPATIBLE Unit Number [id number] Blood Component Type Leukocyte Reduced Red Cell Unit Division 00 Status of Unit REL FROM ALLOC Transfusion Status OK TO TRANSFUSE Crossmatch Result COMPATIBLE Normal [facility] Comment on above: Performed By: #### T YS ####[employer] [place] [address] lab Director: Damon Jara MD CBC with Auto Differentialon 12-20-2023 Basophils (Bld) [#/Vol] 0.08 10*3/uL [facility] Basophils/100 WBC (Bld) 1 % 0 - 2 % [facility] Eosinophils (Bld) [#/Vol] 0.10 10*3/uL [facility] Eosinophils/100 WBC (Bld) 1 % 1 - 4 % [facility] Erythrocyte distribution width (RBC) [Ratio] 15.9 % High 11.8 - 14.4 % [facility] Hematocrit (Bld) [Volume fraction] 40.1 % 36.3 - 47.1 % [facility] Hemoglobin (Bld) [Mass/Vol] 13.1 g/dL 11.9 - 15.1 g/dL [facility] Immature granulocytes (Bld) [#/Vol] 0.03 10*3/uL [facility] Immature granulocytes/100 WBC (Bld) 0 % 0 [facility] Interpretation and review of laboratory results Abnormal [facility] Lymphocytes/100 WBC (Bld) 19 % Low 24 - 43 % [facility] Lymphocytes/100 WBC (Bld) 1.65 % [facility] MCH (RBC) [Entitic mass] 29.6 pg 25.2 - 33.5 pg [facility] MCHC (RBC) [Mass/Vol] 32.7 g/dL 28.4 - 34.8 g/dL [facility] MCV (RBC) [Entitic vol] 90.5 fL 82.6 - 102.9 fL [facility] Monocytes/100 WBC (Bld) 13 % High 3 - 12 % [facility] Monocytes/100 WBC (Bld) 1.17 % [facility] Neutrophils/100 WBC (Bld) 66 % High 36 - 65 % [facility] Nucleated RBC/100 WBC (Bld) [Ratio] 0.0 % 0.0 per 100 WBC [facility] Platelet, Fluorescence 98 Low [facility] Platelets (Bld) [#/Vol] See Reflexed IPF Result [facility] Platelets reticulated/100 platelets Auto (Bld) 5.5 % 1.1 - 10.3 % [facility] RBC (Bld) [#/Vol] 4.43 10*6/uL 3.95 - 5.1 1 m/uL [facility] Segmented neutrophils/100 WBC (Bld) 5.90 % [facility] WBC other (Bld) [#/Vol] 8.9 [facility] CBC with Diffon 12-20-2023 Platelet, Fluoresc. 98 k/uL Low 138-453 [facility] Comment on above: Performed By: #### C DP, CMPX #### [place] [address] Pop[employer] Attendant: Damon Jara MD PLT, Immature Fract. 5.5 % Normal 1.1-10.3 [facility] Comment on above: Performed By: #### C DP, CMPX #### [facility] [employer] [address] [place] [address] Popcorn Attendant: Damon Jara MD Abs. Basophil 0.08 k/uL Normal 0.00-0.20 [facility] Comment on above: Performed By: #### C DP, CMPX #### [facility] [employer] [address] [place] [address] Popcorn Attendant: Damon Jara MD Abs.Imm.Granulocyte 0.03 k/uL Normal 0.00-0.30 [facility] Comment on above: Performed By: #### C DP, CMPX #### [facility] [employer] [address] [place] [address] Popcorn Attendant: Damon Jara MD Abs.Neutrophil (Seg) 5.90 k/uL Normal 1.50-8.10 [facility] Comment on above: Performed By: #### C DP, CMPX #### [facility] [employer] [address] [place] [address] Popcorn Attendant: Damon Jara MD Basophils/100 WBC (Bld) 1 % Normal 0-2 [facility] Comment on above: Performed By: #### C DP, CMPX #### [address] [address] [employer] Attendant: Damon Jara MD Eosinophils (Bld) [#/Vol] 0.10 10*3/uL Normal 0.00-0.44 [facility] Comment on above: Performed By: #### C DP, CMPX #### [address] [address] [employer]corn Attendant: Damon Jara MD Eosinophils/100 WBC (Bld) 1 % Normal 1-4 [facility] Comment on above: Performed By: #### C DP, CMPX #### [address] [address] [employer] Attendant: Damon Jara MD Erythrocyte distribution width (RBC) [Ratio] 15.9 % High 11.8-14.4 [facility] Comment on above: Performed By: #### C DP, CMPX #### [address] [address] [employer] Attendant: Damon Jara MD Hematocrit (Bld) [Volume fraction] 40.1 % Normal 36.3-47.1 [facility] Comment on above: Performed By: #### C DP, CMPX #### [address] [address] [employer] Attendant: Damon Jara MD Hemoglobin (Bld) [Mass/Vol] 13.1 g/dL Normal 11.9-15.1 [facility] Comment on above: Performed By: #### C DP, CMPX #### [address] [address] [employer] Attendant: Damon Jara MD Immature granulocytes/100 WBC (Bld) 0 % Normal 0 [facility] Comment on above: Performed By: #### C DP, CMPX #### [place] [address] [employer] Attendant: Damon Jara MD Lymphocytes (Bld) [#/Vol] 1.65 10*3/uL Normal 1.10-3.70 [facility] Comment on above: Performed By: #### C DP, CMPX #### [place] [address] [employer] Attendant: Damon Jara MD Lymphocytes/100 WBC (Bld) 19 % Low 24-43 [facility] Comment on above: Performed By: #### C DP, CMPX #### [place] [address] [employer] Attendant: Damon Jara MD MCH (RBC) [Entitic mass] 29.6 pg Normal 25.2-33.5 [facility] Comment on above: Performed By: #### C DP, CMPX #### [place] [address] [employer] Attendant: Damon Jara MD MCHC (RBC) [Mass/Vol] 32.7 g/dL Normal 28.4-34.8 [facility] Comment on above: Performed By: #### C DP, CMPX #### [place] [address] [employer] Attendant: Damon Jara MD MCV (RBC) [Entitic vol] 90.5 fL Normal 82.6-102.9 [facility] Comment on above: Performed By: #### C DP, CMPX #### [place] [address] [employer] Attendant: Damon Jara MD Monocytes (Bld) [#/Vol] 1.17 10*3/uL Normal 0.10-1.20 [facility] Comment on above: Performed By: #### C DP, CMPX #### [address] [address] [employer] Attendant: Damon Jara MD Monocytes/100 WBC (Bld) 13 % High 3-12 [facility] Comment on above: Performed By: #### C DP, CMPX #### [address] [address] [employer] Attendant: Damon Jara MD Neutrophil (Seg) 66 % High 36-65 [facility] Comment on above: Performed By: #### C DP, CMPX #### [address] [address] [employer] Attendant: Damon Jara MD NRBC Automated 0.0 per 100 WBC Normal 0.0 [facility] Comment on above: Performed By: #### C DP, CMPX #### [address] [address] [employer] Attendant: Damon Jara MD Platelet Count See Reflexed IPF Result Normal 138-453 [facility] Comment on above: Performed By: #### C DP, CMPX #### [address] [address] [employer] Attendant: Damon Jara MD RBC (Bld) [#/Vol] 4.43 10*6/uL Normal 3.95-5.11 [facility] Comment on above: Performed By: #### C DP, CMPX #### [address] [address] [employer] Attendant: Damon Jara MD WBC (Bld) [#/Vol] 8.9 10*3/uL Normal 3.5-11.3 [facility] Comment on above: Performed By: #### C DP, CMPX #### [address] [address] [employer] Attendant: Damon Jara MD Comp Metabolic Pr/rfx MGon 1 0- Albumin [Mass/Vol] 3.7 g/dL Normal 3.5-5.2 [facility] Comment on above: Performed By: #### C DP, CMPX #### [address] [address] [employer] Attendant: Damon Jara MD Albumin/Glob Ratio 1.0 Normal 1.0-2.5 [facility] Comment on above: Performed By: #### C DP, CMPX #### [address] [address] [employer] Attendant: Damon Jara MD Alkaline Phos 116 U/L High 35-104 [facility] Comment on above: Performed By: #### C DP, CMPX #### [address] [address] [employer] Attendant: Damon Jara MD ALT [Catalytic activity/Vol] 32 U/L Normal 10-35 [facility] Comment on above: Performed By: #### C DP, CMPX #### [address] [address] [employer] Attendant: Damon Jara MD Anion gap [Moles/Vol] 7 mmol/L Low 9-16 [facility] Comment on above: Performed By: #### C DP, CMPX #### [address] [address] [employer] Attendant: Damon Jara MD AST [Catalytic activity/Vol] 51 U/L High 10-35 [facility] Comment on above: Performed By: #### C DP, CMPX #### [address] [address] [employer] Attendant: Damon Jara MD Bilirubin [Mass/Vol] 1.4 mg/dL High 0.00-1.20 [facility] Comment on above: Performed By: #### C DP, CMPX #### [address] [address] [employer] Attendant: Damon Jara MD Calcium [Mass/Vol] 9.6 mg/dL Normal 8.6-10.4 [facility] Comment on above: Performed By: #### C DP, CMPX #### [address] [address] [employer] Attendant: Damon Jara MD Chloride [Moles/Vol] 110 mmol/L High 98-107 [facility] Comment on above: Performed By: #### C DP, CMPX #### [address] [address] [employer] Attendant: Damon Jara MD CO2 [Moles/Vol] 23 mmol/L Normal 20-31 [facility] Comment on above: Performed By: #### C DP, CMPX #### [address] [address] [employer] Attendant: Damon Jara MD Creatinine [Mass/Vol] 0.6 mg/dL Normal 0.50-0.90 [facility] Comment on above: Performed By: #### C DP, CMPX #### [address] [address] [employer] Attendant: Damon Jara MD GFR/1.73 sq M.predicted among non-blacks MDRD (S/P/Bld) [Vol rate/Area] mL/min/{1.73_m2} Normal >60 [facility] Comment on above: Result Comment: These results [...] renal tubular secretion. Performed By: #### C DP, CMPX #### [facility] [address] [place] [address] Popcorn Attendant: Damon Jara MD Glucose [Mass/Vol] 149 mg/dL High 74-99 [facility] Comment on above: Performed By: #### C DP, CMPX #### [facility] [employer] [address] [place] [address] [employer] Attendant: Damon Jara MD Potassium [Moles/Vol] 3.8 mmol/L Normal 3.7-5.3 [facility] Comment on above: Performed By: #### C DP, CMPX #### [facility] [employer] [address] [place] [address] [employer] Attendant: Damon Jara MD Protein [Mass/Vol] 6.4 g/dL Low 6.6-8.7 [facility] Comment on above: Performed By: #### C DP, CMPX #### [facility] [employer] [address] [place] [address] [employer] Attendant: Damon Jara MD Sodium [Moles/Vol] 140 mmol/L Normal 136-145 [facility] Comment on above: Performed By: #### C DP, CMPX #### [facility] [employer] [address] [place] [address] [employer] Attendant: Damon Jara MD Urea nitrogen [Mass/Vol] 7 mg/dL Normal 6-20 [facility] Comment on above: Performed By: #### C DP, CMPX #### [facility] [employer] [address] [place] [address] [employer] Attendant: Damon Jara MD Comprehensive Metabolic Pane l w/ Reflex to MGon 12-20-2023 Albumin [Mass/Vol] 3.7 g/dL 3.5 - 5.2 g/dL [facility] Albumin/Globulin [Mass ratio] 1.0 {ratio} 1.0 - 2.5 [facility] ALP [Catalytic activity/Vol] 116 U/L High 35 - 104 U/L [facility] ALT [Catalytic activity/Vol] 32 U/L 10 - 35 U/L [facility] Anion gap [Moles/Vol] 7 mmol/L Low 9 - 16 mmol/L [facility] AST [Catalytic activity/Vol] 51 U/L High 10 - 35 U/L [facility] Bilirubin [Mass/Vol] 1.4 mg/dL High 0.00 - 1.20 mg/dL [facility] Calcium [Mass/Vol] 9.6 mg/dL 8.6 - 10. 4 mg/dL [facility] Chloride [Moles/Vol] 110 mmol/L High 98 - 10 7 mmol/L [facility] CO2 [Moles/Vol] 23 mmol/L 20 - 31 mmol/L [facility] Creatinine [Mass/Vol] 0.6 mg/dL 0.50 - 0.90 mg/dL [facility] Est, Glom Hevert Rate - PINF [facility] Comment on above: These results are not intended for use [...] following therapy that affects renal tubular secretion. Glucose [Mass/Vol] 149 mg/dL High 74 - 99 mg/dL [facility] Interpretation and review of laboratory results Abnormal [facility] Potassium [Moles/Vol] 3.8 mmol/L 3.7 - 5.3 mmol/L [facility] Protein [Mass/Vol] 6.4 g/dL Low 6.6 - 8.7 g/dL [facility] Sodium [Moles/Vol] 140 mmol/L 136 - 145 mmol/L [facility] Urea nitrogen [Mass/Vol] 7 mg/dL 6 - 20 mg/dL [facility] PTon 12-20-2023 INR Coag (PPP) [Relative time] 1.4 {INR} Normal [facility] Comment on above: Result Comment: Therapeutic Range: Moderate Anticoagulant Intensity: INR = 2.0-3.0 High Anticoagulant Intensity: INR = 2.5-3.5 Performed By: #### C DP, CMPX #### [employer] [address] [place], [place] [id number] [employer] Attendant: Damon Jara MD PT Coag (PPP) [Time] 16.5 s High 11.7-14.9 [facility] Comment on above: Performed By: #### C DP, CMPX #### [employer] [address] [place], [place] [phone] [employer] Attendant: Damon Jara MD Protime-INRon 12-20-2023 INR Coag (PPP) [Relative time] 1.4 {INR} [facility] Comment on above: Therapeutic Range: Moderate Anticoagulant Intensity: INR = 2.0-3.0 High Anticoagulant Intensity: INR = 2.5-3.5 Interpretation and review of laboratory results Abnormal [facility] [employer] PT Coag (PPP) [Time] 16.5 s High [facility] US GALLBLADDER RUQon 024 US GALLBLADDER RUQ [...] Mark Somers MD 12/20/23 Final result Normal [facility] US Gallbladderon 12-20-2023 Limited exam demonstrates cholelithiasis and sludge without sonographic evidence to suggest acute cholecystitis. [facility] EXAMINATION: RIGHT UPPER QUADRANT ULTRASOUND 12/20/2023 10:35 [...] No evidence of right upper quadrant ascites. [facility] Mark Somers MD - 12/20/2023 EXAMINATION: RIGHT UPPER QUADRANT ULTRASOUND 12/20/2023 10:35 [...] without sonographic evidence to suggest acute cholecystitis. [facility] Radiology Study observation (narrative) [facility] US GallbladderOrdered By: Karen Somers on 12-20-2023 [facility] Work Phone: Alpha Fetoprotein, Tumor Mar saida 11-13-2023 Alpha Fetoprotein, Tumor Marker 4.4 ug/L Normal <8.4 [facility] Comment on above: Result Comment: The Jose ECLIA assay is used. Results obtained with different assay methods cannot be used interchangeably. Performed at [facility], [address] [place] [address] . C-Peptideon 11-13-2023 C-Peptide 7.3 ng/mL Critically high 1.1-4.4 [facility] Comment on above: Result Comment: Perf ormed at [facility], [address] [place] [address] . CBC With Platelet and Differ entialon 11-12-2023 Basophils (Bld) [#/Vol] 0.0 10*3/uL Normal 0.0-0.2 [facility] Comment on above: Performed By: #### C BCWD ####[facility] [facility] [phone] Basophils/100 WBC (Bld) 0.0 % Normal [facility] Comment on above: Performed By: #### C BCWD ####[facility] [facility] [phone] Eosinophils (Bld) [#/Vol] 0.1 10*3/uL Normal 0.0-0.7 [facility] Comment on above: Performed By: #### C BCWD ####[facility] [facility] [phone] Eosinophils/100 WBC (Bld) 2.0 % Normal [facility] Comment on above: Performed By: #### C BCWD ####[facility] [facility] [phone] Lymphocytes (Bld) [#/Vol] 0.8 10*3/uL Low 1.0-4.8 [facility] Comment on above: Performed By: #### C BCWD ####[facility] [facility] [phone] Lymphocytes/100 WBC (Bld) 12.0 % Normal [facility] Comment on above: Performed By: #### C BCWD ####[facility] [place] [phone] Monocytes (Bld) [#/Vol] 0.3 10*3/uL Normal 0.2-0.8 [facility] Comment on above: Performed By: #### C BCWD ####[facility] [phone] Monocytes/100 WBC (Bld) 7.0 % Normal [facility] Comment on above: Performed By: #### C BCWD ####[facility] [phone] Neutrophils (Bld) [#/Vol] 3.4 10*3/uL Normal 1.4-6.5 [facility] Comment on above: Performed By: #### C BCWD ####[facility] [facility] [phone] Neutrophils/100 WBC (Bld) 73.0 % Normal [facility] Comment on above: Performed By: #### C BCWD ####[facility] [phone] Platelet Slide Review Decreased Normal [facility] Comment on above: Performed By: #### C BCWD ####[facility] [phone] RBC morphology finding Nom (Bld) Normal Normal [facility] Comment on above: Performed By: #### C BCWD ####[facility] [phone] Atypical Lymphs 5 % Normal [facility] Comment on above: Performed By: #### C BCWD ####[facility] [facility] [address] [phone] Myelocytes 1 % Normal [facility] Comment on above: Performed By: #### C BCWD ####[facility] [place] [phone] Erythrocyte distribution width (RBC) [Ratio] 18.6 % Critically high 11.5-14.5 [facility] Comment on above: Performed By: #### C BCWD ####[facility] [facility] [phone] Hematocrit (Bld) [Volume fraction] 40.0 % Normal 37.0-47.0 [facility] Comment on above: Performed By: #### C BCWD ####[facility] [facility] [phone] Hemoglobin (Bld) [Mass/Vol] 13.2 g/dL Normal 12.0-16.0 [facility] Comment on above: Performed By: #### C BCWD ####[facility] [facility] [phone] MCH (RBC) [Entitic mass] 28.3 pg Normal 27.0-31.3 [facility] Comment on above: Performed By: #### C BCWD ####[facility] [facility] [phone] MCHC 33.0 % Normal 33.0-37.0 [facility] Comment on above: Performed By: #### C BCWD ####[facility] [facility] [phone] MCV (RBC) [Entitic vol] 85.7 fL Normal 79.4-94.8 [facility] Comment on above: Performed By: #### C BCWD ####[facility] [facility] [phone] Platelets (Bld) [#/Vol] 87 10*3/uL Low 130-400 [facility] Comment on above: Performed By: #### C BCWD ####[facility] [facility] [phone] RBC (Bld) [#/Vol] 4.67 10*6/uL Normal 4.20-5.40 [facility] Comment on above: Performed By: #### C BCWD ####[facility] [phone] WBC (Bld) [#/Vol] 4.6 10*3/uL Low 4.8-10.8 [facility] Comment on above: Performed By: #### C BCWD ####[facility] [phone] Comprehensive Metabolic Pane jignesh 11-12-2023 Albumin [Mass/Vol] 3.5 g/dL Normal 3.5-4.6 [facility] Comment on above: Performed By: #### C MP #### [facility] [address] [place] [address] ALP [Catalytic activity/Vol] 116 U/L Normal 40-130 [facility] Comment on above: Performed By: #### C MP #### [facility] [address] [place] [address] ALT [Catalytic activity/Vol] 30 U/L Normal 0-33 [facility] Comment on above: Performed By: #### C MP #### [facility] [address] [place] [address] Anion gap [Moles/Vol] 7 mmol/L Low 9-15 [facility] Comment on above: Performed By: #### C MP #### [facility] [address] [place] [address] AST [Catalytic activity/Vol] 49 U/L Critically high 0-35 [facility] Comment on above: Performed By: #### C MP #### [facility] [address] [place] [address] Bilirubin [Mass/Vol] 1.2 mg/dL Critically high 0.2-0.7 [facility] Comment on above: Performed By: #### C MP #### [facility] [address] [place] [address] Calcium [Mass/Vol] 9.5 mg/dL Normal 8.5-9.9 [facility] Comment on above: Performed By: #### C MP #### [facility] [address] [place] [address] Chloride [Moles/Vol] 110 mmol/L Critically high 95-107 [facility] Comment on above: Performed By: #### C MP #### [facility] [address] [place] [address] CO2 [Moles/Vol] 22 mmol/L Normal 20-31 [facility] Comment on above: Performed By: #### C MP #### [facility] [address] [place] [address] Creatinine [Mass/Vol] 0.57 mg/dL Normal 0.50-0.90 [facility] Comment on above: Performed By: #### C MP #### [facility] [address] [place] [address] GFR >90.0 Normal >60 [facility] Comment on above: Result Comment: [...] secretion. Performed By: #### C MP #### [facility] [address] [place] [address] Globulin (S) [Mass/Vol] 2.6 g/dL Normal 2.3-3.5 [facility] Comment on above: Performed By: #### C MP #### [facility] [address] [place] [address] Glucose [Mass/Vol] 160 mg/dL Critically high 70-99 [facility] Comment on above: Performed By: #### C MP #### [facility] [address] [place] [address] Potassium [Moles/Vol] 3.9 mmol/L Normal 3.4-4.9 [facility] Comment on above: Performed By: #### C MP #### [facility] [address] [place] [address] Protein [Mass/Vol] 6.1 g/dL Low 6.3-8.0 [facility] Comment on above: Performed By: #### C MP #### [facility] [address] [place] [address] Sodium [Moles/Vol] 139 mmol/L Normal 135-144 [facility] Comment on above: Performed By: #### C MP #### [facility] [address] [place] [address] Urea nitrogen [Mass/Vol] 6 mg/dL Normal 6-20 [facility] Comment on above: Performed By: #### C MP #### [facility] [address] [place] [address] Hemoglobin A1Con 11-12-2023 Glucose [Mass/Vol] 126 mg/dL Normal [facility] Comment on above: Result Comment: The ADA and AACC recommend providing the estimated average glucose result to permit better patient understanding of their HBA1c result. Performed at [facility], [address] [place], [place] [id number] . HbA1c (Bld) [Mass fraction] 6.0 % Normal 4.0-6.0 [facility] Lipid Panelon 11-12-2023 Cholesterol [Mass/Vol] 157 mg/dL Normal 0-199 [facility] Comment on above: Result Comment: ATP III Cholesterol classification is Desirable. Performed By: #### L IPID ####[facility] [place] [phone] Cholesterol in HDL [Mass/Vol] 53 mg/dL Normal 40-59 [facility] Comment on above: Result Comment: [...] for CHD Performed By: #### L IPID ####[facility] [facility] [phone] Cholesterol in LDL [Mass/Vol] 92 mg/dL Normal 0-129 [facility] Comment on above: Result Comment: ATP III LDL Classification is Optimal. Performed By: #### L IPID ####[facility] [facility] [phone] Triglyceride [Mass/Vol] 59 mg/dL Normal 0-150 [facility] Comment on above: Result Comment: ATP III Triglycerides Classification is Normal. Performed By: #### L IPID ####[facility] [facility] [phone] Prothrombin Timeon INR Coag (PPP) [Relative time] 1.4 {INR} Normal [facility] Comment on above: Performed By: #### P T ####[facility] [facility] [phone] PT Coag (PPP) [Time] 16.9 s Critically high 12.3-14.9 [facility] Comment on above: Performed By: #### P T ####[facility] [facility] [phone] TSH w/Reflexon 11-12-2023 TSH w/Reflex 2.320 uIU/mL Normal 0.440-3.86 [facility] Comment on above: Result Comment: Free T4 will automatically reflex with a TSH result of <0.270 or >4.200 Performed By: #### T SHR ####[facility] [facility] [phone] Thyroxine Freeon 11-12-2023 Thyroxine Free 0.80 ng/dL Low 0.84-1.68 [facility] Comment on above: Performed By: #### F RT4 #### [facility] [address] [place] [address] Alpha Fetoprotein, Tumor Mar sadia 09-08-2023 Alpha Fetoprotein, Tumor Marker 3.1 ug/L Normal <8.4 [facility] Comment on above: Result Comment: The Jose ECLIA assay is used. Results obtained with different assay methods cannot be used interchangeably. Performed at [facility], [address] [place] [address] . Ferritinon 09-08-2023 Ferritin [Mass/Vol] 18 ng/mL Normal 13-150 [facility] Comment on above: Result Comment: FERRITIN Reference Ranges: Adult Males 20 - 60 years: 30 - 400 ng/mL Adult females 17 - 60 years: 13 - 150 ng/mL Adults greater than 60 years: no established reference range Pediatrics: no established reference range Performed at [facility], [address] [place] [address] . Iron Binding Capon 4 % Fe Saturation 9 % Low 20-55 [facility] Iron [Mass/Vol] 34 ug/dL Low 37-145 [facility] Total Fe Binding Cap 359 ug/dL Normal 250-450 [facility] Fe Bind Cap 325 ug/dL Normal 112-347 [facility] Comment on above: Result Comment: Perf ormed at [facility], [address] [place] [address] . CBC With Platelet and Differ entialon 09-07-2023 Anisocytosis Ql (Bld) 1+ Normal [facility] Comment on above: Performed By: #### C BCWD ####[facility] [place] [phone] Basophils (Bld) [#/Vol] 0.1 10*3/uL Normal 0.0-0.2 [facility] Comment on above: Performed By: #### C BCWD ####[facility] [place] [phone] Basophils/100 WBC (Bld) 2.0 % Normal [facility] Comment on above: Performed By: #### C BCWD ####[facility] [place] [phone] Eosinophils (Bld) [#/Vol] 0.1 10*3/uL Normal 0.0-0.7 [facility] Comment on above: Performed By: #### C BCWD ####[facility] [place] [phone] Eosinophils/100 WBC (Bld) 2.0 % Normal [facility] Comment on above: Performed By: #### C BCWD ####[facility] [place] [phone] Lymphocytes (Bld) [#/Vol] 0.7 10*3/uL Low 1.0-4.8 [facility] Comment on above: Performed By: #### C BCWD ####[facility] [place] [phone] Lymphocytes/100 WBC (Bld) 27.0 % Normal [facility] Comment on above: Performed By: #### C BCWD ####[facility] [place] [phone] Monocytes (Bld) [#/Vol] 0.2 10*3/uL Normal 0.2-0.8 [facility] Comment on above: Performed By: #### C BCWD ####[facility] [place] [phone] Monocytes/100 WBC (Bld) 6.8 % Normal [facility] Comment on above: Performed By: #### C BCWD ####[facility] [place] [phone] Neutrophils (Bld) [#/Vol] 1.7 10*3/uL Normal 1.4-6.5 [facility] Comment on above: Performed By: #### C BCWD ####[facility] [place] [phone] Neutrophils/100 WBC (Bld) 63.0 % Normal [facility] Comment on above: Performed By: #### C BCWD ####[facility] [facility] [place] [phone] Ovalocytes 1+ Normal [facility] Comment on above: Performed By: #### C BCWD ####[facility] [place] [phone] Platelet Slide Review Decreased Normal [facility] Comment on above: Performed By: #### C BCWD ####[facility] [place] [phone] Poikilocytosis 1+ Normal [facility] Comment on above: Performed By: #### C BCWD ####[facility] [place] [phone] Erythrocyte distribution width (RBC) [Ratio] 17.4 % Critically high 11.5-14.5 [facility] Comment on above: Performed By: #### C BCWD ####[facility] [place] [phone] Hematocrit (Bld) [Volume fraction] 34.4 % Low 37.0-47.0 [facility] Comment on above: Performed By: #### C BCWD ####[facility] [place] [phone] Hemoglobin (Bld) [Mass/Vol] 10.9 g/dL Low 12.0-16.0 [facility] Comment on above: Performed By: #### C BCWD ####[facility] [place] [phone] MCH (RBC) [Entitic mass] 26.0 pg Low 27.0-31.3 [facility] Comment on above: Performed By: #### C BCWD ####[facility] [place] [phone] MCHC 31.7 % Low 33.0-37.0 [facility] Comment on above: Performed By: #### C BCWD ####[facility] [place] [phone] MCV (RBC) [Entitic vol] 82.1 fL Normal 79.4-94.8 [facility] Comment on above: Performed By: #### C BCWD ####[facility] [place] [phone] Platelets (Bld) [#/Vol] 80 10*3/uL Low 130-400 [facility] Comment on above: Performed By: #### C BCWD ####[facility] [place] [phone] RBC (Bld) [#/Vol] 4.19 10*6/uL Low 4.20-5.40 [facility] Comment on above: Performed By: #### C BCWD ####[facility] [place] [phone] WBC (Bld) [#/Vol] 2.7 10*3/uL Low 4.8-10.8 [facility] Comment on above: Performed By: #### C BCWD ####[facility] [place] [phone] Comprehensive Metabolic Pane jignesh 09-07-2023 Albumin [Mass/Vol] 3.7 g/dL Normal 3.5-4.6 [facility] Comment on above: Performed By: #### C MP #### [facility] [address] [place] [address] ALP [Catalytic activity/Vol] 80 U/L Normal 40-130 [facility] Comment on above: Performed By: #### C MP #### [facility] [address] [place] [address] ALT [Catalytic activity/Vol] 16 U/L Normal 0-33 [facility] Comment on above: Performed By: #### C MP #### [facility] [address] [place] [address] Anion gap [Moles/Vol] 12 mmol/L Normal 9-15 [facility] Comment on above: Performed By: #### C MP #### [facility] [address] [place] [address] AST [Catalytic activity/Vol] 28 U/L Normal 0-35 [facility] Comment on above: Performed By: #### C MP #### [facility] [address] [place] [address] Bilirubin [Mass/Vol] 1.2 mg/dL Critically high 0.2-0.7 [facility] Comment on above: Performed By: #### C MP #### [facility] [address] [place] [address] Calcium [Mass/Vol] 9.4 mg/dL Normal 8.5-9.9 [facility] Comment on above: Performed By: #### C MP #### [facility] [address] [place] [address] Chloride [Moles/Vol] 107 mmol/L Normal 95-107 [facility] Comment on above: Performed By: #### C MP #### [facility] [address] [place] [address] CO2 [Moles/Vol] 22 mmol/L Normal 20-31 [facility] Comment on above: Performed By: #### C MP #### [facility] [address] [place] [address] Creatinine [Mass/Vol] 0.41 mg/dL Low 0.50-0.90 [facility] Comment on above: Performed By: #### C MP #### [facility] [address] [place] [address] GFR >90.0 Normal >60 [facility] Comment on above: Result Comment: Skyla atric calculator link https://www.kidney.org/professionals/kdoqi/gfr_calculatorped Effective Dec 09, 2021 These results are not intended for use in patients <18 years of age. eGFR results are calculated without a race factor using the 2021 CKD-EPI equation. Careful clinical correlation is recommended, particularly when comparing to results calculated using previous equations. The CKD-EPI equation is less accurate in patients with extremes of muscle mass, extra-renal metabolism of creatinine, excessive creatinine ingestion, or following therapy that affects renal tubular secretion. Performed By: #### C MP #### [facility] [address] [place] [address] Globulin (S) [Mass/Vol] 2.8 g/dL Normal 2.3-3.5 [facility] Comment on above: Performed By: #### C MP #### [facility] [address] [place] [address] Glucose [Mass/Vol] 179 mg/dL Critically high 70-99 [facility] Comment on above: Performed By: #### C MP #### [facility] [address] [place] [address] Potassium [Moles/Vol] 3.9 mmol/L Normal 3.4-4.9 [facility] Comment on above: Performed By: #### C MP #### [facility] [address] [place] [address] Protein [Mass/Vol] 6.5 g/dL Normal 6.3-8.0 [facility] Comment on above: Performed By: #### C MP #### [facility] [address] [place] [address] Sodium [Moles/Vol] 141 mmol/L Normal 135-144 [facility] Comment on above: Performed By: #### C MP #### [facility] [address] [place] [address] Urea nitrogen [Mass/Vol] 5 mg/dL Low 6-20 [facility] Comment on above: Performed By: #### C MP #### [facility] [address] [place] [address] Ferritinon 05-20-2023 Ferritin [Mass/Vol] 47 ng/mL Normal 13-150 [facility] Comment on above: Result Comment: FERRITIN Reference Ranges: Adult Males 20 - 60 years: 30 - 400 ng/mL Adult females 17 - 60 years: 13 - 150 ng/mL Adults greater than 60 years: no established reference range Pediatrics: no established reference range Performed at [facility], [address] [place] [address] . Iron Binding Capon 4 % Fe Saturation 19 % Low 20-55 [facility] Iron [Mass/Vol] 78 ug/dL Normal 37-145 [facility] Total Fe Binding Cap 417 ug/dL Normal 250-450 [facility] Fe Bind Cap 339 ug/dL Normal 112-347 [facility] Comment on above: Result Comment: Perf ormed at [facility], [address] [place] [address] . Thyroid Peroxidase(TPO) Abon 05-07-2023 Thyroid Peroxidase(TPO) Ab 966.0 IU/mL Critically high 0.0-25.0 [facility] Comment on above: Result Comment: Reference Range: <25.0 Negative 25.0-35.0 Equivocal >35.0 Positive When results are Equivocal, it is recommended to retest after 8-12 weeks. Performed at [facility], [address] [place] [address] . CBC With Platelet No Differe ntialon 05-05-2023 Erythrocyte distribution width (RBC) [Ratio] 19.8 % Critically high 11.5-14.5 [facility] Comment on above: Performed By: #### C BCND #### [facility] [address] [place] [address] Hematocrit (Bld) [Volume fraction] 33.9 % Low 37.0-47.0 [facility] Comment on above: Performed By: #### C BCND #### [facility] [address] [place] [address] Hemoglobin (Bld) [Mass/Vol] 10.0 g/dL Low 12.0-16.0 [facility] Comment on above: Performed By: #### C BCND #### [facility] [address] [place] [address] MCH (RBC) [Entitic mass] 22.1 pg Low 27.0-31.3 [facility] Comment on above: Performed By: #### C BCND #### [facility] [address] [place] [address] MCHC 29.5 % Low 33.0-37.0 [facility] Comment on above: Performed By: #### C BCND #### [facility] [address] [place] [address] MCV (RBC) [Entitic vol] 75.0 fL Low 79.4-94.8 [facility] Comment on above: Performed By: #### C BCND #### [facility] [address] [place] [address] Platelets (Bld) [#/Vol] 108 10*3/uL Low 130-400 [facility] Comment on above: Performed By: #### C BCND #### [facility] [address] [place] [address] RBC (Bld) [#/Vol] 4.52 10*6/uL Normal 4.20-5.40 [facility] Comment on above: Performed By: #### C BCND #### [facility] [address] [place] [address] WBC (Bld) [#/Vol] 4.2 10*3/uL Low 4.8-10.8 [facility] Comment on above: Performed By: #### C BCND #### [facility] [address] [place] [address] Comprehensive Metabolic Pane jignesh 05-05-2023 Anion gap [Moles/Vol] 9 mmol/L Normal 9-15 [facility] Comment on above: Performed By: #### C MP #### [facility] [address] [place] [address] Albumin [Mass/Vol] 3.9 g/dL Normal 3.5-4.6 [facility] Comment on above: Performed By: #### C MP #### [facility] [address] [place] [address] ALP [Catalytic activity/Vol] 112 U/L Normal 40-130 [facility] Comment on above: Performed By: #### C MP #### [facility] [address] [place] [address] ALT [Catalytic activity/Vol] 18 U/L Normal 0-33 [facility] Comment on above: Performed By: #### C MP #### [facility] [address] [place] [address] AST [Catalytic activity/Vol] 31 U/L Normal 0-35 [facility] Comment on above: Performed By: #### C MP #### [facility] [address] [place] [address] Bilirubin [Mass/Vol] 0.7 mg/dL Normal 0.2-0.7 [facility] Comment on above: Performed By: #### C MP #### [facility] [address] [place] [address] Calcium [Mass/Vol] 10.1 mg/dL Critically high 8.5-9.9 [facility] Comment on above: Performed By: #### C MP #### [facility] [address] [place] [address] Chloride [Moles/Vol] 104 mmol/L Normal 95-107 [facility] Comment on above: Performed By: #### C MP #### [facility] [address] [place] [address] CO2 [Moles/Vol] 24 mmol/L Normal 20-31 [facility] Comment on above: Performed By: #### C MP #### [facility] [address] [place] [address] Creatinine [Mass/Vol] 0.46 mg/dL Low 0.50-0.90 [facility] Comment on above: Performed By: #### C MP #### [facility] [address] [place] [address] GFR >60.0 Normal >60 [facility] Comment on above: Result Comment: [...] secretion. Performed By: #### C MP #### [facility] [address] [place] [address] Globulin (S) [Mass/Vol] 2.9 g/dL Normal 2.3-3.5 [facility] Comment on above: Performed By: #### C MP #### [facility] [address] [place] [address] Glucose [Mass/Vol] 236 mg/dL Critically high 70-99 [facility] Comment on above: Performed By: #### C MP #### [facility] [address] [place] [address] Potassium [Moles/Vol] 4.4 mmol/L Normal 3.4-4.9 [facility] Comment on above: Performed By: #### C MP #### [facility] [address] [place] [address] Protein [Mass/Vol] 6.8 g/dL Normal 6.3-8.0 [facility] Comment on above: Performed By: #### C MP #### [facility] [address] [place] [address] Sodium [Moles/Vol] 137 mmol/L Normal 135-144 [facility] Comment on above: Performed By: #### C MP #### [facility] [address] [place] [address] Urea nitrogen [Mass/Vol] 9 mg/dL Normal 6-20 [facility] Comment on above: Performed By: #### C MP #### [facility] [address] [place] [address] Hemoglobin A1con 05-05-2023 HbA1c (Bld) [Mass fraction] 9.6 % Critically high 4.8-5.9 [facility] Comment on above: Performed By: #### C MP #### [facility] [address] [place] [address] Prothrombin Timeon 4 INR Coag (PPP) [Relative time] 1.2 {INR} Normal [facility] Comment on above: Performed By: #### C MP #### [facility] [address] [place] [address] PT Coag (PPP) [Time] 15.2 s Critically high 12.3-14.9 [facility] Comment on above: Performed By: #### C MP #### [facility] [address] [place] [address] TSH w/out Reflexon 4 TSH w/out Reflex 1.860 uIU/mL Normal 0.440-3.86 [facility] Comment on above: Performed By: #### T SH #### [facility] [address] [place] [address] Thyroxine Freeon 05-05-2023 Thyroxine Free 0.92 ng/dL Normal 0.84-1.68 [facility] Comment on above: Performed By: #### F RT4 #### [facility] [address] [place] [address] UR Microalbumin/Creatinine R atio Randomon 05-05-2023 Microalbumin/creatini ne Ratio see below Normal 0.0-30.0 [facility] Comment on above: Result Comment: - UR Microalbumin concentration is less than 1.2 mg/dL. - Unable to calculate Microalbumin/Creatinine Ratio without a Microalbumin concentration. Performed By: #### C MP #### [facility] [address] [place] [address] UR Creatinine Random 65.9 mg/dL Normal Not [facility] Comment on above: Performed By: #### C MP #### [facility] [address] [place] [address] UR Microalbumin Random <1.20 Normal Not [facility] Comment on above: Performed By: #### C MP #### [facility] [address] [place] [address] CNOVon 03-19-2023 CNOV Office Visit (KATIE ) ILEANA WILSON ([id number]) 1965 F [facility] Date Time Provider Department 03/19/23 10:00 AM [...] Name: Ileana Wilson [address] [place] [address] Accompanied by: self This consult was requested [...] large spurs 05/2020 s/p R TKR in [place], needs a revision due to loose kneecap 02/2023 S/p L TKR in [place], still needs a revision since not cemented Allergic to steroid and gel injections, developed swelling afterwards Pain in hands Swelling of hands and knees, worse in PM Tried motrin for years since [employer] with some relief/not allowed per GI More pain/swelling since off motrin Allowed to take tylenol per GI/hepatology Reports pain 10/16 No falls/fx/trauma/illnes s/oral sores/rash/hairloss/ja w pain/dysphagia/epistax is/hemoptysis. No adverse effects with meds. No other [...] yes Dactylitis: no H/o precedent/frequent infection(s): no Enthesopathy/Krysten's /heel/plantar tenderness: s/p b/l carpal tunnel syndrome release Skin thickening, psoriasis, photosensitivity, purpura: no Nail changes: no Alpecia, patchy: no Eye inflammation: glasses SICCA: no Oral/nasal/genital ulcers: no GI problems-diarrhea/blee ding/IBD/Gluten intolerence/Dysphagia: gerd Raynaud's phenomenon/digital ulcers: no Organ inv-Serositis: reactive airway disease Lung disease/ILD: reactive airway disease Myopathy/proximal muscle weakness: no Abnormal Urine or urethritis: no Renal/liver disease: diabetes caused cirrhosis/non alcoholic (NICOLE) diagnosed Spring 2022 [employer]/PNS/sz/cva/cancer disease: no HEME-Cytopenias/LAD/Cl ots: no Fevers: no Fatigue: yes, sleeps 4 [...] hormones; G3, P1, 2miscarriage Colonoscopy: stable in [place], benign colon polyps Bone Density:stable years ago [...] R TKR, 02/2023 S/p L TKR in [place], s/p septoplasty, s/p TANDA, s/p wisdom teeth extraction, 2020 s/p Right rotator cuff tear repair, 05/2020 s/p Left rotator cuff tear with anchor PAST MEDICAL HISTORY Diagnosis Date Asthma Diabetes mellitus (HCC) Portal hypertension (HCC) PAST SURGICAL HISTORY: s/p left ankle/foot surgery ~2002, s/p b/l knee scope, ~2000s S/p b/l carpal tunnel syndrome, 05/2020 s/p R TKR, 02/2023 S/p L TKR in [place], s/p septoplasty, s/p (more content not included)... Normal [facility] Liya 03-19-2023 CNPN Telephone (RULTTB) ILEANA WILSON ([id number]) 1965 F [place] Date Time Provider Department 03/19/23 TEJ SMITH (CEDRIC) RULTTB During your visit today, we recorded [...] Status:Closed by VERA SHAFFER on 03/23/23 Normal [facility] CT ABDOMEN PELVIS W WO CONTR Kenzie [...] will not respect a delayed release to [facility].-> What reading provider will be dictating [...] No pelvic mass, adenopathy, or fluid collection. Peritoneum/Retroperito neum: No evidence of lymphadenopathy. Aorta is normal [...] Byron Mendez MD 02/19/23 Final result Normal [facility] US ABDOMEN LIMITEDon 023 US ABDOMEN LIMITED EXAMINATION: RIGHT UPPER QUADRANT ULTRASOUND 02/19/2023 8:03 am COMPARISON: None. HISTORY: ORDERING SYSTEM PROVIDED HISTORY: Gastroesophageal reflux disease without esophagitis TECHNOLOGIST PROVIDED HISTORY: This procedure can be scheduled via [employer]. Access your [employer]at account by visiting [email or web address]. Reason for exam:->cirrhosis Specify organ?->LIVER FINDINGS: LIVER: [...] Byron Mendez MD 02/19/23 Final result Normal [facility] XR SHOULDER LEFT 2+ VIEWSon 02-16-2023 XR SHOULDER LEFT 2+ VIEWS Interpreted By: Patrice Mallory, STUDY: XR SHOULDER LEFT 2+ VIEWS; ; 02/16/2023 3:00 pm INDICATION: Signs/Symptoms:PAIN. ACCESSION NUMBER(S): [id number] ORDERING CLINICIAN: PATRICE MALLORY FINDINGS: AP lateral oblique views of the left shoulder show good alignment of the glenohumeral joint. There is slight inferior humeral head spurring and irregularity to the articular surface. No acute fractures identified. Signed by: Patrice Mallory 02/16/2023 3:58 PM Dictation workstation: [id number] [facility] Comment on above: Order Comment: 4 V Alpha Fetoprotein, Tumor Mar saida 01-13-2023 Alpha Fetoprotein, Tumor Marker 2.3 ug/L Normal <8.4 [facility] Comment on above: Result Comment: The Jose ECLIA assay is used. Results obtained with different assay methods cannot be used interchangeably. Performed at [facility], [address] [place], [place] [id number] . CBC With Platelet and Differ entialon 01-12-2023 Platelet Slide Review Decreased Normal [facility] Comment on above: Performed By: #### C BCWD #### [facility] [address] [place] [address] Slide Review see below Normal [facility] Comment on above: Result Comment: Slid e review agrees with reported results Performed By: #### C BCWD #### [facility] [address] [place] [address] Anisocytosis Ql (Bld) 1+ Normal [facility] Comment on above: Performed By: #### C BCWD #### [facility] [address] [place] [address] Basophils (Bld) [#/Vol] 0.0 10*3/uL Normal 0.0-0.2 [facility] Comment on above: Performed By: #### C BCWD #### [facility] [address] [place] [address] Basophils/100 WBC (Bld) 1.0 % Normal [facility] Comment on above: Performed By: #### C BCWD #### [facility] [address] [place] [address] Eosinophils (Bld) [#/Vol] 0.1 10*3/uL Normal 0.0-0.7 [facility] Comment on above: Performed By: #### C BCWD #### [facility] [address] [place] [address] Eosinophils/100 WBC (Bld) 2.0 % Normal [facility] Comment on above: Performed By: #### C BCWD #### [facility] [address] [place] [address] Hypochromia 1+ Normal [facility] Comment on above: Performed By: #### C BCWD #### [facility] [address] [place] [address] Lymphocytes (Bld) [#/Vol] 0.6 10*3/uL Low 1.0-4.8 [facility] Comment on above: Performed By: #### C BCWD #### [facility] [address] [place] [address] Lymphocytes/100 WBC (Bld) 17.0 % Normal [facility] Comment on above: Performed By: #### C BCWD #### [facility] [address] [place] [address] Microcytic 1+ Normal [facility] Comment on above: Performed By: #### C BCWD #### [facility] [address] [place] [address] Monocytes (Bld) [#/Vol] 0.1 10*3/uL Low 0.2-0.8 [facility] Comment on above: Performed By: #### C BCWD #### [facility] [address] [place] [address] Monocytes/100 WBC (Bld) 1.9 % Normal [facility] Comment on above: Performed By: #### C BCWD #### [facility] [address] [place] [address] Neutrophils (Bld) [#/Vol] 3.0 10*3/uL Normal 1.4-6.5 [facility] Comment on above: Performed By: #### C BCWD #### [facility] [address] [place] [address] Neutrophils/100 WBC (Bld) 78.0 % Normal [facility] Comment on above: Performed By: #### C BCWD #### [facility] [address] [place] [address] Ovalocytes 1+ Normal [facility] Comment on above: Performed By: #### C BCWD #### [facility] [address] [place] [address] Poikilocytosis 2+ Normal [facility] Comment on above: Performed By: #### C BCWD #### [facility] [address] [place] [address] Polychromasia 1+ Normal [facility] Comment on above: Performed By: #### C BCWD #### [facility] [address] [place] [address] Smudge Cells 22.1 Normal [facility] Comment on above: Performed By: #### C BCWD #### [facility] [address] [place] [address] Erythrocyte distribution width (RBC) [Ratio] 18.6 % Critically high 11.5-14.5 [facility] Comment on above: Performed By: #### C BCWD #### [facility] [address] [place] [address] Hematocrit (Bld) [Volume fraction] 34.8 % Low 37.0-47.0 [facility] Comment on above: Performed By: #### C BCWD #### [facility] [address] [place] [address] Hemoglobin (Bld) [Mass/Vol] 10.3 g/dL Low 12.0-16.0 [facility] Comment on above: Performed By: #### C BCWD #### [facility] [address] [place] [address] MCH (RBC) [Entitic mass] 21.9 pg Low 27.0-31.3 [facility] Comment on above: Performed By: #### C BCWD #### [facility] [address] [place] [address] MCHC 29.6 % Low 33.0-37.0 [facility] Comment on above: Performed By: #### C BCWD #### [facility] [address] [place] [address] MCV (RBC) [Entitic vol] 74.0 fL Low 79.4-94.8 [facility] Comment on above: Performed By: #### C BCWD #### [facility] [address] [place] [address] Platelets (Bld) [#/Vol] 99 10*3/uL Low 130-400 [facility] Comment on above: Performed By: #### C BCWD #### [facility] [address] [place] [address] RBC (Bld) [#/Vol] 4.70 10*6/uL Normal 4.20-5.40 [facility] Comment on above: Performed By: #### C BCWD #### [facility] [address] [place] [address] WBC (Bld) [#/Vol] 3.8 10*3/uL Low 4.8-10.8 [facility] Comment on above: Performed By: #### C BCWD #### [facility] [address] [place] [address] Comprehensive Metabolic Pane jignesh 01-12-2023 Albumin [Mass/Vol] 3.8 g/dL Normal 3.5-4.6 [facility] Comment on above: Performed By: #### C MP #### [facility] [address] [place] [address] ALP [Catalytic activity/Vol] 112 U/L Normal 40-130 [facility] Comment on above: Performed By: #### C MP #### [facility] [address] [place] [address] ALT [Catalytic activity/Vol] 22 U/L Normal 0-33 [facility] Comment on above: Performed By: #### C MP #### [facility] [address] [place] [address] Anion gap [Moles/Vol] 10 mmol/L Normal 9-15 [facility] Comment on above: Performed By: #### C MP #### [facility] [address] [place] [address] AST [Catalytic activity/Vol] 45 U/L Critically high 0-35 [facility] Comment on above: Performed By: #### C MP #### [facility] [address] [place] [address] Bilirubin [Mass/Vol] 0.7 mg/dL Normal 0.2-0.7 [facility] Comment on above: Performed By: #### C MP #### [facility] [address] [place] [address] Calcium [Mass/Vol] 9.4 mg/dL Normal 8.5-9.9 [facility] Comment on above: Performed By: #### C MP #### [facility] [address] [place] [address] Chloride [Moles/Vol] 108 mmol/L Critically high 95-107 [facility] Comment on above: Performed By: #### C MP #### [facility] [address] [place] [address] CO2 [Moles/Vol] 24 mmol/L Normal 20-31 [facility] Comment on above: Performed By: #### C MP #### [facility] [address] [place] [address] Creatinine [Mass/Vol] 0.44 mg/dL Low 0.50-0.90 [facility] Comment on above: Performed By: #### C MP #### [facility] [address] [place] [address] GFR >60.0 Normal >60 [facility] Comment on above: Result Comment: [...] secretion. Performed By: #### C MP #### [facility] [address] [place] [address] Globulin (S) [Mass/Vol] 3.1 g/dL Normal 2.3-3.5 [facility] Comment on above: Performed By: #### C MP #### [facility] [address] [place] [address] Glucose [Mass/Vol] 148 mg/dL Critically high 70-99 M [facility] Comment on above: Performed By: #### C MP #### [facility] [address] [place] [address] Potassium [Moles/Vol] 3.8 mmol/L Normal 3.4-4.9 [facility] Comment on above: Performed By: #### C MP #### [facility] [address] [place] [address] Protein [Mass/Vol] 6.9 g/dL Normal 6.3-8.0 [facility] Comment on above: Performed By: #### C MP #### [facility] [address] [place] [address] Sodium [Moles/Vol] 142 mmol/L Normal 135-144 [facility] Comment on above: Performed By: #### C MP #### [facility] [address] [place] [address] Urea nitrogen [Mass/Vol] 6 mg/dL Normal 6-20 [facility] Comment on above: Performed By: #### C MP #### [facility] [address] [place] [address] Prothrombin Timeon 3 INR Coag (PPP) [Relative time] 1.2 {INR} Normal [facility] Comment on above: Performed By: #### C MP #### [facility] [address] [place] [address] PT Coag (PPP) [Time] 15.1 s Critically high 12.3-14.9 [facility] Comment on above: Performed By: #### C MP #### [facility] [address] [place] [address] POCT Glucoseon 12-10-2022 Glucose [Mass/Vol] 300 mg/dL Critically high 70-99 M [facility] Comment on above: Performed By: #### P GLU #### [facility] [address] [place] [address] POC Performed on ACCU-CHEK Normal [facility] Comment on above: Performed By: #### P GLU #### [facility] [address] [place] [address] Surgical Specimenon 12-11-19 23 Surgical Specimen [facility] [address] [place] [address] FINAL SURGICAL PATHOLOGY REPORT Patient Name: ILEANA WILSON Accession No: [id number] Age Sex: 1965 [facility] Account No: [id number] Collected: 12/10/2022 Med Rec No: [id number] Received: 12/11/2022 Attend Phys: ADENIKE STEVE Completed: 12/12/2022 Perform Phys: ADENIKE STEVE FINAL DIAGNOSIS: GASTRIC BIOPSIES: SUPERFICIAL GASTRIC MUCOSA, NO PATHOLOGIC DIAGNOSIS NEGATIVE FOR HELICOBACTER PYLORI COMMENT: IMMUNOHISTOCHEMICAL STAINING FOR HELICOBACTER PYLORI IS NEGATIVE. IMMUNOHISTOCHEMICAL CONTROL IS APPROPRIATE. [facility] CLINICAL INFORMATION: Procedure: EGD. Preoperative diagnosis: Cirrhosis, esophageal varices in alcoholic cirrhosis. SPECIMEN: Gastric Biopsies GROSS DESCRIPTION: Received in one container labeled Ileana Wilson and designated stomach . The specimen is received in formalin fixative. The specimen consists of portions of white soft tissue, 0.4 x 0.3 x 0.1 cm in aggregate. The specimen is submitted in toto in one cassette. [facility] CPT: 45005 X1 61542 X1 J LOURDES DESAI M.D. 12/12/2022 Electronically signed out by Page 1 of 1 Invalid Interpretation Code [facility] Comment on above: Performed By: #### S UR #### [facility] [address] [place] [address] NM BONE SCAN 3 PHASEon 11-29 1. Three-phase positive uptake associated with the [...] lateral aspect of the right tibial component. [facility] Danish Gutierrez MD - 11/29/2022 EXAMINATION: [...] knee arthroplasty. Correlate with any corresponding symptoms. [facility] BONE SCAN 3 PHASEOrdered By: Danish Gutierrez on 11-29-2022 [facility] Work Phone: [place] BONE SCAN 3 PHASEon 11-28 NM BONE [...] Danish Gutierrez MD 11/29/22 Final result Normal [facility] Radiology Study observation (narrative) [facility] POCT Glucoseon 11-05-2022 Glucose [Mass/Vol] 207 mg/dL Critically high 70-99 M [facility] Comment on above: Performed By: #### P GLU #### [facility] [address] [facility] [address] POC Performed on ACCU-CHEK Normal 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 Susceptibility artifact from total knee arthroplasty [facility] EXAMINATION: MRI OF THE LEFT KNEE [...] There is mild inferior prepatellar bursal swelling [facility] Byron Mendez MD - 10/28/2022 EXAMINATION: [...] femur Susceptibility artifact from total knee arthroplasty [facility] Radiology Study observation (narrative) [facility] MRI KNEE LEFT WO CONTRASTOrd ered By: Arinamarilis Andrea on 10-28-2022 [facility] [employer] Work Phone: CNOVon 10-16-2022 CNOV Office Visit (ENDONR ) ILEANA WILSON ([id number]) 1965 F [place] Date Time Provider Department 10/16/22 12:40 PM CHRISSY MOSER ENDONR During your visit today, we recorded the following information about you: Referring Provider: JENNIFER CHAPA [[id number]] Allergies As of Date: 10/16/2022 Noted Allergy Reaction ALEVE (NAPROXEN SODIUM) 12/30/2011 8 - GI Upset MORPHINE 07/23/2022 14 - Other: See Comments Comments: Doesn't work for pain Date Reviewed: 07/23/2022 Reviewed by: Marialuisa Quevedo MA - Fully Assessed Reason for Visit: New Patient [172] Primary Visit Diagnosis:Diabetes mellitus type 2 in obese (HCC) [E11.69, E66.9] Order(s):CONSULT TO ENDOCRINOLOGY [9006] Order #: [id number]: 1 Prescriptions as of 10/17/2022 - beclomethasone [...] Status:Closed by CHRISSY MOSER on 10/17/22 Normal [facility] US FIBROSCANon 10-14-2022 US FIBROSCAN Table formatting fro m the original result was not included. Velocity Controlled Transient Elastography (Fibroscan) Distilling Department Supervisor: Katherine Castillo Attending: Adenike Steve MD Patient [...] Clinical, laboratory and radiological correlations indicated Adenike Steve MD [facility] Interpreted by: Adenike Steve MD Signed by: Adenike Steve MD 10/18/22 Final result Normal [facility] XR KNEE LEFT (3 VIEWS)on XR KNEE LEFT (3 VIEWS) 3 views of the left knee were taken showing left total knee arthroplasty with implants to be in the appropriate position and alignment. Interpreted by: Scarlett Ordaz DO Signed by: Scarlett Ordaz DO 10/10/22 Final result Normal [facility] CNPNon 07-24-2022 CNPN Telephone ([facility]) ILEANA WILSON ([id number]) 1965 F [facility] Date Time Provider Department 07/24/22 JENNIFER CHAPA [facility] During your visit today, we recorded the [...] calling: self Call patient at: at home [phone] (home) [phone] (cell) Was an appointment scheduled: No Closing statement: Results or non-symptom based questions: Thank you for calling [facility], your call will be returned within [...] , it is OK to leave message [phone] (home) [phone] (cell) Was an appointment scheduled: No Closing [...] were sent as requested MD Soumya Lovett [facility] 08/14/2022 1:11 PM Signed Patient calling. Patient had requested Qvar Redihaler be sent to [facility] for a 90 day supply with 3 refills, but it was sent to [facility] in [place]. Please cancel with [facility] and resend to [facility]. Ana Bocanegra RN [...] Assessed Reason for Visit: Medication Problem [65] Order(s):beclomethason e (QVAR REDIHALER) 40 mcg/actuation inhalerInhale 2 Puffs [...] 1 caps (more content not included)... Normal [facility] CNOVon 07-23-2022 CNOV Office Visit (AAPMOC ) ILEANA WILSON ([id number]) 1965 F [place] Date Time Provider Department 07/23/22 9:15 AM [facility] During your visit today, we recorded the [...] been well controlled She recently moved to [place] from [place] about 2 weeks ago. She was exposed [...] daily. Do not mix with other insulins. sulfamethoxazole-trime thoprim (BACTRIM DS) 800-160 mg per tablet Take [...] (FLONASE) 50 mcg/actuation nasal spray Use 1 [place] in each nostril once daily. No current [...] Pt rep (more content not included)... Normal [facility] 07-23-2022 [facility] Telephone ([facility]) ILEANA WILSON ([id number]) 1965 F [place] Date Time Provider Department 07/23/22 JENNIFER CHAPA [facility] During your visit today, we recorded the following information about you: Marialuisa Quevedo MA 07/23/2022 10:57 AM Signed Gave nebulizer to pt Faxed over everything to [facility] doctors at . Received confirmation. [...] Sprays in each nostril once daily. - sulfamethoxazole-trime thoprim (BACTRIM DS) 800-160 mg per tablet Take [...] Status:Closed by MARIALUISA QUEVEDO on 07/23/22 Normal [facility] CBC W Auto Differential pane l (Bld)on 07-20-2022 Basophils (Bld) [#/Vol] 0.05 10*3/uL Normal <0.11 [facility] Comment on above: Order Comment: Speci men Type: BLOOD SPECIMENOrdering Facility: [facility] Address: [address] [address] Performed By: #### 5 7021-8 ####[facility] [id number] [place] [address] [place] Basophils/100 WBC (Bld) 0.5 % Normal [facility] Comment on above: Order Comment: Speci men Type: BLOOD SPECIMENOrdering Facility: [facility] Address: [address] [address] Performed By: #### 5 7021-8 ####[facility] [id number] [place] [address] [place] Differential cell count method Nom (Bld) Auto Normal [facility] Comment on above: Order Comment: Speci men Type: BLOOD SPECIMENOrdering Facility: [facility] Address: [address] [address] Performed By: #### 5 7021-8 ####[facility] [id number] [place] [address] [place] Eosinophils (Bld) [#/Vol] 0.11 10*3/uL Normal <0.46 [facility] Comment on above: Order Comment: Speci men Type: BLOOD SPECIMENOrdering Facility: [facility] Address: [address] [address] Performed By: #### 5 7021-8 ####[facility] [id number] [place] [address] [place] Eosinophils/100 WBC (Bld) 1.0 % Normal [facility] Comment on above: Order Comment: Speci men Type: BLOOD SPECIMENOrdering Facility: [facility] Address: [address] [address] Performed By: #### 5 7021-8 ####[facility]ORYCLIA [id number] [address] [place] Erythrocyte distribution width (RBC) [Ratio] 19.9 % High 11.5-15.0 [facility] Comment on above: Order Comment: Speci men Type: BLOOD SPECIMENOrdering Facility: [facility] Address: [address] [address] Performed By: #### 5 7021-8 ####[facility] [id number] [address] [place] Hematocrit (Bld) [Volume fraction] 29.5 % Low 36.0-46.0 [facility] Comment on above: Order Comment: Speci men Type: BLOOD SPECIMENOrdering Facility: [facility] Address: [address] [address] Performed By: #### 5 7021-8 ####[facility] [id number] [address] [place] Hemoglobin (Bld) [Mass/Vol] 9.2 g/dL Low 11.5-15.5 [facility] Comment on above: Order Comment: Speci men Type: BLOOD SPECIMENOrdering Facility: [facility] Address: [address] [address] Performed By: #### 5 7021-8 ####[facility] [id number] [address] [place] Immature granulocytes (Bld) [#/Vol] 0.05 10*3/uL Normal <0.10 [facility] Comment on above: Order Comment: Speci men Type: BLOOD SPECIMENOrdering Facility: [facility] Address: [address] [address] Performed By: #### 5 7021-8 ####[facility] [id number] [address] [place] Immature granulocytes/100 WBC (Bld) 0.5 % Normal [facility] Comment on above: Order Comment: Speci men Type: BLOOD SPECIMENOrdering Facility: [facility] Address: [address] [place] [address] Performed By: #### 5 7021-8 ####[facility] [id number] [place] [address] [place] Lymphocytes (Bld) [#/Vol] 1.05 10*3/uL Normal 1.00-4.00 [facility] Comment on above: Order Comment: Speci men Type: BLOOD SPECIMENOrdering Facility: [facility] Address: [address] [place] [address] Performed By: #### 5 7021-8 ####[facility] [id number] [address] [place] Lymphocytes/100 WBC (Bld) 9.6 % Normal [facility] Comment on above: Order Comment: Speci men Type: BLOOD SPECIMENOrdering Facility: [facility] Address: [address] [place] [address] Performed By: #### 5 7021-8 ####[facility] [id number] [place] [address] [place] MCH (RBC) [Entitic mass] 23.6 pg Low 26.0-34.0 [facility] Comment on above: Order Comment: Speci men Type: BLOOD SPECIMENOrdering Facility: [facility] Address: [address] [place] [address] Performed By: #### 5 7021-8 ####[facility] [id number] [place] [address] [place] MCHC (RBC) [Mass/Vol] 31.2 g/dL Normal 30.5-36.0 [facility] Comment on above: Order Comment: Speci men Type: BLOOD SPECIMENOrdering Facility: [facility] Address: [address] [address] Performed By: #### 5 7021-8 ####[facility] [id number] [place] [address] [place] MCV (RBC) [Entitic vol] 75.6 fL Low 80.0-100.0 [facility] Comment on above: Order Comment: Speci men Type: BLOOD SPECIMENOrdering Facility: [facility] [facility] Address: [address] [address] Performed By: #### 5 7021-8 ####[facility] [id number] [place] [address] [place] Monocytes (Bld) [#/Vol] 1.15 10*3/uL High <0.87 [facility] Comment on above: Order Comment: Speci men Type: BLOOD SPECIMENOrdering Facility: [facility] Address: [address] [address] Performed By: #### 5 7021-8 ####[facility] [id number] [place] [address] [place] Monocytes/100 WBC (Bld) 10.5 % Normal [facility] Comment on above: Order Comment: Speci men Type: BLOOD SPECIMENOrdering Facility: [facility] Address: [address] [address] Performed By: #### 5 7021-8 ####[facility] [id number] [place] [address] [place] Neutrophils (Bld) [#/Vol] 8.58 10*3/uL High 1.45-7.50 [facility] Comment on above: Order Comment: Speci men Type: BLOOD SPECIMENOrdering Facility: [facility] Address: [address] [address] Performed By: #### 5 7021-8 ####[facility] [id number] [place] [address] [place] Neutrophils/100 WBC (Bld) 77.9 % Normal [facility] Comment on above: Order Comment: Speci men Type: BLOOD SPECIMENOrdering Facility: [facility] Address: [address] Performed By: #### 5 7021-8 ####[facility] [id number] [place] [address] [place] Nucleated RBC (Bld) [#/Vol] 10*3/uL Normal <0.01 [facility] Comment on above: Order Comment: Speci men Type: BLOOD SPECIMENOrdering Facility: [facility] Address: [address] Performed By: #### 5 7021-8 ####[facility] [id number] [address] [place] Nucleated RBC/100 WBC (Bld) [Ratio] 0.0 /100 WBC Normal [facility] Comment on above: Order Comment: Speci men Type: BLOOD SPECIMENOrdering Facility: [facility] Address: [address] Performed By: #### 5 7021-8 ####[facility] [id number] [address] [place] Platelet mean volume (Bld) [Entitic vol] 10.8 fL Normal 9.0-12.7 [facility] l Comment on above: Order Comment: Speci men Type: BLOOD SPECIMENOrdering Facility: [facility] Address: [address] Performed By: #### 5 7021-8 ####[facility] [id number] [place] [address] [place] Platelets (Bld) [#/Vol] 108 10*3/uL Low 150-400 [facility] Comment on above: Order Comment: Speci men Type: BLOOD SPECIMENOrdering Facility: [facility] Address: [address] Result Comment: No c lot detected. Performed By: #### 5 7021-8 ####[facility]ORYCLIA [id number] [place] [address] [place] RBC (Bld) [#/Vol] 3.90 10*6/uL Normal 3.90-5.20 [facility] Comment on above: Order Comment: Speci men Type: BLOOD SPECIMENOrdering Facility: [facility] Address: [address] [place] [address] Performed By: #### 5 7021-8 ####[facility]ORYCLIA [id number] [address] OF [facility] WBC (Bld) [#/Vol] 10.99 10*3/uL Normal 3.70-11.00 [facility] Comment on above: Order Comment: Speci men Type: BLOOD SPECIMENOrdering Facility: [facility] Address: [address] [place] [address] Performed By: #### 5 7021-8 ####[facility] [id number] [address] OF [facility] CT [facility]ST W IVCON PE * * *Final Report* * * DATE OF EXAM: Jul 20 2022 3:13PM [facility] 0540 - CT CHEST W IVCON PE [...] gastroesophageal varices. Partially imaged enlarged spleen. Cholelithiasis. Estimator And Drafter Supervisor (topogram) images: No additional findings. IMPRESSION: Limited evaluation with no CT evidence of acute pulmonary thromboembolic disease. 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 Splenomegaly, partially imaged. Cholelithiasis. Fish Seiner: PSCB Transcribe Date/Time: Jul 20 2022 4:18P Dictated by : Viktor BENZ MD This examination was interpreted and the report reviewed and electronically signed by: Viktor BENZ MD on Jul 20 2022 4:31PM EST [id number] Normal [facility] Comprehensive metabolic 2000 panelon 07-20-2022 Albumin [Mass/Vol] 3.2 g/dL Low 3.9-4.9 [facility]spital Comment on above: Order Comment: Shravan becerra Type: BLOOD SPECIMENOrdering Facility: [facility] Address: [address] [place] [address] Performed By: #### 2 4323-8, 58120-8, 73008-1 ####[facility]ORYCLIA [id number] [place] [address] [place] ALP [Catalytic activity/Vol] 96 U/L Normal 34-123 [facility] Comment on above: Order Comment: Doimnici men Type: BLOOD SPECIMENOrdering Facility: [facility] Address: [address] [address] Performed By: #### 2 4323-8, 92507-6, 11041-8 ####[facility]ORYCLIA [id number] [place] [address] [place] ALT [Catalytic activity/Vol] 14 U/L Normal 7-38 [facility] Comment on above: Order Comment: Speci men Type: BLOOD SPECIMENOrdering Facility: [facility] Address: [address] [address] Performed By: #### 2 4323-8, 83085-9, 20254-1 ####[facility]ORYCLIA [id number] [place] [address] [place] Anion gap [Moles/Vol] 10 mmol/L Normal 9-18 [facility] Comment on above: Order Comment: Speci men Type: BLOOD SPECIMENOrdering Facility: [facility] Address: [address] [address] Performed By: #### 2 4323-8, , 38992-2 ####[facility]ORYCLIA [id number] [place] [address] [place] AST [Catalytic activity/Vol] 25 U/L Normal 13-35 [facility] Comment on above: Order Comment: Speci men Type: BLOOD SPECIMENOrdering Facility: [facility] Address: [address] [address] Performed By: #### 2 4323-8, , 15679-4 ####[facility]ATORYCLIA [id number] [place] [address] [place] Bilirubin [Mass/Vol] 2.6 mg/dL High 0.2-1.3 [facility] Comment on above: Order Comment: Speci men Type: BLOOD SPECIMENOrdering Facility: [facility] Address: [address] [address] Performed By: #### 2 4323-8, 00303-4, 37894-1 ####[facility]ATORYCLIA [id number] [place] [address] [place] Calcium [Mass/Vol] 9.2 mg/dL Normal 8.5-10.2 [facility] Comment on above: Order Comment: Speci men Type: BLOOD SPECIMENOrdering Facility: [facility] Address: [address] [place] [address] Performed By: #### 2 4323-8, , 21373-6 ####[facility] [id number] [place] [address] [place] Chloride [Moles/Vol] 99 mmol/L Normal 97-105 [facility] Comment on above: Order Comment: Speci men Type: BLOOD SPECIMENOrdering Facility: [facility] Address: [address] [place] [address] Performed By: #### 2 4323-8, , 19047-3 ####[facility] [id number] [place] [address] [place] CO2 [Moles/Vol] 24 mmol/L Normal 22-30 [facility] Comment on above: Order Comment: Speci men Type: BLOOD SPECIMENOrdering Facility: [facility] Address: [address] [place] [address] Performed By: #### 2 4323-8, , 15927-3 ####[facility] [id number] [place] [address] [place] Creatinine [Mass/Vol] 0.55 mg/dL Low 0.58-0.96 [facility] Comment on above: Order Comment: Speci men Type: BLOOD SPECIMENOrdering Facility: [facility] Address: [address] [place] [address] Performed By: #### 2 4323-8, , 36089-4 ####[facility] [id number] [place] [address] [place] ESTIMATED GLOMERULAR FILTRATION RATE 107 mL/min/1.73m??? Normal >=60 [facility] Comment on above: Order Comment: Shravan becerra Type: BLOOD SPECIMENOrdering Facility: [facility] Address: [address] [place] [address] Result Comment: Petrona mated Glomerular Filtration Rate [...] actual GFR. Performed By: #### 2 4323-8, 96885-8, 26070-8 ####[facility]ORYCLIA [id number] [place] [address] [place] Glucose [Mass/Vol] 194 mg/dL High 74-99 [facility]spital Comment on above: Order Comment: Shravan becerra Type: BLOOD SPECIMENOrdering Facility: [facility] Address: [address] [place], [place] [address] Result Comment: The [place] Diabetes Association (ADA) provides guidance for cutoff [...] Standards of Medical Care in Diabetes 2016, [place] [employer]. Diabetes Care. 2016.39(Suppl 1). Performed By: #### 2 4323-8, 65503-6, 07699-5 ####[facility]ATORYCLIA [id number] [place] [address] [place] Potassium [Moles/Vol] 3.2 mmol/L Low 3.7-5.1 [facility] Comment on above: Order Comment: Speci men Type: BLOOD SPECIMENOrdering Facility: [facility] Address: [address] [address] Performed By: #### 2 4323-8, 70373-1, 74838-0 ####[facility] [id number] [place] [address] [place] Protein [Mass/Vol] 6.3 g/dL Normal 6.3-8.0 [facility] Comment on above: Order Comment: Speci men Type: BLOOD SPECIMENOrdering Facility: [facility] Address: [address] [address] Performed By: #### 2 4323-8, 51539-5, 04583-5 ####[facility] [id number] [place] [address] [place] Sodium [Moles/Vol] 133 mmol/L Low 136-144 [facility] Comment on above: Order Comment: Speci men Type: BLOOD SPECIMENOrdering Facility: [facility] Address: [address] [place] [address] Performed By: #### 2 4323-8, 69967-8, 69793-5 ####[facility] [id number] [place] [address] [place] Urea nitrogen [Mass/Vol] 10 mg/dL Normal 7-21 [facility] Comment on above: Order Comment: Speci men Type: BLOOD SPECIMENOrdering Facility: [facility] Address: [address] [address] Performed By: #### 2 4323-8, 64256-3, 47952-3 ####[facility] [id number] [place] [address] [place] D dimer FEU PPP-ncon 07-20 Fibrin D-dimer FEU (PPP) [Mass/Vol] 1540 ng/mL FEU High <500 [facility] Comment on above: Order Comment: Speci men Type: BLOOD SPECIMENOrdering Facility: [facility] Address: [address] [place] [address] Performed By: #### 4 8065-7 ####[facility]ORYCLIA [id number] [place] [address] [place] [facility] ECG COMPLETEon 07-20-2022 ECG COMPLETE Ventricular Rate : 9 4 BPM Atrial Rate : 94 BPM P-R Interval : 133 ms QRS Duration : 66 ms Q-T Interval : 275 ms QTC Calculation(Bazett) : 344 ms Calculated P [place] : 41 degrees Calculated R [place] : 60 degrees Calculated T [place] : -21 degrees Sinus rhythm Low voltage, precordial leads Borderline repolarization abnormality Borderline ECG 203 no STEMI Confirmed by RIKKI RIVERA MD, NICHOLAS ([id number]), editor department BREANNE MCCRACKEN ([id number]) on 07/21/2022 8:19:37 AM NAME : ILEANA WILSON PID : [id number] : 1965 Gender : Female Race : ORD : [id number] Procedure Date : Jul 20 2022 13:45:19 Edit Date : Jul 21 2022 08:19:42 Diagnosis: Sinus rhythm Low voltage, precordial leads Borderline repolarization abnormality Borderline ECG 203 no STEMI Confirmed by RIKKI RIVERA MD, NICHOLAS ([id number]), editor department BREANNE MCCRACKEN ([id number]) on 07/21/2022 8:19:37 AM Test Reason : Chest Pain Location : 302 : ED AVED-7 Overread By : RIKKI RIVERA MD, NICHOLAS Edited By : BREANNE MCCRACKEN Referred By : , Acquired by : [id number], Normal [facility] ED NOTEon 07-20-2022 ED NOTE HNO ID: [id number] Author: Vanessa Fontanez RN Service: ? Author [...] no other questions at time of d/c. [facility] ED NOTE HNO ID: [id number] Author: AMAYA Younger Service: ? Author Type: Patient Care Blister Packing Machine Tender Type: ED Notes Filed: 07/20/2022 5:11 PM Note Text: Walking Pulseox Sittin spo2 100 pulse Walkin- 95 spo2 119 pulse [facility] ED NOTE HNO ID: [id number] Author: Vanessa Fontanez RN Service: ? Author Type: Registered Nurse Type: ED Notes Filed: 07/20/2022 2:47 PM Note Text: US at bedside. [facility] ED PROV NOTEon 07-20-2022 ED PROV NOTE HNO ID: [id number] Author: Scarlett Guthrie PA-C Service: Emergency Medicine Author Type: Physician Under Cutter Type: ED Provider Notes Filed: 07/20/2022 9:06 [...] she will be expeditiously followed up. Signature: Barrera Johnson III, MD Date: 07/20/2022 Time: 9:32 PM ED Provider Note Patient Name: Ileana Wilson : 1965 SERVICE DATE: 07/20/22 History Patient presents with: Shortness of Breath: Pt states to have sob x 1 week. Pt has a productive cough x 1 week . Pt had long car ride from [place] 1 week ago HPI: 56-year-old female history of asthma presents emergency department with concern for dyspnea ongoing over the last week progressively worse. Mitts to nonproductive cough. States that she does have intermittent chest pain with this. No associated back pain or abdominal pain. Admits to posttussive emesis without nausea. She has not had fever. Recently moved from [place] to [place] within the last 2 weeks. States roommate [...] respiratory d (more content not included)... Normal [facility] FLUABV+SARS-CoV-2+RSV Pnl Re sp NEPTALI+probeon 07-20-2022 FLUABV+SARS-CoV-2+RSV Pnl Resp NEPTALI+probe COVID 19 RESULT: Not detected The method used is RT-PCR or an equivalent NAAT method. Reference Range(the expected result in uninfected individuals): Not detected INFLUENZA A PCR: Not detected INFLUENZA B PCR: Not detected RSV PCR: Not detected Normal [facility] Comment on above: Performed By: #### 9 5941-1 #### [facility] CLIA [id number] [place] [address] [place] Fibrin D-dimer FEU (PPP) [Luci ss/Vol]on 07-20-2022 D DIMER AGE-RELATED CUTOFF 570 ng/mL FEU Normal [facility] Comment on above: Order Comment: Shravan becerra Type: BLOOD SPECIMENOrdering Facility: [facility] Address: [address] [place] [address] Performed By: #### 4 8065-7 ####[facility]ORYCLIA [id number] [address] [place] HIGH SENSITIVITY TROPONIN T (INITIAL)on 07-20-2022 HIGH SENSITIVITY BRIGITTE <6 Normal <12 [facility] Comment on above: Order Comment: Shravan mariam Type: BLOOD SPECIMENOrdering Facility: [facility] Address: [address] [place] [address] Result Comment: When assessing risk for acute [...] 30 day MACE. Performed By: #### L [id number] ####[facility]ORYCLIA [id number] [address] [place] HIGH SENSITIVITY TROPONIN T (SECOND)on 07-20-2022 HIGH SENSITIVITY BRIGITTE <6 Normal <12 [facility] Comment on above: Order Comment: Shravan mariam Type: BLOOD SPECIMEN [facility] Facility: [facility] Address: [address] [place] [address] Result Comment: When assessing risk for acute [...] 30 day MACE. Performed By: #### L [id number] #### [facility] CLIA [id number] [address] [place] [address] [place] Magnesium SerPl-mCncon 07-20 Magnesium [Mass/Vol] 1.5 mg/dL Low 1.7-2.3 [facility] Comment on above: Order Comment: Speci men Type: BLOOD SPECIMENOrdering Facility: [facility] Address: [place] [address] Performed By: #### 2 4323-8, 82008-0, 38576-8 ####[facility] [id number] [place] [address] [facility] NT-proBNP SerPl-ncon 07-20 Natriuretic peptide.B prohormone N-Terminal [Mass/Vol] 321 pg/mL High <125 [facility] Comment on above: Order Comment: Speci men Type: BLOOD SPECIMENOrdering Facility: [facility] Address: [place] [address] Performed By: #### 2 4323-8, 20246-4, 40124-0 ####[facility]ATORYCLIA [id number] [place] [address] [facility] [place] US DVT LOWER BILon 3 US DVT LOWER GEE * * *Final Report* * * DATE OF EXAM: Jul 20 2022 2:58PM [facility] 1005 - DVT LOWER GEE / [...] of the left and right lower extremities. [facility] Se[facility] Transcribe Date/Time: Jul 20 2022 3:03P Dictated by : SANTIAGO MARIA MD This examination was interpreted and the report reviewed and electronically signed by: SANTIAGO MARIA MD on Jul 20 2022 3:03PM EST [id number] Normal [facility] Urinalysis complete panel (U )on 07-20-2022 Bacteria LM.HPF (Urine sed) [#/Area] Many Abnormal None Seen [facility] Comment on above: Order Comment: Speci men Type: URINE SPECIMEN [facility]ing Facility: [facility] Address: [address] [place], [place] [address] Performed By: #### 2 4356-8 #### [facility] CLIA [id number] [address] [place] [address] [place] [facility] CLIA [id number] [address] [facility] [address] [place] Bilirubin Ql (U) Negative Normal Negative [facility] pital Comment on above: Order Comment: Speci men Type: URINE SPECIMEN [facility]ing Facility: [facility] Address: [address] [place] [address] Performed By: #### 2 4356-8 #### [facility] CLIA [id number] [address] [place], [place] [id number] [place] [address] OF [facility] CLIA [id number] [place] Clarity (Unsp spec) Turbid Abnormal Clear [facility] Comment on above: Order Comment: Speci men Type: URINE SPECIMEN [facility]ing Facility: [facility] Address: [address] [place] [address] Performed By: #### 2 4356-8 #### [facility] CLIA [id number] OF [facility] CLIA [id number] [address] [place] [address] [place] Color (U) Yellow Normal yellow [facility] Comment on above: Order Comment: Speci men Type: URINE SPECIMEN [facility]ing Facility: [facility] Address: [address] [place] [address] Performed By: #### 2 4356-8 #### [facility] CLIA [id number] [address] [place], [place] [id number] [place] [address] OF [facility] CLIA [id number] [address] [place] [address] [place] Epithelial cells LM.HPF (Urine sed) [#/Area] Few Normal [facility] Comment on above: Order Comment: Speci men Type: URINE SPECIMEN [facility]ing Facility: [facility] Address: [address] [place] [address] Result Comment: Few Performed By: #### 2 4356-8 #### [facility] CLIA [id number] [address] [place] [address] [place] [facility] CLIA [id number] [address] [id number] [place] Glucose Test strip (U) [Mass/Vol] Trace Normal Trace, Negative [facility] Comment on above: Order Comment: Speci men Type: URINE SPECIMEN [facility]ing Facility: [facility] Address: [address] [address] Performed By: #### 2 4356-8 #### [facility] CLIA [id number] [address] [place], [place] [address] [place] [address] OF [facility] CLIA [id number] 9500 [place] [address] [place] Hemoglobin Ql (U) Trace Normal Negative, Trace [facility] Comment on above: Order Comment: Speci men Type: URINE SPECIMEN [facility]ing Facility: [facility] Address: [address] [place] [address] Performed By: #### 2 4356-8 #### [facility] CLIA [id number] [place] [address] [facility] CLIA [id number] [address] [place] [address] [place] Ketones Ql (U) Trace Normal Negative, Trace [facility] Comment on above: Order Comment: Speci men Type: URINE SPECIMEN Ordering Facility: [facility] Address: [address] Performed By: #### 2 4356-8 #### [facility] CLIA [id number] [address] [place] [address] [facility] CLIA [id number] [address] [id number] [facility] [place] Leukocyte esterase Test strip Ql (U) 500 Tiffanie/uL Abnormal Negative, 25 Tiffanie/uL [facility] Comment on above: Order Comment: Speci men Type: URINE SPECIMEN [facility]ing Facility: [facility] Address: [address] [place], [place] [address] Performed By: #### 2 4356-8 #### [facility] CLIA [id number] [address] [place] [address] [place] [facility] CLIA [id number] [address] [place] [address] [place] Nitrite Ql (U) 2+ Abnormal Negative [facility] Comment on above: Order Comment: Speci men Type: URINE SPECIMEN Ordering Facility: [facility] Address: [address] [address] Performed By: #### 2 4356-8 #### [facility] [place] [id number] [address] [place] [address] [place] [facility] CLIA [id number] [address] [place] [address] [place] pH (U) 6.0 [pH] Normal 5.0-8.0 [facility] Comment on above: Order Comment: Speci men Type: URINE SPECIMEN Ordering Facility: [facility] Address: [address] [place] [address] Performed By: #### 2 4356-8 #### [facility] [place] [id number] [address] [place] [address] [place] [facility] CLIA [id number] [address] [place] [address] [place] Protein (U) [Mass/Vol] 1+ Abnormal Trace, Negative [facility] Comment on above: Order Comment: Speci men Type: URINE SPECIMEN Ordering Facility: [facility] Address: [address] [place] [address] Performed By: #### 2 4356-8 #### [facility] IA [id number] [address] [place] [address] [place] [facility] CLIA [id number] [address] [place] [address] [place] RBC LM.HPF (Urine sed) [#/Area] 6-10 /HPF Abnormal 0-3 /HPF [facility] Comment on above: Order Comment: Speci men Type: URINE SPECIMEN Ordering Facility: [facility] Address: [address] [place] [address] Performed By: #### 2 4356-8 #### [facility] CLIA [id number] [address] [place], [place] [address] [place] [address] [facility] LAB CLIA [id number] [facility] [address] [place] Specific gravity (U) [Rel density] 1.021 Normal 1.005-1.030 [facility] Comment on above: Order Comment: Speci men Type: URINE SPECIMEN Ordering Facility: [facility] Address: [address] [place] [address] Performed By: #### 2 4356-8 #### [facility] CLIA [id number] [address] [place] [id number] [place] [address] STATES OF [facility] CLIA [id number] [address] [place] [address] OF [facility] Urobilinogen Ql (U) 2+ Abnormal Negative [facility] Comment on above: Order Comment: Speci men Type: URINE SPECIMEN Ordering Facility: [facility] Address: [address] [place] [address] Performed By: #### 2 4356-8 #### [facility] CLIA [id number] [address] [place] [address] OF [place] [facility] CLIA [id number] [address] [place] [address] OF [place] WBC LM.HPF (Urine sed) [#/Area] /[HPF] Abnormal 0-5 /HPF [facility] Comment on above: Order Comment: Speci men Type: URINE SPECIMEN Ordering Facility: [facility] Address: [address] [place] [address] Performed By: #### 2 4356-8 #### [facility] CLIA [id number] [address] [place] [id number] [place] [facility] CLIA [id number] [address] [place], [place] [address] [address] [place] Urinalysis complete pnl [...] Escherichia coli ORGANISM ID: 1 (ESCHERICHIA COLI) -- ANTIBIOTIC INTERPRETATION CHEN STATUS REFERENCE RANGE -- Ampicillin R >=32 F Susceptible <=8 , [...] , Intermediate >32 , Resistant >64 Abnormal [facility] Comment on above: Order Comment: Speci men Type: URINE SPECIMEN Ordering Facility: [facility] Address: [address] [id number] Performed By: #### 2 4356-8 #### [facility] CLIA [id number] [address] [facility] [place], [place] [id number] [place] [address] OF [facility] LAB CLIA [id number] [address] [facility] DESK [id number] [id number] [facility] XR CHEST 1V FRONTAL PORTon 0 07-20-2022 [...] which may be exaggerated by AP imaging. Fish Seiner: MYRANDA Transcribe Date/Time: Jul 20 2022 3:11P Dictated by : Viktor BENZ MD This examination was interpreted and the report reviewed and electronically signed by: Viktor BENZ MD on Jul 20 2022 3:17PM EST [id number] [facility] Vital Signs Date Time Vital Sign Value Performing Clinician Isabellei waldo 12-24-2023 16:27-0400 Body temperature 98.4 [degF] Woody Chadwick MD Work Phone: Press 12-24-2023 16:27-0400 Diastolic blood pressure 70 mm[Hg] Woody Chadwick MD Work Phone: [facility] 12-24-2023 16:27-0400 Heart rate 64 /min Woody Chadwick MD Work Phone: [facility] 12-24-2023 16:27-0400 Respiratory rate 18 /min Woody Chadwick MD Work Phone: [facility] 12-24-2023 16:27-0400 SaO2% (BldA) [Mass fraction] 94 % Woody Chadwick MD Work Phone: [facility] 12-24-2023 16:27-0400 Systolic blood pressure 109 mm[Hg] Woody Chadwick MD Work Phone: [facility] 12-22-2023 12:35-0400 Body height 154.9 cm Woody Chadwick MD Work Phone: [facility] 12-22-2023 12:35-0400 Body mass index (BMI) [Ratio] 44.59 kg/m2 Woody Chadwick MD Work Phone: [facility] 12-22-2023 12:35-0400 Body weight 107.05 kg Woody Chadwick MD Work Phone: [facility] [email or web address] 07-23-2022 09:16-0400 Body height 154.9 cm Jennifer Chapa MD Work Phone: [facility] 07-23-2022 09:16-0400 Body weight 106.14 kg Jennifer Chapa MD Work Phone: [facility] 07-23-2022 09:16-0400 Diastolic blood pressure 64 mm[Hg] Jennifer Chapa MD Work Phone: [facility] 07-23-2022 09:16-0400 Heart rate 88 /min Jennifer Chapa MD Work Phone: [facility] 07-23-2022 09:16-0400 SaO2% (BldA) [Mass fraction] 99 % Jennifer Chapa MD Work Phone: [facility] 07-23-2022 09:16-0400 Systolic blood pressure 103 mm[Hg] Jennifer Chapa MD Work Phone: [facility] Encounters Encounter Date Encounter Type Care Provider Facility Start: 12-20-2023 End: 12-24-2023 Evaluation and management of inpatient Woody Chadwick MD Work Phone: [facility] Comment on above: Acute cholecystitis Start: 07-13-2023 End: 07-13-2023 ambulatory RADHA GRIFFITH Not Available Start: 03-19-2023 End: 03-19-2023 ambulatory MARI SOMERS Facility:[facility] Start: 02-20-2023 End: 02-21-[address] [facility] Start: 02-20-2023 End: 02-20-2023 Office outpatient new 45 minutes Nathan Cohen MD Work Phone: [facility] Comment on above: Left knee pain, unsp ecified chronicity (Primary Dx); History of total knee replacement, left Start: 02-19-2023 End: 02-22-2023 ambulatory DANIEL TEJADA [facility] Start: 02-16-2023 End: 02-17-2023 [facility] Start: 02-16-2023 End: 02-17-2023 [facility] Start: 02-16-2023 End: 02-16-2023 Office outpatient visit 15 minutes Patrice Mallory MD Work Phone: [facility] Comment on above: History of total kne e replacement, left (Primary Dx); Pain in joint of left shoulder; Left shoulder strain, sequela Start: 01-13-2023 End: 01-14-2023 ambulatory DANIEL E [facility]ALLORY [facility] Start: 01-08-2023 ambulatory DANIEL E MALLORY [facility] Start: 01-06-2023 End: 01-07-2023 ambulatory DANIEL [...] Start: 12-15-2022 End: 2022 ambulatory PATRICE Hoang [facility] Start: 12-10-2022 End: 12-10-2022 ambulatory DANIEL E MALLORY [facility] Start: 12-09-2022 End: 12-10-2022 ambulatory DANIEL E MALLORY [facility] Start: 12-04-2022 End: 12-05-2022 [facility] Start: 12-02-2022 End: 12-03-2022 ambulatory [facility]LETT [facility] Start: 11-28-2022 End: 12-01-2022 ambulatory [facility] Start: 11-28-2022 End: 12-01-2022 ambulatory DANIEL E MALLORY [facility] Start: 11-28-2022 End: 11-30-2022 Subsequent hospital visit by physician Scarlett Ordaz DO Work Phone: [facility] Comment on above: Arrived Start: 11-27-2022 End: 11-28-2022 ambulatory DANIEL E MALLORY [facility] Start: 11-25-2022 End: 11-26-2022 ambulatory DANIEL E MALLORY [facility] Start: 11-20-2022 End: 11-20-2022 Subsequent hospital visit by physician Scarlett Ordaz DO Work Phone: [facility] Comment on above: Canceled (Other) Start: [...] by physician Scarlett Ordaz DO Work Phone: [facility] Comment on above: Arrived Start: 10-28-2022 End: 10-31-2022 ambulatory DANIEL E MALLORY [facility] Start: 10-28-2022 End: 10-30-2022 Subsequent hospital visit by physician Scarlett Ordaz DO Work Phone: [facility] Comment on above: Left knee pain, unsp ecified chronicity Start: 10-16-2022 ambulatory JENNIFER MEKA Facility:[facility] Start: 10-16-2022 End: 10-16-2022 Patient encounter procedure Chrissy Moser MD Work Phone: Endocrinology Comment on above: Diabetes mellitus ty pe 2 in obese (HCC) (Primary Dx) Start: 10-14-2022 ambulatory DANIEL Zhanna [facility] Start: 10-10-2022 End: 10-13-2022 ambulatory DANIEL E MALLORY [facility] Start: 07-24-2022 ambulatory PAUL GROVERCliftonBRODERICK Facility: [facility] Start: 07-23-2022 End: 07-23-2022 ambulatory JENNIFER CHAPA Facility:[facility] Start: 07-23-2022 End: 07-23-2022 Patient encounter procedure Jennifer Chapa MD Work Phone: Allergy Comment on above: Mild intermittent as thma with acute exacerbation (Primary Dx); Elevated blood sugar; Chronic rhinitis Start: 07-20-2022 Emergency department patient visit CE SIMONS Facility:[facility] Start: 01-28-2012 End: 01-28-2012 Telephone encounter Vera Richardson Work Phone: Orthopaedics Comment on above: Schedule Surgery Procedures Date Procedure Procedure Detail Performing Clinician Start: 12-24-2023 Electrolyte panel Vikram Bashir DO Work Phone: Start: 12-24-2023 Assay of osmolality urine Patrice Bashir DO Work Phone: Start: 12-24-2023 Glucose blood reagent strip Patrice Bashir DO Work Phone: Start: 12-24-2023 End: 12-24-2023 Electrolyte panel Patrice Bashir DO Work Phone: Start: 12-24-2023 PREVIOUS SPECIMEN Vikram Bashir DO Work Phone: Start: 12-24-2023 Comprehensive metabo lic panel Wiley Lama DO Work Phone: Start: 12-23-2023 Glucose blood reagent strip Patrice Bashir DO Work Phone: Start: 12-23-2023 Glucose blood reagent strip Patrice Bashir DO Work Phone: Start: 12-23-2023 Glucose blood reagent strip Patrice Bashir DO Work Phone: Start: 12-23-2023 Comprehensive metabo lic panel Wiley Lama DO Work Phone: Start: 12-22-2023 Antibody screen Woody Chadwick MD Work Phone: Start: 12-22-2023 Glucose blood reagent strip Patrice Bashir DO Work Phone: Start: 12-22-2023 Glucose blood reagent strip Patrice Bashir DO Work Phone: Start: 12-22-2023 SURGICAL PATHOLOGY REPORT Loi Love MD Work Phone: Start: 12-22-2023 End: 12-22-2023 Laparoscopy surg cholecystectomy Loi Love MD Work Phone: Start: 12-22-2023 Glucose blood reagent strip Patrice Bashir DO Work Phone: Start: 12-22-2023 Glucose blood reagent strip Patrice Bashir DO Work Phone: Start: 12-22-2023 Prothrombin time Kajal Sam DO Work Phone: Start: 12-22-2023 Glucose blood reagent strip Maureen Boyce MD Work Phone: Start: 12-21-2023 Glucose blood reagent strip Maureen Boyce MD Work Phone: Start: 12-21-2023 Glucose blood reagent strip Maureen Boyce MD Work Phone: Start: 12-21-2023 Glucose blood reagent strip Maureen Boyce MD Work Phone: Start: 12-21-2023 Mri abdomen w/o & w/ contrast material Kajal Sam DO Work Phone: Start: 12-21-2023 Ecg routine ecg w/le ast 12 lds i&r only Luh Dietrich MD Work Phone: Start: 12-21-2023 BLOOD BANK SPECIMEN Flori юлия S Yobany DO Work Phone: Start: 12-21-2023 Blood typing serologic abo Lucita Palacios DO Work Phone: Start: 12-21-2023 End: 12-21-2023 Hemoglobin glycosylated a1c Liana Thompson RESAW MACHINE OPERATOR - CONTROL TECHNICIAN Work Phone: Start: 12-20-2023 Us abdominal real ti me w/image limited Lucita Palacios DO Work Phone: Start: 12-20-2023 Prothrombin time Kajal Sam DO Work Phone: Start: 12-20-2023 Blood count complete auto&auto difrntl wbc Maureen Boyce MD Work Phone: Start: 02-20-2023 AMB REFERRAL TO ORTH OPAEDIC SURGERY PATRICE MALLORY Start: 02-16-2023 XR SHOULDER [...] Author Start: 09-16-2025 DIABETES SCREEN DIABETES SCREEN [facility] Start: 07-20-2025 DIABETES SCREEN DIABETES SCREEN [facility] Start: 12-23-2024 GFR test (Diabetes, CKD 3-4, OR last GFR 15-59) GFR test (Diabetes, CKD 3-4, OR last GFR 15-59) [facility] Start: 12-20-2024 Hemoglobin A1c measurement A1C test (Diabetic or Prediabetic) [facility] Start: 11-11-2024 Lipid panel [facility] Start: 09-27-2024 Diabetic foot examination Diabetic foot exam [employer] Start: 07-06-2024 Depression Screen Depression Screen [facility] Start: 07-06-2024 HIV screening HIV screen [facility] Comment on above: Postponed from 12/17/1979 (Patient Refus ed) Start: 07-06-2024 Pneumococcal 0-64 years Vaccine (1 of 2 - PCV) Pneumococcal 0-64 years Vaccine (1 of 2 - PCV) [facility] Comment on above: Postponed from 1970 (Not Indicated ) Start: 07-06-2024 Shingles vaccine (1 of 2) Shingles vaccine (1 of 2) [facility] Comment on above: Postponed from 2014 (Unavailable) Start: 06-08-2024 Glaucoma screening Diabetic retinal exam [facility] Start: 05-05-2024 Urine screening for protein Diabetic Alb to Cr ratio (uACR) test [facility] Start: 01-04-2024 End: 01-04-2024 Patient encounter procedure 01/04/2024 3:30 PM EDT [facility] [address] [facility] [address] [place] [address] [id number] Kev Tamez PA [address] [facility] [address] [place] [address] 3 month [facility] Comment on above: 3 month Start: 11-08-2023 COVID-19 Vaccine ( season) COVID-19 Vaccine ( season) [facility] Start: 11-08-2023 GFR test (Diabetes, CKD 3-4, OR last GFR 15-59) GFR test (Diabetes, CKD 3-4, OR last GFR 15-59) [facility] Start: 10-08-2023 Influenza vaccination Flu vaccine (#1) [facility] Start: 09-18-2023 Diabetic foot examination Diabetic foot exam [facility] Start: 09-17-2023 GFR test (Diabetes, CKD 3-4, OR last GFR 15-59) GFR test (Diabetes, CKD 3-4, OR last GFR 15-59) [facility] Start: 09-17-2023 Lipid panel Lipids [facility] Start: 09-17-2023 Thyroid stimulating hormone measurement TSH Level [facility] Start: 08-23-2023 Depression Screen Depression Screen [facility] Start: 03-04-2023 End: 03-04-2023 Patient encounter procedure 03/04/2023 2:45 PM EST Office Visit [facility] [address] [place] [address], [place] [id number] Patrice Mallory MD [address] [facility] [place] [address] [facility] Start: 02-16-2023 End: 02-17-2024 MR Shoulder - left Arthrogram MR arthrogram shoulder left Imaging Routine Left shoulder strain, sequela Expected: 02/16/2023, Expires: 02/17/2024 [facility] Work Phone: Comment on above: Expected: 02/16/2023, Expires: 4 Start: 02-16-2023 End: 02-17-2024 XR Shoulder - left 2 Views XR shoulder left 2+ views Imaging Routine Pain in joint of left shoulder Expected: 02/16/2023, Expires: 02/17/2024 [facility] Service Area Work Phone: Comment on above: Expected: 02/16/2023, Expires: 4 Start: 02-16-2023 End: 02-17-2024 XR Shoulder - left Views XR arthrogram shoulder left Imaging Routine Left shoulder strain, sequela Expected: 02/16/2023, Expires: 02/17/2024 [facility] Work Phone: Comment on above: Expected: 02/16/2023, Expires: 4 Start: 01-01-2023 End: 01-01-2023 Patient encounter procedure 01/01/2023 11:00 AM EDT Office Visit [facility] [address] [place] [address] Ce Herrera, RESAW MACHINE OPERATOR - CONTROL TECHNICIAN [address] [place] [address] EGD follow up [facility] Comment on above: EGD follow up Start: 12-18-2022 End: 12-18-2022 Patient encounter procedure [facility] Comment on above: 3 month follow up Consistent therapist Start: 12-17-2022 Hemoglobin A1c measurement A1C test (Diabetic or Prediabetic) [facility] Start: 2022 End: 2022 Patient encounter procedure 2022 2:20 PM EDT Appointment [facility] [address] [place] [address] Scarlett Ordaz DO [address] [address] Scarlett Estrada PTA Consistent therapist [facility] Comment on above: Consistent therapist Start: 12-11-2022 End: 12-11-2022 Patient encounter procedure 12/11/2022 2:20 PM EDT Appointment [facility] [address] [address] Scarlett Ordaz DO [address] [address] Scarlett Estrada PTA Consistent therapist [facility] Comment on above: Consistent therapist Start: 12-10-2022 End: 12-10-2022 Admission to same day surgery center 12/10/2022 1:30 PM EDT - 12/10/2022 2:00 PM EDT Surgery [facility] [address] [place] [address] Adenike Steve MD [address] [place] [address] EGD DIAGNOSTIC ONLY [facility] [place] Comment on above: EGD DIAGNOSTIC ONLY Start: 12-10-2022 End: 12-10-2022 Esophagogastroduodenoscopy transoral diagnostic EGD DIAGNOSTIC ONLY Cirrhosis (HCC) 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) 12/10/2022 1:30 PM EDT [facility] Start: 12-10-2022 Subsequent hospital visit by physician 12/10/2022 1:30 PM EDT Hospital Encounter [facility] [address] [place] [address] Adenike Steve MD [address] [place] [address] [facility] Start: 12-09-2022 End: 12-09-2022 Patient encounter procedure 12/09/2022 2:20 PM EDT Appointment [facility] [address] [place] [address] Scarlett Ordaz, DO [address] [facility] [address] [place] [address] Scarlett Estrada PTA Consistent therapist [facility] Comment on above: Consistent therapist Start: 12-09-2022 End: 12-09-2022 Patient encounter procedure [facility] Comment on above: 6 week Start: 12-04-2022 End: 12-04-2022 Patient encounter procedure 12/04/2022 3:00 PM EDT [facility] [address] [address] Scarlett Ordaz, DO [address] [facility] [address] [place] [address] Scarlett Estrada PTA Consistent therapist [facility] Comment on above: Consistent therapist Start: 12-02-2022 End: 12-02-2022 Patient encounter procedure [facility] Comment on above: follow up after bone scan Consistent therapist Start: 11-28-2022 End: 11-28-2022 Patient encounter procedure [facility] Comment on above: EPIC SCHED/PT Start: 11-27-2022 End: 11-27-2022 Patient encounter [facility] Comment on above: Consistent therapist Start: 11-25-2022 End: 11-25-2022 Patient encounter procedure [facility] Comment on above: Consistent therapist Start: 11-24-2022 End: 11-24-2022 Patient encounter procedure [facility] Comment on above: EGD follow up Start: 11-20-2022 End: 11-20-2022 Patient encounter procedure 11/20/2022 Appointment Physical Therapy Scarlett Ordaz, DO [address] [facility] [address] [place] [address] Scarlett Estrada PTA [facility] Start: 11-18-2022 End: 11-18-2022 Patient encounter procedure 11/18/2022 Appointment Physical Therapy Scarlett Ordaz, DO [address] [facility] [address] [place] [address] Scarlett Estrada PTA [facility] Start: 11-13-2022 End: 11-13-2022 Patient encounter procedure 11/13/2022 Appointment [place] [address] [place] [address] [address] [place] [address] Scarlett Estrada PTA [facility] Start: 11-11-2022 End: 11-11-2022 Patient encounter procedure 11/11/2022 Appointment [place] [address] [place] [address] [address] [place] [address] Scarlett Estrada PTA [facility] Start: 11-07-2022 Influenza vaccination [facility] Start: 11-07-2022 End: 11-07-2022 Patient encounter procedure 11/07/2022 Office Visit Orthopedic Surgery Scarlett Ordaz, DO [address] [facility] [address] [place] [address] [facility] Start: 11-05-2022 End: 11-05-2022 Admission to same day surgery center 11/05/2022 Surgery Endoscopy Adenike Steve MD [address] [place] [address] EGD DIAGNOSTIC ONLY [facility] [place] Comment on above: EGD DIAGNOSTIC ONLY Start: 11-05-2022 End: 11-05-2022 Esophagogastroduodenoscopy transoral diagnostic EGD DIAGNOSTIC ONLY Cirrhosis (HCC) 11/05/2022 10:30 AM EDT [facility] Start: 11-05-2022 Subsequent hospital visit by physician 11/05/2022 Hospital Encounter Endoscopy Adenike Steve MD [address] [place] [address] [facility] [place] Start: 11-04-2022 End: 11-04-2022 Patient encounter procedure 11/04/2022 Appointment [place] [address] [place], [place] [phone] [facility] Start: 10-07-2022 Influenza vaccination Flu vaccine (#1) [facility] Start: 03-09-2022 DEPRESSION ASSESSMENT DEPRESSION ASSESSMENT [facility] Start: 11-07-2020 Influenza vaccination INFLUENZA (Season Ended) [facility] Start: 2014 Screening for malignant neoplasm of breast Breast cancer screen [facility] Start: 2014 Screening for malignant neoplasm of colon [facility] Start: 2014 Shingles vaccine (1 of 2) Shingles vaccine (1 of 2) [facility] Start: 2014 SHINGRIX VACCINE (1 of 2) SHINGRIX VACCINE (1 of 2) [facility] Start: 2014 Zoster Vaccines (1 of 2) Zoster Vaccines (1 of 2) [facility] Start: 2009 COLOGUARD (FIT-DNA) COLOGUARD (FIT-DNA) [facility] Start: 2009 Colonoscopy COLONOSCOPY [facility] Start: 2009 COLORECTAL CANCER SCREENING COLORECTAL CANCER SCREENING [facility] Start: [address] COLONOGRAPHY [facility] Start: 2009 DIABETES SCREEN DIABETES SCREEN [facility] Start: 2009 FECAL OCCULT BLOOD FECAL OCCULT BLOOD [facility] Start: 2009 LIPID SCREEN LIPID SCREEN [facility] Start: 2009 Screening for malignant neoplasm of colon [facility] Start: 2009 SIGMOIDOSCOPY SIGMOIDOSCOPY [facility] Start: 2004 Mammography MAMMOGRAM [facility] Start: 2004 Screening for malignant neoplasm of breast [facility] Start: 1994 HPV TESTING HPV TESTING [facility] Start: 1994 Screening for malignant neoplasm of cervix [facility] Start: 1986 DTaP/Tdap/Td Vaccines (1 - Tdap) DTaP/Tdap/Td Vaccines (1 - Tdap) [facility] Start: 1985 PAP TESTING PAP TESTING [facility] Start: 1985 Screening for malignant neoplasm of cervix [facility] Start: 12-17-1983 DTaP/Tdap/Td vaccine (1 - Tdap) DTaP/Tdap/Td vaccine (1 - Tdap) [facility] Start: 12-17-1983 HEPATITIS A (1 of 2 - Risk 2-dose series) HEPATITIS A (1 of 2 - Risk 2-dose series) [facility] Start: 12-17-1983 Hepatitis A vaccine (1 of 2 - Risk 2-dose series) Hepatitis A vaccine (1 of 2 - Risk 2-dose series) [facility] Start: 12-17-1983 Hepatitis A Vaccines (1 of 2 - Risk 2-dose series) Hepatitis A Vaccines (1 of 2 - Risk 2-dose series) [facility] Start: 12-17-1983 Hepatitis B vaccine (1 of 3 - 19+ 3-dose series) Hepatitis B vaccine (1 of 3 - 19+ 3-dose series) [facility] Start: 12-17-1983 Hepatitis B vaccine (1 of 3 - Risk 3-dose series) Hepatitis B vaccine (1 of 3 - Risk 3-dose series) [facility] Start: 12-17-1983 Urine microalbumin profile DTAP,TDAP,TD (1 - Tdap) [facility] Start: 1982 ANNUAL PCP TEAM CHRONIC DISEASE VISIT ANNUAL PCP TEAM CHRONIC DISEASE VISIT [facility] Start: 1982 Glaucoma screening Diabetic retinal exam [facility] Start: 1982 HEPATITIS C SCREENING HEPATITIS C SCREENING [facility] Start: 1982 Hepatitis C screening [facility] Start: 1982 HIV SCREENING HIV SCREENING [facility] Start: 1982 SPIROMETRY SPIROMETRY [facility] Start: 1982 Urine screening for protein Diabetic Alb to Cr ratio (uACR) test [facility] Start: 12-17-1979 HIV screening HIV screen [facility] Start: 1976 Adult depression screening assessment DEPRESSION SCREENING [facility] Start: 1970 PNEUMOCOCCAL (1 - PCV) PNEUMOCOCCAL (1 - PCV) [facility] Start: 1970 Pneumococcal 0-64 years Vaccine (1 - PCV) Pneumococcal 0-64 years Vaccine (1 - PCV) [facility] Start: 1970 Pneumococcal Vaccine: Pediatrics (0 to 5 Years) and At-Risk Patients (6 to 64 Years) (1 - PCV) Pneumococcal Vaccine: Pediatrics (0 to 5 Years) and At-Risk Patients (6 to 64 Years) (1 - PCV) [facility] Start: 1965 HEPATITIS A (1 of 2 - Risk 2-dose series) HEPATITIS A (1 of 2 - Risk 2-dose series) [facility] Start: 1965 Hepatitis A vaccine (1 of 2 - Risk 2-dose series) Hepatitis A vaccine (1 of 2 - Risk 2-dose series) [facility] Start: 1965 MMR Vaccines (1 of 1 - Standard series) MMR Vaccines (1 of 1 - Standard series) [facility] Start: 06-16-1965 COVID-19 VACCINE (#1) COVID-19 VACCINE (#1) [facility] Start: 1964 HEPATITIS B (1 of 3 - 3-dose series) HEPATITIS B (1 of 3 - 3-dose series) [facility] Start: 1964 Hepatitis B vaccine (1 of 3 - 3-dose series) Hepatitis B vaccine (1 of 3 - 3-dose series) [facility] Start: 1964 Hepatitis B Vaccines (1 of 3 - 3-dose series) Hepatitis B Vaccines (1 of 3 - 3-dose series) [facility] Start: 1964 HIV screening HIV Screening [facility] Start: 1964 Lipid panel Lipid Panel [facility] Start: 1964 Screening for malignant neoplasm of colon [facility] Start: 1964 Screening for osteoporosis Bone Density Scan [facility] Start: 1964 Yearly Adult Physical Yearly Adult Physical [facility] End: 01-01-2024 CBC W Auto Differential panel - Blood CBC with Auto Differential Lab Routine Daily for 10 Days starting 12/23/2023 until 01/01/2024, 1 completed Press Comment on above: Daily for 10 Days starting 12/23/2023 un til 01/01/2024, 1 completed End: 01-01-2024 Comprehensive metabolic 2000 panel - Serum or Plasma Comprehensive Metabolic Panel Lab Routine Daily for 10 Days starting 12/23/2023 until 01/01/2024, 2 completed Press Comment on above: Daily for 10 Days starting 12/23/2023 un til 01/01/2024, 2 completed Glucose [Mass/volume ] in Serum or Plasma Press Comment on above: Q4H until discontinued starting 12/20/19 24 As Needed until disc ontinued starting 12/20/2023 4X Daily (AC & HS) u ntil discontinued starting 12/20/2023 Intermittent pulse oximetry Puls e Oximetry Spot Check Respiratory Care Routine As Needed until discontinued starting 12/20/2023 Press Comment on above: As Needed until discontinued starting End: 01-01-2024 Magnesium [Mass/volume] in Serum or Plasma Magnesium Lab Routine Daily for 10 Days starting 12/23/2023 until 01/01/2024, 2 completed Press Comment on above: Daily for 10 Days starting 12/23/2023 un til 01/01/2024, 2 completed Oxygen therapy [[facility] Data Set] Initiate Oxygen Therapy Protocol Respiratory Care Routine As Needed until discontinued starting 12/20/2023 Press Work Phone: Comment on above: As Needed until discontinued starting End: 12-20-2023 PREPARE PLASMA, 2 Units PREPARE PLASMA, 2 Units Blood Bank Routine Once for 1 Occurrences starting 12/20/2023 until 12/20/2023 Press Comment on above: Once for 1 Occurrences starting 12/20/19 until 12/20/2023 End: 12-20-2023 PREPARE RBC (CROSSMATCH), 2 Units PREPARE RBC (CROSSMATCH), 2 Units Blood Bank Routine Once for 1 Occurrences starting 12/20/2023 until 12/20/2023 [facility] Comment on above: Once for 1 Occurrences starting 12/20/19 until 12/20/2023 End: 08-22-2023 SPIROMETRY - BASELINE AND POST DILATOR SPIROMETRY - BASELINE AND POST DILATOR PFT Routine Mild intermittent asthma with acute exacerbation 1 Occurrences starting 07/23/2022 until 08/22/2023 [facility] Work Phone: Comment on above: 1 Occurrences starting 07/23/2022 until 08/22/2023 Surgical pathology study Surgica l Pathology Lab Routine Acute cholecystitis Release Upon Ordering for 1 Occurrences starting 12/22/2023 [facility] Comment on above: Release Upon Ordering for 1 Occurrences starting 12/22/2023 [facility] Payers Date Payer Category Payer Unknown [id number] 2015 Unknown [id number] 2011 Unknown MMO MMO SUPERMED O [id number] 2011-Present HMO [id number] 2011 Unknown [id number] 1964 Unknown [id number] 2.16.840.1.790681.3.579.2.182 1964 Unknown [id number] 2.16.840.1.693211.3.579.2.182 1964 Unknown [id number] 2.16.840.1.162348.3.579.2.182 1964 Unknown [id number] 2.16.840.1.626236.3.579.2.182 1964 Unknown [id number] 2.16.840.1.887866.3.579.2.182 1964 Unknown [id number] 2.16.840.1.991656.3.579.2.182 1964 Unknown [id number] 2.16.840.1.144755.3.579.2.182 1964 Unknown [id number] 2.16.840.1.581894.3.579.2.182 1964 Unknown [id number] 2.16.840.1.585317.3.579.2.182 1964 Unknown [id number] 2.16.840.1.146807.3.579.2.182 1964 Unknown [id number] 2.16840.1.490408.3.579.2.182 1964 Unknown [id number] 2.16840.1.329078.3.579.2.182 1964 Unknown [id number] 2.16840.1.924035.3.579.2.182 1964 Unknown [id number] 2.16.840.1.001943.3.579.2.182 1964 Unknown [id number] 2.16840.1.908385.3.579.2.182 1964 Unknown [id number] 2.16.840.1.742317.3.579.2.182 1964 Unknown [id number] 2.16840.1.755926.3.579.2.182 1964 Unknown [id number] 2.16.840.1.510352.3.579.2.182 1964 Unknown [id number] 2.16.840.1.929684.3.579.2.182 1964 Unknown [id number] 2.16840.1.619492.3.579.2.182 1964 Unknown [id number] 2.16.840.1.689562.3.579.2.182 1964 Unknown [id number] 2.16.840.1.027711.3.579.2.182 1964 Unknown [id number] 2.16.840.1.526959.3.579.2.182 1964 Unknown [id number] 2.16.840.1.686480.3.579.2.182 1964 Unknown [id number] 2.16.840.1.615471.3.579.2.182 1964 Unknown [id number] 2.16.840.1.708418.3.579.2.182 1964 Unknown [id number] 2.16840.1.761693.3.579.2.182 1964 Unknown [id number] 2.16840.1.970811.3.579.2.182 1964 Unknown [id number] 2.16.840.1.157633.3.579.2.1246 1964 Unknown [id number] 2.16.840.1.242921.3.579.2.1246 1964 Unknown [id number] 2.16840.1.788913.3.579.2.1246 1964 Unknown [id number] 2.16840.1.875915.3.579.2.1246 1964 Unknown [id number] 2.16840.1.028662.3.579.2.1259 1964 Unknown [id number] .16840.1.925549.3.579.2.175 Social History Date Type Detail Facility Tobacco smoking status [facility] Unknown if ever smoked [facility] Start: 1965 Sex Assigned At Not on file [facility] Start: 07-23-2022 Tobacco smoking status [facility] Ex-smoker [facility] End: 03-09-1990 History of tobacco use Current smoker [facility] End: 03-09-1990 History of tobacco use Cigarette Smoker [facility] Start: 07-23-2022 End: 10-10-2022 Tobacco use and exposure Smokeless tobacco non-user [facility] Start: 07-23-2022 End: 12-20-2023 History of Social function [facility] Start: 07-23-2022 End: 12-20-2023 Tobacco use panel [facility] National Score (1-100), lower number is lower risk 85 [facility] Start: 10-10-2022 Tobacco smoking status NHIS Never smoked tobacco [employer] Start: 10-28-2022 End: 12-23-2023 Alcohol intake Current drinker of alcohol (finding) [facility] Start: 08-22-2022 History SDOH Financial 5 [employer] Start: 08-22-2022 History SDOH Food Worry 1 [facility] Start: 08-22-2022 History SDOH Transport Non-Med 2 [employer] [facility] Start: 08-22-2022 Alcohol Comment 3 rtimes a year [employer] (I/We) worried whether (my/our) food would run out before (I/we) got money to buy more. Never true [employer] At any time in the past 12 months, were you homeless or living in fdc [including now]? No [employer] Start: 11-05-2022 Alcohol Comment twice a year [employer] Tobacco smoking status WVIS Tobacco smoking consumption unknown [facility] Work Phone: Start: 02-06-2023 End: 02-20-2023 Exposure to SARS-CoV-2 (event) Not sure [facility] Start: 1965 Sex assigned at Female Press Start: 10-26-2023 Gender identity Identifies as female gender (finding) Press NEGATED: Highlighted rowStart: NINF History of tobacco use Passive smoker [facility] Medical Equipment Procedure Code Equipment Code Equipment Origin al Text Equipment Identifier Dates Test 3x daily [id number] Star t: 09-17-2022 1 each by Does n ot apply route daily [id number] Start: 09-17-2022 1 Device by Does not apply route 4 times daily (before meals and nightly) [id number] Start: 10-30-2022 Clip Int L Polym er Tommy Lig Hem O Tommy (6ea/Pk) - [id number] Start: 12-22-2023 Clip Int L Polym er Tommy Lig Hem O Tommy (6ea/Pk) - [id number] Start: 12-22-2023 Clinical Notes 01-28-2012 to 12-24-2023 Nighat Lott RN - 12/24/2023 5:26 PM EDDaniel Keys - 12/24/2023 5:01 PM Patrice Mullen DO - 12/24/2023 10:42 AM EDElizabeth Tolbert APRN - CNP - 12/24/2023 7:36 AM EDTAttachments Note Date & Type Note Facility 12-24-2023 History of Present illness Narrative Pt discharged from unit with all belongings. Pt verbalized understanding of discharge instructions. Pts PIV removed prior to discharge. CLINICAL PHARMACY NOTE: MEDS TO BEDS Total # of Prescriptions Filled: 2 The following medications were delivered to the patient: ZOFRAN 4MG ODT AUGMENTIN 875-125 Additional Documentation: Images from the original note were not included. [facility] Office: [phone] Jax Sheffield DO, Sha Haywood DO, Marshal Velazquez DO, Ryan Williamson DO, Charity Baron MD, Cyndy Diaz MD, Nidia Bridges MD, Maureen Boyce MD, Miguel Lama MD, Woody Chadwick MD, Deion Murray MD, Sivan Ramirez DO, Evan Mcdonnell MD, Abran Dhillon MD, Grant Sheffield DO, Altagracia Addison MD, Barrera Gibbs DO, Terri Us MD, Edel Hart MD, Milagros Sherman MD, Sadie Tom MD, Valdemar Lakhani MD, Sheryl Childers MD, Néstor Law MD, Shubham Lemus MD, Hal Bowman MD, Zahraa Antonio MD, Patrice Bashir DO, Roc Graham MD, Hanna Brooks, KYLE, Lissa Alcala CNP, Patrice Paulson, CONTROL TECHNICIAN, Stephenie Pardo, RAMANDEEP, Margret Garcia, CONTROL TECHNICIAN, Mayra Fletcher, CONTROL TECHNICIAN, Liana Thompson CONTROL TECHNICIAN, Heidi Kang CONTROL TECHNICIAN, Roxanne Arizmendi PA-C, Kanchan Jenkins PA-C, Saadia Lucio, CONTROL TECHNICIAN, Milo Bailey, CONTROL TECHNICIAN, Priscilla Srivastava, CONTROL TECHNICIAN, Rose Nathan, CONTROL TECHNICIAN, Monserrat Auguste CONTROL TECHNICIAN, Elaine Davison, CONTROL TECHNICIAN [facility] IN-PATIENT SERVICE [facility] Progress Note 12/24/2023 10:42 AM Name: Ileana Wilson Acct: [id number] Room: 0333/0333-05 Day: 4 Admit Date: 12/20/2023 3:59 AM PCP: Daniel Tejada PA-C Code Status: Full Code Subjective: C/C: No chief complaint on file. Patient seen on follow-up this morning. Status post laparoscopic cholecystectomy 12/21. She states her abdominal pain has improved, she continues to have some soreness in the right upper quadrant. She is tolerating regular diet this morning. Brief History: 58-year-old female with medical history of NSAH cirrhosis was transferred to [facility] from [facility] after providing with abdominal pain. Imaging at outside hospital was done that was concerning for distended gallbladder and cholecystitis. She was started on Zosyn and transferred to [place] for surgical evaluation. After transfer to [place] she was evaluated by general surgery and GI. MRCP was done which showed acute cholecystitis, no choledocholithiasis. She had cholecystectomy on 12/21. Medications: Allergies: Allergies Allergen Reactions Metformin And Related Swelling Morphine Other reaction(s): Other: See Comments Doesn't work for pain Naproxen Sodium Other reaction(s): GI Upset Nsaids Nausea Only Aleve stomach ache Adhesive Tape Rash Current Meds: Scheduled Meds: polyethylene glycol 17 g Oral Daily famotidine 20 mg Oral Daily scopolamine 1 patch TransDERmal Once acetaminophen 1,000 mg Oral 3 times per day enoxaparin 40 mg SubCUTAneous Daily Insulin Pump - Bolus Dose SubCUTAneous 4x Daily AC & HS Insulin Pump - Basal Dose SubCUTAneous Daily piperacillin-tazobactam 3,375 mg IntraVENous Q8H fluticasone 1 puff Inhalation BID RT levothyroxine 88 mcg Oral Daily Continuous Infusions: PRN Meds: oxyCODONE OR oxyCODONE, HYDROmorphone OR HYDROmorphone, sodium chloride flush, potassium chloride OR potassium alternative oral replacement OR [DISCONTINUED] potassium chloride, ondansetron OR ondansetron, glucose, glucagon (rDNA), fluticasone Data: Past Medical History: has a past medical history of Active asthma, Diabetes (HCC), Fatty liver, Gallstones, Hyperlipidemia, Hypothyroid, Reactive airway disease, and Vertigo. Social History: reports that she has never smoked. She has never been exposed to tobacco smoke. She has never used smokeless tobacco. She reports current alcohol use. She reports that she does not use drugs. Family History: Family History Problem Relation Age of Onset Colon Cancer Neg Hx Vitals: BP 107/64 Pulse 58 Temp 98 F (36.7 C) (Oral) Resp 16 Ht 1.549 m (5' 1 ) Wt 107 kg (236 lb) SpO2 92% BMI 44.59 kg/m Temp (24hrs), Av.3 F (36.8 C), Min:98 F (36.7 C), Max:98.6 F (37 C) Recent Labs 12/23/23 0804 12/23/23 1221 12/23/23200712/24/23 0737 POCGLU 247* 263* 169* 164* I/O (24Hr): Intake/Output Summary (Last 24 hours) at 12/24/2023 1042 Last data filed at 12/24/2023 0659 Gross per 24 hour Intake 300 ml Output 85 ml Net 215 ml Labs: Hematology: Recent Labs 12/22/2343412/23/2363112/24/23 0827 WBC 4.8 9.8 11.0 RBC 3.84* 4.20 3.86* HGB 11.4* 12.4 11.6* HCT 35.3* 38.8 35.2* MCV 91.9 92.4 91.2 MCH 29.7 29.5 30.1 MCHC 32.3 32.0 33.0 RDW 15.3* 14.8* 15.0* PLT 75* 76* See Reflexed IPF Result MPV 11.9 12.2 -- INR 1.4 -- -- Chemistry: Recent Labs 12/22/2343412/23/2363112/24/23 06 NA 136 133* 126* K 3.9 4.6 4.7 CL 106 102 96* CO2 24 22 22 GLUCOSE 146* 262* 164* BUN 8 14 20 CREATININE 0.6 0.8 0.9 MG -- 1.9 2.2 ANIONGAP 6* 9 8* LABGLOM >90 81 72 CALCIUM 8.9 9.6 10.0 Recent Labs 12/22/2343412/22/23 0734 12/22/23 1755 12/22/23 19512/23/23 0632 12/23/23 0804 12/23/23 1221 12/23/23200712/24/23 0625 12/24/23 0737 AST 37* -- -- -- 58* -- -- -- 57* -- ALT 22 -- -- -- 27 -- -- -- 27 -- ALKPHOS 107* -- -- -- 101 -- -- -- 94 -- BILITOT 1.2 -- -- -- 1.7* -- -- -- 1.6* -- POCGLU -- < > 135* 165* -- 247* 263* 169* -- 164* < > = values in this interval not displayed. ABG:No results found for: POCPH , PHART , PH , POCPCO2 , PFC0GGK , PCO2 , POCPO2 , PO2ART , PO2 , POCHCO3 , PVS5SHQ , HCO3 , NBEA , PBEA , BEART , BE , THGBART , THB , PMS5XDA , XCSV4CDK , K9MYVOTU , O2SAT , FIO2 No results found for: SPECIAL No results found for: CULTURE Radiology: MRI ABDOMEN W WO CONTRAST MRCP Result Date: 12/21/2023 1. Distended gallbladder with wall edema and some thickening along with cholelithiasis. Suspect acute cholecystitis. 2. No choledocholithiasis or biliary ductal dilatation. 3. Stigmata of portal hypertension with splenomegaly, portal vein distension and enlarged recanalized umbilical vein extending to the umbilicus where there is a tangle of enlarged veins. US GALLBLADDER RUQ Result Date: 12/20/2023 Limited exam demonstrates cholelithiasis and sludge without sonographic evidence to suggest acute cholecystitis. Physical Examination: General: Alert and oriented, no acute distress Neurologic: Awake, alert, and oriented X3, no focal weakness Lungs: Clear to auscultation, no wheezing, non-labored respiration Heart: Normal rate, regular rhythm, no murmur, gallop or edema Abdomen: Soft, mild tenderness on palpation of right upper quadrant, non-distended, normal bowel sounds Musculoskeletal: Normal strength, no tenderness or swelling Assessment: Hospital Problems Last Modified POA * (Principal) Acute cholecystitis 12/20/2023 Yes Type 2 diabetes mellitus with hyperglycemia, with long-term current use of insulin (HCC) 12/20/2023 Yes Hypothyroidism 12/20/2023 Yes NICOLE (nonalcoholic steatohepatitis) 12/20/2023 Yes Elevated LFTs 12/21/2023 Yes Cirrhosis of liver without ascites (HCC) 12/20/2023 Yes Calculus of gallbladder with cholecystitis without biliary obstruction 12/20/2023 Yes Morbid obesity 12/21/2023 Yes Abdominal pain, right upper quadrant 12/21/2023 Yes Plan: Acute cholecystitis -MRCP showed acute cholecystitis, no choledocholithiasis or biliary duct dilation -Continue on Zosyn, transition to augmentin on dc for total of 7 day course -GI and general surgery following, ok to dc from their perspective -Status post cholecystectomy 12/21 Hypovolemioc hyponatremia -Na 126 this AM, 124 on recheck -Serum osm 277, urine osm 232, urine Na <20 indicating hypovolemic hyponatremia -Giving 500cc NS, recheck Na NICOLE cirrhosis Thrombocytopenia -No acute decompensation -Platelet count stable, likely due to cirrhosis Hypertension -Holding home medications as blood pressure is borderline/low, resume on discharge Diabetes -On home insulin pump Patrice Bashir DO 12/24/2023 10:42 AM [facility] Progress Note Ileana Wilson is a 58 y.o. female patient. Hospitalization Day:4 Chief consult reason: Abnormal LFTs Subjective: Patient seen and examined. Patient reporting right rib pain persists and discomfort at right ZAHRA drain site. Tolerating diet. Objective: VITALS: BP 105/61 Pulse 67 Temp 98.2 F (36.8 C) Resp 16 Ht 1.549 m (5' 1 ) Wt 107 kg (236 lb) SpO2 97% BMI 44.59 kg/m TEMPERATURE: Current - Temp: 98.2 F (36.8 C); Max - Temp Av.4 F (36.9 C) Min: 98.2 F (36.8 C) Max: 98.6 F (37 C) Physical Assessment: General appearance: alert, cooperative and no distress Mental Status: oriented to person, place and time and normal affect Lungs: clear to auscultation bilaterally, normal effort Heart: regular rate and rhythm, no murmur Abdomen: soft, obese, RUQ tenderness, nondistended, ZAHRA drain present with serosanguineous drainage Extremities: no edema, no redness, No clubbing Skin: warm, dry, no gross lesions or rashes CURRENT MEDICATIONS: Scheduled Meds: famotidine 20 mg Oral Daily scopolamine 1 patch TransDERmal Once acetaminophen 1,000 mg Oral 3 times per day enoxaparin 40 mg SubCUTAneous Daily Insulin Pump - Bolus Dose SubCUTAneous 4x Daily AC & HS Insulin Pump - Basal Dose SubCUTAneous Daily piperacillin-tazobactam 3,375 mg IntraVENous Q8H fluticasone 1 puff Inhalation BID RT levothyroxine 88 mcg Oral Daily Continuous Infusions: PRN Meds:oxyCODONE OR oxyCODONE, HYDROmorphone OR HYDROmorphone, sodium chloride flush, potassium chloride OR potassium alternative oral replacement OR [DISCONTINUED] potassium chloride, ondansetron OR ondansetron, polyethylene glycol, glucose, glucagon (rDNA), fluticasone Data Review: LABS and IMAGING: CBC Recent Labs 12/22/2343412/23/23 0632 WBC 4.8 9.8 HGB 11.4* 12.4 HCT 35.3* 38.8 MCV 91.9 92.4 MCHC 32.3 32.0 RDW 15.3* 14.8* PLT 75* 76* Immature PLTs Lab Results Component Value Date/Time PLTFLUORE 94 12/21/2023 07:15 AM PLTFLUORE 98 12/20/2023 08:23 AM PT/INR Recent Labs 12/22/23434 PROTIME 17.0* INR 1.4 ANEMIA STUDIES No results for input(s): IRONPERSAT , TIBC , IRON , FERRITIN , [id number] , FOLATE , OCCULTBLD in the last 72 hours. BMP Recent Labs 12/22/2343412/23/23 0632 12/24/23 0625 NA 136 133* 126* K 3.9 4.6 4.7 CL 106 102 96* CO2 24 22 22 BUN 8 14 20 CREATININE 0.6 0.8 0.9 GLUCOSE 146* 262* 164* CALCIUM 8.9 9.6 10.0 MG -- 1.9 2.2 LFTS Recent Labs 12/22/2343412/23/23 0632 12/24/23 0625 ALKPHOS 107* 101 94 ALT 22 27 27 AST 37* 58* 57* BILITOT 1.2 1.7* 1.6* ALBUMIN 3.3* 3.4* 3.5 AMYLASE/LIPASE/AMMONIA No results for input(s): AMYLASE , LIPASE , AMMONIA in the last 72 hours. Acute Hepatitis Panel Lab Results Component Value Date/Time HEPCAB NONREACTIVE 11/07/2022 12:51 PM HEPAIGM NONREACTIVE 11/07/2022 12:51 PM HCV Genotype No components found for: HEPATITISCGENOTYPE HCV Quantitative No results found for: HCVQNT LIVER WORK UP: AFP Lab Results Component Value Date/Time AFP 4.4 11/12/2023 12:36 PM Alpha 1 antitrypsin Lab Results Component Value Date/Time A1A 150 11/07/2022 12:51 PM Anti - Liver/Kidney Ab No results found for: LIVER-KIDNEYMICROSOMALAB JULITA No results found for: JULITA AMA No results found for: MITOAB ASMA No results found for: SMOOTHMUSCAB Ceruloplasmin No results found for: CERULOPLSM Celiac panel No results found for: TISSTRNTIIGG , TTGIGA , IGA IgG No results found for: IGG IgM No results found for: IGM GGT No results found for: GGT PT/INR Recent Labs 12/22/23 0435 PROTIME 17.0* INR 1.4 Cancer Markers: CEA: No results found for: CEA Ca 125: No results found for: CA125 Ca 19-9: No results found for: CA199 AFP: Lab Results Component Value Date/Time AFP 4.4 11/12/2023 12:36 PM Lactic acid:No results for input(s): LACTACIDWB in the last 72 hours. Radiology Review: MRI ABDOMEN W WO CONTRAST MRCP Final Result 1. Distended gallbladder with wall edema and some thickening along with cholelithiasis. Suspect acute cholecystitis. 2. No choledocholithiasis or biliary ductal dilatation. 3. Stigmata of portal hypertension with splenomegaly, portal vein distension and enlarged recanalized umbilical vein extending to the umbilicus where there is a tangle of enlarged veins. US GALLBLADDER RUQ Final Result Limited exam demonstrates cholelithiasis and sludge without sonographic evidence to suggest acute cholecystitis. ENDOSCOPY Principal Problem: Acute cholecystitis Active Problems: Type 2 diabetes mellitus with hyperglycemia, with long-term current use of insulin (HCC) Hypothyroidism NICOLE (nonalcoholic steatohepatitis) Elevated LFTs Cirrhosis of liver without ascites (HCC) Calculus of gallbladder with cholecystitis without biliary obstruction Morbid obesity Abdominal pain, right upper quadrant Resolved Problems: * No resolved hospital problems. * GI Assessment: 58 y/o Female with a history of MASH hepatitis, morbid obesity (BMI 44.78), esophageal EV, portal hypertension, asthma, T2DM, cholelithiasis, hyperlipidemia, who presented as transfer from [facility] for surgery eval for acute cholecystitis. 1. NICOLE cirrhosis, decompensated by esophageal varices and portal hypertension. Last EGD 12/10/2022 showing small and grade 1 EV without bleeding or stigmata of bleeding. Portal hypertensive gastropathy -No history of ascites -No history of GI bleed -No history of encephalopathy - AFP 4.4 on 11/12/2023 MELD 3.0: 12 12/21/2023 - (indicating a 98.7% estimated 90-day survival) MELD 3.0: 12 12/22/2023 2. Acute right upper quadrant abdominal pain -12/22/2023 - S/P laparoscopic cholecystectomy. 3. Abnormal LFTs - - MRI/ MRCP shows suspected acute cholecystitis. No choledocholithiasis or biliary duct dilation. 4. T2 DM on Mounjaro Plan: Diet at the discretion of general surgeon 2. Patient will continue to follow-up with her established sealer operator Dr Adenike Steve at discharge 3. Trend LFTs, INR 4. Okay to be discharged from GI perspective. 5. GI will sign off This plan was formulated in collaboration with Dr. Mile Bridges Please feel free to contact me with any questions or concerns. Thank you for allowing me to participate in the care of your patient. Elizabeth Burt APRN - CONTROL TECHNICIAN on 12/24/2023 at 7:36 AM [facility] Please note that this note was generated using a voice recognition dictation software. Although every effort was made to ensure the accuracy of this automated valve maker, some errors in valve maker may have occurred. Associated attestation - Mile Bridges MD - 12/24/2023 3:06 PM EDT I have discussed the care of this patient and I have examined the patient myselft and taken ros and hpi , including pertinent history and exam findings, with the Nurse Practitioner I have reviewed the zhu elements of all parts of the encounter with the Nurse Practitioner . I agree with the assessment, plan and orders as documented by the MANAGER GLOBAL COMMUNICATIONS. More than 50% of the time was spent taking care of this patient in addition to the nurse practitioner time. That also included history taking follow-up physical examination and review of system. Continued surgical follow-up Follow-up LFTs Okay for outpatient follow-up from GI point Some lifestyle dietary modification including weight loss were discussed with patient and patient accompanying daughter their questions were answered Images from the original note were not included. [facility] Office: [phone] Jax Sheffield DO, Sha Haywood DO, Marshal Velazquez DO, Ryan Williamson DO, Charity Baron MD, Cyndy Diaz MD, Nidia Bridges MD, Maureen Boyce MD, Miguel Lama MD, Woody Chadwick MD, Deion Murray MD, Sivan Ramirez DO, Evan Mcdonnell MD, Abran Dhillon MD, Grant Sheffield DO, Altagracia Addison MD, Barrera Gibbs DO, Terri Us MD, Edel Hart MD, Milagros Sherman MD, Sadie Tom MD, Valdemar Lakhani MD, Sheryl Childers MD, Néstor Law MD, Shubham Lemus MD, Hal Bowman MD, Zahraa Antonio MD, Patrice Bashir DO, Roc Graham MD, Hanna Brooks CNP, Lissa Alcala CNP, Patrice Paulson, KYLE, Stephenie Pardo, RAMANDEEP, Margret Garcia, CONTROL TECHNICIAN, Mayra Fletcher, CONTROL TECHNICIAN, Liana Thompson CNP, Heidi Kang CNP, Roxanne Arizmendi PA-C, PHILLIP SolaresC, Saadia Lucio, KYLE, Milo Bailey, CONTROL TECHNICIAN, Priscilla Srivastava, CONTROL TECHNICIAN, Rose Nathan, CONTROL TECHNICIAN, Monserrat Auguste, KYLE, Elaine Davison, CONTROL TECHNICIAN [facility] IN-PATIENT SERVICE [facility] Progress Note 12/23/2023 11:24 AM Name: Ileana Wilson Acct: [id number] Room: 0333/0333-05 Day: 3 Admit Date: 12/20/2023 3:59 AM PCP: Daniel Tejada PA-C Code Status: Full Code Subjective: C/C: No chief complaint on file. Patient seen on follow-up this morning. Status post laparoscopic cholecystectomy yesterday. She states her abdominal pain has improved, she just has some soreness in the right upper quadrant. She is tolerating clear liquid diet this morning. Brief History: 58-year-old female with medical history of NSAH cirrhosis was transferred to [facility] from [facility] after providing with abdominal pain. Imaging at outside hospital was done that was concerning for distended gallbladder and cholecystitis. She was started on Zosyn and transferred to [place] for surgical evaluation. After transfer to [place] she was evaluated by general surgery and GI. MRCP was done which showed acute cholecystitis, no choledocholithiasis. She had cholecystectomy on 12/21. Medications: Allergies: Allergies Allergen Reactions Metformin And Related Swelling Morphine Other reaction(s): Other: See Comments Doesn't work for pain Naproxen Sodium Other reaction(s): GI Upset Nsaids Nausea Only Aleve stomach ache Adhesive Tape Rash Current Meds: Scheduled Meds: scopolamine 1 patch TransDERmal Once acetaminophen 1,000 mg Oral 3 times per day enoxaparin 40 mg SubCUTAneous Daily Insulin Pump - Bolus Dose SubCUTAneous 4x Daily AC & HS Insulin Pump - Basal Dose SubCUTAneous Daily piperacillin-tazobactam 3,375 mg IntraVENous Q8H fluticasone 1 puff Inhalation BID RT levothyroxine 88 mcg Oral Daily Continuous Infusions: PRN Meds: oxyCODONE OR oxyCODONE, HYDROmorphone OR HYDROmorphone, sodium chloride flush, potassium chloride OR potassium alternative oral replacement OR [DISCONTINUED] potassium chloride, ondansetron OR ondansetron, polyethylene glycol, glucose, glucagon (rDNA), fluticasone Data: Past Medical History: has a past medical history of Active asthma, Diabetes (HCC), Fatty liver, Gallstones, Hyperlipidemia, Hypothyroid, Reactive airway disease, and Vertigo. Social History: reports that she has never smoked. She has never been exposed to tobacco smoke. She has never used smokeless tobacco. She reports current alcohol use. She reports that she does not use drugs. Family History: Family History Problem Relation Age of Onset Colon Cancer Neg Hx Vitals: BP 106/65 Pulse 73 Temp 98.2 F (36.8 C) (Oral) Resp 16 Ht 1.549 m (5' 1 ) Wt 107 kg (236 lb) SpO2 91% BMI 44.59 kg/m Temp (24hrs), Av F (36.7 C), Min:97.2 F (36.2 C), Max:98.8 F (37.1 C) Recent Labs 12/22/23132812/22/23175412/22/23195812/23/23 0804 POCGLU 114* 135* 165* 247* I/O (24Hr): Intake/Output Summary (Last 24 hours) at 12/23/2023 1124 Last data filed at 12/22/2023 1830 Gross per 24 hour Intake 1050 ml Output 50 ml Net 1000 ml Labs: Hematology: Recent Labs 12/21/23 0712/22/2343412/23/23 0632 WBC 7.2 4.8 9.8 RBC 4.24 3.84* 4.20 HGB 12.5 11.4* 12.4 HCT 38.6 35.3* 38.8 MCV 91.0 91.9 92.4 MCH 29.5 29.7 29.5 MCHC 32.4 32.3 32.0 RDW 15.8* 15.3* 14.8* PLT See Reflexed IPF Result 75* 76* MPV -- 11.9 12.2 INR -- 1.4 -- Chemistry: Recent Labs 12/21/2371412/22/2343412/23/23 0632 NA 134* 136 133* K 4.2 3.9 4.6 CL 103 106 102 CO2 22 24 22 GLUCOSE 162* 146* 262* BUN 7 8 14 CREATININE 0.7 0.6 0.8 MG 1.7 -- 1.9 ANIONGAP 9 6* 9 LABGLOM >90 >90 81 CALCIUM 9.5 8.9 9.6 PHOS 2.5 -- -- Recent Labs 12/21/23 0715 12/21/23 1341 12/22/23 01112/22/2343412/22/23 0734 12/22/23132812/22/23175412/22/23195812/23/23 0632 12/23/23 0804 LABA1C 6.1* -- -- -- -- -- -- -- -- -- AST 42* -- -- 37* -- -- -- -- 58* -- ALT 25 -- -- 22 -- -- -- -- 27 -- ALKPHOS 112* -- -- 107* -- -- -- -- 101 -- BILITOT 2.0* -- -- 1.2 -- -- -- -- 1.7* -- LIPASE 87* -- -- -- -- -- -- -- -- -- POCGLU -- < > 179* -- 131* 114* 135* 165* -- 247* < > = values in this interval not displayed. ABG:No results found for: POCPH , PHART , PH , POCPCO2 , OYF8ONS , PCO2 , POCPO2 , PO2ART , PO2 , POCHCO3 , MHY4YIH , HCO3 , NBEA , PBEA , BEART , BE , THGBART , THB , UTC1ISZ , UNKU1RBT , V3QOWYJQ , O2SAT , FIO2 No results found for: SPECIAL No results found for: CULTURE Radiology: MRI ABDOMEN W WO CONTRAST MRCP Result Date: 12/21/2023 1. Distended gallbladder with wall edema and some thickening along with cholelithiasis. Suspect acute cholecystitis. 2. No choledocholithiasis or biliary ductal dilatation. 3. Stigmata of portal hypertension with splenomegaly, portal vein distension and enlarged recanalized umbilical vein extending to the umbilicus where there is a tangle of enlarged veins. US GALLBLADDER RUQ Result Date: 12/20/2023 Limited exam demonstrates cholelithiasis and sludge without sonographic evidence to suggest acute cholecystitis. Physical Examination: General: Alert and oriented, no acute distress Neurologic: Awake, alert, and oriented X3, no focal weakness Lungs: Clear to auscultation, no wheezing, non-labored respiration Heart: Normal rate, regular rhythm, no murmur, gallop or edema Abdomen: Soft, mild tenderness on palpation of right upper quadrant, non-distended, normal bowel sounds Musculoskeletal: Normal strength, no tenderness or swelling Assessment: Hospital Problems Last Modified POA * (Principal) Acute cholecystitis 12/20/2023 Yes Type 2 diabetes mellitus with hyperglycemia, with long-term current use of insulin (HCC) 12/20/2023 Yes Hypothyroidism 12/20/2023 Yes NICOLE (nonalcoholic steatohepatitis) 12/20/2023 Yes Elevated LFTs 12/21/2023 Yes Cirrhosis of liver without ascites (HCC) 12/20/2023 Yes Calculus of gallbladder with cholecystitis without biliary obstruction 12/20/2023 Yes Morbid obesity 12/21/2023 Yes Abdominal pain, right upper quadrant 12/21/2023 Yes Plan: Acute cholecystitis -MRCP showed acute cholecystitis, no choledocholithiasis or biliary duct dilation -Continue on Zosyn, patient to remain hospitalized today for additional IV antibiotics due to necrotic gallbladder -GI and general surgery following -Status post cholecystectomy 12/21 -Possible discharge tomorrow pending clinical improvement and surgery recommendations NICOLE cirrhosis Thrombocytopenia -No acute decompensation -Platelet count stable, likely due to cirrhosis Hypertension -Holding home medications as blood pressure is borderline/low, resume on discharge Diabetes -On home insulin pump Patrice Bashir DO 12/23/2023 11:24 AM [facility] Note Ileana Wilson is a 58 y.o. female patient. Hospitalization Day:3 Chief consult reason: Abnormal LFTs Subjective: Patient seen and examined. Patient reporting right upper quadrant tenderness and right posterior rib pain. ZAHRA present with serosanguineous drainage. Tolerating diet Objective: VITALS: BP 120/65 Pulse 77 Temp 98.6 F (37 C) (Oral) Resp 16 Ht 1.549 m (5' 1 ) Wt 107 kg (236 lb) SpO2 92% BMI 44.59 kg/m TEMPERATURE: Current - Temp: 98.6 F (37 C); Max - Temp Av.9 F (36.6 C) Min: 97.2 F (36.2 C) Max: 98.8 F (37.1 C) Physical Assessment: General appearance: alert, cooperative and no distress Mental Status: oriented to person, place and time and normal affect Lungs: clear to auscultation bilaterally, normal effort Heart: regular rate and rhythm, no murmur Abdomen: soft, obese, RUQ tenderness, nondistended, ZAHRA drain extremities: no edema, no redness, No clubbing Skin: warm, dry, no gross lesions or rashes CURRENT MEDICATIONS: Scheduled Meds: scopolamine 1 patch TransDERmal Once acetaminophen 1,000 mg Oral 3 times per day enoxaparin 40 mg SubCUTAneous Daily Insulin Pump - Bolus Dose SubCUTAneous 4x Daily AC & HS Insulin Pump - Basal Dose SubCUTAneous Daily piperacillin-tazobactam 3,375 mg IntraVENous Q8H fluticasone 1 puff Inhalation BID RT levothyroxine 88 mcg Oral Daily Continuous Infusions: PRN Meds:oxyCODONE OR oxyCODONE, HYDROmorphone OR HYDROmorphone, sodium chloride flush, potassium chloride OR potassium alternative oral replacement OR [DISCONTINUED] potassium chloride, ondansetron OR ondansetron, polyethylene glycol, glucose, glucagon (rDNA), fluticasone Data Review: LABS and IMAGING: CBC Recent Labs 12/20/2382212/21/2371412/22/23 043 WBC 8.9 7.2 4.8 HGB 13.1 12.5 11.4* HCT 40.1 38.6 35.3* MCV 90.5 91.0 91.9 MCHC 32.7 32.4 32.3 RDW 15.9* 15.8* 15.3* PLT See Reflexed IPF Result See Reflexed IPF Result 75* Immature PLTs Lab Results Component Value Date/Time PLTFLUORE 94 12/21/2023 07:15 AM PLTFLUORE 98 12/20/2023 08:23 AM PT/INR Recent Labs 12/20/23 1016 12/22/23 0435 PROTIME 16.5* 17.0* INR 1.4 1.4 ANEMIA STUDIES No results for input(s): IRONPERSAT , TIBC , IRON , FERRITIN , CICDPJJJ39 , FOLATE , OCCULTBLD in the last 72 hours. BMP Recent Labs 12/20/23 0812/21/23 0715 12/22/23 043 NA 140 134* 136 K 3.8 4.2 3.9 CL 110* 103 106 CO2 BUN 7 7 8 CREATININE 0.6 0.7 0.6 GLUCOSE 149* 162* 146* CALCIUM 9.6 9.5 8.9 MG -- 1.7 -- LFTS Recent Labs 12/20/2382212/21/23 0715 12/22/23 0435 ALKPHOS 116* 112* 107* ALT 32 25 22 AST 51* 42* 37* BILITOT 1.4* 2.0* 1.2 ALBUMIN 3.7 3.6 3.3* AMYLASE/LIPASE/AMMONIA Recent Labs 12/21/23 0715 LIPASE 87* Acute Hepatitis Panel Lab Results Component Value Date/Time HEPCAB NONREACTIVE 11/07/2022 12:51 PM HEPAIGM NONREACTIVE 11/07/2022 12:51 PM HCV Genotype No components found for: HEPATITISCGENOTYPE HCV Quantitative No results found for: HCVQNT LIVER WORK UP: AFP Lab Results Component Value Date/Time AFP 4.4 11/12/2023 12:36 PM Alpha 1 antitrypsin Lab Results Component Value Date/Time A1A 150 11/07/2022 12:51 PM Anti - Liver/Kidney Ab No results found for: LIVER-KIDNEYMICROSOMALAB JULITA No results found for: JULITA AMA No results found for: MITOAB ASMA No results found for: SMOOTHMUSCAB Ceruloplasmin No results found for: CERULOPLSM Celiac panel No results found for: TISSTRNTIIGG , TTGIGA , IGA IgG No results found for: IGG IgM No results found for: IGM GGT No results found for: GGT PT/INR Recent Labs 12/20/23 1016 12/22/23434 PROTIME 16.5* 17.0* INR 1.4 1.4 Cancer Markers: CEA: No results found for: CEA Ca 125: No results found for: CA125 Ca 19-9: No results found for: CA199 AFP: Lab Results Component Value Date/Time AFP 4.4 11/12/2023 12:36 PM Lactic acid:No results for input(s): LACTACIDWB in the last 72 hours. Radiology Review: MRI ABDOMEN W WO CONTRAST MRCP Final Result 1. Distended gallbladder with wall edema and some thickening along with cholelithiasis. Suspect acute cholecystitis. 2. No choledocholithiasis or biliary ductal dilatation. 3. Stigmata of portal hypertension with splenomegaly, portal vein distension and enlarged recanalized umbilical vein extending to the umbilicus where there is a tangle of enlarged veins. US GALLBLADDER RUQ Final Result Limited exam demonstrates cholelithiasis and sludge without sonographic evidence to suggest acute cholecystitis. ENDOSCOPY Principal Problem: Acute cholecystitis Active Problems: Type 2 diabetes mellitus with hyperglycemia, with long-term current use of insulin (HCC) Hypothyroidism NICOLE (nonalcoholic steatohepatitis) Elevated LFTs Cirrhosis of liver without ascites (HCC) Calculus of gallbladder with cholecystitis without biliary obstruction Morbid obesity Abdominal pain, right upper quadrant Resolved Problems: * No resolved hospital problems. * GI Assessment: 58 y/o Female with a history of MASH hepatitis, morbid obesity (BMI 44.78), esophageal EV, portal hypertension, asthma, T2DM, cholelithiasis, hyperlipidemia, who presented as transfer from [facility] for surgery eval for acute cholecystitis. 1. NICOLE cirrhosis, decompensated by esophageal varices and portal hypertension. Last EGD 12/10/2022 showing small and grade 1 EV without bleeding or stigmata of bleeding. Portal hypertensive gastropathy -No history of ascites -No history of GI bleed -No history of encephalopathy - AFP 4.4 on 11/12/2023 MELD 3.0: 12 12/21/2023 - (indicating a 98.7% estimated 90-day survival) MELD 3.0: 12 12/22/2023 2. Acute right upper quadrant abdominal pain -12/22/2023 - S/P laparoscopic cholecystectomy. 3. Abnormal LFTs - - MRI/ MRCP shows suspected acute cholecystitis. No choledocholithiasis or biliary duct dilation. 4. T2 DM on Mounjaro Plan: Diet at the discretion of general surgeon 2. Patient will continue to follow-up with her established sealer operator Dr Adenike Steve at discharge 3. Trend LFTs, INR 4. Okay to be discharged from GI perspective This plan was formulated in collaboration with Dr. Mile Bridges Please feel free to contact me with any questions or concerns. Thank you for allowing me to participate in the care of your patient. Elizabeth Burt, LISA - CONTROL TECHNICIAN on 12/23/2023 at 6:26 AM [facility] Please note that this note was generated using a voice recognition dictation software. Although every effort was made to ensure the accuracy of this automated valve maker, some errors in valve maker may have occurred. Associated attestation - Mile Bridges MD - 12/23/2023 2:31 PM EDT I have discussed the care of this patient and I have examined the patient myselft and taken ros and hpi , including pertinent history and exam findings, with the Nurse Practitioner I have reviewed the zhu elements of all parts of the encounter with the Nurse Practitioner . I agree with the assessment, plan and orders as documented by the MANAGER GLOBAL COMMUNICATIONS. More than 50% of the time was spent taking care of this patient in addition to the nurse practitioner time. That also included history taking follow-up physical examination and review of system. Transported pt to room in bed Images from the original note were not included. [facility] Office: [phone] Jax Sheffield DO, Sha Haywood DO, Marshal Velazquez DO, Ryan Williamson DO, Charity Baron MD, Cyndy Diaz MD, Nidia Bridges MD, Maureen Boyce MD, Miguel Lama MD, Woody Chadwick MD, Deion Murray MD, Sivan Ramirez DO, Evan Mcdonnell MD, Abran Dhillon MD, Grant Sheffield DO, Altagracia Addison MD, Barrera Gibbs DO, Terri Us MD, Edel Hart MD, Milagros Sherman MD, Sadie Tom MD, Valdemar Lakhani MD, Sheryl Childers MD, Néstor Law MD, Shubham Lemus MD, Hal Bowman MD, Zahraa Antonio MD, Patrice Bashir DO, Roc Graham MD, Hanna Brooks CNP, Lissa Alcala CNP, Patrice Paulson CNP, Stephenie Pardo DNP, Margret Garcia CNP, Mayra Fletcher CNP, Liana Thompson CNP, Heidi Kang CNP, PHILLIP MoC, PHILLIP SolaresC, Saadia Lucio CNP, Milo Bailey CNP, Priscilla Srivastava CNP, Rose Nathan, KYLE, Monserrat Auguste, KYLE, Elaine Davison, KYLE [facility] IN-PATIENT SERVICE [facility] Progress Note 12/22/2023 1:47 PM Name: Ileana Wilson Acct: [id number] Room: [facility] RM/NONE IP Day: 2 Admit Date: 12/20/2023 3:59 AM PCP: Daniel Tejada PA-C Code Status: Full Code Subjective: C/C: No chief complaint on file. Patient seen on follow-up this morning. She continues to endorse right-sided abdominal pain not changed much since admission. Denies any chest pain, palpitations, shortness of breath. Brief History: 58-year-old female with medical history of NSAH cirrhosis was transferred to [facility] from [facility] after providing with abdominal pain. Imaging at outside hospital was done that was concerning for distended gallbladder and cholecystitis. She was started on Zosyn and transferred to [place] for surgical evaluation. After transfer to [place] she was evaluated by general surgery and GI. MRCP was done which showed acute cholecystitis, no choledocholithiasis. Medications: Allergies: Allergies Allergen Reactions Metformin And Related Swelling Morphine Other reaction(s): Other: See Comments Doesn't work for pain Naproxen Sodium Other reaction(s): GI Upset Nsaids Nausea Only Aleve stomach ache Adhesive Tape Rash Current Meds: Scheduled Meds: indocyanine green 5 mg IntraVENous Once [Transfer Hold] sodium chloride flush 5-40 mL IntraVENous 2 times per day [Transfer Hold] enoxaparin 40 mg SubCUTAneous Daily [Transfer Hold] Insulin Pump - Bolus Dose SubCUTAneous 4x Daily AC & HS [Transfer Hold] Insulin Pump - Basal Dose SubCUTAneous Daily [Transfer Hold] piperacillin-tazobactam 3,375 mg IntraVENous Q8H [Transfer Hold] fluticasone 1 puff Inhalation BID RT [Transfer Hold] levothyroxine 88 mcg Oral Daily Continuous Infusions: [Transfer Hold] sodium chloride [Transfer Hold] dextrose PRN Meds: [Transfer Hold] sodium chloride flush, [Transfer Hold] sodium chloride flush, [Transfer Hold] sodium chloride, [Transfer Hold] potassium chloride OR [Transfer Hold] potassium alternative oral replacement OR [Transfer Hold] potassium chloride, [Transfer Hold] magnesium sulfate, [Transfer Hold] ondansetron OR [Transfer Hold] ondansetron, [Transfer Hold] acetaminophen OR [Transfer Hold] acetaminophen, [Transfer Hold] polyethylene glycol, [Transfer Hold] HYDROmorphone, [Transfer Hold] glucose, [Transfer Hold] dextrose bolus OR [Transfer Hold] dextrose bolus, [Transfer Hold] glucagon (rDNA), [Transfer Hold] dextrose, [Transfer Hold] fluticasone Data: Past Medical History: has a past medical history of Active asthma, Diabetes (HCC), Fatty liver, Gallstones, Hyperlipidemia, Hypothyroid, Reactive airway disease, and Vertigo. Social History: reports that she has never smoked. She has never been exposed to tobacco smoke. She has never used smokeless tobacco. She reports current alcohol use. She reports that she does not use drugs. Family History: Family History Problem Relation Age of Onset Colon Cancer Neg Hx Vitals: BP (!) 97/59 Pulse 81 Temp 97.9 F (36.6 C) (Temporal) Resp 18 Ht 1.549 m (5' 1 ) Wt 107 kg (236 lb) SpO2 95% BMI 44.59 kg/m Temp (24hrs), Av.2 F (36.8 C), Min:97.9 F (36.6 C), Max:98.6 F (37 C) Recent Labs 12/21/23 2156 12/22/23 0112 12/22/23 0734 12/22/23 1329 POCGLU 181* 179* 131* 114* I/O (24Hr): No intake or output data in the 24 hours ending 12/22/23 1347 Labs: Hematology: Recent Labs 12/20/23 0823 12/20/23 1016 12/21/23 0715 12/22/23 0435 WBC 8.9 -- 7.2 4.8 RBC 4.43 -- 4.24 3.84* HGB 13.1 -- 12.5 11.4* HCT 40.1 -- 38.6 35.3* MCV 90.5 -- 91.0 91.9 MCH 29.6 -- 29.5 29.7 MCHC 32.7 -- 32.4 32.3 RDW 15.9* -- 15.8* 15.3* PLT See Reflexed IPF Result -- See Reflexed IPF Result 75* MPV -- -- -- 11.9 INR -- 1.4 -- 1.4 Chemistry: Recent Labs 12/20/2382212/21/23 0715 12/22/23 0435 NA 140 134* 136 K 3.8 4.2 3.9 CL 110* 103 106 CO2 24 GLUCOSE 149* 162* 146* BUN 7 7 8 CREATININE 0.6 0.7 0.6 MG -- 1.7 -- ANIONGAP 7* 9 6* LABGLOM >90 >90 >90 CALCIUM 9.6 9.5 8.9 PHOS -- 2.5 -- Recent Labs 12/20/2382212/21/23 0714 12/21/23 0715 12/21/23 1341 12/21/23 1613 12/21/23 2156 12/22/23 0112 12/22/23 0435 12/22/23 0734 12/22/23 1329 LABA1C -- -- 6.1* -- -- -- -- -- -- -- AST 51* -- 42* -- -- -- -- 37* -- -- ALT 32 -- 25 -- -- -- -- 22 -- -- ALKPHOS 116* -- 112* -- -- -- -- 107* -- -- BILITOT 1.4* -- 2.0* -- -- -- -- 1.2 -- -- LIPASE -- -- 87* -- -- -- -- -- -- -- POCGLU -- < > -- 124* 192* 181* 179* -- 131* 114* < > = values in this interval not displayed. ABG:No results found for: POCPH , PHART , PH , POCPCO2 , COT5QGN , PCO2 , POCPO2 , PO2ART , PO2 , POCHCO3 , FIB3WRH , HCO3 , NBEA , PBEA , BEART , BE , THGBART , THB , AUA4BYA , RAWV5HSU , M0VHTAGO , O2SAT , FIO2 No results found for: SPECIAL No results found for: CULTURE Radiology: MRI ABDOMEN W WO CONTRAST MRCP Result Date: 12/21/2023 1. Distended gallbladder with wall edema and some thickening along with cholelithiasis. Suspect acute cholecystitis. 2. No choledocholithiasis or biliary ductal dilatation. 3. Stigmata of portal hypertension with splenomegaly, portal vein distension and enlarged recanalized umbilical vein extending to the umbilicus where there is a tangle of enlarged veins. US GALLBLADDER RUQ Result Date: 12/20/2023 Limited exam demonstrates cholelithiasis and sludge without sonographic evidence to suggest acute cholecystitis. Physical Examination: General: Alert and oriented, no acute distress Neurologic: Awake, alert, and oriented X3, no focal weakness Lungs: Clear to auscultation, no wheezing, non-labored respiration Heart: Normal rate, regular rhythm, no murmur, gallop or edema Abdomen: Soft, tenderness on palpation of right upper quadrant, non-distended, normal bowel sounds Musculoskeletal: Normal strength, no tenderness or swelling Assessment: Hospital Problems Last Modified POA * (Principal) Acute cholecystitis 12/20/2023 Yes Type 2 diabetes mellitus with hyperglycemia, with long-term current use of insulin (HCC) 12/20/2023 Yes Hypothyroidism 12/20/2023 Yes NICOLE (nonalcoholic steatohepatitis) 12/20/2023 Yes Elevated LFTs 12/21/2023 Yes Cirrhosis of liver without ascites (HCC) 12/20/2023 Yes Calculus of gallbladder with cholecystitis without biliary obstruction 12/20/2023 Yes Morbid obesity 12/21/2023 Yes Abdominal pain, right upper quadrant 12/21/2023 Yes Plan: Acute cholecystitis -MRCP showed acute cholecystitis, no choledocholithiasis or biliary duct dilation -Continue on Zosyn -GI and general surgery following -Plan for OR today for cholecystectomy NICOLE cirrhosis Thrombocytopenia -No acute decompensation -Platelet count stable, likely due to cirrhosis Hypertension -Holding home medications as blood pressure is borderline/low, possibly resume tomorrow after OR Diabetes -On home insulin pump Patrice Bashir DO 12/22/2023 1:47 PM Images from the original note were not included. PROGRESS NOTE PATIENT NAME: Ileana Wilson DATE: 12/22/2023 HD: # 2 DIAGNOSIS AND PLAN 58 year old female with NICOLE cirrhosis with symptomatic cholelithiasis vs cholecystitis Daily labs/LFTs, Total bilirubin down 1.2 from 2.0 MRCP shows no CBD stones. Plan for robotic cholecystectomy later today. Npo, IV fluid, pain control SUBJECTIVE Patient seen and examined at bedside. No acute events overnight. VSS, afebrile. Abdominal pain has improved. She is NPO for surgery later today. OBJECTIVE VITALS: Vitals: 12/22/23 1000 BP: 103/66 Pulse: 83 Resp: 15 SpO2: 94% Physical Exam Constitutional: General: She is not in acute distress. HENT: Head: Normocephalic. Right Ear: External ear normal. Nose: Nose normal. Mouth/Throat: Mouth: Mucous membranes are moist. Eyes: Extraocular Movements: Extraocular movements intact. Cardiovascular: Rate and Rhythm: Normal rate. Pulmonary: Effort: Pulmonary effort is normal. No respiratory distress. Abdominal: General: There is no distension. Palpations: Abdomen is soft. Tenderness: There is abdominal tenderness (Mild right upper quadrant tenderness). There is no guarding or rebound. Musculoskeletal: General: No deformity. Cervical back: Neck supple. Skin: General: Skin is warm and dry. Neurological: Mental Status: She is alert and oriented to person, place, and time. Psychiatric: Mood and Affect: Mood normal. Behavior: Behavior normal. LAB: CBC: Recent Labs 12/20/2382212/21/2371412/22/23434 WBC 8.9 7.2 4.8 HGB 13.1 12.5 11.4* HCT 40.1 38.6 35.3* MCV 90.5 91.0 91.9 PLT See Reflexed IPF Result See Reflexed IPF Result 75* BMP: Recent Labs 12/20/2382212/21/2371412/22/23434 NA 140 134* 136 K 3.8 4.2 3.9 CL 110* 103 106 CO2 23 22 24 BUN 7 7 8 CREATININE 0.6 0.7 0.6 GLUCOSE 149* 162* 146* RADIOLOGY: US GALLBLADDER RUQ Result Date: 12/20/2023 EXAMINATION: RIGHT UPPER QUADRANT ULTRASOUND 12/20/2023 10:35 [...] No evidence of right upper quadrant ascites. Limited exam demonstrates cholelithiasis and sludge without sonographic evidence to suggest acute cholecystitis. Shonna Scott PA-C 12/22/2023, 11:17 AM Associated attestation - Loi Love MD - 12/22/2023 2:05 PM EDT I personally evaluated the patient and directed the medical decision making with Resident/KEVIN after the physical/radiologic exam and laboratory values were reviewed and confirmed. Acute ida. Plan for robotic ida. Bili normalized. Loi Love MD [facility] Progress Note Ileana Wilson is a 58 y.o. female patient. Hospitalization Day:2 Chief consult reason: Abnormal LFTs Subjective: Patient seen and examined. Patient reports overall doing well. Right upper quadrant abdominal pain persists. Patient awaiting cholecystectomy later today Objective: VITALS: BP 108/69 Pulse 87 Temp 98.6 F (37 C) (Oral) Resp 16 Ht 1.549 m (5' 1 ) Wt 107.5 kg (236 lb 15.9 oz) SpO2 96% BMI 44.78 kg/m TEMPERATURE: Current - Temp: 98.6 F (37 C); Max - Temp Av.1 F (37.3 C) Min: 98.6 F (37 C) Max: 99.6 F (37.6 C) Physical Assessment: General appearance: alert, cooperative and no distress Mental Status: oriented to person, place and time and normal affect Lungs: clear to auscultation bilaterally, normal effort Heart: regular rate and rhythm, no murmur Abdomen: soft, obese, RUQ tenderness, nondistended, normal bowel sounds, no masses Extremities: no edema, no redness, No clubbing Skin: warm, dry, no gross lesions or rashes CURRENT MEDICATIONS: Scheduled Meds: sodium chloride flush 5-40 mL IntraVENous 2 times per day enoxaparin 40 mg SubCUTAneous Daily Insulin Pump - Bolus Dose SubCUTAneous 4x Daily AC & HS Insulin Pump - Basal Dose SubCUTAneous Daily piperacillin-tazobactam 3,375 mg IntraVENous Q8H fluticasone 1 puff Inhalation BID RT levothyroxine 88 mcg Oral Daily Continuous Infusions: sodium chloride dextrose PRN Meds:sodium chloride flush, sodium chloride flush, sodium chloride, potassium chloride OR potassium alternative oral replacement OR potassium chloride, magnesium sulfate, ondansetron OR ondansetron, acetaminophen OR acetaminophen, polyethylene glycol, HYDROmorphone, glucose, dextrose bolus OR dextrose bolus, glucagon (rDNA), dextrose, fluticasone Data Review: LABS and IMAGING: CBC Recent Labs 12/20/2382212/21/2315 12/22/23 0435 WBC 8.9 7.2 4.8 HGB 13.1 12.5 11.4* HCT 40.1 38.6 35.3* MCV 90.5 91.0 91.9 MCHC 32.7 32.4 32.3 RDW 15.9* 15.8* 15.3* PLT See Reflexed IPF Result See Reflexed IPF Result 75* Immature PLTs Lab Results Component Value Date/Time PLTFLUORE 94 12/21/2023 07:15 AM PLTFLUORE 98 12/20/2023 08:23 AM PT/INR Recent Labs 12/20/23 1016 12/22/23 0435 PROTIME 16.5* 17.0* INR 1.4 1.4 ANEMIA STUDIES No results for input(s): IRONPERSAT , TIBC , IRON , FERRITIN , WNVHHTKI15 , FOLATE , OCCULTBLD in the last 72 hours. BMP Recent Labs 12/20/2382212/21/23714 12/22/23 0435 NA 140 134* 136 K 3.8 4.2 3.9 CL 110* 103 106 CO2 24 BUN 7 7 8 CREATININE 0.6 0.7 0.6 GLUCOSE 149* 162* 146* CALCIUM 9.6 9.5 8.9 MG -- 1.7 -- LFTS Recent Labs 12/20/23 0823 12/21/23 0715 12/22/23 0435 ALKPHOS 116* 112* 107* ALT 32 25 22 AST 51* 42* 37* BILITOT 1.4* 2.0* 1.2 ALBUMIN 3.7 3.6 3.3* AMYLASE/LIPASE/AMMONIA Recent Labs 12/21/23 07 LIPASE 87* Acute Hepatitis Panel Lab Results Component Value Date/Time HEPCAB NONREACTIVE 11/07/2022 12:51 PM HEPAIGM NONREACTIVE 11/07/2022 12:51 PM HCV Genotype No components found for: HEPATITISCGENOTYPE HCV Quantitative No results found for: HCVQNT LIVER WORK UP: AFP Lab Results Component Value Date/Time AFP 4.4 11/12/2023 12:36 PM Alpha 1 antitrypsin Lab Results Component Value Date/Time A1A 150 11/07/2022 12:51 PM Anti - Liver/Kidney Ab No results found for: LIVER-KIDNEYMICROSOMALAB JULITA No results found for: JULITA AMA No results found for: MITOAB ASMA No results found for: SMOOTHMUSCAB Ceruloplasmin No results found for: CERULOPLSM Celiac panel No results found for: TISSTRNTIIGG , TTGIGA , IGA IgG No results found for: IGG IgM No results found for: IGM GGT No results found for: GGT PT/INR Recent Labs 12/20/23 1016 12/22/23434 PROTIME 16.5* 17.0* INR 1.4 1.4 Cancer Markers: CEA: No results found for: CEA Ca 125: No results found for: CA125 Ca 19-9: No results found for: CA199 AFP: Lab Results Component Value Date/Time AFP 4.4 11/12/2023 12:36 PM Lactic acid:No results for input(s): LACTACIDWB in the last 72 hours. Radiology Review: MRI ABDOMEN W WO CONTRAST MRCP Final Result 1. Distended gallbladder with wall edema and some thickening along with cholelithiasis. Suspect acute cholecystitis. 2. No choledocholithiasis or biliary ductal dilatation. 3. Stigmata of portal hypertension with splenomegaly, portal vein distension and enlarged recanalized umbilical vein extending to the umbilicus where there is a tangle of enlarged veins. US GALLBLADDER RUQ Final Result Limited exam demonstrates cholelithiasis and sludge without sonographic evidence to suggest acute cholecystitis. ENDOSCOPY Principal Problem: Acute cholecystitis Active Problems: Type 2 diabetes mellitus with hyperglycemia, with long-term current use of insulin (HCC) Hypothyroidism NICOLE (nonalcoholic steatohepatitis) Elevated LFTs Cirrhosis of liver without ascites (HCC) Calculus of gallbladder with cholecystitis without biliary obstruction Morbid obesity Abdominal pain, right upper quadrant Resolved Problems: * No resolved hospital problems. * GI Assessment: 58 y/o Female with a history of MASH hepatitis, morbid obesity (BMI 44.78), esophageal EV, portal hypertension, asthma, T2DM, cholelithiasis, hyperlipidemia, who presented as transfer from [facility] for surgery eval for acute cholecystitis. 1. NICOLE cirrhosis, decompensated by esophageal varices and portal hypertension. Last EGD 12/10/2022 showing small and grade 1 EV without bleeding or stigmata of bleeding. Portal hypertensive gastropathy -No history of ascites -No history of GI bleed -No history of encephalopathy - AFP 4.4 on 11/12/2023 MELD 3.0: 12 12/21/2023 - (indicating a 98.7% estimated 90-day survival) MELD 3.0: 12 12/22/2023 2. Acute right upper quadrant abdominal pain - workup in progress for acute cholecystitis by general surgery. 3. Abnormal LFTs -. Bilirubin improved to 1.2 from 2.0 12/21/2023 - MRI/ MRCP shows suspected acute cholecystitis. No choledocholithiasis or biliary duct dilation. 4. T2 DM on Mounjaro Plan: General surgery planning for cholecystectomy today Patient will continue to follow-up with her established sealer operator Dr Adenike Steve at discharge Trend LFTs, INR Will follow along This plan was formulated in collaboration with Dr. Mile Bridges Please feel free to contact me with any questions or concerns. Thank you for allowing me to participate in the care of your patient. Elizabeth Burt APRN - CONTROL TECHNICIAN on 12/22/2023 at 6:56 AM [facility] Please note that this note was generated using a voice recognition dictation software. Although every effort was made to ensure the accuracy of this automated valve maker, some errors in valve maker may have occurred. Associated attestation - Mile Bridges MD - 12/22/2023 2:01 PM EDT I have discussed the care of this patient and I have examined the patient myselft and taken ros and hpi , including pertinent history and exam findings, with the Nurse Practitioner I have reviewed the zhu elements of all parts of the encounter with the Nurse Practitioner . I agree with the assessment, plan and orders as documented by the MANAGER GLOBAL COMMUNICATIONS. More than 50% of the time was spent taking care of this patient in addition to the nurse practitioner time. That also included history taking follow-up physical examination and review of system. LFTs improving bilirubin down MRCP results reviewed [facility] Diabetes Education Nurse Vocational Instructor rounded for Reason for Educator consult --- Evaluation and Assessment of use of insulin pump (continuous subcutaneous insulin infusion) from home and plan for continuation of patient self-management of insulin pump as inpatient. Vocational Instructor spoke with bedside Dinora TORRES and insulin pump is off now as patient is in MRI - patient also did not know how to find insulin basal dose. Chart reviewed as per chart review ( snip) Will plan to round again on this patient this afternoon to review how to see basal rate hx in pump. Instructions to check pump setting on the pump device and to check basal function on To check for insulin use/ TDD Setting History- (daily weekday and date) Totally daily dose Basal Bolus Rounded at 1: 35 pm Patient back in room, she was resuming insulin pump with cartridge fill, site change and dexcom 7 senor applied. Patient did all these skills without any difficulty. Pump site was placed to left upper quadrant and dexcom 7 was placed right upper posterior arm. Patient could relate use of insulin tadem t slim 2x pump since about Apr of this year. She follows with endo team from [facility] She is a type 2 insulin dependant - she stated much better BG control with insulin pump / CGM Lab Results Component Value Date LABA1C 6.1 (H) 12/21/2023 LABA1C 6.0 11/12/2023 LABA1C 6.1 09/28/2023 She has had education on how to use pump, enter CHO in grams. She was not familiar with pump history screens and how to find the total daily dose and basal dose. Provided handout on the steps and patient and casualty underwriter reviewed the pump hx ( see notes above) Basal insulin : for the last 24 time frame ( Tuesday 12/19 midnight - Wednesday 12/20 midnight) dose was 28.56 units Vocational Instructor also communicated dose to Dinora TORRES for MAR documentation. Vocational Instructor worked with patient on keeping bedside record of bolus doses /Inpatient Insulin Pump Communication tool sheet. Document and pen left at bedside. Vocational Instructor also reviewed and signed Patient Responsibility form for Inpatient Insulin Pump use Patient states feeling comfortable with maintaining pump while in the hospital. Vocational Instructor reviewed with patient changes in conditions that would require modification of this plan, including but not limited to: a decreased level of consciousness / disorientation/ confusion, diabetic ketoacidosis, impaired circulation or subcutaneous absorption, or any change in condition that prohibits independent pump self-management. Patient agrees to communicate to nursing and medical staff all bolus self-administered does and or any basal rate changes with record to be kept at bedside. Patient denies further questions or concerns at this time. RN / bedside nurse will re assess patient's glycemic control ongoing and ability to independently manage insulin pump at least every shift. RADHA THAYER RN CDCES Images from the original note were not included. [facility] Office: [phone] Jax Sheffield DO, Sha Haywood DO, Marshal Velazquez DO, Ryan Williamson DO, Charity Baron MD, Cyndy Diaz MD, Nidia Bridges MD, Maureen Boyce MD, Miguel Lama MD, Woody Chadwick MD, Deion Murray MD, Sivan Ramirez DO, Evan Mcdonnell MD, Abran Dhillon MD, Grant Sheffield DO, Altagracia Addison MD, Barrera Gibbs DO, Terri Us MD, Edel Hart MD, Milagros Sherman MD, Sadie Tom MD, Valdemar Lakhani MD, Sheryl Childers MD, Néstor Law MD, Shubham Lemus MD, Hal Bowman MD, Zahraa Antonio MD, Patrice Bashir DO, Roc Graham MD, Hanna Brooks, KYLE, Lissa Alcala CNP, Patrice Paulson, CONTROL TECHNICIAN, Stephenie Pardo, RAMANDEEP, Margret Garcia, CONTROL TECHNICIAN, Mayra Fletcher, CONTROL TECHNICIAN, Liana Thompson, CONTROL TECHNICIAN, Heidi Kang, CONTROL TECHNICIAN, Roxanne Arizmendi PA-C, Kanchan Jenkins PA-C, Saadia Lucio, CONTROL TECHNICIAN, Milo Bailey, CONTROL TECHNICIAN, Priscilla Srivastava, CONTROL TECHNICIAN, Rose Nathan, CONTROL TECHNICIAN, Monserrat Auguste, [facility], Elaine Davison, CONTROL TECHNICIAN [facility] IN-PATIENT SERVICE [facility] Progress Note 12/21/2023 9:36 AM Name: Ileana Wilson Acct: [id number] Room: [id number]/0333-05 Day: 1 Admit Date: 12/20/2023 3:59 AM PCP: Daniel Tejada PA-C Code Status: Full Code Subjective: C/C: Abdominal pain Interval History Status: not changed. Patient seen and examined at bedside, no acute events overnight. Continue to feel about the same, overall pain meds are controlling her abdominal pain, not significant nausea. Afebrile overnight Ultrasound was done yesterday Patient otherwise denies any chest pain, shortness of breath, chills, fevers, nausea or vomiting. Patient vitals, labs and all providers notes were reviewed,from overnight shift and morning updates were noted and discussed with the nurse Brief History: Ileana Wilson is a 58 y.o. Non- / non female who presents with No chief complaint on file. and is admitted to the hospital for the management of Acute cholecystitis. Patient with history of liver cirrhosis due to NICOLE, portal hypertension was transferred to our facility from [facility] after presenting with acute abdominal pain, imaging was concerning for distended gallstone bladder and cholecystitis and was transferred for surgical evaluation. Patient currently still complaining of the right abdomen quadrant pain with intermittent nausea, pain initially was 10/10 but currently 7/10, pain medications are helping. Imaging and labs reviewed Surgical evaluation is pending Review of Systems: Review of Systems Constitutional: Negative for chills, diaphoresis and fever. HENT: Negative for congestion and hearing loss. Respiratory: Negative for cough, shortness of breath, wheezing and stridor. Cardiovascular: Negative for chest pain, palpitations and leg swelling. Gastrointestinal: Positive for abdominal pain and nausea. Negative for blood in stool, constipation and vomiting. Genitourinary: Negative for dysuria and frequency. Musculoskeletal: Negative for myalgias. Skin: Negative for rash. Neurological: Negative for dizziness, seizures and headaches. Psychiatric/Behavioral: The patient is not nervous/anxious. Medications: Allergies: Allergies Allergen Reactions Metformin And Related Swelling Morphine Other reaction(s): Other: See Comments Doesn't work for pain Naproxen Sodium Other reaction(s): GI Upset Nsaids Nausea Only Aleve stomach ache Adhesive Tape Rash Current Meds: Scheduled Meds: sodium chloride flush 5-40 mL IntraVENous 2 times per day enoxaparin 40 mg SubCUTAneous Daily Insulin Pump - Bolus Dose SubCUTAneous 4x Daily AC & HS Insulin Pump - Basal Dose SubCUTAneous Daily piperacillin-tazobactam 3,375 mg IntraVENous Q8H fluticasone 1 puff Inhalation BID RT levothyroxine 88 mcg Oral Daily Continuous Infusions: dextrose 5% and 0.45% NaCl with KCl 20 mEq 125 mL/hr at 12/20/23 0431 sodium chloride dextrose PRN Meds: sodium chloride flush, sodium chloride, potassium chloride OR potassium alternative oral replacement OR potassium chloride, magnesium sulfate, ondansetron OR ondansetron, acetaminophen OR acetaminophen, polyethylene glycol, HYDROmorphone, glucose, dextrose bolus OR dextrose bolus, glucagon (rDNA), dextrose, fluticasone Data: Past Medical History: has a past medical history of Active asthma, Diabetes (HCC), Fatty liver, Gallstones, Hyperlipidemia, Hypothyroid, Reactive airway disease, and Vertigo. Social History: reports that she has never smoked. She has never been exposed to tobacco smoke. She has never used smokeless tobacco. She reports current alcohol use. She reports that she does not use drugs. Family History: Family History Problem Relation Age of Onset Colon Cancer Neg Hx Vitals: BP 118/64 Pulse 100 Temp 99.6 F (37.6 C) (Oral) Resp 18 Ht 1.549 m (5' 1 ) Wt 107.5 kg (236 lb 15.9 oz) SpO2 93% BMI 44.78 kg/m Temp (24hrs), Av.9 F (37.2 C), Min:98.1 F (36.7 C), Max:99.6 F (37.6 C) Recent Labs 12/21/2314 POCGLU 146* I/O (24Hr): No intake or output data in the 24 hours ending 12/21/23935 Labs: Hematology: Recent Labs 12/20/2382212/20/23 1016 12/21/23714 WBC 8.9 -- 7.2 RBC 4.43 -- 4.24 HGB 13.1 -- 12.5 HCT 40.1 -- 38.6 MCV 90.5 -- 91.0 MCH 29.6 -- 29.5 MCHC 32.7 -- 32.4 RDW 15.9* -- 15.8* PLT See Reflexed IPF Result -- See Reflexed IPF Result INR -- 1.4 -- Chemistry: Recent Labs 12/20/2382212/21/23714 NA 140 134* K 3.8 4.2 CL 110* 103 CO2 23 22 GLUCOSE 149* 162* BUN 7 7 CREATININE 0.6 0.7 MG -- 1.7 ANIONGAP 7* 9 LABGLOM >90 >90 CALCIUM 9.6 9.5 PHOS -- 2.5 Recent Labs 12/20/2382212/21/23 0714 12/21/2315 AST 51* -- 42* ALT 32 -- 25 ALKPHOS 116* -- 112* BILITOT 1.4* -- 2.0* LIPASE -- -- 87* POCGLU -- 146* -- ABG:No results found for: POCPH , PHART , PH , POCPCO2 , MEA4SAM , PCO2 , POCPO2 , PO2ART , PO2 , POCHCO3 , VVR5XVS , HCO3 , NBEA , PBEA , BEART , BE , THGBART , THB , OID7OWK , DWBL4KLR , N9DTBFTP , O2SAT , FIO2 No results found for: SPECIAL No results found for: CULTURE Radiology: US GALLBLADDER RUQ Result Date: 12/20/2023 Limited exam demonstrates cholelithiasis and sludge without sonographic evidence to suggest acute cholecystitis. Physical Examination: Physical Exam Vitals and nursing note reviewed. Constitutional: General: She is not in acute distress. Appearance: She is well-developed. She is not diaphoretic. HENT: Head: Normocephalic and atraumatic. Right Ear: Hearing normal. Left Ear: Hearing normal. Nose: Nose normal. No rhinorrhea. Eyes: General: Lids are normal. Extraocular Movements: Right eye: Normal extraocular motion. Left eye: Normal extraocular motion. Conjunctiva/sclera: Conjunctivae normal. Right eye: Right conjunctiva is not injected. Left eye: Left conjunctiva is not injected. Pupils: Pupils are equal, round, and reactive to light. Pupils are equal. Right eye: Pupil is reactive. Left eye: Pupil is reactive. Neck: Thyroid: No thyromegaly. Vascular: No carotid bruit. Trachea: Trachea and phonation normal. No tracheal deviation. Cardiovascular: Rate and Rhythm: Normal rate and regular rhythm. Pulses: Normal pulses. Heart sounds: Normal heart sounds. No murmur heard. Pulmonary: Effort: Pulmonary effort is normal. No respiratory distress. Breath sounds: Normal breath sounds. No stridor. No decreased breath sounds. Abdominal: General: Bowel sounds are normal. There is no distension. Palpations: Abdomen is soft. There is no mass. Tenderness: There is abdominal tenderness in the right upper quadrant. There is no guarding. Musculoskeletal: General: No tenderness. Cervical back: Neck supple. Skin: General: Skin is warm and dry. Findings: No erythema, lesion or rash. Neurological: Mental Status: She is alert and oriented to person, place, and time. She is not disoriented. Cranial Nerves: No cranial nerve deficit. Psychiatric: Speech: Speech normal. Behavior: Behavior normal. Behavior is cooperative. Assessment: Hospital Problems Last Modified POA * (Principal) Acute cholecystitis 12/20/2023 Yes Type 2 diabetes mellitus with hyperglycemia, with long-term current use of insulin (HCC) 12/20/2023 Yes Hypothyroidism 12/20/2023 Yes NICOLE (nonalcoholic steatohepatitis) 12/20/2023 Yes Cirrhosis of liver without ascites (HCC) 12/20/2023 Yes Calculus of gallbladder with cholecystitis without biliary obstruction 12/20/2023 Yes Plan: Concern for acute cholecystitis: Per CT abdomen pelvis gallbladder distended with gallstones with pericholecystic fluid , General Surgery consulted, gallbladder ultrasound done. Plan for lap ida today requested to upload CT abdomen imaging to our system, gallbladder ultrasound reviewed Continue Zosyn Liver cirrhosis secondary to NICOLE: No acute decompensation Thrombocytopenia: Likely secondary to liver disease, platelets are stable Check PT/NR HTN: BP soft, continue to hold home meds and reassess in am HPL: continue home medications DM: On her own insulin pump , continue with hypoglycemia protocol DVT prophylaxis Discussed in detail with the patient and the nurse and with the surgical team Maureen Boyce MD 12/21/2023 9:36 AM Images from the original note were not included. PROGRESS NOTE PATIENT NAME: Ileana Wilson DATE: 12/21/2023 HD: # 1 DIAGNOSIS AND PLAN 58 year old female with NICOLE cirrhosis with symptomatic cholelithiasis vs cholecystitis Daily labs - including LFT's Total bilirubin up to 2.0 from 1.4 today. Will evaluate with MRCP. Follow up GI recommendations. Can still plan for robotic cholecystectomy this week, but elevation of total bilirubin requires work up first. No plans for OR today. Keep NPO until MRCP resulted and followed up IVF SUBJECTIVE Patient seen and examined at bedside. No acute events overnight. VSS, afebrile. Upper abdominal pain has improved some. Patient noted to have elevation of her total bilirubin this morning. Discussed with patient at bedside that given this finding we will not proceed with surgery today, but will obtain an MRCP and follow-up that study as well as any additional GI recommendations. Discussed with patient that pending those results, we can still plan for robotic cholecystectomy this week. OBJECTIVE VITALS: Vitals: 12/21/23 0716 BP: 118/64 Pulse: 100 Resp: 18 Temp: 99.6 F (37.6 C) SpO2: 93% Physical Exam Constitutional: General: She is not in acute distress. HENT: Head: Normocephalic. Right Ear: External ear normal. Nose: Nose normal. Mouth/Throat: Mouth: Mucous membranes are moist. Eyes: Extraocular Movements: Extraocular movements intact. Cardiovascular: Rate and Rhythm: Normal rate. Pulmonary: Effort: Pulmonary effort is normal. No respiratory distress. Abdominal: General: There is no distension. Palpations: Abdomen is soft. Tenderness: There is abdominal tenderness (Mild right upper quadrant tenderness). There is no guarding or rebound. Musculoskeletal: General: No deformity. Cervical back: Neck supple. Skin: General: Skin is warm and dry. Neurological: Mental Status: She is alert and oriented to person, place, and time. Psychiatric: Mood and Affect: Mood normal. Behavior: Behavior normal. LAB: CBC: Recent Labs 12/20/2382212/21/23 0715 WBC 8.9 7.2 HGB 13.1 12.5 HCT 40.1 38.6 MCV 90.5 91.0 PLT See Reflexed IPF Result See Reflexed IPF Result BMP: Recent Labs 12/20/2382212/21/23 0715 NA 140 134* K 3.8 4.2 CL 110* 103 CO2 23 22 BUN 7 7 CREATININE 0.6 0.7 GLUCOSE 149* 162* RADIOLOGY: US GALLBLADDER RUQ Result Date: 12/20/2023 EXAMINATION: RIGHT UPPER QUADRANT ULTRASOUND 12/20/2023 10:35 [...] No evidence of right upper quadrant ascites. Limited exam demonstrates cholelithiasis and sludge without sonographic evidence to suggest acute cholecystitis. Kajal Sam DO 12/21/2023, 8:57 AM Associated attestation - Loi Love MD - 12/21/2023 5:44 PM EDT I personally evaluated the patient and directed the medical decision making with Resident after the physical/radiologic exam and laboratory values were reviewed and confirmed. Bilis elevated today. GI consulted. MRCP performed and shows no biliary ductal dilation and no choledocholithiasis. Will plan on robo ida tomm. If bilis continue to rise, GI may need to do eus/ercp postop. Loi Love MD documented in this encounter [facility] 12-23-2023 Hospital Discharge instructions Shonna Scott PA-C - 12/23/2023 10:16 AM EDT Images from the original note were not included. Discharge Instructions for General Surgery No lifting above 10Ibs for next 2 weeks. No soaking in bathtubs or submerging yourself in water for 4 weeks Resume activity as tolerated, No operating heavy equipment while using narcotics Wash incision gently with soap and water, pat dry. If steri-strips or surgical glue in place wash gently and leave in place until the glue or strips fall off. (Do not pull/tug) F/u in trauma/acute care surgery clinic in 1-2 weeks Call your doctor for the following: Chills Temperature greater than 101 Pain that is not tolerable despite taking pain medicine as ordered There is increased swelling, redness or warmth at surgical site There is increased drainage or bleeding from surgical site Recommended diet: regular diet low fat Depending on your injuries, your doctor may want you to follow a specific diet. Some pain medicine can cause constipation . To avoid this problem: Drink plenty of fluids. Eat foods high in fiber , such as: Whole grain cereals and bread Fruits and vegtables Legumes (eg, beans, lentils) If you are still having problems, talk to your doctor about using laxatives or stool softeners. General questions or concerns call [phone] for the General Surgery Clinic. If needed, the clinic fax number is [phone] The following attachments cannot be sent through Care Everywhere.Cholecystectomy: Post-op (Montserratian)documented in this encounter [facility] 03-19-2023 Note HNO ID: [id number] Author: MARI SOMERS MD Service: ? Author Type: Physician Type: Progress Notes Filed: 03/19/2023 10:40 Note Text: NEW CONSULT:RHEUMATOLOGY SERVICE SERVICE DATE: 03/19/2023 SERVICE TIME: 9:57 AM REASON FOR CONSULT: +JULITA REQUESTING PHYSICIAN: MARTINA Henning, PRIMARY CARE PHYSICIAN: MARTINA Henning, Patient's Name: Ileana Wilson [address] [place] [address] Accompanied by: self This consult was requested for my medical opinion regarding the rheumatologic evaluation of the patient's +JULITA problems, and my final recommendations will be communicated to the requesting health care provider by way of the shared medical record for internal providers or letter via the [employer] for external providers. March 19, [...] GI/hepatology Reports pain 10/16 No falls/fx/trauma/illness/oral sores/rash/hairloss/jaw pain/dysphagia/epistaxis/hemoptys is. No adverse effects with meds. No other [...] yes Dactylitis: no H/o precedent/frequent infection(s): no Enthesopathy/Clifton's/heel/plant ar tenderness: s/p b/l carpal tunnel syndrome release Skin thickening, psoriasis, photosensitivity, purpura: no Nail changes: no Alpecia, patchy: no Eye inflammation: glasses SICCA: no Oral/nasal/genital ulcers: no GI problems-diarrhea/bleeding/IBD/Gl uten intolerence/Dysphagia: gerd Raynaud's phenomenon/digital ulcers: no Organ inv-Serositis: reactive airway disease Lung disease/ILD: reactive airway disease Myopathy/proximal muscle weakness: no Abnormal Urine or urethritis: no Renal/liver disease: diabetes caused cirrhosis/non alcoholic (NICOLE) diagnosed Spring 2022 DIRECTOR OPERATIONS BROADCAST/PNS/sz/cva/cancer disease: no HEME-Cytopenias/LAD/Clots: no Fevers: no Fatigue: [...] hormones; G3, P1, 2miscarriage Colonoscopy: stable in [place], benign colon polyps Bone Density:stable years ago [...] ankle/foot surgery ~2002, s/p b/l knee scope, ~ S/p b/l carpal tunnel syndrome, 05/2020 s/p R TKR, 02/2023 S/p L TKR in [place], s/p septoplasty, s/p TANDA, s/p wisdom teeth extraction, 2020 s/p Right rotator cuff tear repair, 05/2020 s/p Left rotator cuff tear with anchor PAST MEDICAL HISTORY Diagnosis Date Asthma Diabetes mellitus (HCC) Portal hypertension (HCC) PAST SURGICAL HISTORY: s/p left ankle/foot surgery ~2002, s/p b/l knee scope, ~ S/p b/l carpal tunnel syndrome, 05/2020 s/p R TKR, 02/2023 S/p L TKR in [place], s/p septoplasty, s/p TANDA, s/p wisdom teeth extraction, 2020 s/p Right rotator cuff tear repair 05/2020 s/p Left rotator cuff tear with anchor PAST SURGICAL HISTORY Procedure Laterality Date FOOT SURGERY HX KNEE SURGERY HX REVISE MEDIAN N/CARPAL TUNNEL SURG SEPTOPLASTY FA (more content not included)... [facility] 02-20-2023 History of Present illness Narrative Images from the original note [...] will not respect a delayed release to [facility].-> What reading provider will be dictating this [...] HISTORY: This procedure can be scheduled via [employer]at. Access your [employer]Flat account by visiting [email or web address]. Reason for exam:->cirrhosis Specify organ?->LIVER FINDINGS: LIVER: [...] 02/16/2023 3:00 pm INDICATION: Signs/Symptoms:PAIN. ACCESSION NUMBER(S): [id number] ORDERING CLINICIAN: PATRICE MALLORY FINDINGS: AP lateral oblique views of the left shoulder show good alignment of the glenohumeral joint. There is slight inferior humeral head spurring and irregularity to the articular surface. No acute fractures identified. Signed by: Patrice Mallory 02/16/2023 3:58 PM Dictation workstation: [id number] Procedures [none ] Assessment: Status post left [...] grammatical areas may persist related to the [employer] software Nathan Cohen MD Senior Attending Physician [facility] [place] documented in this encounter [facility] Work Phone: 02-16-2023 History of Present illness Narrative Images from the original note were not included. History: Ileana is here for her left shoulder and knee. She is nearly a year from a left knee replacement done in [place]. She also had a left rotator cuff repair a year and a half ago in [place]. She is having persistent pain in both [...] stiffness status post total knee arthroplasty in [place]. Left shoulder pain and weakness status post [...] contain grammatical errors. documented in this encounter [facility] Work Phone: 11-20-2022 History of Present illness Narrative Images from the original note were not included. Therapy Cancellation/No-show Note Date: 11/20/2022 Patient: Ileana Wilson (56 y.o. female) : 1965 Referring Physician: Scarlett Ordaz DO Medical Diagnosis: Left knee pain, unspecified chronicity [M25.562] Visit Information: Visits to Date 4 No Show/Cancelled Appts: 0 / 1 For today's appointment patient: [x] Cancelled [] [...] up Comments: Signature: documented in this encounter [facility] 11-04-2022 History of Present illness Narrative [facility] Physical Therapy- [facility] PHYSICAL THERAPY EVALUATION Physical Therapy: Initial Evaluation Patient: Ileana Wilson (56 y.o. 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 Pt reports was in [place] and just moved up to [place]. Pt reports knee flexion has progressively gotten worse and can only bend ~90 deg. Had a MRI on knee and has f/u with Dr Ordaz on the 1st. Pt reports increased pain in the back [...] is the preferred language of the patient/guardian?: Montserratian Is an historic interpreter required?: No How does the patient/guardian prefer [...] Ambulation Assistance: Independent Transfer Assistance: Independent Active Urology Teacher: Yes OBJECTIVE EXAMINATION Review of Systems: Vision: [...] deg to increase ease with ambulation. New Filter Changing Technician Goals Completed by 5 weeks Goal Status [...] pain impacting mobility and safety. LEFS = Clinical Presentation: Medium Clinical Presentation: Evolving POST-PAIN Pain Rating (0-10 pain scale): 7/10 Location and pain description same as pre-treatment unless indicated. Action: [] NA [] Call Physician [] Perform HEP [x] Meds as prescribed Evaluation and patient rights have been reviewed and patient agrees with plan of care. Yes [x] No [] Explain: Olivas Fall Risk Assessment Risk Factor Scale Score [...] 25' eval documented in this encounter [facility] 07-23-2022 Note HNO ID: [id number] Author: Jennifer Chapa MD Service: ? Author [...] been well controlled She recently moved to [place] from [place] about 2 weeks ago. She was exposed [...] (FLONASE) 50 mcg/actuation nasal spray Use 1 [place] in each nostril once daily. No current [...] me in 2-3 months Jennifer Chapa MD [facility] 07-23-2022 Instructions Jennifer Chapa MD - 07/23/2022 10:02 AM EDT For asthma Complete the prednisone Start arnuity 1 puff daily Rinse after use Ok to continue albuterol if needed Use nebulizer as needed Use tessalon perles as needed Return for breathing test in 2-3 months See endocrine for sugars. Continue flonase documented in this encounter [facility] 07-23-2022 History of Present illness Narrative Self referred 56 yo female [...] been well controlled She recently moved to [place] from [place] about 2 weeks ago. She was exposed [...] (FLONASE) 50 mcg/actuation nasal spray Use 1 [place] in each nostril once daily. No current [...] Jennifer Chapa MD documented in this encounter [facility] 07-20-2022 Note HNO ID: [id number] Author: Osvaldo Feldman, RT(R) Service: Radiology Author Type: Technologist Type: [...] Left in for next appointment SIGNED BY: RT Priyank(R) July 20, 2022 3:04 PM [facility] 07-20-2022 Note HNO ID: [id number] Author: RT Valdez(R) Service: Radiology Author Type: Technologist Type: Progress [...] PERIPHERAL IV DATA: Not applicable SIGNED BY: RT Valdez(R) July 20, 2022 2:26 PM [facility] 01-28-2012 Miscellaneous Notes Patient has called checking on status of scheduling surgery with Dr Richardson on right knee. Patient states Dr. Gato Moya of Pulmonology office faxed over clearance yesterday. Please advise. documented in this encounter [facility] Evaluation note Diagnosis Mild intermittent asthma with acute exacerbation- Primary Unspecified asthma, with exacerbation Elevated blood sugar Other abnormal glucose Chronic rhinitis [facility] Diagnosis Diabetes mellitus type 2 in obese (HCC)- Primary Type II or unspecified type diabetes mellitus without mention of complication, not stated as uncontrolled [facility] Diagnosis Cirrhosis of liver without ascites (HCC)- Primary Left knee pain, unspecified chronicity Cirrhosis (HCC) Cirrhosis of liver without mention of alcohol documented in this encounter [facility] note* Diagnosis History of total knee replacement, left- Primary Pain in joint of left shoulder Left shoulder strain, sequela documented in this encounter [facility] Work Phone: Evaluation note* Diagnosis Left knee pain, unspecified chronicity- Primary History of total knee replacement, left documented in this encounter [facility] Work Phone: Evaluation note* Diagnosis Acute cholecystitis- Primary Hypothyroidism Unspecified hypothyroidism Type 2 diabetes mellitus with hyperglycemia, with long-term current use of insulin (HCC) NICOLE (nonalcoholic steatohepatitis) Other chronic nonalcoholic liver disease Cirrhosis of liver without ascites (HCC) Calculus of gallbladder with cholecystitis without biliary obstruction Elevated LFTs Other abnormal blood chemistry Morbid obesity Abdominal pain, right upper quadrant Hyponatremia Hyposmolality and/or hyponatremia documented in this encounter [facility] for referral (narrative)* Outpatient Procedure (Routine) - Pending Review Specialty Diagnoses / Procedures Referred By Talia shelley Referred To Contact [facility] Diagnoses Mild intermittent asthma with acute exacerbation Procedures SPIROMETRY - BASELINE AND POST DILATOR BRNCDILAT RSPSE SPMTRY PRE&[place] [address] [place] [address] [facility] [place] [address] [place] [address] Referral ID Status Reason Start Date Expiration Date Visits Requested Visits Authorized [id number] Pending Review Auto-Generat ed Referral 07/23/2022 08/22/2023 1 1 * Consult, Test, Treat (Routine) - Authorized Specialty Diagnoses / Procedures Referred By Contac t Referred To Contact Endocrinology Diagnoses Elevated blood sugar Procedures CONSULT TO ENDOCRINOLOGY OFFICE/OUTPATIENT NEW HIGH MDM 60-[place] [address] [place] [address] Referral ID Status Reason Start Date Expiration Date Visits Requested Visits Authorized [id number] Authorized PCP Requested Referral 07/23/2022 07/23/2023 1 1 [facility] Summary Purpose Family History No Family History Records FoundNo Family History Records FoundNo Family History Records FoundNo Family History Records FoundNo Family History Records FoundNo Family History Records FoundNo Family History Records Found Advance Directives No Advanced Directives Records FoundLatest Code Status on File Code Status Date Activated Date Inactivated Comments Full Code 11/05/2022 8:23 AM 11/05/2022 11:52 AM Date Activated Date Inactivated Comments 12/20/2023 4:18 AM Date Activated Date Inactivated Comments 12/10/2022 11:54 AM 12/10/2022 4:12 PM Date Activated Date Inactivated Comments 11/05/2022 8:23 AM 11/05/2022 11:52 AM Reason for Referral Specialty Diagnoses / Procedures Referred By Talia t Referred To Contact Radiology Diagnoses Left knee pain, unspecified chronicity Procedures MRI KNEE LEFT WO CONTRAST MRI KNEE LEFT WO CONTRAST MRI KNEE LEFT WO CONTRAST Scarlett Ordaz DO [address] [facility] [address] [place] [address] Referral ID Status Reason Start Date Expiration Date Visits Re quested Visits Authorized [id number] Closed 10/22/2022 12/20/2022 1 1 Specialty Diagnoses / Procedures Referred By Contac t Referred To Contact Radiology Diagnoses Left shoulder strain, sequela Procedures XR arthrogram shoulder left Patrice Mallory MD [address] [facility], [address] [place] [address] Referral ID Status Reason Start Date Expiration Date Visits Requested Visits Authorized [id number] Authorized Perform Procedure 02/16/2024 1 1 Specialty Diagnoses / Procedures Referred By Contac t Referred To Contact Radiology Diagnoses Left shoulder strain, sequela Procedures MR arthrogram shoulder left Patrice Mallory MD [address] [facility], [address] [place] [address] Referral ID Status Reason Start Date Expiration Date Visits Requested Visits Authorized [id number] Pending Review Perform Procedure 3 02/16/2024 1 1 Specialty Diagnoses / Procedures Referred By Talia t Referred To Contact Radiology Diagnoses Pain in joint of left shoulder Procedures XR shoulder left 2+ views Patrice Mallory MD [address] [facility], [address] [place] [address] Referral ID Status Reason Start Date Expiration Date Visits Requested Visits Authorized [id number] Authorized Perform Procedure 3 02/16/2024 1 1 Additional Source Comments Source Comments (unrecognize d section and content) In the event this informatio n is protected by the Federal Confidentiality of Alcohol and Drug Abuse Patient Records regulations: The Federal rules restrict any use of the information to criminally investigate or prosecute any alcohol or drug abuse patient.[facility] the event this information is protected by the Federal Confidentiality of Alcohol and Drug Abuse Patient Records regulations: The Federal rules restrict any use of the information to criminally investigate or prosecute any alcohol or drug abuse patient.[facility] the event this information is protected by the Federal Confidentiality of Alcohol and Drug Abuse Patient Records regulations: The Federal rules restrict any use of the information to criminally investigate or prosecute any alcohol or drug abuse patient.[facility] Reason for Visit (unrecogniz ed section and content) Reason Onset Date Comments Schedule Surgery 01/28/2012 Reason Comments New Patient Reason Comments New Patient Specialty Diagnoses / Procedures Referred By Contac t Referred To Contact Endocrinology Diagnoses Elevated blood sugar Procedures CONSULT TO ENDOCRINOLOGY OFFICE/OUTPATIENT NEW HIGH MDM 60-[place] [address] [place] [address] Referral ID Status Reason Start Date Expiration Date Visits Requested Visits Authorized [id number] Authorized PCP Requested Referral 07/23/2022 07/23/2023 1 1 Specialty Diagnoses / Procedures Referred By Contac t Referred To Contact Radiology Diagnoses Left knee pain, unspecified chronicity Procedures MRI KNEE LEFT WO CONTRAST MRI KNEE LEFT WO CONTRAST MRI [place] [address] [place] [address] [place] [address] Referral ID Status Reason Start Date Expiration Date Visits Re quested Visits Authorized [id number] Closed 10/22/2022 12/20/2022 1 1 Specialty Diagnoses / Procedures Referred By Contac t Referred To Contact Physical Therapist / Physical Therapy Diagnoses Left knee pain, unspecified chronicity Procedures 60 Visits pr kalyani yr (combined) Eff: 09/06/22 verified on availity $325 pr kalyani yr Deduct has been met $650 pr kalyani yr OOP - $143.21 remains No copay/no coins for PT Scarlett Ordaz DO [address] [facility] [address] [place] [address] [address] [place] [address] Referral ID Status Reason Start Date Expiration Date V isits Requested Visits Authorized [id number] Closed Specialty Services Required 10/10/2022 10/10/2023 1 1 Referral ID Status Reason Start Date Expiration Date Visits Requested Visits Authorized [id number] Authorized Specialty Services Required 10/10/2022 10/10/2023 60 60 Specialty Diagnoses / Procedures Referred By Contac t Referred To Contact Radiology Diagnoses High risk for fracture due to osteoporosis by DEXA scan Left knee pain, unspecified chronicity M81.0 (ICD-10-CM) - High risk for fracture due to osteoporosis by DEXA scan Procedures NM BONE SCAN 3 PHASE [facility] BONE &/JOINT IMAGING 3 PHASE STUDY [id number] - G BONE &/JOINT IMAGING 3 PHASE STUDY Scarlett Ordaz DO [address] [facility] [address] [place] [address] Referral ID Status Reason Start Date Expiration Date Visits Re quested Visits Authorized [id number] Closed 11/27/2022 11/07/2023 1 1 Reason Comments New Patient Visit Lt knee pain s/p TKR in 2021Xrays @ Pain Lt knee pain s/p TKR in 2021Xrays @ Specialty Diagnoses / Procedures Referred By Contact Referred To Contact Orthopaedic Surgery / Orthopedic Surgery Diagnoses History of total knee replacement, left Left knee pain, unspecified chronicity Patriec Mallory MD [address] [facility], [address] [place] [address] Referral ID Status Reason Start Date Expiration Date Visits Requested Visits Authorized [id number] Authorized Specialty Services Required 02/16/2024 1 1 Specialty Diagnoses / Procedures Referred By Contac t Referred To Contact Diagnoses Acute cholecystitis Acute cholecystitis Stv 3c Med Surg [address] [place] [address] [facility] [address] [place] [address] Referral ID Status Reason Start Date Expiration Date Visits Re quested Visits Authorized [id number] 1 1 INFORMATION SOURCE (unrecogn ized section and content) DATE CREATED AUTHOR 07/22/2022 [facility] DATE CREATED AUTHOR AUTHOR'S ORGANIZ ATION 02/23/2023 [facility] DATE CREATED AUTHOR AUTHOR'S ORGANIZ ATION 02/24/2023 [facility] DATE CREATED AUTHOR AUTHOR'S ORGANIZ ATION 03/23/2023 [facility] DATE CREATED AUTHOR AUTHOR'S ORGANIZ ATION 07/14/2023 [facility] dical [facility] DATE CREATED AUTHOR AUTHOR'S ORGANIZ ATION 11/14/2023 [facility] DATE CREATED AUTHOR AUTHOR'S ORGANIZ ATION 12/26/2023 [facility] Care Teams (unrecognized sec tion and content) General Accountant Relationship Specialty Start Date End Date Daniel Tejada PA-C [address] [place] [address] PCP - General Family Medicine 08/20/22 General Accountant Relationship Specialty Start Date End Date Daniel Tejada PA-C [address] [place] [address] PCP - General Family Medicine 08/20/22 General Accountant Relationship Specialty Start Date End Date Daniel Tejada PA-C [address] [place] [address] PCP - General Family Medicine 08/20/22 General Accountant Relationship Specialty Start Date End Date Daniel Tejada PA-C [address] [place] [address] PCP - General Family Medicine 08/20/22 General Accountant Relationship Specialty Start Date End Date Daniel Tejada PA-C [address] [place] [address] PCP - General Internal Medicine 02/16/23 General Accountant Relationship Specialty Start Date End Date Daniel Tejada PA-C [address] [facility] [address] [place] [address] PCP - General Internal Medicine 02/16/23 General Accountant Relationship Specialty Start Date End Date Daniel Tejada PA-C PCP - General Family Medicine 08/20/22 Ordered Prescriptions (unrec ognized section and content) Prescription Sig Dispensed Refills Start Date End Da oxyCODONE (ROXICODONE) 5 MG immediate release tabletIndications:Acute cholecystitis Take 1 tablet by mouth every 4 hours as needed for Pain for up to 3 days. Max Daily Amount: 30 mg 8 tablet 12/24/2023 12/27/2023 amoxicillin-clavulanate (AUGMENTIN) 875-125 MG per tablet Take 1 tablet by mouth 2 times daily for 5 days 10 tablet 12/24/2023 12/29/2023 ondansetron (ZOFRAN-ODT) 4 MG disintegrating tablet Take 1 tablet by mouth every 8 hours as needed for Nausea or Vomiting 10 tablet 12/24/2023 Scheduled Active and Recently Administ ered Medications (unrecognized section and content) Medication Order 12/22/2023 12/23/2023 12/24/2023 acetaminophen (TYLENOL) tablet 1,000 mg 1,000 mg, Oral, EVERY 8 HOURS SCHEDULED (3 times per day), First dose on Thu12/22/23 at 2200, Until Discontinued, Maximum dose of acetaminophen is 4000 mg from all sources in 24 hours. 2047 (Given - Provider: Megan Mcgowan RN) 0603 (Given - Provider: Megan Mcgowan, RN)1255 (Given - Provider: Nighat Lott, MELISSA)2228 (Not Given - Provider: Megan Mcgowan RN - Reason: Patient/family refused) 0537 (Given - Provider: Megan Mcgowan, MELISSA)1313 (Given - Provider: Nighat Lott, RN)2200 (Due) enoxaparin (LOVENOX) injection 40 mg 40 mg, SubCUTAneous, DAILY, First dose on Thu12/20/23 at 0900, Until Discontinued, Indication of Use: Prophylaxis-DVT/PE, Administer by deep subCUTAneous injection with pt lying down. Alternate injection sites on abdominal wall. Do not rub site after injection. Check with provider prior to any invasive procedure. 0948 (Held - Provider: Laura Lucero RN - Reason: Other - Comment: surgery today)1322 (MAY Hold - Provider: Lupe Autohold - Reason: Unreviewed Transfer Orders)171 ([facility] Unhold - Provider: Wiley Lama DO) 0954 (Not Given - Provider: Nighat Lott RN - Reason: Patient/family refused) 1007 (Given - Provider: Nighat Lott RN) famotidine (PEPCID) tablet 20 mg (CANCELED) 20 mg, Oral, DAILY, First dose on Thu12/23/23 at 1830, Until Discontinued 1832 (Given - Provider: Nighat Lott RN) 1008 (Given - Provider: Nighat Lott RN) famotidine (PEPCID) tablet 20 mg 20 mg, Oral, DAILY, First dose (after last modification) on Thu12/24/23 at 1100, Until Discontinued 1040 (Not Given - Provider: Nighat Lott RN - Reason: Other - Comment: already given) fluconazole (DIFLUCAN) tablet 150 mg (COMPLETED) 150 mg, Oral, ONCE, 1 dose, On Thu12/22/23 at 0845, 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 0817 (Given - Provider: Lucía Villa RCP)1322 ([facility] Hold - Provider: Lupe Autohold - Reason: Unreviewed Transfer Orders)171 ([facility] Unhold - Provider: Wiley Lama DO)1999 (Due) 0835 (Not Given - Provider: Gertrudis Jackson RCP - Reason: Patient/family refused)1948 (Not Given - Provider: Ac Moore RCP - Reason: Patient/family refused) 0749 (Not Given - Provider: Hanny Saldana [facility] - Reason: Patient/family refused)1999 (Due) indocyanine green (IC-GREEN) syringe 5 mg (COMPLETED) 5 mg, IntraVENous, ONCE, 1 dose, On Thu12/22/23 at 1400, Flush dye from catheter with NS to prevent hemolysis. Reconstitute vial with 10 mL of included Sterile Water diluent for final concentration of 2.5 mg/mL., Pre-op (day of surgery) 1435 (Given - Provider: Nadja Bradford RN) Insulin Pump - Basal Dose (Patient Supplied) SubCUTAneous, DAILY, First dose on Thu12/20/23 at 0900, Total daily basal dose (total number of units/24 hours) provided by patient and/or query of insulin pump. 1001 (Not Given - Provider: Laura Lucero RN - Reason: Other - Comment: per pt. dexcom stopped working overnight, States son is bringing new one)1322 (MAR Hold - Provider: Lupe Autohold - Reason: Unreviewed Transfer Orders)1712 (MAR Unhold - Provider: Wiley Lama DO) 1002 (Not Given - Provider: Nighat Lott RN - Reason: Patient/family refused) 0940 (Not Given - Provider: Nighat Lott RN - Reason: Patient/family refused) Insulin Pump - Bolus Dose (Patient Supplied) SubCUTAneous, 4 TIMES DAILY BEFORE MEALS & NIGHTLY, First dose on Thu12/20/23 at 0700, Patient to bolus using insulin pump based on current home settings for carbohydrates coverage and blood glucose correction. 0959 (Not Given - Provider: Laura Lucero RN - Reason: Order parameters not met)1109 (Not Given - Provider: Laura Lucero RN - Reason: Other - Comment: pump not working. pt waiting for new one)1322 (MAR Hold - Provider: Lupe Autohold - Reason: Unreviewed Transfer Orders)1700 (Automatically Held - Provider: Lupe Autohold)1712 (MAR Unhold - Provider: Wiley Lama DO)2058 (Not Given - Provider: Megan Mcgowan RN - Reason: Other - Comment: per patient) 1002 (Not Given - Provider: Nighat Lott RN - Reason: Order parameters not met)1242 (Not Given - Provider: Nighat Lott RN - Reason: Patient/family refused)1618 (Not Given - Provider: Nighat oLtt RN - Reason: Patient/family refused)2036 (Not Given - Provider: Megan Mcgowan RN - Reason: Patient/family refused) 0940 (Not Given - Provider: Nighat Lott RN - Reason: Patient/family refused)1145 (Not Given - Provider: Nighat Lott RN - Reason: Patient/family refused)1639 (Not Given - Provider: Nighat Lott RN - Reason: Patient/family refused)2100 (Due) levothyroxine (SYNTHROID) tablet 88 mcg 88 mcg, Oral, DAILY, First dose on 12/20/23 at 1315, Until Discontinued, Tube feeding (TF) interaction, obtain physician order to manage, recommend holding TF for 30 minutes before and after dose. 0837 (Given - Provider: Terri Millard)1322 (MAY Hold - Provider: Lupe Autohold - Reason: Unreviewed Transfer Orders)1712 (MAR Unhold - Provider: Wiley Lama DO) 0603 (Given - Provider: Megan Mcgowan RN) 0537 (Given - Provider: Megan Mcgowan RN) piperacillin-tazobactam (ZOSYN) 3375 mg in dextrose 50 mL IVPB (premix) 3,375 mg, IntraVENous, EVERY 8 HOURS, First dose on 12/20/23 at 0930, Until Discontinued, Antimicrobial Indications: Intra-Abdominal Infection 0115 (New Bag - Provider: Megan Mcgowan RN)0515 (Stopped - Provider: Megan Mcgowan RN)0850 (New Bag - Provider: Terri Millard)1322 (MAR Hold - Provider: Lupe Autohold - Reason: Unreviewed Transfer Orders)1452 (Stopped - Provider: Laura Lucero RN)1712 (MAR Unhold - Provider: Wiley Lama DO)2002 (New Bag - Provider: Megan Mcgowan RN) 0003 (Stopped - Provider: Megan Mcgowan RN)0335 (New Bag - Provider: Megan Mcgowan RN)0735 (Stopped - Provider: Nighat Lott RN)1257 (New Bag - Provider: Nighat Lott RN)1657 (Stopped - Provider: Nighat Lott RN)2004 (New Bag - Provider: Megan Mcgowan RN) 0004 (Stopped - Provider: Megan Mcgowan RN)0340 (New Bag - Provider: Megan Mcgowan RN)0740 (Stopped - Provider: Nighat Lott RN)1316 (New Bag - Provider: Nighat Lott RN)1638 (Stopped - Provider: Nighat Lott RN)2100 (Due - Provider: Patrice Lyn [facility]) polyethylene glycol (GLYCOLAX) packet 17 g 17 g, Oral, DAILY, First dose (after last modification) on Thu12/24/23 at 0945, Until Discontinued, First line therapy for constipation 1007 (Given - Provider: Nighat Lott RN) scopolamine (TRANSDERM-SCOP) transdermal patch 1 patch 1 patch, TransDERmal, Administer over 72 Hours, ONCE, On Thu12/22/23 at 1415, For 1 dose, delivers 1 mg over 3 days. Apply patch to hairless area behind the ear. 1351 (Patch Applied - Provider: Nadja Bradford RN - Comment: behind R ear) sodium chloride 0.9 % 500 mL infusion (COMPLETED) IntraVENous, at 1,000 mL/hr, ONCE, On Thu12/24/23 at 1545, For 1 dose 1530 (New Bag - Provider: Nighat Lott RN)1638 (Stopped - Provider: Nighat Lott RN) sodium chloride flush 0.9 % injection 5-40 mL (CANCELED) 5-40 mL, IntraVENous, EVERY 12 HOURS SCHEDULED (2 times per day), First dose on Thu12/20/23 at 0900, Until Discontinued, For Line Patency: Peripheral IV = 5 mL; Midline or Central Line = 10 mL/lumen. If following IV push medication, administer flush at same rate as the IV push. Flush volume is determined by type of infusion therapy being given. For non-viscous solutions use: Peripheral IV = 5 mL Midline or Central Line = 10 mL/lumen For viscous solutions (i.e. blood components, parenteral nutrition, contrast media, or after obtaining blood sample) use: Peripheral IV = 10 mL Midline or Central Line = 20 mL/lumen 1002 (Not Given - Provider: Laura Lucero RN - Reason: Other)1322 ([facility] Hold - Provider: Lupe Autohold - Reason: Unreviewed Transfer Orders)171 ([facility] Unhold - Provider: Wiley Lama DO)2003 (Given - Provider: Megan Mcgowan, MELISSA) PRN Medication Order 12/22/2023 12/23/2023 12/24/2023 BUPivacaine-EPINEPHrine PF (MARCAINE-w/EPINEPHrine) 0.5% -[id number] injection (CANCELED) PRN, Starting on Thu12/22/23 at 1514, Until Thu12/22/23 at 1712, Intra-op 1514 (Given - Provider: Loi Love MD - Comment: INJECTED ONTO INCISION SITES) fluticasone (FLONASE) 50 MCG/ACT nasal spray 2 spray 2 spray, Nasal, DAILY PRN, Starting on Thu12/20/23 at 1258, Until Discontinued, Allergies 132 ([facility] Hold - Provider: Lupe Autohold - Reason: Unreviewed Transfer Orders)1711 ([facility] Unhold - Provider: Wiley Lama DO) glucagon injection 1 mg 1 mg, SubCUTAneous, PRN, Starting on Thu12/20/23 at 0550, Until Discontinued, Low blood sugar, Blood glucose LESS THAN 70 mg/dL and patient NOT ALERT or NPO and does not have IV access., After administration, attempt intravenous access and start dextrose 10% at 100 mL/hr. Repeat blood glucose in 15 minutes x 2 and notify provider. 1322 ([facility] Hold - Provider: Lupe Autohold - Reason: Unreviewed Transfer Orders)171 ([facility] Unhold - Provider: Wiley Lama DO) glucose chewable tablet 16 g 16 g (4 tablet), Oral, PRN, Starting on 12/20/23 at 0550, Until Discontinued, Low blood sugar, If blood glucose is LESS THAN 70 mg/dL and patient is alert and tolerating oral. Give 4 tablets (16g) Repeat blood glucose in 15 minutes. If blood glucose is LESS THAN 70 mg/dL, repeat treatment and recheck blood glucose in 15 minutes x 2. If blood glucose remains LESS THAN 70 mg/dL, notify provider. 132 ([facility] Hold - Provider: Mar Autohold - Reason: Unreviewed Transfer Orders)1712 (MAR Unhold - Provider: Wiley Lama DO) HYDROmorphone (DILAUDID) injection 0.25 mg(Linked Group 1) 0.25 mg, IntraVENous, EVERY 4 HOURS PRN, Starting on Thu12/22/23 at 2300, Until Discontinued, Pain Moderate (4-6), If oral and IV narcotics ordered, use oral first and only use IV if oral is ineffective or cannot take oral. Do Not give oral and IV within 1 hour of each other unless specifically ordered. 0340 (See Alternative - Provider: Megan Mcgowan RN)1633 (See Alternative - Provider: Nighat Lott RN) 0131 (See Alternative - Provider: Megan Mcgowan RN) HYDROmorphone (DILAUDID) injection 0.5 mg (CANCELED) 0.5 mg, IntraVENous, EVERY 4 HOURS PRN, Starting on Thu12/20/23 at 0453, Until Thu12/22/23 at 2058, Pain Severe (7-10), If oral and IV narcotics ordered, use oral first and only use IV if oral is ineffective or cannot take oral. Do Not give oral and IV within 1 hour of each other unless specifically ordered. 0416 (Given - Provider: Megan Mcgowan RN)0839 (Given - Provider: Terri Millard)1322 (MAR Hold - Provider: Lupe Autohold - Reason: Unreviewed Transfer Orders)1712 (MAR Unhold - Provider: Wiley Lama DO)1903 (Given - Provider: Laura Lucero RN) HYDROmorphone (DILAUDID) injection 0.5 mg (COMPLETED) 0.5 mg, IntraVENous, EVERY 5 MIN PRN, 4 doses, Starting on Thu12/22/23 at 1717, Until Thu12/22/23 at 1758, Pain Severe (7-10), Phase I - Initial therapy for severe pain., PACU only 172 (Given - Provider: Luci Walters, MELISSA)1732 (Given - Provider: Luci Walters, MELISSA)1741 (Given - Provider: Luci Walters RN)1758 (Given - Provider: Luci Walters RN) HYDROmorphone (DILAUDID) injection 0.5 mg(Linked Group 1) 0.5 mg, IntraVENous, EVERY 4 HOURS PRN, Starting on Thu12/22/23 at 2300, Until Discontinued, Pain Severe (7-10), If oral and IV narcotics ordered, use oral first and only use IV if oral is ineffective or cannot take oral. Do Not give oral and IV within 1 hour of each other unless specifically ordered. 0340 (Given - Provider: Megan Mcgowan RN)1633 (Given - Provider: Nighat Lott, MELISSA) 0131 (Given - Provider: Megan Mcgowan RN) ondansetron (ZOFRAN) injection 4 mg(Linked Group 2) 4 mg, IntraVENous, EVERY 6 HOURS PRN, Starting on Thu12/20/23 at 0418, Until Discontinued, Nausea, Vomiting, Administer if oral route cannot be used. 1322 (MAR Hold - Provider: Lupe Autohold - Reason: Unreviewed Transfer Orders)1712 (MAR Unhold - Provider: Wiley Lama DO) 1654 (See Alternative - Provider: Nighat Lott RN) ondansetron (ZOFRAN-ODT) disintegrating tablet 4 mg(Linked Group 2) 4 mg, Oral, EVERY 8 HOURS PRN, Starting on Thu12/20/23 at 0418, Until Discontinued, Nausea, Vomiting 1322 (MAR Hold - Provider: Lupe Autohold - Reason: Unreviewed Transfer Orders)1712 (MAR Unhold - Provider: Wiley Lama DO) 1654 (Given - Provider: Nighat Lott RN) oxyCODONE (ROXICODONE) immediate release tablet 10 mg(Linked Group 3) 10 mg, Oral, EVERY 4 HOURS PRN, Starting on Thu12/22/23 at 2040, Until Discontinued, Pain Severe (7-10) 0001 (See Alternative - Provider: Megan Mcgowan RN)0714 (Given - Provider: Megan Mcgowan RN)1255 (Given - Provider: Nighat Lott, MELISSA)1841 (Given - Provider: Nighat Lott, MELISSA) 0605 (Given - Provider: Megan Mcgowan RN)1008 (Given - Provider: Nighat Lott RN)1527 (Given - Provider: Nighat Lott, RN) oxyCODONE (ROXICODONE) immediate release tablet 5 mg(Linked Group 3) 5 mg, Oral, EVERY 4 HOURS PRN, Starting on Thu12/22/23 at 2040, Until Discontinued, Pain Moderate (4-6) 0001 (Given - Provider: Megan Mcgowan, MELISSA)0714 (See Alternative - Provider: Megan Mcgowan RN)1255 (See Alternative - Provider: Nighat Lott RN)1841 (See Alternative - Provider: Nighat Lott RN) 0605 (See Alternative - Provider: Megan Mcgowan, MELISSA)1008 (See Alternative - Provider: Nighat Lott RN)1527 (See Alternative - Provider: Nighat Lott RN) potassium bicarb-citric acid (EFFER-K) effervescent tablet 40 mEq(Linked Group 4) 40 mEq, Oral, PRN, Starting on Thu12/20/23 at 0418, Until Discontinued, Per Potassium Replacement Protocol, Administer as alternative if patient unable to tolerate oral tablet. K Lab Replacement Action 3.1 to 3.5 40 mEq ORAL x 1 Under 3.1 Refer to IV replacement protocol Recheck K level in AM. Protocol not for use in patients with CrCl less than 30 mL/min. Do not chew or crush. Dissolve flavored tablets completely in 3 to 4 ounces of cold water; unflavored tablets may be dissolved in 3 to 4 ounces of cold juice. Patient to sip slowly over a 5 to 10 minute period. May further dilute if GI adverse effects occur. 1322 (MAR Hold - Provider: Lupe Autohold - Reason: Unreviewed Transfer Orders)1712 (MAR Unhold - Provider: Wiley Lama, DO) potassium chloride (KLOR-CON M) extended release tablet 40 mEq(Linked Group 4) 40 mEq, Oral, PRN, Starting on Thu12/20/23 at 0418, Until Discontinued, Potassium Replacement, May give alternative linked oral order (ordered as effervescent, packet, or liquid solution) if patient unable to tolerate tablet. K Lab Replacement Action 3.1 to 3.5 40 mEq ORAL x 1 Under 3.1 Refer to IV replacement protocol Recheck K level in AM. Protocol not for use in patients with CrCl less than 30 mL/min. Do not crush, chew, or suck on tablet. Tablet may also be broken in half and each half swallowed separately. 1322 (MAR Hold - Provider: Lupe Autohold - Reason: Unreviewed Transfer Orders)1712 (MAR Unhold - Provider: Wiley Lama DO) sod chloride IRR soln 0.9 % irrigation (CANCELED) CONTINUOUS PRN, Starting on Thu12/22/23 at 1542, Intra-op 1542 (New Bag - Provider: Loi Love MD - Comment: HANGING IRRIGATION) sodium chloride flush 0.9 % injection 10 mL 10 mL, IntraVENous, PRN, Starting on Thu12/20/23 at 0418, Until Discontinued, Line Care, After every IV line use 1322 (MAR Hold - Provider: Lupe Autohold - Reason: Unreviewed Transfer Orders)1712 (MAR Unhold - Provider: Wiley Lama DO) 2002 (Given - Provider: Megan Mcgowan RN) 1008 (Given - Provider: Nighat Lott RN) Linked Groups Order Group 1: HYDROmorphone (DILAUDID) injection 0.25 mgJump to med 0.25 mg, IntraVENous, EVERY 4 HOURS PRN, Starting on Thu12/22/23 at 2300, Until Discontinued, Pain Moderate (4-6), If oral and IV narcotics ordered, use oral first and only use IV if oral is ineffective or cannot take oral. Do Not give oral and IV within 1 hour of each other unless specifically ordered. Or HYDROmorphone (DILAUDID) injection 0.5 mgJump to med 0.5 mg, IntraVENous, EVERY 4 HOURS PRN, Starting on Thu12/22/23 at 2300, Until Discontinued, Pain Severe (7-10), If oral and IV narcotics ordered, use oral first and only use IV if oral is ineffective or cannot take oral. Do Not give oral and IV within 1 hour of each other unless specifically ordered. Group 2: ondansetron (ZOFRAN-ODT) disintegrating tablet 4 mgJump to med 4 mg, Oral, EVERY 8 HOURS PRN, Starting on Thu12/20/23 at 0418, Until Discontinued, Nausea, Vomiting Or ondansetron (ZOFRAN) injection 4 mgJump to med 4 mg, IntraVENous, EVERY 6 HOURS PRN, Starting on Thu12/20/23 at 0418, Until Discontinued, Nausea, Vomiting, Administer if oral route cannot be used. Group 3: oxyCODONE (ROXICODONE) immediate release tablet 5 mgJump to med 5 mg, Oral, EVERY 4 HOURS PRN, Starting on Thu12/22/23 at 2040, Until Discontinued, Pain Moderate (4-6) Or oxyCODONE (ROXICODONE) immediate release tablet 10 mgJump to med 10 mg, Oral, EVERY 4 HOURS PRN, Starting on Thu12/22/23 at 2040, Until Discontinued, Pain Severe (7-10) Group 4: potassium chloride (KLOR-CON M) extended release tablet 40 mEqJump to med 40 mEq, Oral, PRN, Starting on Thu12/20/23 at 0418, Until Discontinued, Potassium Replacement, May give alternative linked oral order (ordered as effervescent, packet, or liquid solution) if patient unable to tolerate tablet. K Lab Replacement Action 3.1 to 3.5 40 mEq ORAL x 1 Under 3.1 Refer to IV replacement protocol Recheck K level in AM. Protocol not for use in patients with CrCl less than 30 mL/min. Do not crush, chew, or suck on tablet. Tablet may also be broken in half and each half swallowed separately. Or potassium bicarb-citric acid (EFFER-K) effervescent tablet 40 mEqJump to med 40 mEq, Oral, PRN, Starting on Thu12/20/23 at 0418, Until Discontinued, Per Potassium Replacement Protocol, Administer as alternative if patient unable to tolerate oral tablet. K Lab Replacement Action 3.1 to 3.5 40 mEq ORAL x 1 Under 3.1 Refer to IV replacement protocol Recheck K level in AM. Protocol not for use in patients with CrCl less than 30 mL/min. Do not chew or crush. Dissolve flavored tablets completely in 3 to 4 ounces of cold water; unflavored tablets may be dissolved in 3 to 4 ounces of cold juice. Patient to sip slowly over a 5 to 10 minute period. May further dilute if GI adverse effects occur. Or potassium chloride 10 mEq/100 mL IVPB (Peripheral Line) (CANCELED) 10 mEq, IntraVENous, PRN, Starting on 12/20/23 at 0418, Until 12/23/23 at 0027, at 100 mL/hr, Potassium Replacement, K Lab Replacement Action 2.7 to 3.0 10 mEq IVPB x 6 doses (60 mEq Total) Under 2.7 CALL PROVIDER and administer 10 mEq IVPB x 6 doses (60 mEq Total) Infuse at 10 mEq/hr. Repeat Potassium lab 1 hour after final administration. Protocol not for use in patients with CrCl less than 30 mL/min. FOR RECORDS PERTAINING TO PATIENTS WHO ARE [...] BE BASED ON THE PRIMARY CLINICAL RECORDS. [employer] provides no warranty or guarantee of the accuracy or completeness of information in this document.
[2023-12-26 16:07] VITALS: BP 106/60; PULSE 89; TEMP 36.7; O2SAT 97; BMI 44.6
--- NOTE | 2023-12-26 16:14 | ED_ITS ---
HPI HPI - General Adult General Chief complaint: Recheck/Abnormal Lab/Rx Stated complaint: ED VISIT FOLLOW UP Time Seen by Provider: 12/26/23 15:58 Source: patient Mode of arrival: walk-in Limitations: no limitations History of Present Illness HPI narrative: Patient is a 58-year-old female who returns to this emergency department for refill of her pain medication. She was seen in this emergency department on 12/18 and was diagnosed with acute cholecystitis and sent to [facility]. She had surgery 4 days ago and was discharged 2 days ago with 8 pain pills. She states she does not have an appointment for follow-up until Thursday. She states her discharge paperwork told her that she should have enough medicine to get through until Thursday, but she discovered today that she will run out this afternoon. She was seen this morning in this emergency department at 1 AM for yellow drainage from her ZAHRA drain that is still in place. She was told that the drainage is normal and she has had some leakage from the drain site. She denies any new focal medical complaints today, fevers, vomiting. She is eating and drinking fairly well although she states she does feel constipated and would like a stool softener as well. Related Data Home Medications ?Medication ?Instructions ?Recorded ?Confirmed beclomethasone dipropionate 40 1 inh inhalation QDAY PRN wheezing 12/19/23 12/19/23 mcg/actuation HFA breath activated aerosol (Qvar RediHaler) furosemide 20 mg tablet 20 mg PO QDAY 12/19/23 12/19/23 insulin lispro 100 unit/mL 1 sliding scale dose continuous IV 12/19/23 12/19/23 subcutaneous solution (Humalog infusion .hourly PRN hyperglycemia U-100 Insulin) levothyroxine 88 mcg tablet 88 mcg PO QDAY 12/19/23 12/19/23 pantoprazole 40 mg tablet,delayed 40 mg PO QDAY 12/19/23 12/19/23 release tirzepatide 10 mg/0.5 mL 10 mg subcut .weekly 12/19/23 12/19/23 subcutaneous pen injector (Mounjaro) Previous Rx's ?Medication ?Instructions ?Recorded docusate sodium 100 mg capsule 100 mg PO BID #14 caps 12/26/23 (Colace) oxycodone-acetaminophen 5 mg-325 1 tab PO Q4H PRN pain 3 days #15 12/26/23 mg tablet (Percocet) tabs Allergies Allergy/AdvReac Type Severity Reaction Status Date / Time adhesive tape Allergy Unknown Unknown Verified 12/26/23 16:07 naproxen (From Aleve) Allergy ill Verified 12/26/23 16:07 morphine AdvReac Unknown Verified 12/26/23 16:07 Opioid HPI Opioid Management Most Recent Opioid Data: Last Pain Scale 5 12/20/23 01:58 12/20/23 Last MAR Pain Assessment 12/20/23 01:58 Review of Systems ROS Constitutional Denies: fever or chills Ears, nose, mouth, and throat Denies: throat pain or nasal congestion Cardiovascular Denies: chest pain Respiratory Denies: shortness of breath or cough Gastrointestinal Reports: abdominal pain and constipation; Denies: nausea or vomiting Musculoskeletal Denies: back pain, neck pain or extremity pain Neurological Denies: numbness in extremities or weakness in extremities Hematologic/Lymphatic Denies: easy bruising or easy bleeding PFSH PFSH Social History Little interest or pleasure in doing things: not at all Feeling down, depressed, or hopeless: not at all Exam Narrative Exam Narrative: Gen.: Awake, alert, in no distress Head: Normocephalic, atraumatic ENT: Moist mucous membranes Respiratory: No respiratory distress Gastrointestinal: Abdomen is soft, well-healing ecchymosis and laparoscopic surgical incisions noted over the abdomen with ZAHRA drain in place to the right abdomen. Mild serosanguineous drainage noted in the drain as well as on the dressing covering the drain. No surrounding erythema of the abdominal wall, no induration. Extremities: Moves extremities equally Psych: Normal mood and affect Neuro: No focal neuro deficit Skin: Warm, dry, intact Constitutional Vital Signs, click to edit/add: Last Vital Signs Temp 98.1 F 12/26/23 16:07 Pulse 89 12/26/23 16:07 Resp 20 12/26/23 16:07 BP 106/60 12/26/23 16:07 Pulse Ox 97 12/26/23 16:07 O2 Del Method Room Air 12/26/23 16:07 Course Vital Signs Vital signs: Vital Signs Temperature 98.1 F 12/26/23 16:07 Pulse Rate 89 12/26/23 16:07 Respiratory Rate 20 12/26/23 16:07 Blood Pressure 106/60 12/26/23 16:07 Pulse Oximetry 97 12/26/23 16:07 Oxygen Delivery Method Room Air 12/26/23 16:07 Temperature 98.1 F 12/26/23 16:07 Pulse Rate 89 12/26/23 16:07 Respiratory Rate 20 12/26/23 16:07 Blood Pressure 106/60 12/26/23 16:07 Pulse Oximetry 97 12/26/23 16:07 Oxygen Delivery Method Room Air 12/26/23 16:07 Medical Decision Making MDM Narrative Medical decision making narrative: Patient with stable vital signs, no fevers or tachycardia. No new focal medical complaints of vomiting or pain out of proportion. She was made aware of the limitations of narcotic refills from the emergency department, she will keep her appointment on Thursday for further evaluation from general surgery. At this time her drain is in place, draining appropriately and she appears well-hydrated and nontoxic. Return to the ER if symptoms change or worsen SUPERVISED APC VISIT, PHYSICIAN ATTESTATION: Based on the medical record the care appears appropriate. ? Medical Records Medical records reviewed: Yes I reviewed the patient's medical records Discharge Plan Discharge Chief Complaint: Recheck/Abnormal Lab/Rx Clinical Impression: Encounter for medication refill Patient Disposition: Home, Self-Care Time of Disposition Decision: 16:23 Condition: Good Prescriptions / Home Meds: New oxycodone-acetaminophen [Percocet] 5-325 mg tablet 1 tab PO Q4H PRN (Reason: pain) 3 Days Qty: 15 0RF Rx Instructions: DX: R10.9 docusate sodium [Colace] 100 mg capsule 100 mg PO BID Qty: 14 0RF No Action levothyroxine 88 mcg tablet 88 mcg PO QDAY furosemide 20 mg tablet 20 mg PO QDAY insulin lispro [Humalog U-100 Insulin] 100 unit/mL solution 1 sliding scale dose continuous IV infusion .hourly PRN (Reason: hyperglycemia) Qvar RediHaler 40 mcg/actuation HFA aerosol breath activated 1 inh INHALATION QDAY PRN (Reason: wheezing) Mounjaro 10 mg/0.5 mL pen injector 10 mg SUBCUT .weekly pantoprazole 40 mg tablet,delayed release (DR/EC) 40 mg PO QDAY Print Language: Telugu Instructions: Medicine Refill (ED) Additional Instructions: Follow up with your surgeon on Thursday Referrals: Physician,Non-Staff, MD [Primary Care Provider] - 1 week
== END 2023-12-26 16:47 | disposition home or self-care (01) ==
PROVIDERS: Emergency Provider Emergency Medicine
DX: Z48.815 Encounter for surgical aftercare following surgery on the digestive system (principal); Z90.49 Acquired absence of other specified parts of digestive tract; Z76.0 Encounter for issue of repeat prescription
CPT/HCPCS: 99281; 99283

== ENCOUNTER 2024-01-22 15:51 | Emergency (ER) | payer BC, SELFPAY ==
[2024-01-22 16:00] VITALS: BP 123/69; PULSE 105; TEMP 36.6; O2SAT 96; BMI 44.6
[2024-01-22 17:08] VITALS: BP 140/71; PULSE 100; O2SAT 95
--- NOTE | 2024-01-22 17:30 | CT_ITS ---
The [address] [address] Patient Name: FABIANO WILSON MRN: [id number] date: 1965 Sex: F Assigned Patient Location: ER Current Patient Location: .[facility] Accession/Order Number: [id number] Exam Date: 01/22/2024 18:05 Report Date: 01/22/2024 21:15 At the request of: LIAT BURROUGHS Procedure: CT abdomen pelvis w con EXAM: CT abdomen pelvis w con TECHNIQUE: Axial CT images were obtained of the abdomen and pelvis with intravenous contrast. Sagittal and coronal reformatted images were also obtained. Dose reduction techniques were achieved by using automated exposure control and/or adjustment of mA and/or kV according to patient size and/or use of iterative reconstruction technique. HISTORY: recent lap ida with ruq pain COMPARISON: 12/19/2023 FINDINGS: Lower chest: The lower lungs are clear. Liver: Nodular contours of liver and mildly heterogeneous hepatic attenuation suggesting cirrhosis. Gallbladder: Status post cholecystectomy. No significant biliary dilatation. Pancreas: The pancreas is homogeneous without evidence for mass lesion or inflammation. Spleen: The spleen is enlarged up to 15.8 cm in length. Adrenal glands: The adrenal glands are unremarkable Kidneys and bladder: A couple small benign cortical renal cysts. No hydronephrosis. The ureters demonstrate normal caliber. The urinary bladder appears unremarkable given lack of distention. GI Tract: Stomach is unremarkable. Visualized small bowel is unremarkable without evidence for obstruction or active inflammation. The appendix is unremarkable.The visualized portion of the large bowel is unremarkable. Reproductive: Unremarkable Lymph nodes: No retroperitoneal or abdominal lymphadenopathy. Vascular: The aorta is not dilated. Mesenteric, renal and iliac arteries are patent. Upper abdominal varices are stable. Dilated paraumbilical vein noted. Peritoneum: Mild ascites. 2.6 cm ill-defined soft tissue opacity just inferior to the right lobe of liver and demonstrating multiple small calcifications. Postsurgical edema in the right upper quadrant. Abdominal wall: Caput medusa at the umbilicus. Degenerative facet changes of the lower lumbar spine. CT/CT abdomen pelvis w con IMPRESSION: 1. New soft tissue opacity with multiple small calcifications just inferior to the right lobe of liver. The appearance suggests likely spillage of gallstones during cholecystectomy with surrounding inflammation. 2. Cirrhotic liver with portal venous hypertension and large varices. Electronically authenticated by: OLIVIA ORTEGA Date: 01/22/2024 21:15
[2024-01-22] MEDS: 0.9 % SODIUM CHLORIDE 1,000 ML 999 ML IV (17:34)
[2024-01-22] MEDS: ONDANSETRON PF 4 MG/2 ML VIAL IV (17:34)
[2024-01-22 17:46] LABS: Hematocrit 42.2 % (36.0-48.0); Hemoglobin 14.1 g/dL (12.0-16.0); Mean Corpuscular HGB Conc 33.4 g/dL (29.9-35.2); Mean Corpuscular Hemoglobin 29.9 pg (26.7-34.0); Mean Corpuscular Volume 89.6 fL (81.0-99.0); Mean Platelet Volume 11.9 fL (9.5-13.5); Platelet Count 132 10^3/uL (150-450); Red Blood Count 4.71 10^6/uL (4.20-5.40); White Blood Count 18.7 10^3/uL (4.0-11.0)
[2024-01-22 17:58] LABS: Alanine Aminotransferase 131 U/L (14-59); Albumin Globulin Ratio 0.8; Alkaline Phosphatase 181 U/L (46-116); Anion Gap 16.9; Aspartate Amino Transferase 231 U/L (15-37); BUN Creatinine Ratio 9.5; Bilirubin Total 8.2 mg/dL (0.2-1.0); Carbon Dioxide 22.8 mmol/L (21.0-32.0); Chloride 107 mmol/L (98-107); Estimated GFR (African America >60 (>=60 mL/min/1.73m^2); Estimated GFR (Non-African Ame 54 (>=60 mL/min/1.73m^2); Globulin 3.9 g/dL; Glucose 174 mg/dL (74-106); Potassium 3.7 mmol/L (3.5-5.1); Sodium 143 mmol/L (136-145); Total Protein 6.9 g/dL (6.4-8.2)
[2024-01-22 18:15] LABS: Band Neutrophils Absolute 0.6 10^3/uL (0.0-0.3); Lymphocytes Absolute Manual 0.93 10^3/uL (1.20-3.80); Monocytes Absolute Manual 0.37 10^3/uL (0.30-0.80); Segmented Neut Absolute Manual 16.83 10^3/uL (1.4-6.5)
--- NOTE | 2024-01-22 18:17 | US_ITS ---
The [address] [address] Patient Name: FABIANO WILSON MRN: [id number] date: 1965 Sex: F Assigned Patient Location: ED.MAIN Current Patient Location: ED.MAIN Accession/Order Number: [id number] Exam Date: 01/22/2024 18:37 Report Date: 01/22/2024 22:36 At the request of: LIAT BURROUGHS Procedure: US abdomen complete EXAM: US abdomen complete , 01/22/2024 HISTORY: ruq pain, sp lap ida COMPARISON: CT scan from 01/22/2024 TECHNIQUE: Multiplanar grayscale and color ultrasound imaging of the abdomen was performed. FINDINGS: The liver shows mild increase echogenicity and coarse echotexture. Patent portal vein with hepatopetal flow. No obvious hepatic mass, however imaging limited due to patient body habitus and overlying bowel gas. Status post cholecystectomy. No biliary ductal dilatation. The common bile duct measures 6 mm. The right kidney measures 11.8 x 4.7 x 6.1 cm, with normal echotexture, without hydronephrosis. The left kidney measures 12.2 x 2.7 x 4.6 cm, within normal echotexture, without hydronephrosis. The spleen shows no focal lesion and measures 13 cm in the long axis. No free fluid noted in the abdomen. The pancreas, abdominal aorta and IVC are obscured by overlying bowel gas. US/US abdomen complete IMPRESSION: 1. No biliary ductal dilatation. 2. Status post cholecystectomy. 3. Coarse echotexture of the liver with mild splenomegaly, recommend clinical correlation with cirrhosis. Electronically authenticated by: MARIBETH CHRISTENSEN Date: 01/22/2024 22:36
[2024-01-22 18:25] LABS: Lactate/Lactic Acid 2.7 mmol/L (0.4-2.0)
[2024-01-22 18:26] LABS: Bilirubin Urine COLOR INTERFERENCE (NEGATIVE); Blood Urine COLOR INTERFERENCE (NEGATIVE); Clarity Urine CLEAR (CLEAR); Color Urine ORANGE (YELLOW); Glucose Urine UA COLOR INTERFERENCE mg/dL (NEGATIVE); Ketones Urine COLOR INTERFERENCE mg/dL (NEGATIVE); Leukocyte Esterase Urine COLOR INTERFERENCE (NEGATIVE); Nitrite Urine COLOR INTERFERENCE (NEGATIVE); Protein Urine COLOR INTERFERENCE mg/dL (NEG/TRACE); Specific Gravity Urine 1.025 (1.005-1.025); Urine Microscopic Indicated YES; Urobilinogen Urine COLOR INTERFERENCE EU/dL (0.2-1.0); pH Urine COLOR INTERFERENCE (5.0-9.0)
[2024-01-22 18:30] LABS: Bacteria Urine LARGE #/HPF (NONE SEEN); Cast Seen? NONE SEEN #/LPF (NONE SEEN); Crystals Seen? None Seen #/HPF (None Seen); Mucus Urine TRACE (NONE SEEN); Squamous Epithelial Cell Urine FEW #/LPF (NONE/RARE); Urine Culture Indicated YES
--- NOTE | 2024-01-22 19:23 | ED.ABDPAIN1 ---
HPI - Abdominal Pain General Chief Complaint: Abdominal Pain Stated Complaint: 12-21 gallbladder surgery, severe pain/vomiting Time Seen by Provider: 01/22/24 17:07 Source: patient Mode of arrival: walk-in Limitations: no limitations History of Present Illness HPI narrative: 58-year-old female presents here with a chief complaint of right upper quadrant pain and tenderness. Patient had been seen here in the hospital December 21 and transferred to [facility] in [place] for acute cholecystitis. She presents here today with right upper quadrant pain and tenderness. She also has nausea. She is a type I diabetic. She states her blood sugars at home with her insulin pump have been running normal she denies any known fevers. She has right upper quadrant pain upon arrival. Related Data Home Medications ?Medication ?Instructions ?Recorded ?Confirmed furosemide 20 mg tablet 20 mg PO QDAY PRN edema 12/19/23 01/22/24 insulin lispro 100 unit/mL 1 sliding scale dose continuous IV 12/19/23 01/22/24 subcutaneous solution (Humalog infusion .hourly PRN hyperglycemia U-100 Insulin) levothyroxine 88 mcg tablet 88 mcg PO QDAY 12/19/23 01/22/24 pantoprazole 40 mg tablet,delayed 40 mg PO QDAY 12/19/23 01/22/24 release tirzepatide 10 mg/0.5 mL 10 mg subcut .weekly 12/19/23 01/22/24 subcutaneous pen injector (Mounjaro) famotidine 20 mg tablet (Heartburn 20 mg PO DAILY 01/22/24 01/22/24 Prevention) Previous Rx's ?Medication ?Instructions ?Recorded docusate sodium 100 mg capsule 100 mg PO BID #14 caps 12/26/23 (Colace) Allergies Allergy/AdvReac Type Severity Reaction Status Date / Time adhesive tape Allergy Unknown Unknown Verified 01/22/24 17:10 naproxen (From Aleve) Allergy ill Verified 01/22/24 17:10 morphine AdvReac Unknown Verified 01/22/24 17:10 Review of Systems ROS Narrative All Systems are negative except as noted/marked.All systems reviewed and otherwise negative PFSH PFSH Social History Little interest or pleasure in doing things: not at all Feeling down, depressed, or hopeless: not at all Exam Narrative Exam Narrative: All Systems are negative except as noted/marked.All systems reviewed and otherwise negative Nurses note and vital signs reviewed and patient is not hypoxic. General: The patient appears well and in no apparent distress. Patient is resting comfortably on cart. Skin: Warm, dry, no pallor noted. There is no rash noted. Head: Normocephalic, atraumatic Eye: Normal conjunctiva, no drainage, EOMI. PERRL Ears, Nose, Mouth, and Throat: oral mucosa is moist. Nares patent. Mouth without vesicles. Ear canals patent. Tm's without Erythema Cardiovascular: Regular Rate and Rhythm Respiratory: patient is in no distress, no accessory muscle use, lungs are clear to auscultation, no wheezing, rales or rhonchi Back: non-tender, no CVA tenderness bilaterally to percussion. GI: abdominal incisions healing well, right upper quadrant tenderness, normal bowel sounds, no masses appreciated. No guarding, or rigidity noted. Musculoskeletal: The patient has no evidence of calf tenderness, no pitting edema, symmetrical pulses noted bilaterally Neurological: A&O x4, normal speech Psychiatric: Cooperative Constitutional Vital Signs, click to edit/add: Last Vital Signs Temp 97.8 F 01/22/24 16:00 Pulse 91 H 01/22/24 21:01 Resp 16 01/22/24 21:01 BP 108/64 01/22/24 21:01 Pulse Ox 94 L 01/22/24 21:01 O2 Del Method Room Air 01/22/24 21:01 Course Vital Signs Vital signs: Vital Signs Temperature 97.8 F 01/22/24 16:00 Pulse Rate 105 H 01/22/24 16:00 Respiratory Rate 22 H 01/22/24 16:00 Blood Pressure 123/69 01/22/24 16:00 Pulse Oximetry 96 01/22/24 16:00 Oxygen Delivery Method Room Air 01/22/24 16:00 Temperature 97.8 F 01/22/24 16:00 Pulse Rate 91 H 01/22/24 21:01 Respiratory Rate 16 01/22/24 21:01 Blood Pressure 108/64 01/22/24 21:01 Pulse Oximetry 94 L 01/22/24 21:01 Oxygen Delivery Method Room Air 01/22/24 21:01 MDM - Abdominal Pain MDM Narrative Medical decision making narrative: 58-year-old female presents here with a chief complaint of right upper quadrant pain and tenderness. Patient had been seen here in the hospital December 21 and transferred to [facility] in [place] for acute cholecystitis. She presents here today with right upper quadrant pain and tenderness. She also has nausea. She is a type I diabetic. She states her blood sugars at home with her insulin pump have been running normal she denies any known fevers. She has right upper quadrant pain upon arrival. On arrival to the emergency room IV was established and blood work was obtained. Patient was given IV fluids Zofran and requested pain medication. CT scan was also ordered. Initial blood work showed a increased WBC with 18,000 white count and shift. Lipase is also elevated at 2700. Patient had a recent cholecystectomy at [facility]. Patient's pain has been under control. She was medicated with 0.5 mg of Dilaudid. She was also medicated with Zosyn. 2134 surgeon on-call Dr. Coats who agrees to see the patient and asked the patient be transferred to the emergency room as the hospital is currently full. I then spoke to attending Dr. Stephenie Barrientos in the emergency room. She accepted the patient as well. Patient is stable at this time we are making arrangements for transfer. Transfer of care to Dr. gaitan Differential Diagnosis Differential diagnosis: Likely abdominal pain and acute appendicitis Medical Records Attestation: I reviewed the patient's medical records. Lab Data Attestation: I reviewed the patient's lab results. Labs: Lab Results 01/22/24 01/22/24 01/22/24 Range/Units 17:25 18:02 19:30 WBC 18.7 H (4.0-11.0) 10^3/uL RBC 4.71 (4.20-5.40) 10^6/uL Hgb 14.1 (12.0-16.0) g/dL Hct 42.2 (36.0-48.0) % MCV 89.6 (81.0-99.0) fL MCH 29.9 (26.7-34.0) pg MCHC 33.4 (29.9-35.2) g/dL RDW 15.0 (11.0-15.0) % Plt Count 132 L (150-450) 10^3/uL MPV 11.9 (9.5-13.5) fL Seg Neuts % (Manual) 90.0 H (43.0-75.0) Band Neutrophils % 3.0 (0-5) % Lymphocytes % (Manual) 5.0 L (20.5-60.0) % Monocytes % (Manual) 2.0 (1.7-12.0) % Eosinophils % (Manual) 0.0 L (0.9-7.0) % Basophils % (Manual) 0.0 L (0.2-2.0) % Neutrophils # (Manual) 16.83 H (1.4-6.5) 10^3/uL Band Neutrophils # 0.6 H (0.0-0.3) 10^3/uL Lymphocytes # (Manual) 0.93 L (1.20-3.80) 10^3/uL Monocytes # (Manual) 0.37 (0.30-0.80) 10^3/uL Eosinophils # (Manual) 0.00 (0.00-0.70) 10^3/uL Basophils # (Manual) 0.00 (0.00-0.10) 10^3/uL Sodium 143 (136-145) mmol/L Potassium 3.7 (3.5-5.1) mmol/L Chloride 107 (98-107) mmol/L Carbon Dioxide 22.8 (21.0-32.0) mmol/L Anion Gap 16.9 BUN 10.0 (7.0-18.0) mg/dL Creatinine 1.05 H (0.55-1.02) mg/dL Est GFR ( Amer) >60 (>=60 mL/min/1.73m^2) Est GFR (Non-Af Amer) 54 L (>=60 mL/min/1.73m^2) BUN/Creatinine Ratio 9.5 Glucose 174 H (74-106) mg/dL Lactate 2.7 H* 2.6 H* (0.4-2.0) mmol/L Calcium 10.0 (8.5-10.1) mg/dL Total Bilirubin 8.2 H (0.2-1.0) mg/dL AST 231 H (15-37) U/L ALT 131 H (14-59) U/L Alkaline Phosphatase 181 H (46-116) U/L Total Protein 6.9 (6.4-8.2) g/dL Albumin 3.0 L (3.4-5.0) g/dL Globulin 3.9 g/dL Albumin/Globulin Ratio 0.8 Lipase 2712.0 H* (16.0-77.0) U/L Urine Color Malcom A (YELLOW) Urine Clarity Clear (CLEAR) Urine pH Color interference A (5.0-9.0) Ur Specific [place] 1.025 (1.005-1.025) Urine Protein Color interference A (NEG/TRACE) mg/dL Urine Glucose (UA) Color interference A (NEGATIVE) mg/dL Urine Ketones Color interference A (NEGATIVE) mg/dL Urine Occult Blood Color interference A (NEGATIVE) Urine Nitrite Color interference A (NEGATIVE) Urine Bilirubin Color interference A (NEGATIVE) Urine Urobilinogen Color interference A (0.2-1.0) EU/dL Ur Leukocyte Esterase Color interference A (NEGATIVE) Urine RBC 2-5 A (0-2) #/HPF Urine WBC 2-5 A (NONE SEEN) #/HPF Ur Squamous Epith Cells Few A (NONE/RARE) #/LPF Urine Crystals None seen (None Seen) #/HPF Urine Bacteria Large A (NONE SEEN) #/HPF Urine Casts None seen (NONE SEEN) #/LPF Urine Mucus Trace A (NONE SEEN) Ur Culture Indicated? Yes Imaging Data CT scan - abdomen: Radiologist's impression: ITS Impressions Abdomen/Pelvis CT 01/22/24 17:30 IMPRESSION: 1. New soft tissue opacity with multiple small calcifications just inferior to the right lobe of liver. The appearance suggests likely spillage of gallstones during cholecystectomy with surrounding inflammation. 2. Cirrhotic liver with portal venous hypertension and large varices. Electronically authenticated by: OLIVIA ORTEGA Date: 01/22/2024 21:15 Discharge Plan Discharge Chief Complaint: Abdominal Pain Clinical Impression: Pancreatitis, Sepsis, Post-operative infection Patient Disposition: [facility] Time of Disposition Decision: 21:43 Condition: Good
[2024-01-22 19:37] VITALS: BP 108/70; PULSE 97; O2SAT 97
[2024-01-22] MEDS: PIPERACILLIN SODIUM/TAZOBACTAM 3.375 GM in 0.9 % SODIUM CHLORIDE 50 ML IV (19:52)
[2024-01-22] MEDS: HYDROMORPHONE HCL 1 MG/ML CARTRIDGE IV (20:17)
[2024-01-22 20:28] LABS: Lactate/Lactic Acid 2.6 mmol/L (0.4-2.0)
[2024-01-22 21:01] VITALS: BP 108/64; PULSE 91; O2SAT 94
--- NOTE | 2024-01-22 21:55 | PC.NURSE ---
Patient tearful. Aware of transfer and need to go by EMS
[2024-01-22 22:51] VITALS: BP 119/70; PULSE 91; TEMP 36.6; O2SAT 95
--- NOTE | 2024-01-23 00:01 | PC.NURSE ---
Report to William at [facility]
== END 2024-01-22 23:54 | disposition short-term general hospital (02) ==
PROVIDERS: Physician Assistant; Emergency Provider Emergency Medicine
DX: T81.44XA Sepsis following a procedure, initial encounter (principal); K85.90 Acute pancreatitis without necrosis or infection, unspecified; A41.9 Sepsis, unspecified organism; E10.9 Type 1 diabetes mellitus without complications; Z79.4 Long term (current) use of insulin; Z96.41 Presence of insulin pump (external) (internal); Z90.49 Acquired absence of other specified parts of digestive tract
CPT/HCPCS: 36415; 74177; 76700; 80053; 81001; 83605; 83690; 85007; 85027; 87040; 87086; 87150; 87186; 96365; 96375; 99285; J1171; J2405; J2543; Q9967